=== PATIENT | male | born 1950 | race Caucasian/White ===

== ENCOUNTER 2019-07-22 15:20 | Inpatient (IN) ==
[2019-07-22 15:59] LABS: Basophils # (auto) 0.01 K/uL (0-0.2); Basophils % (auto) 0.2 %; Eosinophils # (auto) 0.19 K/uL (0-0.5); Hematocrit (blood only) 42.4 % (42-52); Hemoglobin 14.5 g/dL (14.0-18.0); Immature Granulocytes # (auto) 0.01 K/uL (0.00-0.02); Immature Granulocytes % (auto) 0.2 %; Lymphocytes % (auto) 27.5 %; Mean Corpuscular Hgb Conc 34.2 g/dL (32-36); Mean Corpuscular Volume 93.6 fL (80-100); Mean Platelet Volume 9.9 fL (7.4-10.4); Monocytes # (auto) 0.42 K/uL (0.11-0.59); Monocytes % (auto) 8.9 %; Neutrophils # (auto) 2.79 K/uL (1.4-6.5); Neutrophils % (auto) 59.2 %; Platelet Count 211 K/uL (130-400); RDW Standard Deviation 44.5 fL (36.4-46.3); Red Blood Count 4.53 M/uL (4.7-6.1); White Blood Count 4.72 K/uL (4.8-10.8)
[2019-07-22] MEDS ORDERED: ONDANSETRON INJ 2 MG/ML 2 ML VIAL IV STA (16:01)
[2019-07-22] MEDS ORDERED: MECLIZINE HCL 25 MG TAB PO STA (16:01)
[2019-07-22] MEDS ORDERED: MAGNESIUM SULFATE / D5W 1 GM/100 ML BAG IV ONE (16:01)
[2019-07-22] MEDS ORDERED: SODIUM CHLORIDE 0.9% 1000ML 1,000 ML IV ONE ×2 (16:02→20:43)
--- NOTE | 2019-07-22 16:05 | CT Scan Report ---
CT head/brain wo con CLINICAL HISTORY: Strokelike symptoms. Visual difficulty. COMPARISON STUDY: 07/12/2018 TECHNIQUE: Axial CT of the brain is performed from the vertex to the skull base. IV contrast was not administered for this examination. A dose lowering technique was utilized adhering to the principles of ALARA. CT DOSE: 614.27 mGy.cm FINDINGS: No intra or extra-axial mass lesions are visualized. There is no CT evidence of acute cortical infarc tion. There is no evidence of midline shift. There is no acute hemorrhage. No calvarial fractures ar e visualized. There are patchy white matter hypodensities likely on a small vessel basis. There is an old left occi pital infarct. There is no evidence of pathologic ventricular dilatation. There is no evidence of acute sinusitis IMPRESSION: No acute intracranial findings Electronically signed by: Paul Collins M.D. 07/22/2019 4:04 PM
[2019-07-22 16:18] LABS: Partial Thromboplastin Ratio 0.9; Partial Thromboplastin Time 23.7 Seconds (21.0-31.0); Prothrombin Time 10.3 Seconds (9.0-12.0)
[2019-07-22 16:21] LABS: Alanine Aminotransferase 33 U/L (12-78); Albumin Level 4.1 gm/dl (3.4-5.0); Aspartate Aminotransferase 18 U/L (15-37); BUN Creatinine Ratio 16.4 (10-20); Blood Urea Nitrogen 22 mg/dl (7-18); Calcium 9.2 mg/dl (8.5-10.1); Carbon Dioxide 25 mmol/L (21-32); Chloride 107 mmol/L (98-107); Creatinine Clr Calc Pharmacy 59.7 ml/min; Est GFR (African American) 61.2; Est GFR (Non-African American) 52.8; Glucose 122 mg/dl (70-99); Magnesium 2.2 mg/dl (1.8-2.4); Potassium 4.3 mmol/L (3.5-5.1); Sodium 139 mmol/L (136-145)
--- NOTE | 2019-07-22 16:21 | XRay Report ---
XR chest 1V portable CLINICAL HISTORY: Blurred vision. COMPARISON STUDY: No previous studies for comparison. FINDINGS: The heart is normal in size. There is mild aortic tortuosity. There is slight prominence of the basilar markings, likely atelectatic. There is no failure. There are no pleural effusions.[ IMPRESSION: 1. Slightly prominent basilar markings, likely atelectatic. No evidence of failure. Electronically signed by: Paul Collins M.D. 07/22/2019 4:20 PM
[2019-07-22 16:26] LABS: Albumin Globulin Ratio 1.1 (0.9-2); Alkaline Phosphatase 62 U/L (45-117); Bilirubin,Total 0.6 mg/dl (0.2-1); Globulin 3.6 gm/dl (2.5-4.0); Total Protein 7.7 gm/dl (6.4-8.2); Troponin I < 0.015 ng/ml (0-0.045)
--- NOTE | 2019-07-22 18:11 | Magnetic Resonance Report ---
MRI OF THE BRAIN WITHOUT CONTRAST CLINICAL HISTORY: Blurred vision. Lightheadedness. Possible stroke. COMPARISON STUDY: 07-27, CT scan dated 07/22/2019 FINDINGS: Sagittal T1, axial diffusion, proton density and T2 weighted axial, coronal FLAIR, and axial T1-weigh laila images were acquired. No intra or extra-axial mass lesions are visualized There are areas of restricted water diffusion lateral to the left thalamus in the region of the alveu s and left inferior occipital frontal fasciculus. There is no evidence of ventricular dilatation. Proton density T2-weighted and FLAIR images reveal scattered foci of increased T2 signal within the w yudi matter, likely on a small vessel basis. There is an old left occipital lobe infarct There are no abnormal flow voids. IMPRESSION: 1. Acute left hemispheric infarct, abutting the lateral margin of the left thalamus. 2. Old left occipital lobe infarct 3. No evidence of intracranial mass on this noncontrast study Electronically signed by: Paul Collins M.D. 07/22/2019 6:09 PM
[2019-07-22] MEDS ORDERED: ASPIRIN 81 MG ECTAB PO STA (18:28)
--- NOTE | 2019-07-22 18:29 | History & Physical Report ---
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 Old left occipital lobe infarct. No evidence of intracranial mass on this noncontrast study Head CT:No acute intracranial findings Admit in Telemetry Unit Stroke work up including lipid panel, A1C, Neck CTA, ECHO Speech and swallow eval Continue plavix, Lipitor Added Aspirin 81 mg Neuro checks, Neurology consult PT/OT Allow permissive HTN in setting of acute CVA CKD III Baseline creatinine 1.5 Creatinine at baseline Monitor renal function Avoid nephrotoxic agents as able Hypertension Hold lisinopril, amlodipine Continue Coreg Monitor H/O Abdominal aortic aneurysm S/P Repair Continue home medications Dyslipidemia on Statin Former tobacco use disorder Quit smoking in 2006 GERD Continue PPI DVT Px: Heparin SQ Code Status Full Code Disposition: PT OT prior to discharge Expected discharge home in stable History of Present Illness Chief Complaint: Headache, Vision Problems Primary Care Provider: Kailash Bass MD Patient is a 68-year-old male with history of CVA, CKD III, hypertension, abdominal aortic aneurysm S/P Repair, dyslipidemia, former tobacco use disorder, GERD and other problems presents with history of headache, dizziness, balance issues, change in vision. Patient noticed to have frontal headache yesterday night and continued to have it this morning as well. He noticed having dizziness associated with change in vision which she describes as " fogginess" this morning at around 10:30 AM. Change in vision is greater in his right eye when compared to his left eye. He also noticed having balance issues while standing this morning which lasted for about few seconds as per patient. Currently while in ED he states that his symptoms resolved completely. He admits to driving to the hospital by himself. He reports taking his medications regularly. He denies any focal weakness, numbness, tingling, speech disturbance, trouble swallowing, head trauma, loss of consciousness. MRI suggestive of acute left hemispheric infarct, lateral margin of the left thalamus. Denies any history of chest pain, SOB, palpitations, orthopnea, pedal edema, diaphoresis, cough, fever, chills, fall, vertigo, facial deformity, double vision, bowel/bladder incontinence, nausea, vomiting, abdominal pain, diarrhea, dysuria, recent travel, sick contact, recent change in medications. Allergies Allergy/AdvReac Type Severity Reaction Status Date / Time ciprofloxacin Allergy Unknown Verified 07/22/19 17:06 Home Medications Home Medications Medication Instructions Recorded Confirmed Type amlodipine 10 mg PO QAM 07/11/18 07/22/19 History cholecalciferol (vitamin D3) 2,000 unit PO QAM 07/11/18 07/22/19 History [Vitamin D3] lisinopril 5 mg PO QAM 07/11/18 07/22/19 History atorvastatin 80 mg PO QAM 07/22/19 07/22/19 History carvedilol 3.125 mg PO BID 07/22/19 07/22/19 History clopidogrel 75 mg PO QAM 07/22/19 07/22/19 History duloxetine 60 mg PO QAM 07/22/19 07/22/19 History ezetimibe 10 mg PO QAM 07/22/19 07/22/19 History omega-3 fatty acids 500 mg PO QAM 07/22/19 07/22/19 History sildenafil (antihypertensive) 20 mg PO DAILY PRN 07/22/19 07/22/19 History Past Med/Surg History Medical History HTN (hypertension) (Chronic) HLD (hyperlipidemia) (Chronic) CKD (chronic kidney disease) stage 3, GFR 30-59 ml/min (Chronic) History of tobacco abuse (Chronic) GERD (gastroesophageal reflux disease) (Chronic) Surgical History History of hernia repair (Chronic) History of arthroscopy of both knees (Chronic) H/O neck surgery s/p Fusion of cervical vertebrae History of AAA (abdominal aortic aneurysm) repair 2008 Dr Gambino History of arthroscopy of right shoulder History of tonsillectomy and adenoidectomy Family History Father , in 70s Stroke Alcohol abuse Cirrhosis Mother Coronary heart disease Dementia Sister No significant family history Social History Preferred Language: [place] Communication Ability: Effective Site Identification Specialist Required: No Beliefs That Will Affect Care: None marital status: Current Living Situation: Spouse current occupational status: 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[place] at [employer]; of [employer] Feels Safe at Home: Yes Smoking Status: Former smoker Cigarettes Per Day: 15 ; Second Hand Exposure: No ; Hx Alcohol Use: Yes Alcohol type: beer and wine Alcohol Intake Frequency Comment: Rare Hx Substance Use: No Review of Systems Review of Systems: All systems reviewed & are unremarkable except as noted in HPI & below Physical Exam Physical Exam: Physical Exam: Vitals signs as noted above General Appearance:Moderately built and nourished, no apparent distress Head: normocephalic, Atraumatic Eyes: normal inspection, EOMI, PERRL Neck: supple, Trachea midline Respiratory/Chest: Normal breath sounds, CTA, No accessory muscle use Cardiovascular: S1, S2, No murmur Abdomen/GI:Soft, Non tender, Bowel sounds present Extremities/Musculoskelatal:normal inspection, no edema Neurologic/Psych:AAOX3, No focal weakness, sensory intact, No memory issues Skin: normal color, warm Results & Data Vital Signs (Past 12 Hours) Vital Signs Temp Pulse Pulse Resp BP BP Pulse Ox 07/22/19 17:20 88 16 142/81 H 97 07/22/19 15:31 36.6 C 93 H 20 128/75 97 Laboratory Results Short CBC 07/22/19 Range/Units 15:51 WBC 4.72 L (4.8-10.8) K/uL Hgb 14.5 (14.0-18.0) g/dL Hct 42.4 (42-52) % Plt Count 211 (130-400) K/uL BMP 07/22/19 15:51 Sodium 139 Potassium 4.3 Chloride 107 Carbon Dioxide 25 BUN 22 H Creatinine 1.35 Glucose 122 H Calcium 9.2 Cardiac Enzymes 07/22/19 Range/Units 15:51 Troponin I < 0.015 (0-0.045) ng/ml Liver Function 07/22/19 Range/Units 15:51 Total Bilirubin 0.6 (0.2-1) mg/dl AST 18 (15-37) U/L ALT 33 (12-78) U/L Alkaline Phosphatase 62 (45-117) U/L Albumin 4.1 (3.4-5.0) gm/dl Diagnostic Findings MRI brain 1. Acute left hemispheric infarct, abutting the lateral margin of the left thalamus. 2. Old left occipital lobe infarct 3. No evidence of intracranial mass on this noncontrast study CT head: No acute intracranial findings CXR: Slightly prominent basilar markings, likely atelectatic. No evidence of failure Medications Administered Home Medications Medication Instructions Recorded Confirmed amlodipine 10 mg PO QAM 07/11/18 07/22/19 cholecalciferol (vitamin D3) 2,000 unit PO QAM 07/11/18 07/22/19 [Vitamin D3] lisinopril 5 mg PO QAM 07/11/18 07/22/19 atorvastatin 80 mg PO QAM 07/22/19 07/22/19 carvedilol 3.125 mg PO BID 07/22/19 07/22/19 clopidogrel 75 mg PO QAM 07/22/19 07/22/19 duloxetine 60 mg PO QAM 07/22/19 07/22/19 ezetimibe 10 mg PO QAM 07/22/19 07/22/19 omega-3 fatty acids 500 mg PO QAM 07/22/19 07/22/19 sildenafil (antihypertensive) 20 mg PO DAILY PRN 07/22/19 07/22/19 ECG Additional Comments: EKG: Sinus rhythm with first-degree AV block, QTC 412
[2019-07-22] MEDS ORDERED: POLYETHYLENE (MIRALAX) 17 GM PACK PO PRN (20:43)
[2019-07-22] MEDS ORDERED: PHARMACIST DISCHARGE MED REC CONSULT PRN (20:43)
[2019-07-22] MEDS ORDERED: ONDANSETRON INJ 2 MG/ML 2 ML VIAL IV PRN (20:43)
[2019-07-22] MEDS ORDERED: ACETAMINOPHEN 325 MG TAB PO PRN (20:43)
[2019-07-22] MEDS: carvediloL 3.125 MG TAB PO SCH (22:20)
[2019-07-22] MEDS: HEPARIN SOD 5,000 UNIT/0.5 ML VIAL SQ SCH (22:21)
[2019-07-23 07:05] LABS: Basophils # (auto) 0.01 K/uL (0-0.2); Basophils % (auto) 0.2 %; Eosinophils # (auto) 0.19 K/uL (0-0.5); Eosinophils % (auto) 4.4 %; Hematocrit (blood only) 39.1 % (42-52); Hemoglobin 13.4 g/dL (14.0-18.0); Lymphocytes # (auto) 1.19 K/uL (1.2-3.4); Lymphocytes % (auto) 27.8 %; Mean Corpuscular Hemoglobin 32.1 pg (25-34); Mean Corpuscular Hgb Conc 34.3 g/dL (32-36); Mean Corpuscular Volume 93.8 fL (80-100); Monocytes # (auto) 0.36 K/uL (0.11-0.59); Monocytes % (auto) 8.4 %; Neutrophils # (auto) 2.53 K/uL (1.4-6.5); Neutrophils % (auto) 59.2 %; Platelet Count 203 K/uL (130-400); RDW Standard Deviation 44.8 fL (36.4-46.3); Red Blood Count 4.17 M/uL (4.7-6.1); White Blood Count 4.28 K/uL (4.8-10.8)
[2019-07-23 07:17] LABS: Estimated Average Glucose 131 mg/dl; Hemoglobin A1C 6.2 % (4.5-5.6)
[2019-07-23 07:36] LABS: BUN Creatinine Ratio 15.9 (10-20); Calcium 8.6 mg/dl (8.5-10.1); Creatinine Clr Calc Pharmacy 64.4 ml/min; Est GFR (African American) 67.2; Potassium 4.3 mmol/L (3.5-5.1)
[2019-07-23] MEDS: carvediloL 3.125 MG TAB PO SCH (08:39)
[2019-07-23] MEDS: HEPARIN SOD 5,000 UNIT/0.5 ML VIAL SQ SCH (08:40)
[2019-07-23] MEDS ORDERED: ASPIRIN 81 MG ECTAB PO SCH (09:00)
[2019-07-23] MEDS ORDERED: DULOXETINE HCL 60 MG CAP PO SCH (09:00)
[2019-07-23] MEDS ORDERED: ATORVASTATIN 40 MG TAB PO SCH (09:00)
[2019-07-23] MEDS ORDERED: CLOPIDOGREL BISULFATE 75 MG TAB PO SCH (09:00)
[2019-07-23] MEDS ORDERED: EZETIMIBE 10 MG TABLET PO SCH (09:00)
[2019-07-23] MEDS ORDERED: OPTIRAY 320 125ml IV PRN (09:38)
--- NOTE | 2019-07-23 10:02 | CT Scan Report ---
CT angio neck with con HISTORY: Atherosclerosis CVA, H/O carotid a disease TECHNIQUE: Multiaxial CT angiography of the neck was performed IV contrast: 100 cc nonionic All tanya urements were calculated based on NASCET criteria. Maximum intensity projection images were also obt ained. A dose lowering technique was utilized adhering to the principles of ALARA. COMPARISON STUDY: 07/12/2018 FINDINGS: The aortic arch and proximal great vessels are widely patent. There is no significant sten osis, occlusion, or dissection identified within the bilateral common carotid, internal carotid, or v ertebral arteries. There are findings of scattered plaque formation involving the carotid bifurcation s and proximal internal as well as external carotid arteries. High-grade stenotic process is not appreciated. The vertebral basilar system appears to be unremarkable. Moderate plaque measures noted within the me dial right subclavian artery. IMPRESSION: 1. No significant stenosis, occlusion, or dissection identified within the carotid or vertebral arter ies. 2. Mild scattered plaque formation of the carotid systems as discussed including the right subclavian artery. The above report was generated using voice recognition software. It may contain grammatical, syntax or spelling errors. Electronically signed by: Braulio Hernandez M.D. 07/23/2019 10:00 AM
--- NOTE | 2019-07-23 14:17 | Neurology Consultation ---
Date of Consultation July 23, 2019 Assessment & Plan (1) CVA (cerebral vascular accident): 1. MRI acute left hemispheric infarct L thalamus, old L occipital infarct 2. TTE- EF 55-60% no ASD 3. continue plavix 75 mg and add aspirin 81 mg daily 4. optimize HLD, HTN, DM LDL <70 5. out patient ZIO after last admission no afib 6. PT/OT speech no current needs 7. out patient vascular work up scheduled in [place] 1 year follow up for aorotic aneurysm repair. follow up with neurology 4-6 weeks after discharge Kaylyn Storm PAC schedule. Supervising Physician Co-Signing Physician Notes Patient was seen and examined. Agree with Kaylyn Storm PA-C. Patient sitting upright in bed. Reports feeling well. States positional dizziness has resolved. 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 MRI brain reviewed with patient and family. Small left thalamic infarct. Etiology likely thrombotic. Patient with known coronary artery disease and prior smoker. Will add ASA and continue Plavix 75 mg daily. Will continue Lipitor 80 mg daily. Will check Sed rate and ANCA. He reports that he was diagnosed with COOPER but not using CPAP. I will refer patient to sleep medicine. Will arrange follow up in 4- 6 weeks with Kaylyn Storm PA-C. Patient agreed to plan of care and had no further questions. History of Present Illness Reason for Consultation: CVA Requesting Physician: Roque Zamudio MD Attending Physician: Roque Zamudio MD History of Present Illness Dawit is a 68 year old male with PMH CVA, CKD III, HTN, abdominal aortic aneurysm S/P Repair, HLD, former tobacco use quit 11 years ago, GERD. Presents with headache, dizziness, balance issues. He had a frontal headache that started the night prior to presentation. In the am he had some dizziness associated with " fogginess" at around 10:30 AM. He also noticed having balance issues while standing in the morning which lasted for about few seconds as per patient. He drove himself to the hospital and by the time he arrived the symptoms had resolved. He is now on statins which he states gives him leg pains. His PCP gave him Cymbalta for the leg pain but it makes him tired. He was seen 07/18/2018 after an episode of loss of vision while he was driving. At that time he was told to stop aspirin 81 mg and start 75 mg plavix which he is still taking. denies CP, SOB, abdominal pain, one sided weakness, numbness tingling, vision changes, bowel or bladder issues, N, V. Allergies Allergy/AdvReac Type Severity Reaction Status Date / Time ciprofloxacin Allergy Unknown Verified 07/22/19 17:06 Home Medications Home Medications Medication Instructions Recorded Confirmed Type amlodipine 10 mg PO QAM 07/11/18 07/22/19 History cholecalciferol (vitamin D3) 2,000 unit PO QAM 07/11/18 07/22/19 History [Vitamin D3] lisinopril 5 mg PO QAM 07/11/18 07/22/19 History atorvastatin 80 mg PO QAM 07/22/19 07/22/19 History carvedilol 3.125 mg PO BID 07/22/19 07/22/19 History clopidogrel 75 mg PO QAM 07/22/19 07/22/19 History duloxetine 60 mg PO QAM 07/22/19 07/22/19 History ezetimibe 10 mg PO QAM 07/22/19 07/22/19 History omega-3 fatty acids 500 mg PO QAM 07/22/19 07/22/19 History sildenafil (antihypertensive) 20 mg PO DAILY PRN 07/22/19 07/22/19 History aspirin [Ecotrin Low Strength] 81 mg PO QAM 30 Days #30 tab 07/23/19 Rx Patient History Medical History HTN (hypertension) (Chronic) HLD (hyperlipidemia) (Chronic) CKD (chronic kidney disease) stage 3, GFR 30-59 ml/min (Chronic) History of tobacco abuse (Chronic) GERD (gastroesophageal reflux disease) (Chronic) Surgical History History of hernia repair (Chronic) History of arthroscopy of both knees (Chronic) H/O neck surgery s/p Fusion of cervical vertebrae History of AAA (abdominal aortic aneurysm) repair 2008 Dr Gambino History of arthroscopy of right shoulder History of tonsillectomy and adenoidectomy Family History Father , in 70s Stroke Alcohol abuse Cirrhosis Mother Coronary heart disease Dementia Sister No significant family history Social History Preferred Language: Montenegrin Communication Ability: Effective Tip Puncher Required: No Beliefs That Will Affect Care: None marital status: Current Living Situation: Spouse current occupational status: 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[place] at [employer]; of [employer] Other Information That Helps Us Care for You: No Feels Safe at Home: Yes Safety Concerns: Feels Safe At This Time Smoking Status: Former smoker Cigarettes Per Day: 15 ; Do You Dip or Chew Tobacco: No ; Second Hand Exposure: No ; Hx Alcohol Use: No Hx Substance Use: No Physical Exam Physical Exam: Physical Exam: Constitutional: appearance nourished, healthy and normal Ears, Nose, Mouth and Throat: mucous membranes moist, no injection and skin normal, eyes normal Cardiovascular: normal S-1 and S-2 and regular rate and rhythm Respiratory: clear to auscultation (CTA) and no rales, rhonchi or wheeze Musculoskeletal: no peripheral edema and good distal pulses Skin: no stigmata of neurocutaneous disease noted and normal and intact Eyes: extraocular muscles intact (EOMI) and pupils equal, round and reactive to light (PERRL) NEUROLOGIC EXAMINATION: Mental status: Alert and interactive Oriented to full date and location Oriented to person Speech fluent with no evidence of aphasia Cranial Nerves smile eye brow raise symmetric, tongue midline Reflexes: Deep tendon reflexes were symmetrical and graded 2/5. down going toes Sensory: intact to light and cool touch Coordination: finger to nose and rapid hand movement intact, no dysmetria with heel to godwin Gait/Stance: Posture normal. sitting up in bed Motor: Negative for pronator drift of out stretched arms with eyes closed. Strength: biceps triceps, hand interior design coordinator 5/5 bilaterally, hip flex patellar/plantar flex ext bilaterally 5/5 Results & Data Vital Signs (Past 12 Hours) Vital Signs Temp Pulse Pulse Resp BP Pulse Ox 07/23/19 11:04 36.9 C 66 18 159/71 H 95 07/23/19 08:00 61 07/23/19 07:53 36.6 C 63 20 144/73 H 97 07/23/19 03:41 36.5 C 63 18 114/66 94 Laboratory Results Abnormal lab results 07/22/19 07/22/19 07/22/19 Range/Units 15:48 15:51 15:51 WBC 4.72 L (4.8-10.8) K/uL RBC 4.53 L (4.7-6.1) M/uL Hgb (14.0-18.0) g/dL Hct (42-52) % Lymph # (Auto) (1.2-3.4) K/uL Chloride (98-107) mmol/L BUN 22 H (7-18) mg/dl Glucose 122 H (70-99) mg/dl POC Glucose 108 H (70-99) Hemoglobin A1c (4.5-5.6) % 07/22/19 07/23/19 07/23/19 Range/Units 15:51 06:48 06:48 WBC 4.28 L (4.8-10.8) K/uL RBC 4.17 L (4.7-6.1) M/uL Hgb 13.4 L (14.0-18.0) g/dL Hct 39.1 L (42-52) % Lymph # (Auto) 1.19 L (1.2-3.4) K/uL Chloride 110 H (98-107) mmol/L BUN 20 H (7-18) mg/dl Glucose (70-99) mg/dl POC Glucose (70-99) Hemoglobin A1c 6.2 H (4.5-5.6) % Diagnostic Findings CT head- No acute intracranial findings CXR- Slightly prominent basilar markings, likely atelectatic. No evidence of failure. MRI brain- Acute left hemispheric infarct, abutting the lateral margin of the left thalamus. Old left occipital lobe infarct No evidence of intracranial mass on this noncontrast study CTA neck-No significant stenosis, occlusion, or dissection identified within the carotid or vertebral arteries. Mild scattered plaque formation of the carotid systems as discussed including the right subclavian artery. EF 55-60 % no ASD
--- NOTE | 2019-07-23 14:59 | Hospitalist Progress Note ---
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 Old left occipital lobe infarct. No evidence of intracranial mass on this noncontrast study Head CT:No acute intracranial findings Neck CTA:No significant stenosis, occlusion, or dissection identified within the carotid or vertebral arteries. Mild scattered plaque formation of the carotid systems as discussed including the right subclavian artery. Monitor in Telemetry Lipid panel: wnl HbA1C:6.2 ECHO: No ASD Speech and swallow eval done Continue Plavix, Lipitor Added Aspirin 81 mg Neuro checks Appreciate Neurology Input PT/OT: Recommend return home Allow permissive HTN in setting of acute CVA Sleep study as outpatient ESR and ANCA Screen:pending CKD III Baseline creatinine 1.5 Creatinine at baseline Monitor renal function Avoid nephrotoxic agents as able Hypertension Resume lisinopril, amlodipine as able Continue Coreg Monitor H/O Abdominal aortic aneurysm S/P Repair Continue home medications Dyslipidemia on Statin Former tobacco use disorder Quit smoking in 2006 GERD Continue PPI DVT Px: Heparin SQ Code Status Full Code Disposition: Plan to home as able Subjective Patient is seen and examined at bedside Reports minimal frontal headache today Denies any recurrence of visual problems Denies any focal weakness Offers no other complaints Denies any chest pain, shortness of breath, dizziness, nausea, abdominal pain Eager to get discharged Family at bedside Review of Systems Review of Systems: All systems reviewed & are unremarkable except as noted in HPI & below Physical Exam Physical Exam: Physical Exam: Vitals signs as noted above General Appearance:Moderately built and nourished, no apparent distress Head: normocephalic, Atraumatic Eyes: normal inspection, EOMI, PERRL Neck: supple, Trachea midline Respiratory/Chest: Normal breath sounds, CTA, No accessory muscle use Cardiovascular: S1, S2, No murmur Abdomen/GI:Soft, Non tender, Bowel sounds present Extremities/Musculoskelatal:normal inspection, no edema Neurologic/Psych:AAOX3, No focal weakness, sensory intact, No memory issues Skin: normal color, warm Results & Data Vital Signs (Past 12 Hours) Vital Signs Temp Pulse Pulse Resp BP Pulse Ox 07/23/19 11:04 36.9 C 66 18 159/71 H 95 07/23/19 08:00 61 07/23/19 07:53 36.6 C 63 20 144/73 H 97 07/23/19 03:41 36.5 C 63 18 114/66 94 Laboratory Results Short CBC 07/22/19 07/23/19 Range/Units 15:51 06:48 WBC 4.72 L 4.28 L (4.8-10.8) K/uL Hgb 14.5 13.4 L (14.0-18.0) g/dL Hct 42.4 39.1 L (42-52) % Plt Count 211 203 (130-400) K/uL BMP 07/22/19 07/23/19 15:51 06:48 Sodium 139 141 Potassium 4.3 4.3 Chloride 107 110 H Carbon Dioxide 25 27 BUN 22 H 20 H Creatinine 1.35 1.25 Glucose 122 H 90 Calcium 9.2 8.6 Cardiac Enzymes 07/22/19 Range/Units 15:51 Troponin I < 0.015 (0-0.045) ng/ml Liver Function 07/22/19 Range/Units 15:51 Total Bilirubin 0.6 (0.2-1) mg/dl AST 18 (15-37) U/L ALT 33 (12-78) U/L Alkaline Phosphatase 62 (45-117) U/L Albumin 4.1 (3.4-5.0) gm/dl Diagnostic Findings Neck CTA: 1. No significant stenosis, occlusion, or dissection identified within the carotid or vertebral arteries. 2. Mild scattered plaque formation of the carotid systems as discussed including the right subclavian artery.
[2019-07-23 15:59] VITALS: BP 157/75; PULSE 70; TEMP 98.1; O2SAT 94
[2019-07-23] MEDS ORDERED: STROKE PATIENT DISCHARGE STA (15:59)
--- NOTE | 2019-07-23 15:59 | Discharge Summary ---
Date of Service July 23, 2019 Admission HPI Per Admitting Provider Patient is a 68-year-old male with history of CVA, CKD III, hypertension, abdominal aortic aneurysm S/P Repair, dyslipidemia, former tobacco use disorder, GERD and other problems presents with history of headache, dizziness, balance issues, change in vision. Patient noticed to have frontal headache yesterday night and continued to have it this morning as well. He noticed having dizziness associated with change in vision which she describes as " fogginess" this morning at around 10:30 AM. Change in vision is greater in his right eye when compared to his left eye. He also noticed having balance issues while standing this morning which lasted for about few seconds as per patient. Currently while in ED he states that his symptoms resolved completely. He admits to driving to the hospital by himself. He reports taking his medications regularly. He denies any focal weakness, numbness, tingling, speech disturbance, trouble swallowing, head trauma, loss of consciousness. MRI suggestive of acute left hemispheric infarct, lateral margin of the left thalamus. Denies any history of chest pain, SOB, palpitations, orthopnea, pedal edema, diaphoresis, cough, fever, chills, fall, vertigo, facial deformity, double vision, bowel/bladder incontinence, nausea, vomiting, abdominal pain, diarrhea, dysuria, recent travel, sick contact, recent change in medications. Admission Exam Per Admitting Provider Physical Exam: Vitals signs as noted above General Appearance:Moderately built and nourished, no apparent distress Head: normocephalic, Atraumatic Eyes: normal inspection, EOMI, PERRL Neck: supple, Trachea midline Respiratory/Chest: Normal breath sounds, CTA, No accessory muscle use Cardiovascular: S1, S2, No murmur Abdomen/GI:Soft, Non tender, Bowel sounds present Extremities/Musculoskelatal:normal inspection, no edema Neurologic/Psych:AAOX3, No focal weakness, sensory intact, No memory issues Skin: normal color, warm Principal Diagnosis Acute CVA Discharge Data Allergies Allergy/AdvReac Type Severity Reaction Status Date / Time ciprofloxacin Allergy Unknown Verified 07/22/19 17:06 Consultations 07/22/19 18:27 ED Decision to Admit Stat 07/22/19 20:43 Consult Case Management - Discharge Planning Routine Consult Neurology Routine Procedures Performed MRI Brain:Acute left hemispheric infarct, abutting the lateral margin of the left thalamus. Old left occipital lobe infarct. No evidence of intracranial mass on this noncontrast study Head CT:No acute intracranial findings Neck CTA:No significant stenosis, occlusion, or dissection identified within the carotid or vertebral arteries. Mild scattered plaque formation of the carotid systems as discussed including the right subclavian artery. CXR:Slightly prominent basilar markings, likely atelectatic. No evidence of failure. Ordered Studies 07/22/19 15:47 CT head/brain wo con Stat 07/22/19 16:30 MR brain wo con Stat 07/23/19 08:00 CT angio neck with con Routine Hospital Course (1) CVA (cerebral vascular accident): Acute CVA: Not a candidate for tPA- Passed the window period H/O left [employer] stroke, bilateral carotid artery disease MRI Brain:Acute left hemispheric infarct, abutting the lateral margin of the left thalamus. Old left occipital lobe infarct. No evidence of intracranial mass on this noncontrast study Head CT:No acute intracranial findings Neck CTA:No significant stenosis, occlusion, or dissection identified within the carotid or vertebral arteries. Mild scattered plaque formation of the carotid systems as discussed including the right subclavian artery. Monitor in Telemetry Lipid panel: wnl HbA1C:6.2 ECHO: No ASD Speech and swallow eval done Continue Plavix, Lipitor Added Aspirin 81 mg Neuro checks Appreciate Neurology Input PT/OT: Recommend return home Allow permissive HTN in setting of acute CVA Sleep study as outpatient ESR and ANCA Screen:pending CKD III Baseline creatinine 1.5 Creatinine at baseline Monitor renal function Avoid nephrotoxic agents as able Hypertension Resume lisinopril, amlodipine as able Continue Coreg Monitor H/O Abdominal aortic aneurysm S/P Repair Continue home medications Dyslipidemia on Statin Former tobacco use disorder Quit smoking in 2006 GERD Continue PPI DVT Px: Heparin SQ Code Status Full Code Disposition: Plan to home as able Total Time Total Time Spent Total Time Spent (In Minutes): 40 minutes Total Time Includes: Examination of the Patient, Discharge Planning, Medication Reconciliation, Communication With Other Providers and Other Discharge Plan Discharge Items Patient Disposition: Home - Self-Care Reason For Visit: ACUTE CVA Discharge Diagnosis: Acute Stroke Activity: Resume your previous activity Exercise/Sports: Gradually increase as tolerated Non-emergency contact: Primary Care Provider and Neurologist Call non-emergency contact if: you have any medication questions, your symptoms worsen, your pain is not controlled, your pain is worsening, your pain is unusual for you, your pain is concerning for you and you have a fever Follow-up/Referrals: Kailash Bass MD [Primary Care Provider] - Diet: Heart Healthy Addtl Attending Provider Instructions: Follow-up with your primary care physician Dr. Bass on July 30, 2019 at 10:45 AM Follow-up with your urologist Kaylyn Storm PA-C in 2-4 weeks Follow-up with your vascular surgeon in [facility] for follow-up on aortic aneurysm repair Get Sleep Study done as outpatient as recommended by your Neurologist Seek immediate medical attention if your symptoms reoccur or worsen Risk Factors for Stroke: You can reduce your chances of stroke by working with your medical provider to adopt a healthy lifestyle. Some specific ways to lower your chance of stroke are: * If you are a smoker, now is the time to stop smoking cigarettes * If you are diabetic, improve the control of your blood sugars * Avoid excessive amounts of alcohol * Control high blood pressure * Lose weight if you are overweight * Be sure to lead an active lifestyle * Eat a healthy diet low in salt, cholesterol and fat You should know about other risk factors for stroke that you are unable to control. These include: * Age 55 years or older * Male gender * Certain racial groups: , or / * Family History of Stroke, Mini stroke or Heart Attack * Sickle Cell Disease Follow Up: It is important for you to keep your follow up appointments with your medical provider. Who to Call and When: Medical Emergencies: Call 911 immediately if you experience any of the following warning signs and symptoms of Stroke: * Sudden numbness or weakness of the face, arm or leg, especially on one side of the body * Sudden confusion, trouble speaking or understanding * Sudden trouble seeing in one or both eyes * Sudden trouble walking, dizziness, loss of balance or coordination * Sudden severe headache with no cause Do not delay calling 911 if you experience any warning signs or symptoms of a stroke. Delay in seeking medical attention may affect what treatments can be given to you. . Pending Studies at Discharge: Yes Studies:: ESR ANCA screen Stand-Alone Forms: Medications to Prevent Stroke, [facility] Medications and DC Order Prescriptions: New aspirin [Ecotrin Low Strength] 81 mg Tablet,Delayed Release (Dr/Ec) 81 mg PO QAM 30 Days Qty: 30 RF: 1 Continued amlodipine 10 mg tablet 10 mg PO QAM RF: 0 lisinopril 5 mg tablet 5 mg PO QAM RF: 0 cholecalciferol (vitamin D3) [Vitamin D3] 2,000 unit Tablet 2,000 unit PO QAM RF: 0 atorvastatin 80 mg tablet 80 mg PO QAM RF: 0 clopidogrel 75 mg tablet 75 mg PO QAM RF: 0 carvedilol 3.125 mg tablet 3.125 mg PO BID RF: 0 ezetimibe 10 mg tablet 10 mg PO QAM RF: 0 duloxetine 60 mg capsule,delayed release(DR/EC) 60 mg PO QAM RF: 0 sildenafil (antihypertensive) 20 mg tablet 20 mg PO DAILY PRN (Reason: Relations) RF: 0 omega-3 fatty acids 500 mg Capsule 500 mg PO QAM RF: 0 Discharge Orders: Discharge Order (Routine); Ordered 07/23/19 Ordered By: Roque Acevedo/Other Patient Handouts: Prediabetes, Diabetes Meal Planning Admission Data Admit Date/Time: 07/22/19 19:08 Attending Provider: Roque Zamudio Admit Provider: Roque Zamudio Primary Care Provider: Kailash Bass Other Providers: Roque Zamudio ; Andrew Wellington Other Interventions: Discharge Summary Assessment (RN) Last Done: 07/23/19 16:12 DC Date/Time DO NOT enter until pt leaves facility: 07/23/19 16:45
--- NOTE | 2019-07-23 17:26 | Pharmacy Report ---
Pharmacist Stroke Counseling - Date of Service July 23, 2019 - Scope: Pharmacy has been consulted to provide medication discharge counseling for this patient admitted with ischemic stroke as per the Pharmacist Discharge Counseling for Stroke Patients Protocol. - Medications on Discharge: Home Medications Medication Instructions Recorded Confirmed amlodipine 10 mg PO QAM 07/11/18 07/22/19 cholecalciferol (vitamin D3) 2,000 unit PO QAM 07/11/18 07/22/19 [Vitamin D3] lisinopril 5 mg PO QAM 07/11/18 07/22/19 atorvastatin 80 mg PO QAM 07/22/19 07/22/19 carvedilol 3.125 mg PO BID 07/22/19 07/22/19 clopidogrel 75 mg PO QAM 07/22/19 07/22/19 duloxetine 60 mg PO QAM 07/22/19 07/22/19 ezetimibe 10 mg PO QAM 07/22/19 07/22/19 omega-3 fatty acids 500 mg PO QAM 07/22/19 07/22/19 sildenafil (antihypertensive) 20 mg PO DAILY PRN 07/22/19 07/22/19 New Rx's Medication Instructions Recorded aspirin [Ecotrin Low Strength] 81 mg PO QAM 30 Days #30 tab 07/23/19 - Action: The above medications, specifically ones for stroke treatment/prophylaxis, have been reviewed in detail with the patient and/or patient sales representative jewelry(s) prior to discharge. This includes indication, common adverse reactions, drug interactions, and medication administration. Medication counseling has been employed using the teach-back method to ensure understanding. - Outcome: The patient and/or patient sales representative jewelry(s) have demonstrated understanding of the medications. Please note, they are aware that the pharmacist will call them within 72 hours post-discharge to confirm that the appropriate medications are being taken and answer any further medication related questions the patient might have at that time. Contact information Individual to be contacted: Dawit Goetz Relationship to patient (if applicable): Self Phone number: [phone] Best time to call: After 9:00 AM Additional comments: * Met with patient and at bedside prior to discharge. This is actually his 2nd stroke; previous one was in 2018 when Plavix was started. * He reports good adherence with medications, LDL = 50, and he denies smoking (quit 11 years ago). He is going to be evaluated for potential sleep apnea. He seems knowledgeable about his medications and uses a pillbox to organize. * He is aware to add aspirin 81mg to his daily Plavix. If insurance does not pay, he will buy OTC - recommended enteric coated. * Takes Cymbalta 60mg qAM for neuropathy - he is going to talk to his PCP about decr' dose to 30mg because he thinks 60mg is making him too sleepy and pain control was adequate with 30mg. He is also going to switch to HS dosing due to AM sedation * Recommend that he discuss need for fish oil again with PCP now that he is on dual anti-platelet therapy. Explain incr' risk for bleeding and lack of evidence to clinical benefits. He agrees to do this. * Previously took omeprazole - now takes "prn" GERD, but has not used for ~1 year. Explained risk for omeprazole to dec'r Plavix efficacy, which may incr' risk for recurrent stroke. He agrees to discard omeprazole and use Tums or Gaviscon prn instead. Thank you for allowing pharmacy to be involved in the care of this patient. Please call [phone] or [phone] with any additional questions
--- NOTE | 2019-07-24 00:34 | Emergency Department Note ---
Entered by Soledad Valadez acting as a scribe for Brody Alas MD History of Present Illness General Chief complaint: Eye Problems Stated complaint: DIZZY - BLURRY EYES Time Seen by Provider: 07/22/19 15:43 Source: patient Mode of arrival: ambulatory Limitations: no limitations History of Present Illness Onset (ago): hour(s) 6 Location: eyes (bilateral) Radiation: non-radiation Pain Consistency: + constant Maximum Pain Intensity: 2 Current Pain Intensity: 2 Relieved By: + none Exacerbated By: + none Associated symptoms: + other (+dizziness) Treatments prior to arrival: none The patient is a 68 year old male who presents to the ED with complaints of blurry vision. He states it is worse in his right eye and started upon waking this morning, around 0945. He rates his discomfort as a 2/10 in severity. He notes he felt dizzy yesterday, and still feels off balance currently. The di zziness is worsened by standing up. The patient admits to a history of a stroke last year and states his symptoms are similar to his stroke. He does take daily medication for hypertension as well as daily Plavix. Nursing states his BSG is 108. Home Medications Home Medications Medication Instructions Recorded Confirmed Type amlodipine 10 mg PO QAM 07/11/18 07/22/19 History cholecalciferol (vitamin D3) 2,000 unit PO QAM 07/11/18 07/22/19 History [Vitamin D3] lisinopril 5 mg PO QAM 07/11/18 07/22/19 History atorvastatin 80 mg PO QAM 07/22/19 07/22/19 History carvedilol 3.125 mg PO BID 07/22/19 07/22/19 History clopidogrel 75 mg PO QAM 07/22/19 07/22/19 History duloxetine 60 mg PO QAM 07/22/19 07/22/19 History ezetimibe 10 mg PO QAM 07/22/19 07/22/19 History omega-3 fatty acids 500 mg PO QAM 07/22/19 07/22/19 History sildenafil (antihypertensive) 20 mg PO DAILY PRN 07/22/19 07/22/19 History aspirin [Ecotrin Low Strength] 81 mg PO QAM 30 Days #30 tab 07/23/19 Rx Allergies Allergy/AdvReac Type Severity Reaction Status Date / Time ciprofloxacin Allergy Unknown Verified 07/22/19 17:06 Past Med/Surg History Medical History HTN (hypertension) (Chronic) HLD (hyperlipidemia) (Chronic) CKD (chronic kidney disease) stage 3, GFR 30-59 ml/min (Chronic) History of tobacco abuse (Chronic) GERD (gastroesophageal reflux disease) (Chronic) Surgical History History of hernia repair (Chronic) History of arthroscopy of both knees (Chronic) H/O neck surgery s/p Fusion of cervical vertebrae History of AAA (abdominal aortic aneurysm) repair 2008 Dr Gambino History of arthroscopy of right shoulder History of tonsillectomy and adenoidectomy Family History Father , in 70s Stroke Alcohol abuse Cirrhosis Mother Coronary heart disease Dementia Sister No significant family history Social History Preferred Language: Macanese Communication Ability: Effective Marketing Content Coordinator Required: No Beliefs That Will Affect Care: None marital status: Current Living Situation: Spouse current occupational status: 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[employer]; [place] [employer] Other Information That Helps Us Care for You: No Feels Safe at Home: Yes Safety Concerns: Feels Safe At This Time Smoking Status: Former smoker Cigarettes Per Day: 15 ; Do You Dip or Chew Tobacco: No ; Second Hand Exposure: No ; Hx Alcohol Use: No Hx Substance Use: No Review of Systems See HPI for pertinent positives & negatives. and A total of 10 systems reviewed and were otherwise negative Physical Exam Vital Signs Vital Signs - 24 hr 07/22/19 15:31 07/22/19 17:20 Temperature 97.9 F Temperature Source Oral Sepsis Recent Fever Within 48 Hours No Sepsis Action Taken by Nursing No Action Required Pulse Rate 93 H Pulse Rate [Apical] 88 Pulse Rhythm Regular Pulse Strength Normal Respiratory Rate 20 16 Respiratory Effort / Characteristics Non-Labored Spontaneous Respiratory Depth Normal Respiratory Pattern Regular Blood Pressure 128/75 Blood Pressure [Left Arm] 142/81 H Blood Pressure Mean 92 Blood Pressure Mean [Left Arm] 101 Pulse Oximetry 97 97 Oxygen Delivery Method Room Air Room Air GENERAL: Awake, alert, well-appearing, in no acute distress HENT: Normocephalic, atraumatic. Oropharynx unremarkable. EYES: Normal conjunctiva. Sclera non-icteric. NECK: Supple. No nuchal rigidity. FROM. No JVD. RESPIRATORY: Clear to auscultation. CARDIAC: Regular rate, normal rhythm. Extremities warm and well perfused. Pulses equal. ABDOMEN: Soft, non-distended. No tenderness to palpation. No rebound or guarding. No masses. RECTAL: Deferred. MUSCULOSKELETAL: Chest examination reveals no tenderness. The back is symmetrical on inspection without obvious abnormality. There is no CVA tenderness to palpation. No joint edema. LOWER EXTREMITIES: Calves are equal size bilaterally and non-tender. No edema. No discoloration. NEURO: Normal sensorium. No sensory or motor deficits noted. SKIN: No rash or jaundice noted. Course 1544: The patient was evaluated in room A12B and a complete history and physical were performed. 1640: I reevaluated the patient. He is resting comfortably. 1827: [facility] The patient will be further evaluated. 1833: I reevaluated the patient. He is resting comfortably. I discussed his r esults and my recommendation he remain in the hospital for further evaluation and management and he verbalized complete understanding and agreement. Consultations Consultation #1: I [facility] the [facility] The patient will be further evaluated. Time: 18:27 Administered Medications Discontinued Medications Aspirin (Ecotrin Ectab) 81 mg PO NOW [facility] Stop: 07/22/19 18:29 Last Admin: 07/22/19 18:40 Dose: 81 mg Documented by: [id number] [facility]ab) [facility] [place] Stop: 08/22/19 08:59 Last Admin: 07/23/19 08:39 Dose: 81 mg Documented by: [id number] Atorvastatin Calcium (Lipitor) 80 mg PO QAM [facility] Stop: 08/22/19 08:59 Last Admin: 07/23/19 08:40 Dose: 80 mg Documented by: [id number] Carvedilol (Coreg) 3.125 mg PO BID [facility] Stop: 08/21/19 20:59 Last Admin: 07/23/19 08:39 Dose: 3.125 mg Documented by: [id number] Admin: 07/22/19 22:20 Dose: 3.125 mg Documented by: [id number] Clopidogrel Bisulfate (Plavix) [facility] [place] Stop: 08/22/19 08:59 Last Admin: 07/23/19 08:39 Dose: 75 mg Documented by: [id number] Duloxetine HCl (Cymbalta) 60 [facility] [place] Stop: 08/22/19 08:59 Last Admin: 07/23/19 08:39 Dose: 60 mg Documented by: [id number] Ezetimibe (Zetia) 10 mg PO [facility] Stop: 08/22/19 08:59 Last Admin: 07/23/19 08:40 Dose: 10 mg Documented by: [id number] Heparin Sodium (Porcine) (Heparin Sodium (Porcine)) 5,000 units SQ Q12 [facility] Stop: 08/21/19 20:59 Last Admin: 07/23/19 08:40 Dose: 5,000 units Documented by: [id number] Cosigned by: [id number] Admin: 07/22/19 22:21 Dose: 5,000 units Documented by: [id number] Cosigned by: [id number] Magnesium Sulfate/Dextrose (Magnesium Sulfate / D5w) 1 gm in 100 mls @ 100 mls/hr IV ONE ONE Stop: 07/22/19 17:00 Last Infusion: 07/22/19 17:08 Dose: 0 mls/hr Documented by: [id number] Admin: 07/22/19 16:07 Dose: 100 mls/hr Documented by: [id number] Sodium Chloride (Nss 1000ml) 1,000 mls @ 999 mls/hr IV .Q1H1M ONE Stop: 07/22/19 17:02 Last Infusion: 07/22/19 17:08 Dose: 0 mls/hr Documented by: [id number] Admin: 07/22/19 16:07 Dose: 999 mls/hr Documented by: [id number] Sodium Chloride (Nss 1000ml) 1,000 mls @ 50 mls/hr IV .Q20H ONE Stop: 07/23/19 16:42 Last Infusion: 07/23/19 10:25 Dose: 0 mls/hr Documented by: [id number] Admin: 07/22/19 22:05 Dose: 50 mls/hr Documented by: [id number] Ioversol (Optiray 320 125ml) 119 ml IV ONCE PRN PRN Reason: Interaction Checking Stop: 07/27/19 09:37 Last Admin: 07/23/19 09:39 Dose: 119 ml Documented by: [id number] Meclizine HCl (Antivert) 25 mg PO NOW STA Stop: 07/22/19 16:02 Last Admin: 07/22/19 16:07 Dose: 25 mg Documented by: [id number] Ondansetron HCl (Zofran) 4 mg IV NOW STA Stop: 07/22/19 16:02 Last Admin: 07/22/19 16:07 Dose: 4 mg Documented by: [id number] Medical Decision Making Differential Diagnosis Differential Diagnosis includes but is not limited to dehydration, stroke, anemia, hypoglycemia, hyponatremia, hypernatremia, urinary tract infection, pneumonia, bronchitis, sepsis, gastroenteritis, additional abdominal pathology, metabolic abnormalities and infections. Medical Records Attestation: I reviewed the patient's medical records. Home Medications Current Medication List: was personally reviewed by me Laboratory Data Attestation: I reviewed the patient's lab results. Result diagrams: 07/23/19 06:48 07/23/19 06:48 Lab Results 07/22/19 07/22/19 07/22/19 Range/Units 15:48 15:51 15:51 WBC 4.72 L (4.8-10.8) K/uL RBC 4.53 L (4.7-6.1) M/uL Hgb 14.5 (14.0-18.0) g/dL Hct 42.4 (42-52) % MCV 93.6 (80-100) fL MCH 32.0 (25-34) pg MCHC 34.2 (32-36) g/dL RDW Std Deviation 44.5 (36.4-46.3) fL RDW Coeff of Doni 13.0 (11.5-14.5) % Plt Count 211 (130-400) K/uL MPV 9.9 (7.4-10.4) fL Immature Gran % (Auto) 0.2 % Neut % (Auto) 59.2 % Lymph % (Auto) 27.5 % Bullock % (Auto) 8.9 % Eos % (Auto) 4.0 % Baso % (Auto) 0.2 % Immature Gran # (Auto) 0.01 (0.00-0.02) K/uL Neut # (Auto) 2.79 (1.4-6.5) K/uL Lymph # (Auto) 1.30 (1.2-3.4) K/uL Bullock # (Auto) 0.42 (0.11-0.59) K/uL Eos # (Auto) 0.19 (0-0.5) K/uL Baso # (Auto) 0.01 (0-0.2) K/uL PT 10.3 (9.0-12.0) Seconds INR 1.0 (0.9-1.1) APTT 23.7 (21.0-31.0) Seconds PTT Ratio 0.9 Sodium (136-145) mmol/L Potassium (3.5-5.1) mmol/L Chloride (98-107) mmol/L Carbon Dioxide (21-32) mmol/L Anion Gap (3-11) BUN (7-18) mg/dl Creatinine (0.6-1.4) mg/dl Est Cr Clr Drug Dosing ml/min Est GFR ( Amer) Est GFR (Non-Af Amer) BUN/Creatinine Ratio (10-20) Glucose (70-99) mg/dl POC Glucose 108 H (70-99) Estimat Average Glucose mg/dl Hemoglobin A1c (4.5-5.6) % Calcium (8.5-10.1) mg/dl Magnesium (1.8-2.4) mg/dl Total Bilirubin (0.2-1) mg/dl AST (15-37) U/L ALT (12-78) U/L Alkaline Phosphatase (45-117) U/L Troponin I (0-0.045) ng/ml Total Protein (6.4-8.2) gm/dl Albumin (3.4-5.0) gm/dl Globulin (2.5-4.0) gm/dl Albumin/Globulin Ratio (0.9-2) 07/22/19 07/22/19 Range/Units 15:51 15:51 WBC (4.8-10.8) K/uL RBC (4.7-6.1) M/uL Hgb (14.0-18.0) g/dL Hct (42-52) % MCV (80-100) fL MCH (25-34) pg MCHC (32-36) g/dL RDW Std Deviation (36.4-46.3) fL RDW Coeff of Doni (11.5-14.5) % Plt Count (130-400) K/uL MPV (7.4-10.4) fL Immature Gran % (Auto) % Neut % (Auto) % Lymph % (Auto) % Bullock % (Auto) % Eos % (Auto) % Baso % (Auto) % Immature Gran # (Auto) (0.00-0.02) K/uL Neut # (Auto) (1.4-6.5) K/uL Lymph # (Auto) (1.2-3.4) K/uL Bullock # (Auto) (0.11-0.59) K/uL Eos # (Auto) (0-0.5) K/uL Baso # (Auto) (0-0.2) K/uL PT (9.0-12.0) Seconds INR (0.9-1.1) APTT (21.0-31.0) Seconds PTT Ratio Sodium 139 (136-145) mmol/L Potassium 4.3 (3.5-5.1) mmol/L Chloride 107 (98-107) mmol/L Carbon Dioxide 25 (21-32) mmol/L Anion Gap 7.0 (3-11) BUN 22 H (7-18) mg/dl Creatinine 1.35 (0.6-1.4) mg/dl Est Cr Clr Drug Dosing 59.7 ml/min Est GFR ( Amer) 61.2 Est GFR (Non-Af Amer) 52.8 BUN/Creatinine Ratio 16.4 (10-20) Glucose 122 H (70-99) mg/dl POC Glucose (70-99) Estimat Average Glucose 131 mg/dl Hemoglobin A1c 6.2 H (4.5-5.6) % Calcium 9.2 (8.5-10.1) mg/dl Magnesium 2.2 (1.8-2.4) mg/dl Total Bilirubin 0.6 (0.2-1) mg/dl AST 18 (15-37) U/L ALT 33 (12-78) U/L Alkaline Phosphatase 62 (45-117) U/L Troponin I < 0.015 (0-0.045) ng/ml Total Protein 7.7 (6.4-8.2) gm/dl Albumin 4.1 (3.4-5.0) gm/dl Globulin 3.6 (2.5-4.0) gm/dl Albumin/Globulin Ratio 1.1 (0.9-2) Imaging Data Radiologist's Impression: Radiology results as stated below per my review and the radiologist's interpretation: MRI OF THE BRAIN WITHOUT CONTRAST CLINICAL HISTORY: Blurred vision. Lightheadedness. Possible stroke. COMPARISON STUDY: 07-27, CT scan dated 07/22/2019 FINDINGS: Sagittal T1, axial diffusion, proton density and T2 weighted axial, coronal FLAIR, and axial T1-weighted images were acquired. No intra or extra-axial mass lesions are visualized There are areas of restricted water diffusion lateral to the left thalamus in the region of the alveus and left inferior occipital frontal fasciculus. There is no evidence of ventricular dilatation. Proton density T2-weighted and FLAIR images reveal scattered foci of increased T2 signal within the white matter, likely on a small vessel basis. There is an old left occipital lobe infarct There are no abnormal flow voids. IMPRESSION: 1. Acute left hemispheric infarct, abutting the lateral margin of the left thalamus. 2. Old left occipital lobe infarct 3. No evidence of intracranial mass on this noncontrast study Electronically signed by: Paul Collins M.D. 07/22/2019 6:09 PM XR chest 1V portable CLINICAL HISTORY: Blurred vision. COMPARISON STUDY: No previous studies for comparison. FINDINGS: The heart is normal in size. There is mild aortic tortuosity. There is slight prominence of the basilar markings, likely atelectatic. There is no failure. There are no pleural effusions.[ IMPRESSION: 1. Slightly prominent basilar markings, likely atelectatic. No evidence of failure. Electronically signed by: Paul Collins M.D. 07/22/2019 4:[address] head/brain wo con CLINICAL HISTORY: Strokelike symptoms. Visual difficulty. COMPARISON STUDY: 07/12/2018 TECHNIQUE: Axial CT of the brain is performed from the vertex to the skull base. IV contrast was not administered for this examination. A dose lowering technique was utilized adhering to the principles of ALARA. CT DOSE: 614.27 mGy.cm FINDINGS: No intra or extra-axial mass lesions are visualized. There is no CT evidence of acute cortical infarction. There is no evidence of midline shift. There is no acute hemorrhage. No calvarial fractures are visualized. There are patchy white matter hypodensities likely on a small vessel basis. There is an old left occipital infarct. There is no evidence of pathologic ventricular dilatation. There is no evidence of acute sinusitis IMPRESSION: No acute intracranial findings Electronically signed by: Paul Collins M.D. 07/22/2019 4:04 PM ECG Data Attestation: I personally reviewed and interpreted this ECG as follows: Indication: other (blurry vision, dizziness) Rate (beats per minute): 67 Rhythm: sinus rhythm Findings: + other (Normal axis, QT is 390) and + 1st degree AV block; no ST depression and no ST elevation Blood Pressure Blood Pressure Findings: Elevated blood pressure MDM Narrative This is a 68-year-old male who presents the emergency department complaining of dizziness as well as vision issues. The patient reports the symptoms have been ongoing since last evening. Based on this factor I do not feel that the patient is a candidate for TPA. He was sent for CAT scan of the head which did not show any acute process. In the meanwhile patient was given normal saline bolus as well as magnesium and aspirin. Because the patient is still having vision issues I did send him for an MRI which was concerning for an acute stroke. Based on this I did discuss the case with the hospitalist service who agreed to admit the patient. Patient was in agreement with the treatment plan. Impression & Plan Acute ischemic left [employer] stroke, HTN (hypertension), Change in vision Discharge Plan Visit Data *Final* Discharge Date/Time: 07/22/19 20:25 Chief Complaint: Eye Problems Stated Complaint: DIZZY - BLURRY EYES ED Provider: Brody Alas Discharge Problem: Acute ischemic left [employer] stroke, HTN (hypertension), Change in vision Patient Disposition: Admitted As Inpatient Discharge Instructions Interventions: ED Discharge Assessment Last Done: 07/22/19 20:25 The scribe's documentation has been prepared under my direction and personally reviewed by me in its entirety. I confirm that the note above accurately reflects all work, treatment, procedures, and medical decision making performed by me.
--- NOTE | 2019-07-25 12:57 | Pharmacy Report ---
Pharmacist Post D/C Phone Note - Phone Note: Date of phone call: July 25, 2019. Individual with whom pharmacist spoke to: COREY Chiqui LEBRON The following questions were reviewed during the phone call with responses listed below each: Can you tell me the medications that you are currently taking as well as when and how you take each medication? -See Table Below When have you missed any doses of your medications? - none What side effects are you having from your medications, specifically, the new medications you were started on? - none What questions do you have about your medications? - none What problems are you having obtaining your medications? - none When is your next appointment with your primary care doctor? - Monday 07/30 Additional comments: - Reviewed changes in patients regimen, he is taking Aspirin + Plavix. - Pt d/c omeprazole (hasn't taken > 1year) -Pt moved Cymbalta to HS dosing, and will discuss changing to 30mg with PCP Tuesday - Only other complaint was feeling tired, explained that this is expected after having a hospital stay and as his body is recovering from stroke. Pt aware to discuss with PCP on Tuesday if persisting. Pt slept extra 1.5 hours last night. Encouraged rest. Pt was currently grocery shopping so otherwise doing very well. As per the Pharmacist Discharge Counseling for Stroke Patients Protocol, this phone call has been completed within 72 hours of discharge. Thank you for allowing us to be involved in the care of this patient. - Home Medications: Home Medications Medication Instructions Recorded Confirmed amlodipine 10 mg PO QAM 07/11/18 07/22/19 cholecalciferol (vitamin D3) 2,000 unit PO QAM 07/11/18 07/22/19 [Vitamin D3] lisinopril 5 mg PO QAM 07/11/18 07/22/19 atorvastatin 80 mg PO QAM 07/22/19 07/22/19 carvedilol 3.125 mg PO BID 07/22/19 07/22/19 clopidogrel 75 mg PO QAM 07/22/19 07/22/19 duloxetine 60 mg PO QAM 07/22/19 07/22/19 ezetimibe 10 mg PO QAM 07/22/19 07/22/19 omega-3 fatty acids 500 mg PO QAM 07/22/19 07/22/19 sildenafil (antihypertensive) 20 mg PO DAILY PRN 07/22/19 07/22/19 New Rx's Medication Instructions Recorded aspirin [Ecotrin Low Strength] 81 mg PO QAM 30 Days #30 tab 07/23/19
== END 2019-07-23 16:45 | disposition home or self-care (01) | DRG 66 ==
LOC: ED 15:20 → 2S 19:08

== ENCOUNTER 2023-07-19 11:52 | Inpatient (IN) ==
--- NOTE | 2023-07-19 12:00 | ED Triage Note ---
Date of Service July 19, 2023 History of Present Illness This patient was briefly evaluated while in triage. An abbreviated physical exam was performed. This patient is a 72-year-old Male who presents to the ED for evaluation of dark stools. He saw Dr. Bass today and was referred here. He states it started about a week ago. He states they did blood work today and "everything's out of whack." He states he feels weak. He reports mild abdominal pain, denies vomiting. He does take Plavix and Aspirin. He takes low dose prednisone daily for his arthritis. Physical Exam VITALS: Vitals are noted on the nurse's note and reviewed by myself. GENERAL: This is a 72-year-old male, in no acute distress, well-developed well- nourished. SKIN: Multiple bruises to bilateral forearms. MOUTH: Mucous membranes moist. HEART: Regular rate and rhythm without murmurs gallops or rubs. LUNGS: Clear to auscultation bilaterally without wheezes, rales or rhonchi. ABDOMEN: Positive bowel sounds x 4. Soft, nontender to palpation. NEURO: Patient was alert and oriented to person place and time. Initial orders for labs and / or imaging were placed and patient was placed in the waiting area until a bed is available. Please see further documentation for the full ED course. MDM / Impression Impression Impression: Acute upper GI bleed, Anemia
[2023-07-19 12:59] LABS: Basophils # (auto) 0.03 K/uL (0.00-0.20); Basophils % (auto) 0.4 %; Eosinophils # (auto) 0.12 K/uL (0.00-0.50); Eosinophils % (auto) 1.5 %; Hematocrit (blood only) 26.5 % (42.0-52.0); Hemoglobin 8.9 g/dl (14.0-18.0); Immature Granulocytes # (auto) 0.12 K/uL (0.01-0.20); Immature Granulocytes % (auto) 1.5 %; Lymphocytes # (auto) 1.73 K/uL (1.20-3.40); Mean Corpuscular Hgb Conc 33.6 g/dL (32.0-36.0); Mean Corpuscular Volume 98.1 fL (80.0-100.0); Mean Platelet Volume 11.2 fL (9.4-12.4); Monocytes # (auto) 0.63 K/uL (0.11-0.59); Monocytes % (auto) 7.7 %; Neutrophils # (auto) 5.59 K/uL (1.40-6.50); Neutrophils % (auto) 67.9 %; Platelet Count 234 K/uL (130-400); RDW Coefficient of Variation 13.6 % (11.5-14.5); RDW Standard Deviation 47.2 fL (36.4-46.3); White Blood Count 8.22 K/ul (4.8-10.8)
[2023-07-19 13:16] LABS: Albumin Globulin Ratio 1.9 (0.9-2); BUN Creatinine Ratio 27.3 (10-20); Bilirubin,Total 0.6 mg/dl (0.2-1.0); Calcium 8.9 mg/dl (8.6-10.3); Creatinine Clr Calc Pharmacy 46.6 ml/min; Est GFR (African American) 57.5 ml/min; Est GFR (Non-African American) 49.6 ml/min; Globulin 2.1 gm/dl (2.5-4.0); Potassium 4.2 mmol/L (3.5-5.1); Total Protein 6.1 gm/dl (6.0-8.3)
[2023-07-19 13:26] LABS: Prothrombin Time 10.7 Seconds (9.0-12.0)
[2023-07-19] MEDS ORDERED: OPTIRAY 320 100ml IV ONE (14:10)
--- NOTE | 2023-07-19 14:46 | CT Scan Report ---
CT OF THE ABDOMEN AND PELVIS WITH CONTRAST CLINICAL HISTORY: Abdominal pain, gi bleed. COMPARISON STUDY: Renal ultrasound April 21, 2007. TECHNIQUE: Following IV administration of 92 mL of Optiray, axial images of the abdomen and pelvis we re obtained from the lung bases to the proximal femurs. Images were reviewed in the axial, sagittal, and coronal planes. IV contrast was administered without complication. Automated exposure control wa s utilized for the study. A dose lowering technique was utilized adhering to the principles of ALARA . FINDINGS: A few small branching nodules within the left lower lobe measure up to 7 mm. These are like ly benign. No pneumatosis, free air or portal venous gas is present. The liver, spleen, adrenal gland s and pancreas are unremarkable. There is no biliary or pancreatic ductal dilatation. Multiple subcen timeter right renal lesions are too small to characterize. There is a 3.2 cm left lower pole renal cy st. There is no hydronephrosis. The caliber and wall thickness of small and large bowel are normal. T here is no evidence for a bowel obstruction. The appendix is normal. Prostate is enlarged, measuring 6.3 cm in transverse dimension. There is no lymphadenopathy. 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 The aneurysm sac measures 3.2 cm. There is no evidence for rupture. Fat-containing left inguin al hernia is incidentally noted. IMPRESSION: 1. No acute process within the abdomen or pelvis. 2. No bowel obstruction. No bowel wall thickening. Normal appendix. 3. 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 4. A few small left lower lobe pulmonary nodules which are likely benign. A follow-up chest CT in 6 m [facility] to ensure stability is recommended. ACT 112: Negative or not required by law. Electronically signed by: Jsutin Nash M.D. 07/19/2023 2:45 PM
[2023-07-19] MEDS ORDERED: FAMOTIDINE 20MG IV PUSH 20 MG/5 ML SYR IV STA (15:38)
[2023-07-19] MEDS ORDERED: PANTOPRAZOLE BOLUS/DRIP IV STA (15:38)
[2023-07-19] MEDS ORDERED: PANTOprazole 80 MG in DEXTROSE 5% 100 ML IV ONE (15:38)
--- NOTE | 2023-07-19 15:57 | History & Physical Report ---
Date of Service July 19, 2023 Assessment & Plan (1) Symptomatic anemia: (2) Melena: Plan: This is a 72-year-old male with PMH of CVA in 2018 and 2019 without residual deficits on dual antiplatelet therapy, COPD, COOPER on CPAP, hypertension, history of abdominal aortic aneurysm s/p repair, CKD 3, OA on prednisone and other medical problems listed below who presents with anemia in setting of black stools over the past few weeks. VSS, hgb 8.9 in ED from 9.8 in clinic earlier today (baseline ~ 13, last checked in February), BUN 38, Cr. 1.39 (baseline Cr ~ 1.2) No additional episodes of melena since yesterday evening CT abd/pelvis with no acute process within the abdomen or pelvis. No bowel obstruction. No bowel wall thickening. Normal appendix IV protonix and drip, repeat H&H this evening, routine gastro consult, keep NPO Discontinue prednisone Blood consent was obtained from the patient as delegated by Dr. Gonzalez. Risks and benefits were explained. All questions were answered, and the patient was offered the opportunity to discuss with attending physician and declined (3) CVA (cerebral vascular accident): Plan: H/o CVA in 2018 and 2019 on dual antiplatelet therapy - will hold aspirin and plavix in AM (4) HTN (hypertension): Plan: Continue candesartan, carvedilol, amlodipine (5) HLD (hyperlipidemia): Plan: Chronic; stable. Continue statin (6) Osteoarthritis: Plan: H/o 5mg daily prednisone since Oct per rheum for sciatica/severe OA per rheum. Stop prednisone 2/2 gi bleed. Continue spinal injections with Dr. Grider, Extra strength tylenol, Voltaren gel, consider pain mgmt outpatient follow up (7) CKD (chronic kidney disease) stage 3, GFR 30-59 ml/min: Plan: Cr. 1.39 (baseline Cr ~ 1.2). Continue monitoring with daily BMP (8) COOPER (obstructive sleep apnea): Plan: CPAP HS (9) Pulmonary nodules: Plan: CT abd/pelvis with a few small left lower lobe pulmonary nodules which are likely benign. A follow-up chest CT in 6 months to ensure stability is recommended. DVT Ppx: SCDs Code status: FULL PCP: Kali Dispo: Admitted tomed tele Patient seen in collaboration with Dr. Gonzalez. Please see addendum. History of Present Illness Chief Complaint: anemia, GI bleed Primary Care Provider: Kailash Bass MD This is a 72-year-old male with PMH of CVA in 2018 and 2019 without residual deficits on dual antiplatelet therapy, COPD, COOPER on CPAP, hypertension, history of abdominal aortic aneurysm s/p repair, CKD 3, OA on prednisone and other medical problems listed below who presents with anemia in setting of black stools over the past few weeks. Patient notes dark stool since the beginning of the month. Stool was black and formed. Issues with constipation at baseline and usually has a bowel movement any other day. Yesterday morning, patient had a bowel movement and felt weak and sweating afterwards, like he was going to pass out. No loren syncope, nausea or vomiting. Last evening had a loose episode of black stool. No history of GI bleed. Cologuard last month was normal. Became concerned that prednisone he has been taking since October for OA/sciatica was the culprit so has reduced to taking 5mg pred every other day this past week. Patient seen by Dr. Bass earlier today with stat hgb 9.8 (baseline hgb from February was 13.4) and was sent to [facility] ED for further evaluation. Allergies Allergy/AdvReac Type Severity Reaction Status Date / Time gabapentin Allergy Severe FEET SWELLS Verified 01/10/20 21:00 pregabalin [From Lyrica] Allergy Intermediate FEET SWELLS Verified 01/10/20 20:58 ciprofloxacin Allergy Unknown Verified 01/10/20 20:58 pravastatin AdvReac Unknown Verified 01/10/20 21:00 rosuvastatin [From Crestor] AdvReac Unknown Verified 01/10/20 21:00 simvastatin [From Zocor] AdvReac Unknown Verified 01/10/20 21:00 Home Medications Medication Instructions Recorded Confirmed Type atorvastatin 80 mg tablet 80 mg PO QAM 07/22/19 07/19/23 History clopidogrel 75 mg tablet 75 mg PO QAM 07/22/19 07/19/23 History ezetimibe 10 mg tablet 10 mg PO QAM 07/22/19 07/19/23 History aspirin 81 mg tablet,delayed 81 mg PO DAILY 01/10/20 07/19/23 History release (Aspir-) cholecalciferol (vitamin D3) 25 1,000 unit PO DAILY 01/10/20 07/19/23 History mcg (1,000 unit) tablet (Vitamin D3) diclofenac sodium 1 % topical gel 4 g topical BID PRN Pain 01/10/20 07/19/23 History amlodipine 5 mg tablet 5 mg PO DAILY 07/19/23 07/19/23 History ascorbic acid (vitamin C) 1,000 mg 1,000 mg PO DAILY 07/19/23 07/19/23 History tablet,extended release candesartan 4 mg tablet 4 mg PO DAILY 07/19/23 07/19/23 History carvedilol 12.5 mg tablet 12.5 mg PO BID 07/19/23 07/19/23 History cyanocobalamin (vitamin B-12) 1,000 mcg PO DAILY 07/19/23 07/19/23 History 1,000 mcg tablet pantoprazole 40 mg tablet,delayed 40 mg PO DAILY 07/19/23 07/19/23 History release prednisone 5 mg tablet 5 mg PO DAILY 07/19/23 07/19/23 History Past Med/Surg History Medical History (Updated 07/19/23 @ 18:38 by Beba Lorenzo PA-C) CKD (chronic kidney disease) stage 3, GFR 30-59 ml/min GERD (gastroesophageal reflux disease) History of tobacco abuse HLD (hyperlipidemia) HTN (hypertension) COOPER (obstructive sleep apnea) Osteoarthritis Surgical History H/O neck surgery s/p Fusion of cervical vertebrae History of AAA (abdominal aortic aneurysm) repair 2008 Dr Gambino History of arthroscopy of both knees History of arthroscopy of right shoulder History of hernia repair History of tonsillectomy and adenoidectomy Family History Father , in 70s Stroke Alcohol abuse Cirrhosis Mother Coronary heart disease Dementia Sister No significant family history Social History Smoking Status: Former smoker Cigarettes Per Day: 15; Second Hand Exposure: No; Do You Dip or Chew Tobacco: No; Hx Alcohol Use: No Hx Substance Use: No Preferred Language: Amharic Communication Ability: Effective Advertising Representative Required: No Beliefs That Will Affect Care: None marital status: Current Living Situation: Spouse current occupational status: 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 Physical Exam Physical Exam: General Appearance: WD/WN, vitals as above, NAD, sitting up in bed, pleasant, conversing easily Head: normocephalic, atraumatic Eyes: normal inspection, PERRL, conjunctivae normal, anicteric sclerae ENT: external ear and nose normal, oropharynx normal Neck: normal visual inspection, trachea midline, no thyromegaly Respiratory: normal respiratory effort, lungs clear to auscultation, no wheeze, rales, rhonchi. No accessory muscle use Cardiovascular: regular rate, rhythm, no murmur, normal peripheral pulses, no BLE edema. Vessels: no JVD Chest: normal inspection of chest Abdomen/GI: normal bowel sounds, soft, nontender, no hepatosplenomegaly Extremities/Musculoskeletal: no cyanosis or clubbing, extremities motor s trength 5/5 Neurologic: PERRL, EOMI, accommodation nl, no face palsy, no dysarthria, CN's II-XI intact bilaterally and moves all extremities Psychiatric: A+Ox3, euthymic affect Skin: no rashes, + pale, warm/dry Results & Data Results & Data Vital Signs (Past 12 Hours) Vital Signs Temp Pulse Resp BP Pulse Ox O2 Del Method 07/19/23 11:56 36.3 C L 74 20 128/64 97 Room Air Laboratory Results Short CBC 07/19/23 Range/Units 12:23 WBC 8.22 (4.8-10.8) K/ul Hgb 8.9 L (14.0-18.0) g/dl Hct 26.5 L (42.0-52.0) % Plt Count 234 (130-400) K/uL BMP 07/19/23 12:23 Sodium 139 Potassium 4.2 Chloride 108 H Carbon Dioxide 25 BUN 38 H Creatinine 1.39 Glucose 123 H Calcium 8.9 Liver Function 07/19/23 Range/Units 12:23 Total Bilirubin 0.6 (0.2-1.0) mg/dl AST 14 (13-39) U/L ALT 18 (7-52) U/L Alkaline Phosphatase 34 (34-104) U/L Albumin 4.0 (3.4-5.0) gm/dl Diagnostic Findings Abdomen/Pelvis CT 07/19/23 12:00 CT OF THE ABDOMEN AND PELVIS WITH CONTRAST CLINICAL HISTORY: Abdominal pain, gi bleed. COMPARISON STUDY: Renal ultrasound April 21, 2007. TECHNIQUE: Following IV administration of 92 mL of Optiray, axial images of the abdomen and pelvis were obtained from the lung bases to the proximal femurs. Images were reviewed in the axial, sagittal, and coronal planes. IV contrast was administered without complication. Automated exposure control was utilized for the study. A dose lowering technique was utilized adhering to the principles of ALARA. FINDINGS: A few small branching nodules within the left lower lobe measure up to 7 mm. These are likely benign. No pneumatosis, free air or portal venous gas is present. The liver, spleen, adrenal glands and pancreas are unremarkable. There is no biliary or pancreatic ductal dilatation. Multiple subcentimeter right renal lesions are too small to characterize. There is a 3.2 cm left lower pole renal cyst. There is no hydronephrosis. The caliber and wall thickness of small and large bowel are normal. There is no evidence for a bowel obstruction. The appendix is normal. Prostate is enlarged, measuring 6.3 cm in transverse dim ension. There is no lymphadenopathy. 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 The aneurysm sac measures 3.2 cm. There is no evidence for rupture. Fat- containing left inguinal hernia is incidentally noted. IMPRESSION: 1. No acute process within the abdomen or pelvis. 2. No bowel obstruction. No bowel wall thickening. Normal appendix. 3. 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 4. A few small left lower lobe pulmonary nodules which are likely benign. A follow-up chest CT in 6 months to ensure stability is recommended. ACT 112: Negative or not required by law. Electronically signed by: Justin Nash M.D. 07/19/2023 2:45 PM Supervising Physician Co-Signing Physician Notes Attending addendum: The patient was seen and examined in emergency room He was sent in from doctor's office with ongoing black stool Complains to have exertional shortness of breath and weakness and tiredness, no chest pain and/or palpitation and no abdominal pain nausea no vomiting Did not use any NSAIDs other than regular medications of aspirin and Plavix On examination Lying in bed comfortably Hemodynamically stable with blood pressure on the upper side at 151/76 Chest-clear to auscultate bilaterally Heart-S1-S2, regular Abdomen-benign, nontender, bowel sound present Extremities-negative for any edema 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 No focal sensory or motor deficit appreciated His admission labs, EKG and imaging studies reviewed Has significant drop in hemoglobin in 1 month from 12 to 13-8.9 Possible upper GI bleed complicated by aspirin, Plavix and low-dose prednisone We will hold these medications and start intravenous PPI N.p.o. after midnight and GI evaluation Monitor H&H Agree with assessment and plan as outlined above by KADE Briseno Dr (4) HTN (hypertension) Hypertension type: unspecified Qualified Code(s): I10 - Essential (primary) hypertension (5) HLD (hyperlipidemia) Hyperlipidemia type: unspecified Qualified Code(s): E78.5 - Hyperlipidemia, unspecified
[2023-07-19] MEDS: PANTOprazole 40 MG in DEXTROSE 5% MINI-B 100 ML IV SCH ×2 (16:58→23:03)
[2023-07-19] MEDS ORDERED: DICLOFENAC SOD 1% GEL 100 GM TUBE EXT PRN (18:41)
[2023-07-19] MEDS ORDERED: ONDANSETRON INJ 2 MG/ML 2 ML VIAL IV PRN (18:48)
[2023-07-19] MEDS ORDERED: ACETAMINOPHEN 325 MG TAB PO PRN (18:48)
[2023-07-19] MEDS ORDERED: POLYETHYLENE (MIRALAX) 17 GM PACK PO PRN (18:48)
--- NOTE | 2023-07-19 19:11 | Emergency Department Note ---
Impression & Plan Acute upper GI bleed, Anemia ED Provider Note INFORMANT: Patient ED PROVIDER(S): Kailash Richardson MD CHIEF COMPLAINT: Black stool PLAN: Disposition: Admitted Outpatient prescription management: none Referral: None MEDICAL DECISION MAKING: Patient presented because of black stool. He was concerned about upper GI bleed for primary care. Based on history, physical, and results of his laboratory testing this is indeed a concern. Patient has a 4 g drop in his hemoglobin. The patient also has an elevated BUN. IV Protonix bolus and drip as well as Pepcid were ordered. CT imaging did not reveal any acute process. [facility] Patient was evaluated in the ER and admitted for further management. Care/management discussed with: Discussed with case management manager Level of care consideration(s): After review of the information above and other included data, I feel the patient requires escalation of care to admission. Triage Nursing notes: reviewed and agree them. Vital Signs: reviewed and remarkable for no significant abnormalities Additional History obtained from: none Chronic Medical/Social Conditions affecting care: Stroke, Plavix use Prior /Outside records reviewed: none Differential Diagnosis: Diverticulosis, AVM, coagulopathy, colitis, inflammatory bowel disease, malignancy, Tamara-Lord tear, esophagitis, peptic ulcer disease, variceal bleed, gastritis, epistaxis, fissure, hemorrhoids, as well as other pathologies. Diagnostics, independently interpreted by me: ECG: none. Cardiac Monitoring: none Medical decision rules: CT scan of the abdomen pelvis is negative for acute pathology. Imaging studies: Pulmonary nodule noted. Patient informed and told he should have a 6-month follow-up. HPI: The patient is a 72-year-old male who arrives for evaluation of black stools.. Patient notes several weeks of black stool. He has also had some exertional weakness and shortness of breath. Patient was seen by Dr. Bass and there was concerns about possible upper GI bleed given history of melena and a drop in his blood counts. Patient is on long-term prednisone use as well as aspirin and Plavix. Denies any other blood thinners. Pt denies LOC, headache, fevers, chills, diaphoresis, visual changes, neck pain, chest pain, breathing difficulties, nausea, vomiting, back pain, hematochezia, urinary symptoms, numbness, focal weakness, lymphadenopathy, rash, or other complaints. PAST MEDICAL HISTORY: See Below, stroke PAST SURGICAL HISTORY: See Below, SOCIAL HISTORY: See Below, quit smoking HOME MEDICATIONS: See Below ALLERGIES: See Below VITALS: See Below PHYSICAL EXAMINATION: GENERAL: Awake, alert, [id number], in no distress HENT: Normocephalic, atraumatic. Oropharynx unremarkable. EYES: Normal conjunctiva. Sclera non-icteric. NECK: Inspection normal. Non-tender. Supple. No nuchal rigidity. FROM. No masses. RESPIRATORY: Clear to auscultation. No wheezes. No rales. Normal respiratory effort. CARDIAC: Normal rate. Normal rhythm. No murmurs. No rubs. Extremities warm and well perfused. Pulses equal. No JVD. GI: Soft, non-distended. No tenderness to palpation. No rebound or guarding. No masses. RECTAL: Deferred. MUSCULOSKELETAL: Atraumatic. Chest examination reveals no tenderness. The back is symmetrical on inspection without obvious abnormality. There is no CVA tenderness to palpation. No joint edema. LOWER EXTREMITIES: Calves are equal size bilaterally and non-tender. No edema. No discoloration. NEURO: Normal sensorium. No sensory or motor deficits noted. SKIN: No rash or jaundice noted.nontoxic PROCEDURES: none CRITICAL CARE: none OBSERVATION NOTE: none Past Med/Surg History Medical History (Updated 07/19/23 @ 19:11 by Kailash Richardson MD) CKD (chronic kidney disease) stage 3, GFR 30-59 ml/min GERD (gastroesophageal reflux disease) History of tobacco abuse HLD (hyperlipidemia) HTN (hypertension) COOPER (obstructive sleep apnea) Osteoarthritis Surgical History H/O neck surgery s/p Fusion of cervical vertebrae History of AAA (abdominal aortic aneurysm) repair 2008 Dr Gambion History of arthroscopy of both knees History of arthroscopy of right shoulder History of hernia repair History of tonsillectomy and adenoidectomy Family History Father , in 70s Stroke Alcohol abuse Cirrhosis Mother Coronary heart disease Dementia Sister No significant family history Social History Smoking Status: Former smoker Cigarettes Per Day: 15; Second Hand Exposure: No; Do You Dip or Chew Tobacco: No; Hx Alcohol Use: Yes Alcohol type: beer and wine Alcohol Intake Frequency Comment: Rare Hx Substance Use: No Preferred Language: Libyan Communication Ability: Effective User Acceptance Tester Required: No Beliefs That Will Affect Care: None marital status: Current Living Situation: Spouse current occupational status: 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[place] at [employer]; [employer] Other Information That Helps Us Care for You: No Feels Safe at Home: Yes Safety Concerns: Feels Safe At This Time Assistive Devices: CPAP, Denture - Upper, Denture - Lower and Glasses Allergies Allergies Allergy/AdvReac Type Severity Reaction Status Date / Time gabapentin Allergy Severe FEET SWELLS Verified 01/10/20 21:00 pregabalin [From Lyrica] Allergy Intermediate FEET SWELLS Verified 01/10/20 20:58 ciprofloxacin Allergy Unknown Verified 01/10/20 20:58 pravastatin AdvReac Unknown Verified 01/10/20 21:00 rosuvastatin [From Crestor] AdvReac Unknown Verified 01/10/20 21:00 simvastatin [From Zocor] AdvReac Unknown Verified 01/10/20 21:00 Home Meds Home Medications Medication Instructions Recorded Confirmed atorvastatin 80 mg tablet 80 mg PO QAM 07/22/19 07/19/23 clopidogrel 75 mg tablet 75 mg PO QAM 07/22/19 07/19/23 ezetimibe 10 mg tablet 10 mg PO QAM 07/22/19 07/19/23 aspirin 81 mg tablet,delayed 81 mg PO DAILY 01/10/20 07/19/23 release (Aspir-) cholecalciferol (vitamin D3) 25 1,000 unit PO DAILY 01/10/20 07/19/23 mcg (1,000 unit) tablet (Vitamin D3) diclofenac sodium 1 % topical gel 4 g topical BID PRN Pain 01/10/20 07/19/23 amlodipine 5 mg tablet 5 mg PO DAILY 07/19/23 07/19/23 ascorbic acid (vitamin C) 1,000 mg 1,000 mg PO DAILY 07/19/23 07/19/23 tablet,extended release candesartan 4 mg tablet 4 mg PO DAILY 07/19/23 07/19/23 carvedilol 12.5 mg tablet 12.5 mg PO BID 07/19/23 07/19/23 cyanocobalamin (vitamin B-12) 1,000 mcg PO DAILY 07/19/23 07/19/23 1,000 mcg tablet pantoprazole 40 mg tablet,delayed 40 mg PO DAILY 07/19/23 07/19/23 release prednisone 5 mg tablet 5 mg PO DAILY 07/19/23 07/19/23 Results & Data (ED) Vital Signs Vital Signs - 24 hr 07/19/23 11:56 07/19/23 15:52 Temperature 36.3 C L Temperature Source Temporal Artery Scan Pulse Rate 74 Pulse Rate [Right Finger] 63 Respiratory Rate 20 18 Respiratory Effort / Characteristics Non-Labored Spontaneous Non-Labored Spontaneous Respiratory Depth Normal Normal Respiratory Pattern Regular Blood Pressure 128/64 Blood Pressure [Left Arm] 126/72 Blood Pressure Mean 85 Blood Pressure Mean [Left Arm] 90 Pulse Oximetry 97 98 Oxygen Delivery Method Room Air Room Air Sepsis Recent Fever Within 48 Hours No Sepsis New/Unexplained Change in Mental Status No Sepsis Action Taken by Nursing No Action Required Laboratory Data 07/19/23 12:23 07/19/23 12:23 Lab Results 07/19/23 07/19/23 07/19/23 Range/Units 12:23 12:23 12:23 WBC 8.22 (4.8-10.8) K/ul RBC 2.70 L (4.70-6.10) M/uL Hgb 8.9 L (14.0-18.0) g/dl Hct 26.5 L (42.0-52.0) % MCV 98.1 (80.0-100.0) fL MCH 33.0 (25.0-34.0) pg MCHC 33.6 (32.0-36.0) g/dL RDW Std Deviation 47.2 H (36.4-46.3) fL RDW Coeff of Doni 13.6 (11.5-14.5) % Plt Count 234 (130-400) K/uL MPV 11.2 (9.4-12.4) fL Immature Gran % (Auto) 1.5 % Neut % (Auto) 67.9 % Lymph % (Auto) 21.0 % Winn % (Auto) 7.7 % Eos % (Auto) 1.5 % Baso % (Auto) 0.4 % Neut # (Auto) 5.59 (1.40-6.50) K/uL Lymph # (Auto) 1.73 (1.20-3.40) K/uL Winn # (Auto) 0.63 H (0.11-0.59) K/uL Eos # (Auto) 0.12 (0.00-0.50) K/uL Baso # (Auto) 0.03 (0.00-0.20) K/uL Immature Gran # (Auto) 0.12 (0.01-0.20) K/uL PT 10.7 (9.0-12.0) Seconds INR 1.0 (0.9-1.1) Sodium 139 (136-145) mmol/L Potassium 4.2 (3.5-5.1) mmol/L Chloride 108 H (98-107) mmol/L Carbon Dioxide 25 (21-32) mmol/L Anion Gap 6 (3-11) BUN 38 H (6-23) mg/dl Creatinine 1.39 (0.6-1.4) mg/dl Est Cr Clr Drug Dosing 46.6 ml/min Est GFR ( Amer) 57.5 ml/min Est GFR (Non-Af Amer) 49.6 ml/min BUN/Creatinine Ratio 27.3 H (10-20) Glucose 123 H (70-99(Fasting)) mg/dl Lactate (0.4-2.0) mmol/L Calcium 8.9 (8.6-10.3) mg/dl Total Bilirubin 0.6 (0.2-1.0) mg/dl AST 14 (13-39) U/L ALT 18 (7-52) U/L Alkaline Phosphatase 34 (34-104) U/L Total Protein 6.1 (6.0-8.3) gm/dl Albumin 4.0 (3.4-5.0) gm/dl Globulin 2.1 L (2.5-4.0) gm/dl Albumin/Globulin Ratio 1.9 (0.9-2) Lipase 34 (11-82) U/L Blood Type Antibody Screen 07/19/23 07/19/23 Range/Units 12:23 12:23 WBC (4.8-10.8) K/ul RBC (4.70-6.10) M/uL Hgb (14.0-18.0) g/dl Hct (42.0-52.0) % MCV (80.0-100.0) fL MCH (25.0-34.0) pg MCHC (32.0-36.0) g/dL RDW Std Deviation (36.4-46.3) fL RDW Coeff of Doni (11.5-14.5) % Plt Count (130-400) K/uL MPV (9.4-12.4) fL Immature Gran % (Auto) % Neut % (Auto) % Lymph % (Auto) % Winn % (Auto) % Eos % (Auto) % Baso % (Auto) % Neut # (Auto) (1.40-6.50) K/uL Lymph # (Auto) (1.20-3.40) K/uL Winn # (Auto) (0.11-0.59) K/uL Eos # (Auto) (0.00-0.50) K/uL Baso # (Auto) (0.00-0.20) K/uL Immature Gran # (Auto) (0.01-0.20) K/uL PT (9.0-12.0) Seconds INR (0.9-1.1) Sodium (136-145) mmol/L Potassium (3.5-5.1) mmol/L Chloride (98-107) mmol/L Carbon Dioxide (21-32) mmol/L Anion Gap (3-11) BUN (6-23) mg/dl Creatinine (0.6-1.4) mg/dl Est Cr Clr Drug Dosing ml/min Est GFR ( Amer) ml/min Est GFR (Non-Af Amer) ml/min BUN/Creatinine Ratio (10-20) Glucose (70-99(Fasting)) mg/dl Lactate 1.4 (0.4-2.0) mmol/L Calcium (8.6-10.3) mg/dl Total Bilirubin (0.2-1.0) mg/dl AST (13-39) U/L ALT (7-52) U/L Alkaline Phosphatase (34-104) U/L Total Protein (6.0-8.3) gm/dl Albumin (3.4-5.0) gm/dl Globulin (2.5-4.0) gm/dl Albumin/Globulin Ratio (0.9-2) Lipase (11-82) U/L Blood Type A Positive Antibody Screen NEGATIVE Administered Medications Pantoprazole Sodium 40 mg/ (Dextrose) 100 mls @ 20 mls/hr IV Q5H CARMEN Stop: 08/18/23 15:59 Last Admin: 07/19/23 16:58 Dose: 8 mg/hr, 20 mls/hr Documented By: JOSEFINA Discontinued Medications Famotidine (Pepcid 20mg Iv Push) 20 mg in 5 mls @ 2.5 mls/min IV NOW STA Stop: 07/19/23 15:39 Last Admin: 07/19/23 15:59 Dose: 2.5 mls/min Documented By: RAYMOND Pantoprazole Sodium 80 mg/ (Dextrose) 120 mls @ 400 mls/hr IV NOW ONE Stop: 07/19/23 15:55 Last Infusion: 07/19/23 16:30 Dose: 0 mls/hr Documented By: Admin: 07/19/23 16:12 Dose: 400 mls/hr Documented By: RAYMOND Ioversol (Optiray 320 100ml) 92 ml IV ONCE ONE Stop: 07/19/23 14:11 Last Admin: 07/19/23 14:11 Dose: 92 ml Documented By: ANKUSH Pantoprazole Sodium (Pantoprazole Bolus/Drip) 1 each IV NOW STA Stop: 07/19/23 15:39 Last Admin: 07/19/23 17:01 Dose: Not Given Documented By: JOSEFINA Imaging Data Radiologist's Impression: Abdomen/Pelvis CT 07/19/23 12:00 CT OF THE ABDOMEN AND PELVIS WITH CONTRAST CLINICAL HISTORY: Abdominal pain, gi bleed. COMPARISON STUDY: Renal ultrasound April 21, 2007. TECHNIQUE: Following IV administration of 92 mL of Optiray, axial images of the abdomen and pelvis were obtained from the lung bases to the proximal femurs. Images were reviewed in the axial, sagittal, and coronal planes. IV contrast was administered without complication. Automated exposure control was utilized for the study. A dose lowering technique was utilized adhering to the principles of ALARA. FINDINGS: A few small branching nodules within the left lower lobe measure up to 7 mm. These are likely benign. No pneumatosis, free air or portal venous gas is present. The liver, spleen, adrenal glands and pancreas are unremarkable. There is no biliary or pancreatic ductal dilatation. Multiple subcentimeter right renal lesions are too small to characterize. There is a 3.2 cm left lower pole renal cyst. There is no hydronephrosis. The caliber and wall thickness of small and large bowel are normal. There is no evidence for a bowel obstruction. The appendix is normal. Prostate is enlarged, measuring 6.3 cm in transverse di mension. There is no lymphadenopathy. 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 The aneurysm sac measures 3.2 cm. There is no evidence for rupture. Fat- containing left inguinal hernia is incidentally noted. IMPRESSION: 1. No acute process within the abdomen or pelvis. 2. No bowel obstruction. No bowel wall thickening. Normal appendix. 3. 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 4. A few small left lower lobe pulmonary nodules which are likely benign. A follow-up chest CT in 6 months to ensure stability is recommended. ACT 112: Negative or not required by law. Electronically signed by: Justin Nash M.D. 07/19/2023 2:45 PM Discharge Plan Visit Data Chief Complaint: GI Assessment Stated Complaint: DOC REF,BLACK STOOD,POSS STOMACH BLEED?, ED Provider: Kailash Richardson Discharge Problem: Acute upper GI bleed, Anemia Patient Disposition: Admitted As Inpatient Discharge Instructions Interventions: ED Discharge Assessment Last Done: 07/19/23 17:45
[2023-07-19 21:15] LABS: Hematocrit (blood only) 24.3 % (42.0-52.0); Hemoglobin 8.3 g/dl (14.0-18.0)
[2023-07-19] MEDS: carvediloL 12.5 MG TAB PO SCH (21:25)
[2023-07-20] MEDS: PANTOprazole 40 MG in DEXTROSE 5% MINI-B 100 ML IV SCH ×5 (04:48→21:51)
[2023-07-20] MEDS: CHOLECALCIFEROL 1,000 UNITS 25 MCG TAB PO SCH (07:41)
[2023-07-20] MEDS: amLODIPine BESYLATE 5 MG TAB PO SCH (07:41)
[2023-07-20] MEDS: ATORVASTATIN 40 MG TAB PO SCH (07:41)
[2023-07-20] MEDS: LOSARTAN POTASSIUM 25 MG TAB PO SCH (07:42)
[2023-07-20] MEDS: carvediloL 12.5 MG TAB PO SCH (07:42)
[2023-07-20] MEDS: ASCORBIC ACID 500 MG TAB PO SCH (07:43)
[2023-07-20] MEDS: CYANOCOBALAMIN (B-12) 500 MCG TABLET PO SCH (07:43)
[2023-07-20 07:46] LABS: Hematocrit (blood only) 23.3 % (42.0-52.0); Hemoglobin 7.9 g/dl (14.0-18.0); Mean Corpuscular Hemoglobin 33.2 pg (25.0-34.0); Mean Corpuscular Hgb Conc 33.9 g/dL (32.0-36.0); Mean Corpuscular Volume 97.9 fL (80.0-100.0); Mean Platelet Volume 10.4 fL (9.4-12.4); Platelet Count 204 K/uL (130-400); RDW Coefficient of Variation 14.1 % (11.5-14.5); RDW Standard Deviation 48.9 fL (36.4-46.3); Red Blood Count 2.38 M/uL (4.70-6.10); White Blood Count 6.89 K/ul (4.8-10.8)
[2023-07-20 07:59] LABS: BUN Creatinine Ratio 27.2 (10-20); Calcium 8.6 mg/dl (8.6-10.3); Creatinine Clr Calc Pharmacy 53.2 ml/min; Est GFR (Non-African American) 50.9 ml/min; Potassium 4.3 mmol/L (3.5-5.1)
[2023-07-20] MEDS ORDERED: INFLUENZA VACCINE HIGH-DOSE (HD-IIV4) PF 65+ 0.7mL SYR IM ONE (09:00)
--- NOTE | 2023-07-20 09:13 | Gastrointestinal Consultation ---
Date of Consultation July 20, 2023 Assessment & Plan (1) Anemia: Plan Melena/Anemia in the setting of dual antiplatlet therapy and chronic prednisone use as well as prn NSAIDs. This is very suggestive of an upper GI bleed. Keep NPO. Hold Plavix/ASA, continue PPI drip. EGD explained in detail including indication/risks. Pt agrees to go forward with the procedure. Further recommendations to follow EGD. If not obvious cause of anemia on EGD, will likely need a colonoscopy. Supervising Physician Co-Signing Physician Notes Attg add I interviewed and examined pt, reviewed chart and labs. Pt with anemia, plan as above. History of Present Illness Reason for Consultation: GI bleed Requesting Physician: Beba Lorenzo PA-C Attending Physician: Roque Zamudio MD History of Present Illness Mr. Goetz is a 72-year-old male pt of Dr. Bass w a hx of prior mild CVAs on Plavix/ASA (most recent doses 1010 AM), PVD, COPD, COOPER on CPAP, HTN, prior AAA repair w graft, CKD3, OA (on prednisone 5mg daily and diclofenac prn) who presented to the ED for black BMs and exertional SOB. He is AAO, w/o discomfort, VS are stable. He reports passing hard, black BMs on 07/12, and then also a large loose BM on the at that time also w severe nausea and felt faint. No BMs since July 17. No vomiting. He has had only mild lower abd cramping that resolves w defecation otherwise no abdominal pain. He does also have chronic bruising. 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 On arrival CTAP w IV w/o acute abnormalities. Hb 8.9->7.9 today. Prior OP Hb in February was 13. BUN el at 38->37 today. He feels well and was up walking around the room. His most recent colonoscopy was in 2012: one diminutive poly was removed, otherwise normal. He had a negative Cologuard in May 2023. Allergies Allergy/AdvReac Type Severity Reaction Status Date / Time gabapentin Allergy Severe FEET SWELLS Verified 07/20/23 11:26 pregabalin [From Lyrica] Allergy Intermediate FEET SWELLS Verified 07/20/23 11:26 ciprofloxacin Allergy Unknown Verified 07/20/23 11:26 pravastatin AdvReac Unknown Verified 07/20/23 11:26 rosuvastatin [From Crestor] AdvReac Unknown Verified 07/20/23 11:26 simvastatin [From Zocor] AdvReac Unknown Verified 07/20/23 11:26 Home Medications Medication Instructions Recorded Confirmed Type atorvastatin 80 mg tablet 80 mg PO QAM 07/22/19 07/19/23 History clopidogrel 75 mg tablet 75 mg PO QAM 07/22/19 07/19/23 History ezetimibe 10 mg tablet 10 mg PO QAM 07/22/19 07/19/23 History aspirin 81 mg tablet,delayed 81 mg PO DAILY 01/10/20 07/19/23 History release (Aspir-) cholecalciferol (vitamin D3) 25 1,000 unit PO DAILY 01/10/20 07/19/23 History mcg (1,000 unit) tablet (Vitamin D3) diclofenac sodium 1 % topical gel 4 g topical BID PRN Pain 01/10/20 07/19/23 History amlodipine 5 mg tablet 5 mg PO DAILY 07/19/23 07/19/23 History ascorbic acid (vitamin C) 1,000 mg 1,000 mg PO DAILY 07/19/23 07/19/23 History tablet,extended release candesartan 4 mg tablet 4 mg PO DAILY 07/19/23 07/19/23 History carvedilol 12.5 mg tablet 12.5 mg PO BID 07/19/23 07/19/23 History cyanocobalamin (vitamin B-12) 1,000 mcg PO DAILY 07/19/23 07/19/23 History 1,000 mcg tablet pantoprazole 40 mg tablet,delayed 40 mg PO DAILY 07/19/23 07/19/23 History release prednisone 5 mg tablet 5 mg PO DAILY 07/19/23 07/19/23 History Patient History Medical History (Updated 07/20/23 @ 10:08 by Ranajn Bautista MD) CKD (chronic kidney disease) stage 3, GFR 30-59 ml/min Encounter for pre-operative examination GERD (gastroesophageal reflux disease) History of tobacco abuse HLD (hyperlipidemia) HTN (hypertension) COOPER (obstructive sleep apnea) Osteoarthritis Surgical History H/O neck surgery s/p Fusion of cervical vertebrae History of AAA (abdominal aortic aneurysm) repair 2008 Dr Gambino History of arthroscopy of both knees History of arthroscopy of right shoulder History of hernia repair History of tonsillectomy and adenoidectomy Family History Father , in 70s Stroke Alcohol abuse Cirrhosis Mother Coronary heart disease Dementia Sister No significant family history Social History Smoking Status: Former smoker Cigarettes Per Day: 15; Second Hand Exposure: No; Do You Dip or Chew Tobacco: No; Hx Alcohol Use: Yes Alcohol type: beer and wine Alcohol Intake Frequency Comment: Rare Hx Substance Use: No Preferred Language: Syriac Communication Ability: Effective 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 No fevers, no weight loss; no sick contacts Eyes: No eye redness, or pain, no recent vision changes Resp: + exertional SOB; no cough Cardio: No palpitations/irregular beats, no chest pain GI: As per HPI, otherwise (-) : Denies pain on urination Skin: + easy bruising; No jaundice, itching or new rashes Physical Exam Constitutional: WD/WN, vitals as above Eyes: PERRL, conjunctivae normal, anicteric sclerae ENMT: external ear and nose normal, oropharynx normal Neck: trachea midline, no thyromegaly Respiratory: normal respiratory effort, lungs clear to auscultation Cardiovascular: RRR, no murmur, no edema Gastrointestinal (Abdomen): normal bowel sounds, soft, nontender, no hepatosplenomegaly Musculoskeletal: no cyanosis or clubbing, extremities motor strength 5/5 Skin: bruise on left elbow/lower arm. Darkening of the lower skins consistent with chronic PAD. Neurologic: PERRL, EOMI, accommodation nl, no face palsy, no dysarthria Psychiatric: A+Ox3, euthymic affect Lymphatic: no cervical or axillary lymphadenopathy Results & Data Vital Signs (Past 12 Hours) Vital Signs Temp Pulse Pulse Resp BP Pulse Ox O2 Del Method 07/20/23 07:33 36.7 C 70 18 116/73 95 Room Air 07/20/23 07:00 82 07/19/23 22:19 65 07/20/23 04:00 36.6 C 71 18 130/73 97 Room Air 07/19/23 23:30 36.6 C 69 18 103/60 96 Room Air Laboratory Results WBC 8, Hb 8.8, Hct 24, Plts 234, Na 139, K 4.2, Cl 108, CO2 25, BUN 38, Cr 1.39, glucose 123 Diagnostic Findings CTAP w IV 07/19/23: 1. No acute process within the abdomen or pelvis. 2. No bowel obstruction. No bowel wall thickening. Normal appendix. 3. 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 4. A few small left lower lobe pulmonary nodules which are likely benign. A follow-up chest CT in 6 months to ensure stability is recommended.
[2023-07-20 09:48] LABS: Influenza A virus by PCR Negative (Neg); Influenza B virus by PCR Negative (Neg); RSV by PCR Negative (Neg); SARS CoV2 RNA(COVID-19) Ceph NEGATIVE (Negative)
--- NOTE | 2023-07-20 10:06 | Anesthesiology Consultation ---
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 Consults Requested none Proposed Anesthesia Anesthesia Type: MAC History Surgery Operation Date: 07/20/23 17:30 Proposed Procedures p Esophagogastroduodenoscopy Dr Marroquin - Stefanie Yoder MD Height/Weight Height: 5 ft 9 in Weight: 91.2 kg Allergies Allergy/AdvReac Type Severity Reaction Status Date / Time gabapentin Allergy Severe FEET SWELLS Verified 01/10/20 21:00 pregabalin [From Lyrica] Allergy Intermediate FEET SWELLS Verified 01/10/20 20:58 ciprofloxacin Allergy Unknown Verified 01/10/20 20:58 pravastatin AdvReac Unknown Verified 01/10/20 21:00 rosuvastatin [From Crestor] AdvReac Unknown Verified 01/10/20 21:00 simvastatin [From Zocor] AdvReac Unknown Verified 01/10/20 21:00 Medications Home Medications Medication Instructions Recorded Confirmed Last Taken atorvastatin 80 mg tablet 80 mg PO QAM 07/22/19 07/19/23 07/22/19 clopidogrel 75 mg tablet 75 mg PO QAM 07/22/19 07/19/23 07/22/19 ezetimibe 10 mg tablet 10 mg PO QAM 07/22/19 07/19/23 07/22/19 aspirin 81 mg tablet,delayed 81 mg PO DAILY 01/10/20 07/19/23 Unknown release (Aspir-) cholecalciferol (vitamin D3) 25 1,000 unit PO DAILY 01/10/20 07/19/23 Unknown mcg (1,000 unit) tablet (Vitamin D3) diclofenac sodium 1 % topical gel 4 g topical BID PRN Pain 01/10/20 07/19/23 Unknown amlodipine 5 mg tablet 5 mg PO DAILY 07/19/23 07/19/23 Unknown ascorbic acid (vitamin C) 1,000 mg 1,000 mg PO DAILY 07/19/23 07/19/23 Unknown tablet,extended release candesartan 4 mg tablet 4 mg PO DAILY 07/19/23 07/19/23 Unknown carvedilol 12.5 mg tablet 12.5 mg PO BID 07/19/23 07/19/23 Unknown cyanocobalamin (vitamin B-12) 1,000 mcg PO DAILY 07/19/23 07/19/23 Unknown 1,000 mcg tablet pantoprazole 40 mg tablet,delayed 40 mg PO DAILY 07/19/23 07/19/23 Unknown release prednisone 5 mg tablet 5 mg PO DAILY 07/19/23 07/19/23 Unknown Active Medications Generic Name Dose Route Start Last Admin Trade Name Jonathan PRN Reason Stop Dose Admin Amlodipine Besylate 5 mg 07/20/23 09:00 07/20/23 07:41 Amlodipine Besylate 5 Mg Tab PO 08/19/23 08:59 5 mg DAILY CARMEN Administration Ascorbic Acid 1,000 mg 07/20/23 09:00 07/20/23 07:43 Ascorbic Acid 500 Mg Tab PO 08/19/23 08:59 1,000 mg DAILY CARMEN Administration Atorvastatin Calcium 80 mg 07/20/23 09:00 07/20/23 07:41 Atorvastatin 40 Mg Tab PO 08/19/23 08:59 80 mg QAM CARMEN Administration Carvedilol 12.5 mg 07/19/23 21:00 07/20/23 07:42 Carvedilol 12.5 Mg Tab PO 08/18/23 20:59 12.5 mg BID CARMEN Administration Cyanocobalamin 1,000 mcg 07/20/23 09:00 07/20/23 07:43 Cyanocobalamin (B-12) 500 Mcg Tablet PO 08/19/23 08:59 1,000 mcg DAILY CARMEN Administration Pantoprazole Sodium 40 mg/ 100 mls @ 20 mls/hr 07/19/23 16:00 07/20/23 07:38 Dextrose IV 08/18/23 15:59 8 mg/hr Q5H CARMEN 20 mls/hr Administration 8 MG/HR Losartan Potassium 12.5 mg 07/20/23 09:00 07/20/23 07:42 Losartan Potassium 25 Mg Tab PO 08/19/23 08:59 12.5 mg DAILY CARMEN Administration Vitamin D 1,000 units 07/20/23 09:00 07/20/23 07:41 Cholecalciferol 1,000 Units 25 Mcg Tab PO 08/19/23 08:59 1,000 units DAILY CARMEN Administration Past Medical History Medical History (Updated 07/20/23 @ 10:08 by Ranjan Bautista MD) CKD (chronic kidney disease) stage 3, GFR 30-59 ml/min Encounter for pre-operative examination GERD (gastroesophageal reflux disease) History of tobacco abuse HLD (hyperlipidemia) HTN (hypertension) COOPER (obstructive sleep apnea) Osteoarthritis Past Family History Family History Father , in 70s Stroke Alcohol abuse Cirrhosis Mother Coronary heart disease Dementia Sister No significant family history Past Surgical History Surgical History H/O neck surgery s/p Fusion of cervical vertebrae History of AAA (abdominal aortic aneurysm) repair 2008 Dr Gambino History of arthroscopy of both knees History of arthroscopy of right shoulder History of hernia repair History of tonsillectomy and adenoidectomy Social History Smoking Status: Former smoker Smoking cigarettes per day: 15 Do You Dip or Chew Tobacco: No Hx Alcohol Use: Yes Alcohol type: beer and wine alcohol intake frequency: holidays/special occasions only Hx Substance Use: No Physical Exam Vital Signs Last Vital Signs Temp 36.7 C 07/20/23 07:33 Pulse 70 07/20/23 07:33 Resp 18 07/20/23 07:33 BP 116/73 07/20/23 07:33 Pulse Ox 95 07/20/23 07:33 O2 Del Method Room Air 07/20/23 07:33 Testing Laboratory Results 07/20/23 07:20 07/20/23 07:20 PT 10.7 Seconds (9.0-12.0) 07/19/23 12:23 INR 1.0 (0.9-1.1) 07/19/23 12:23 Blood Type A Positive 07/19/23 12:23 Antibody Screen NEGATIVE 07/19/23 12:23 Electrocardiogram Date: 01/10/20 Test Reason : Blood Pressure : / mmHG Vent. Rate : 074 BPM Atrial Rate : 074 BPM P-R Int : 252 ms QRS Dur : 092 ms QT Int : 378 ms P-R-T Axes : 065 -07 036 degrees QTc Int : 419 ms Sinus rhythm with 1st degree A-V block Otherwise normal ECG When compared with ECG of 23-JUL-2019 06:43, No significant change was found Confirmed by Travis Tenorio ([id number]) on 01/11/2020 2:46:04 PM Chest X-Ray Date: 07/22/19 XR chest 1V portable CLINICAL HISTORY: Blurred vision. COMPARISON STUDY: No previous studies for comparison. FINDINGS: The heart is normal in size. There is mild aortic tortuosity. There is slight prominence of the basilar markings, likely atelectatic. There is no failure. There are no pleural effusions.[ IMPRESSION: 1. Slightly prominent basilar markings, likely atelectatic. No evidence of failure.
--- NOTE | 2023-07-20 12:49 | History & Physical Report ---
Date of Service July 20, 2023 Assessment & Plan Admission and Anticipated Discharge Date Admission Date: July 19, 2023 History of Present Illness Primary Care Provider: Kailash Bass MD ugmiguel cv: rrr Resp : CTA Abd: soft A/p: EGD Allergies Allergy/AdvReac Type Severity Reaction Status Date / Time gabapentin Allergy Severe FEET SWELLS Verified 07/20/23 11:26 pregabalin [From Lyrica] Allergy Intermediate FEET SWELLS Verified 07/20/23 11:26 ciprofloxacin Allergy Unknown Verified 07/20/23 11:26 pravastatin AdvReac Unknown Verified 07/20/23 11:26 rosuvastatin [From Crestor] AdvReac Unknown Verified 07/20/23 11:26 simvastatin [From Zocor] AdvReac Unknown Verified 07/20/23 11:26 Home Medications Medication Instructions Recorded Confirmed Type atorvastatin 80 mg tablet 80 mg PO QAM 07/22/19 07/19/23 History clopidogrel 75 mg tablet 75 mg PO QAM 07/22/19 07/19/23 History ezetimibe 10 mg tablet 10 mg PO QAM 07/22/19 07/19/23 History aspirin 81 mg tablet,delayed 81 mg PO DAILY 01/10/20 07/19/23 History release (Aspir-) cholecalciferol (vitamin D3) 25 1,000 unit PO DAILY 01/10/20 07/19/23 History mcg (1,000 unit) tablet (Vitamin D3) diclofenac sodium 1 % topical gel 4 g topical BID PRN Pain 01/10/20 07/19/23 History amlodipine 5 mg tablet 5 mg PO DAILY 07/19/23 07/19/23 History ascorbic acid (vitamin C) 1,000 mg 1,000 mg PO DAILY 07/19/23 07/19/23 History tablet,extended release candesartan 4 mg tablet 4 mg PO DAILY 07/19/23 07/19/23 History carvedilol 12.5 mg tablet 12.5 mg PO BID 07/19/23 07/19/23 History cyanocobalamin (vitamin B-12) 1,000 mcg PO DAILY 07/19/23 07/19/23 History 1,000 mcg tablet pantoprazole 40 mg tablet,delayed 40 mg PO DAILY 07/19/23 07/19/23 History release prednisone 5 mg tablet 5 mg PO DAILY 07/19/23 07/19/23 History Past Med/Surg History Medical History (Updated 07/20/23 @ 10:08 by Ranjan Bautista MD) CKD (chronic kidney disease) stage 3, GFR 30-59 ml/min Encounter for pre-operative examination GERD (gastroesophageal reflux disease) History of tobacco abuse HLD (hyperlipidemia) HTN (hypertension) COOPER (obstructive sleep apnea) Osteoarthritis Surgical History H/O neck surgery s/p Fusion of cervical vertebrae History of AAA (abdominal aortic aneurysm) repair 2008 Dr Gambino History of arthroscopy of both knees History of arthroscopy of right shoulder History of hernia repair History of tonsillectomy and adenoidectomy Family History Father , in 70s Stroke Alcohol abuse Cirrhosis Mother Coronary heart disease Dementia Sister No significant family history Social History Smoking Status: Former smoker Cigarettes Per Day: 15; Second Hand Exposure: No; Do You Dip or Chew Tobacco: No; Hx Alcohol Use: Yes Alcohol type: beer and wine Alcohol Intake Frequency Comment: Rare Hx Substance Use: No Preferred Language: Guyanese Communication Ability: Effective 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 Required: No Beliefs That Will Affect Care: None marital status: Current Living Situation: Spouse current occupational status: 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[employer] at [employer]; [employer] Other Information That Helps Us Care for You: No Feels Safe at Home: Yes Safety Concerns: Feels Safe At This Time Assistive Devices: CPAP, Denture - Upper, Denture - Lower and Glasses Results & Data Results & Data Vital Signs (Past 12 Hours) Vital Signs Temp Pulse Pulse Resp BP Pulse Ox O2 Del Method 07/20/23 11:26 36.6 C 70 18 126/55 L 96 Room Air 07/20/23 07:30 Room Air 07/20/23 07:33 36.7 C 70 18 116/73 95 Room Air 07/20/23 07:00 82 07/20/23 04:00 36.6 C 71 18 130/73 97 Room Air Code Status & VTE Plan VTE Prophylaxis Plan VTE Prophylaxis will be ordered: Yes
[2023-07-20] MEDS ORDERED: PROPOFOL IV EMULSION 10 MG/ML 20 ML VIAL IV ONE (14:13)
[2023-07-20] MEDS ORDERED: LIDOCAINE 2% 2 ML VIAL/AMP(20MG/ML) INFIL ONE (14:13)
--- NOTE | 2023-07-20 14:34 | Hospitalist Progress Note ---
Date of Service July 20, 2023 Assessment & Plan (1) Symptomatic anemia: (2) Melena: Plan: Patient is a 72 yr male with H/O CVA in 2018 and 2019 without residual deficits on dual antiplatelet therapy, COPD, COOPER on CPAP, hypertension, history of abdominal aortic aneurysm s/p repair, CKD 3, OA on prednisone and other medical problems listed below who presents with anemia in setting of black stools over the past few weeks. Symptomatic anemia Melena --CT ABD:No acute process within the abdomen or pelvis. No bowel obstruction. No bowel wall thickening. Normal appendix. 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 A few small left lower lobe pulmonary nodules which are likely benign. A follow-up chest CT in 6 months to ensure stability is recommended. -- Hold aspirin, Plavix Avoid anticoagulation Hold prednisone as well Continue Protonix drip Monitor H&H and transfuse as needed Appreciate GI input Plan for EGD today Further management to be determined (3) CVA (cerebral vascular accident): Plan: H/o CVA in 2018 and 2019 on dual antiplatelet therapy Aspirin, Plavix on hold Continue atorvastatin (4) HTN (hypertension): Plan: Continue losartan, carvedilol, amlodipine (5) HLD (hyperlipidemia): Plan: Chronic; stable. Continue statin (6) Osteoarthritis: Plan: H/o 5mg daily prednisone since Oct per rheum for sciatica/severe OA per rheum. Held prednisone for now Continue spinal injections with Dr. Grider, Extra strength tylenol, Voltaren gel Consider pain mgmt outpatient follow up (7) CKD (chronic kidney disease) stage 3, GFR 30-59 ml/min: Plan: Baseline Cr ~ 1.2 Creatinine near baseline Monitor renal function (8) COOPER (obstructive sleep apnea): Plan: CPAP HS (9) Pulmonary nodules: Plan: Incidental finding on CT Needs repeat CT as outpatient in 6 months DVT Px: SCDs Re: GI bleed Code status: FULL CODE Admission and Anticipated Discharge Date Admission Date: July 19, 2023 Subjective Patient is seen and examined at bedside Denies any bleeding issues today Plan for EGD today Reports to have dyspnea on exertion Offers no other complaints Review of Systems Review of Systems: All systems reviewed & are unremarkable except as noted in Subjective Physical Exam Physical Exam: Physical Exam: Vitals signs as noted above General Appearance:Moderately built and nourished, no apparent distress Head: normocephalic, Atraumatic Eyes: normal inspection, EOMI Neck: supple, Trachea midline Respiratory/Chest: Normal breath sounds, CTA, No accessory muscle use Cardiovascular: S1, S2, No murmur Abdomen/GI:Soft, Non tender, Bowel sounds present Extremities/Musculoskeletal:normal inspection, no edema Neurologic/Psych:AAOX3, grossly no focal neurological deficits Skin: normal color, warm Results & Data Results & Data Vital Signs (Past 12 Hours) Vital Signs Temp Pulse Pulse Resp BP Pulse Ox O2 Del Method 07/20/23 14:27 62 16 132/64 95 Room Air 07/20/23 14:12 58 L 16 105/50 L 97 Room Air 07/20/23 11:26 36.6 C 70 18 126/55 L 96 Room Air 07/20/23 07:30 Room Air 07/20/23 07:33 36.7 C 70 18 116/73 95 Room Air 07/20/23 07:00 82 07/20/23 04:00 36.6 C 71 18 130/73 97 Room Air Laboratory Results Short CBC 07/19/23 07/20/23 Range/Units 19:36 07:20 WBC 6.89 (4.8-10.8) K/ul Hgb 8.3 L 7.9 L (14.0-18.0) g/dl Hct 24.3 L 23.3 L (42.0-52.0) % Plt Count 204 (130-400) K/uL BMP 07/20/23 07:20 Sodium 139 Potassium 4.3 Chloride 109 H Carbon Dioxide 26 BUN 37 H Creatinine 1.36 Glucose 96 Calcium 8.6 (4) HTN (hypertension) Hypertension type: unspecified Qualified Code(s): I10 - Essential (primary) hypertension (5) HLD (hyperlipidemia) Hyperlipidemia type: unspecified Qualified Code(s): E78.5 - Hyperlipidemia, unspecified
--- NOTE | 2023-07-20 14:40 | Anesthesiology Progress Note ---
Date of Service July 20, 2023 Anesthesia Post Procedure Vital Signs Vital Signs: Temp Pulse Pulse Resp BP BP Pulse Ox 07/20/23 14:27 62 16 132/64 95 07/20/23 14:12 58 L 16 105/50 L 97 07/20/23 11:26 36.6 C 70 18 126/55 L 96 07/20/23 07:30 07/20/23 07:33 36.7 C 70 18 116/73 95 07/20/23 07:00 82 07/19/23 22:19 65 07/20/23 04:00 36.6 C 71 18 130/73 97 07/19/23 23:30 36.6 C 69 18 103/60 96 07/19/23 20:07 36.8 C 63 16 159/88 H 95 07/19/23 19:49 36.6 C 60 18 112/64 97 07/19/23 18:52 36.7 C 78 18 152/63 H 97 07/19/23 18:51 36.7 C 78 18 152/63 H 97 07/19/23 18:49 71 07/19/23 17:45 71 18 124/74 98 07/19/23 17:05 61 18 151/76 H 98 07/19/23 15:52 63 18 126/72 98 O2 Del Method 07/20/23 14:27 Room Air 07/20/23 14:12 Room Air 07/20/23 11:26 Room Air 07/20/23 07:30 Room Air 07/20/23 07:33 Room Air 07/20/23 07:00 07/19/23 22:19 07/20/23 04:00 Room Air 07/19/23 23:30 Room Air 07/19/23 20:07 Room Air 07/19/23 19:49 Room Air 07/19/23 18:52 Room Air 07/19/23 18:51 Room Air 07/19/23 18:49 07/19/23 17:45 Room Air 07/19/23 17:05 Room Air 07/19/23 15:52 Room Air Transfer of Care Handoff Completed per policy Notes Mental Status: alert / awake / arousable and participated in evaluation Patient Amnestic to Procedure: Yes Nausea / Vomiting: adequately controlled Pain: adequately controlled Airway Patency, RR, SpO2: stable & adequate BP & HR: stable & adequate Hydration State: stable & adequate Anesthetic Complications: no major complications apparent
[2023-07-20] MEDS ORDERED: bisacodyL 5 MG TABEC PO ONE (15:43)
--- NOTE | 2023-07-20 16:33 | GI REPORT ---
Patient Name: Dawit Goetz Procedure Date: 07/20/2023 1:27 PM Date of : 1950 Admit Type: Inpatient Age: 72 Gender: Male Attending MD: Stefanie Yoder MD, Procedure: Upper GI endoscopy Providers: Stefanie Yoder MD Referring MD: Kailash Bass Indications: Acute post hemorrhagic anemia Medicines: See the Anesthesia note for documentation of the administered medications Complications: No immediate complications. Estimated Blood Loss: Estimated blood loss: none. Procedure: Pre-Anesthesia Assessment: - ASA Grade Assessment: III - A patient with severe systemic disease. After obtaining informed consent, the endoscope was passed under direct vision. Throughout the procedure, the patient's blood pressure, pulse, and oxygen saturations were monitored continuously. The Endoscope was introduced through the mouth, and advanced to the proximal jejunum. The Endoscope was introduced through the and advanced to the. The upper GI endoscopy was accomplished without difficulty. The patient tolerated the procedure well. Findings: The examined esophagus was normal. The entire examined stomach was normal. The examined duodenum was normal. The papilla was normal. The examined jejunum was normal. Impression: - Normal esophagus. - Normal stomach. - Normal examined duodenum. - Normal examined jejunum. - No specimens collected. Recommendation: - Discharge patient to floor. Consider colonoscopy tomorrow. Stefanie Yoder M.D. Stefanie Yoder MD 07/20/2023 4:33:09 PM This report has been signed electronically. Note Initiated On: 07/20/2023 1:27 PM Number of Addenda: 0 I attest to the content of the Intraoperative Record and orders documented therein, exceptions below {[id number]}
[2023-07-20] MEDS: LAVAGE SOLUTION 4000ML PO SCH ×11 (17:32→21:49)
[2023-07-20 20:40] LABS: Hematocrit (blood only) 24.2 % (42.0-52.0); Hemoglobin 8.3 g/dl (14.0-18.0)
[2023-07-20] MEDS ORDERED: PROMETHAZINE HCL 12.5 MG in SODIUM CHLORIDE 0.9% 50 ML IV PRN (22:50)
[2023-07-21] MEDS: carvediloL 12.5 MG TAB PO SCH ×3 (00:12→22:14)
[2023-07-21] MEDS: LAVAGE SOLUTION 4000ML PO SCH (00:13)
[2023-07-21] MEDS: PANTOprazole 40 MG in DEXTROSE 5% MINI-B 100 ML IV SCH ×2 (04:59→11:23)
[2023-07-21] MEDS: ATORVASTATIN 40 MG TAB PO SCH (08:06)
[2023-07-21] MEDS: EZETIMIBE 10 MG TAB PO SCH (08:07)
[2023-07-21] MEDS: amLODIPine BESYLATE 5 MG TAB PO SCH (08:07)
[2023-07-21] MEDS: LOSARTAN POTASSIUM 25 MG TAB PO SCH (08:08)
[2023-07-21] MEDS: CHOLECALCIFEROL 1,000 UNITS 25 MCG TAB PO SCH (08:09)
[2023-07-21] MEDS: ASCORBIC ACID 500 MG TAB PO SCH (08:09)
[2023-07-21] MEDS: CYANOCOBALAMIN (B-12) 500 MCG TABLET PO SCH (08:09)
[2023-07-21 09:10] LABS: Hematocrit (blood only) 22.6 % (42.0-52.0); Hemoglobin 7.7 g/dl (14.0-18.0); Mean Corpuscular Hemoglobin 32.9 pg (25.0-34.0); Mean Corpuscular Hgb Conc 34.1 g/dL (32.0-36.0); Mean Corpuscular Volume 96.6 fL (80.0-100.0); Mean Platelet Volume 10.7 fL (9.4-12.4); Platelet Count 231 K/uL (130-400); Red Blood Count 2.34 M/uL (4.70-6.10); White Blood Count 6.52 K/ul (4.8-10.8)
[2023-07-21 09:25] LABS: BUN Creatinine Ratio 18.6 (10-20); Calcium 8.7 mg/dl (8.6-10.3); Creatinine Clr Calc Pharmacy 44.7 ml/min; Est GFR (African American) 48.1 ml/min; Est GFR (Non-African American) 41.5 ml/min
[2023-07-21] MEDS ORDERED: SODIUM CHLORIDE 0.9% 1,000 ML IV ONE (09:39)
--- NOTE | 2023-07-21 10:25 | History & Physical Bridge Note ---
Date of Service July 21, 2023 History & Physical Bridge Note I have examined the patient, reviewed the History & Physical and in the interval since the performance of the History & Physical I have noted the following changes of clinical significance: no changes noted
[2023-07-21] MEDS ORDERED: fentaNYL citrate PF 100 MCG/2 ML VIAL ONE (10:27)
[2023-07-21] MEDS ORDERED: PROPOFOL IV EMULSION 10 MG/ML 20 ML VIAL IV ONE (10:27)
[2023-07-21] MEDS ORDERED: MIDAZOLAM HCL 1 MG/ML 2ML VIAL ONE (10:27)
--- NOTE | 2023-07-21 13:16 | GI REPORT ---
Patient Name: Dawit Goetz Procedure Date: 07/21/2023 10:34 AM Date of : 1950 Admit Type: Inpatient Age: 72 Gender: Male Attending MD: Stefanie Yoder MD, Procedure: Colonoscopy Providers: Stefanie Yoder MD Referring MD: Roque Zamudio Md Indications: Acute post hemorrhagic anemia Medicines: See the Anesthesia note for documentation of the administered medications Complications: No immediate complications. Estimated Blood Loss: Estimated blood loss: none. Procedure: Pre-Anesthesia Assessment: - ASA Grade Assessment: III - A patient with severe systemic disease. After I obtained informed consent, the scope was passed under direct vision. Throughout the procedure, the patient's blood pressure, pulse, and oxygen saturations were monitored continuously. The Scope was introduced through the anus and advanced to 10 cm into the ileum. The colonoscopy was performed without difficulty. The patient tolerated the procedure well. The quality of the bowel preparation was good. Findings: Hemorrhoids were found on perianal exam. Multiple small and large-mouthed diverticula were found in the sigmoid colon, descending colon and hepatic flexure. Four sessile polyps were found in the sigmoid colon and descending colon. The polyps were 3 to 5 mm in size. These polyps were removed with a cold snare. Resection and retrieval were complete. Hemorrhoids were found during retroflexion. The exam was otherwise without abnormality. Impression: - Hemorrhoids found on perianal exam. - Diverticulosis in the sigmoid colon, in the descending colon and at the hepatic flexure. - Four 3 to 5 mm polyps in the sigmoid colon and in the descending colon, removed with a cold snare. Resected and retrieved. - Hemorrhoids. - The examination was otherwise normal. Recommendation: - Discharge patient to floor. Diet as tolerated. Can resume aspirin today, Plavix tomorrow. Consider capsule endoscopy as outpt. Stefanie Yoder M.D. Stefanie Yoder MD 07/21/2023 1:15:57 PM This report has been signed electronically. Note Initiated On: 07/21/2023 10:34 AM Number of Addenda: 0 I attest to the content of the Intraoperative Record and orders documented therein, exceptions below {[id number]}
--- NOTE | 2023-07-21 14:54 | Anesthesiology Progress Note ---
Date of Service July 21, 2023 Anesthesia Post Procedure Vital Signs Vital Signs: Temp Pulse Pulse Resp BP Pulse Ox O2 Del Method 07/21/23 11:51 65 18 119/54 L 95 Room Air 07/21/23 11:36 74 18 113/55 L 94 Room Air 07/21/23 11:21 79 16 83/39 L 94 Room Air 07/21/23 10:07 36.6 C 85 18 122/55 L 94 Room Air 07/21/23 07:37 36.7 C 74 18 133/76 95 Room Air 07/21/23 07:29 Room Air 07/21/23 07:14 70 07/21/23 04:00 36.5 C 74 18 131/72 97 Room Air 07/20/23 22:02 78 07/20/23 23:54 36.5 C 82 18 132/73 97 Room Air 07/20/23 19:00 36.6 C 70 18 134/72 96 Room Air 07/20/23 15:33 36.5 C 61 18 122/66 97 Room Air 07/20/23 15:05 36.4 C L 60 16 145/70 H 97 Room Air Transfer of Care Handoff Completed per policy Notes Mental Status: alert / awake / arousable and participated in evaluation Patient Amnestic to Procedure: Yes Nausea / Vomiting: adequately controlled Pain: adequately controlled Airway Patency, RR, SpO2: stable & adequate BP & HR: stable & adequate Hydration State: stable & adequate Anesthetic Complications: no major complications apparent
--- NOTE | 2023-07-21 15:37 | Hospitalist Progress Note ---
Date of Service July 21, 2023 Assessment & Plan (1) Symptomatic anemia: (2) Melena: Plan: Patient is a 72 yr male with H/O CVA in 2018 and 2019 without residual deficits on dual antiplatelet therapy, COPD, COOPER on CPAP, hypertension, history of abdominal aortic aneurysm s/p repair, CKD 3, OA on prednisone and other medical problems listed below who presents with anemia in setting of black stools over the past few weeks. Symptomatic anemia Melena likely multifactorial due to diverticulosis, hemorrhoids, polyps --CT ABD:No acute process within the abdomen or pelvis. No bowel obstruction. No bowel wall thickening. Normal appendix. 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 A few small left lower lobe pulmonary nodules which are likely benign. A follow-up chest CT in 6 months to ensure stability is recommended. --S/P EGD: Normal esophagus, normal stomach, normal examined duodenum, normal examined jejunum. --S/P colonoscopy: Hemorrhoids found on perianal exam. Diverticulosis in the sigmoid colon, in the descending colon and at the hepatic flexure. Four 3 to 5 mm polyps in the sigmoid colon and in the descending colon, removed with a cold snare. Resected and retrieved. Hemorrhoids. Hold prednisone for now Protonix drip>> transition to p.o. Protonix Monitor H&H and transfuse as needed Appreciate GI input Resume aspirin today as per GI Plan to resume Plavix tomorrow if no recurrence of bleeding Needs outpatient capsule endoscopy If remains symptomatic due to anemia, will plan to transfuse PRBCs Advance diet as tolerated (3) CVA (cerebral vascular accident): Plan: H/o CVA in 2018 and 2019 on dual antiplatelet therapy Resume Aspirin, Plavix as able Continue atorvastatin (4) HTN (hypertension): Plan: Continue losartan, carvedilol, amlodipine (5) HLD (hyperlipidemia): Plan: Chronic; stable. Continue statin (6) Osteoarthritis: Plan: H/o 5mg daily prednisone since Oct per rheum for sciatica/severe OA per rheum. Held prednisone for now Continue spinal injections with Dr. Grider, Extra strength tylenol, Voltaren gel Consider pain mgmt outpatient follow up (7) CKD (chronic kidney disease) stage 3, GFR 30-59 ml/min: Plan: Baseline Cr ~ 1.2 Creatinine near baseline Monitor renal function (8) COOPER (obstructive sleep apnea): Plan: CPAP HS (9) Pulmonary nodules: Plan: Incidental finding on CT Needs repeat CT as outpatient in 6 months DVT Px: SCDs Re: GI bleed Code status: FULL CODE Admission and Anticipated Discharge Date Admission Date: July 19, 2023 Subjective Patient is seen and examined at bedside No recurrence of melena this morning Had colonoscopy today States having some dyspnea on exertion Denies any chest pain, dizziness, abdominal pain Review of Systems Review of Systems: All systems reviewed & are unremarkable except as noted in Subjective Physical Exam Physical Exam: Physical Exam: Vitals signs as noted above General Appearance:Moderately built and nourished, no apparent distress Head: normocephalic, Atraumatic Eyes: normal inspection, EOMI Neck: supple, Trachea midline Respiratory/Chest: Normal breath sounds, CTA, No accessory muscle use Cardiovascular: S1, S2, No murmur Abdomen/GI:Soft, Non tender, Bowel sounds present Extremities/Musculoskeletal:normal inspection, no edema Neurologic/Psych:AAOX3, grossly no focal neurological deficits Skin: normal color, warm Results & Data Results & Data Vital Signs (Past 12 Hours) Vital Signs Temp Pulse Pulse Resp BP Pulse Ox O2 Del Method 07/21/23 15:19 36.5 C 65 18 115/68 95 Room Air 07/21/23 11:51 65 18 119/54 L 95 Room Air 07/21/23 11:36 74 18 113/55 L 94 Room Air 07/21/23 11:21 79 16 83/39 L 94 Room Air 07/21/23 10:07 36.6 C 85 18 122/55 L 94 Room Air 07/21/23 07:37 36.7 C 74 18 133/76 95 Room Air 07/21/23 07:29 Room Air 07/21/23 07:14 70 07/21/23 04:00 36.5 C 74 18 131/72 97 Room Air Laboratory Results Short CBC 07/20/23 07/21/23 Range/Units 20:08 08:40 WBC 6.52 (4.8-10.8) K/ul Hgb 8.3 L 7.7 L (14.0-18.0) g/dl Hct 24.2 L 22.6 L (42.0-52.0) % Plt Count 231 (130-400) K/uL BMP 07/21/23 08:40 Sodium 137 Potassium 4.0 Chloride 105 Carbon Dioxide 23 BUN 30 H Creatinine 1.61 H Glucose 102 H Calcium 8.7 (4) HTN (hypertension) Hypertension type: unspecified Qualified Code(s): I10 - Essential (primary) hypertension (5) HLD (hyperlipidemia) Hyperlipidemia type: unspecified Qualified Code(s): E78.5 - Hyperlipidemia, unspecified
[2023-07-21] MEDS: ASPIRIN 81 MG ECTAB PO SCH (16:26)
[2023-07-22 07:36] LABS: Hematocrit (blood only) 21.6 % (42.0-52.0); Hemoglobin 7.1 g/dl (14.0-18.0); Mean Corpuscular Hgb Conc 32.9 g/dL (32.0-36.0); Mean Corpuscular Volume 100.5 fL (80.0-100.0); Mean Platelet Volume 10.8 fL (9.4-12.4); Platelet Count 216 K/uL (130-400); RDW Coefficient of Variation 14.3 % (11.5-14.5); RDW Standard Deviation 50.4 fL (36.4-46.3); Red Blood Count 2.15 M/uL (4.70-6.10); White Blood Count 6.36 K/ul (4.8-10.8)
[2023-07-22 07:54] LABS: BUN Creatinine Ratio 17.1 (10-20); Calcium 7.9 mg/dl (8.6-10.3); Creatinine Clr Calc Pharmacy 42.5 ml/min; Est GFR (African American) 43.5 ml/min; Est GFR (Non-African American) 37.5 ml/min; Potassium 4.2 mmol/L (3.5-5.1)
[2023-07-22] MEDS: amLODIPine BESYLATE 5 MG TAB PO SCH (08:44)
[2023-07-22] MEDS: ASPIRIN 81 MG ECTAB PO SCH (08:45)
[2023-07-22] MEDS: PANTOprazole 40 MG TAB PO SCH (08:45)
[2023-07-22] MEDS: CYANOCOBALAMIN (B-12) 500 MCG TABLET PO SCH (08:45)
[2023-07-22] MEDS: carvediloL 12.5 MG TAB PO SCH ×2 (08:45→20:32)
[2023-07-22] MEDS: EZETIMIBE 10 MG TAB PO SCH (08:45)
[2023-07-22] MEDS: ATORVASTATIN 40 MG TAB PO SCH (08:45)
[2023-07-22] MEDS: CHOLECALCIFEROL 1,000 UNITS 25 MCG TAB PO SCH (08:45)
[2023-07-22] MEDS: ASCORBIC ACID 500 MG TAB PO SCH (08:45)
[2023-07-22] MEDS ORDERED: IRON SUCROSE 300 MG in SODIUM CHLORIDE 0.9% 250 ML IV ONE (09:00)
--- NOTE | 2023-07-22 09:19 | Neurology Consultation ---
Date of Consultation July 22, 2023 Assessment & Plan (1) Acute upper GI bleed: extermination supervisor dapt is not appropriate for stroke prevention as it can cause GI bleeding. Recommend aspirin monotherapy. Would NOT restart plavix. Telehealth Consultation Telehealth Information Telehealth Information: I performed this visit using a real-time telehealth connection between my location and the patients location ([facility]). After connecting through interactive tele-video, patient was identified by name and date of and/or wristband check.Patient (or authorized healthcare sales development representative) was informed that this was a telemedicine visit and it was being conducted confidentially over secure lines. My office door was closed and no one else was present in the room with me.Patient (or authorized healthcare sales development representative) provided consent to proceed with the visit, expressed an understanding of privacy and security of the telemedicine visit, and gave permission to have a hospital sales development representative in the room in order to assist with the visit and to conduct portions of the visit, as needed. I informed the patient (or authorized healthcare sales development representative) that I reviewed their record and presented the opportunity for them to ask any questions regarding the visit today. The patient agreed to participate. History of Present Illness Reason for Consultation: Antiplatelet management Requesting Physician: Dr. Odom Attending Physician: Davion Odom MD History of Present Illness Dawit Goetz is a 72 yo M with a history of two prior strokes in 2018 and 2019. He had been on aspirin monotherapy for 20 years prior to his first stroke in 2018. He was switched to plavix at that time and had another stroke of the L thalamus in 2019. At that time he was started on DAPT. He has been on DAPT since then and presents with a GI bleed, though no source found. Allergies Allergy/AdvReac Type Severity Reaction Status Date / Time gabapentin Allergy Severe FEET SWELLS Verified 07/21/23 10:06 pregabalin [From Lyrica] Allergy Intermediate FEET SWELLS Verified 07/21/23 10:06 ciprofloxacin Allergy Unknown Verified 07/21/23 10:06 pravastatin AdvReac Unknown Verified 07/21/23 10:06 rosuvastatin [From Crestor] AdvReac Unknown Verified 07/21/23 10:06 simvastatin [From Zocor] AdvReac Unknown Verified 07/21/23 10:06 Home Medications Medication Instructions Recorded Confirmed Type atorvastatin 80 mg tablet 80 mg PO QAM 07/22/19 07/19/23 History clopidogrel 75 mg tablet 75 mg PO QAM 07/22/19 07/19/23 History ezetimibe 10 mg tablet 10 mg PO QAM 07/22/19 07/19/23 History aspirin 81 mg tablet,delayed 81 mg PO DAILY 01/10/20 07/19/23 History release (Aspir-) cholecalciferol (vitamin D3) 25 1,000 unit PO DAILY 01/10/20 07/19/23 History mcg (1,000 unit) tablet (Vitamin D3) diclofenac sodium 1 % topical gel 4 g topical BID PRN Pain 01/10/20 07/19/23 History amlodipine 5 mg tablet 5 mg PO DAILY 07/19/23 07/19/23 History ascorbic acid (vitamin C) 1,000 mg 1,000 mg PO DAILY 07/19/23 07/19/23 History tablet,extended release candesartan 4 mg tablet 4 mg PO DAILY 07/19/23 07/19/23 History carvedilol 12.5 mg tablet 12.5 mg PO BID 07/19/23 07/19/23 History cyanocobalamin (vitamin B-12) 1,000 mcg PO DAILY 07/19/23 07/19/23 History 1,000 mcg tablet pantoprazole 40 mg tablet,delayed 40 mg PO DAILY 07/19/23 07/19/23 History release prednisone 5 mg tablet 5 mg PO DAILY 07/19/23 07/19/23 History Patient History Medical History (Updated 07/20/23 @ 10:08 by Ranjan Bautista MD) CKD (chronic kidney disease) stage 3, GFR 30-59 ml/min Encounter for pre-operative examination GERD (gastroesophageal reflux disease) History of tobacco abuse HLD (hyperlipidemia) HTN (hypertension) COOPER (obstructive sleep apnea) Osteoarthritis Surgical History H/O neck surgery s/p Fusion of cervical vertebrae History of AAA (abdominal aortic aneurysm) repair 2008 Dr Gambino History of arthroscopy of both knees History of arthroscopy of right shoulder History of hernia repair History of tonsillectomy and adenoidectomy Family History Father , in 70s Stroke Alcohol abuse Cirrhosis Mother Coronary heart disease Dementia Sister No significant family history Social History Smoking Status: Former smoker Cigarettes Per Day: 15; Second Hand Exposure: No; Do You Dip or Chew Tobacco: No; Hx Alcohol Use: Yes Alcohol type: beer and wine Alcohol Intake Frequency Comment: Rare Hx Substance Use: No Preferred Language: Swedish Communication Ability: Effective Carcass Trimmer Required: No Beliefs That Will Affect Care: None marital status: Current Living Situation: Spouse current occupational status: 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[employer]; [place] [employer] [place] Other Information That Helps Us Care for You: No Feels Safe at Home: Yes Safety Concerns: Feels Safe At This Time Assistive Devices: CPAP Review of Systems No complaints today. Physical Exam Neurological Examination: Mental Status: Awake and alert. Oriented to person, place, and time. Fluent. Comprehension intact. Affect appropriate. Cranial Nerves: II: pupils 3/3 to 2/2 III/IV/: Versions intact without nystagmus, no gaze preference. V: Facial sensation symmetric to light touch VII: Facial expression symmetric XII: Tongue midline Motor: Strength was symmetric and antigravity throughout. Results & Data Vital Signs (Past 12 Hours) Vital Signs Temp Pulse Pulse Resp BP Pulse Ox O2 Del Method 07/22/23 08:19 37 C 76 20 104/52 L 92 Room Air 07/21/23 22:00 99 H 07/22/23 02:51 37.2 C 97 H 18 145/68 H 90 Room Air 07/21/23 22:56 37.4 C 94 H 18 114/67 91 Room Air Laboratory Results Abnormal lab results 07/21/23 07/21/23 07/22/23 Range/Units 08:40 19:52 07:00 RBC 2.15 L (4.70-6.10) M/uL Hgb 7.0 L 7.1 L (14.0-18.0) g/dl Hct 21.0 L 21.6 L (42.0-52.0) % MCV 100.5 H (80.0-100.0) fL RDW Std Deviation 50.4 H (36.4-46.3) fL Chloride (98-107) mmol/L BUN 30 H (6-23) mg/dl Creatinine 1.61 H (0.6-1.4) mg/dl Glucose 102 H (70-99(Fasting)) mg/dl Calcium (8.6-10.3) mg/dl 07/22/23 Range/Units 07:00 RBC (4.70-6.10) M/uL Hgb (14.0-18.0) g/dl Hct (42.0-52.0) % MCV (80.0-100.0) fL RDW Std Deviation (36.4-46.3) fL Chloride 110 H (98-107) mmol/L BUN 30 H (6-23) mg/dl Creatinine 1.75 H (0.6-1.4) mg/dl Glucose 109 H (70-99(Fasting)) mg/dl Calcium 7.9 L (8.6-10.3) mg/dl
[2023-07-22] MEDS: LOSARTAN POTASSIUM 25 MG TAB PO SCH (09:30)
[2023-07-22] MEDS ORDERED: SODIUM CHLORIDE 0.9% 250 ML IV PRN (14:44)
--- NOTE | 2023-07-22 17:55 | Hospitalist Progress Note ---
Date of Service July 22, 2023 Assessment & Plan (1) Symptomatic anemia: (2) Melena: Plan: Patient is a 72 yr male with H/O CVA in 2018 and 2019 without residual deficits on dual antiplatelet therapy, COPD, COOPER on CPAP, hypertension, history of abdominal aortic aneurysm s/p repair, CKD 3, OA on prednisone and other medical problems listed below who presents with anemia in setting of black stools over the past few weeks. Symptomatic anemia Acute GI bleed/melena insetting of dual antiplatelets and p.o. steroid --CT ABD:No acute process within the abdomen or pelvis. No bowel obstruction. No bowel wall thickening. Normal appendix. 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 A few small left lower lobe pulmonary nodules which are likely benign. A follow-up chest CT in 6 months to ensure stability is recommended. -Seen by GI and status post endoscopy and colonoscopy --S/P EGD: Normal esophagus, normal stomach, normal examined duodenum, normal examined jejunum. --S/P colonoscopy: Hemorrhoids found on perianal exam. Diverticulosis in the sigmoid colon, in the descending colon and at the hepatic flexure. Four 3 to 5 mm polyps in the sigmoid colon and in the descending colon, removed with a cold snare. Resected and retrieved. Hemorrhoids. - ?Outpatient capsule endoscopy -Hemoglobin trend: on 02/08 was 13.4. On 07/18 it was 9.8> 8.9 > 8.3>7.9>8.3>7.7>7>7.1; -Recent vitamin B12 1600 -Patient was DAPT which has been on hold since admission. Aspirin was resumed yesterday. Seen by neurology who stated no need for Plavix and can continue aspirin. Protonix drip>> transitioned to p.o. Protonix We will give IV iron D1 Will give 1 unit of PRBC given persistent symptoms (3) CVA (cerebral vascular accident): Plan: H/o CVA in 2018 and 2018 on dual antiplatelet therapy Seen by neurology-continue aspirin, no need for Plavix. Continue Lipitor (4) HTN (hypertension): Plan: Continue carvedilol, amlodipine. We will hold losartan given elevated creatinine and low normal BP (5) HLD (hyperlipidemia): Plan: Chronic; stable. Continue statin (6) Osteoarthritis: Plan: H/o 5mg daily prednisone since Oct per rheum for sciatica/severe OA per rheum. Held prednisone for now Continue spinal injections with Dr. Grider, Extra strength tylenol, Voltaren gel Consider pain mgmt outpatient follow up (7) CKD (chronic kidney disease) stage 3, GFR 30-59 ml/min: Plan: Baseline Cr ~ 1.2, MK on CKD 3- currently Cr 1.7. Getting PRBC. Holding losartan. Recheck in AM. (8) COOPER (obstructive sleep apnea): Plan: CPAP HS (9) Pulmonary nodules: Plan: Incidental finding on CT Needs repeat CT as outpatient in 6 months DVT Px: Chemoprophylaxis contraindicated in setting of GI bleeding. Continue SCD Disposition: Anticipate discharge in 1 to 2 days if remains stable. Getting PRBC and IV iron today. Trend H&H Admission and Anticipated Discharge Date Admission Date: July 19, 2023 Subjective Patient was seen and examined at bedside. Overall he feels fine, however he still has fatigue on exertion but has not exerted much here. Had a small bowel movement this morning with streak of blood. Denies any abdominal pain, nausea or vomiting. No chest pain or shortness of breath, lightheadedness or dizziness. Given his acute hemoglobin drop and symptomatic anemia, discussed about blood transfusion and he agrees. Review of Systems Review of Systems: All systems reviewed & are unremarkable except as noted in Subjective Physical Exam Physical Exam: General: Lying comfortably in bed, not in distress, on room air HEENT: EOMI, DAVE, MMM Chest: Clear breath sounds bilaterally, no wheezes or crackles CVS: Regular rate and rhythm, normal heart sounds, no murmur Abdomen: Soft, non tender, not distended, normal bowel sounds Neuro: Awake, alert, oriented, conversing well, non focal Extremities: No cyanosis, clubbing or edema Results & Data Results & Data Vital Signs (Past 12 Hours) Vital Signs Temp Pulse Pulse Resp BP Pulse Ox O2 Del Method 07/22/23 15:17 36.7 C 65 16 114/50 L 91 Room Air 07/22/23 14:00 63 07/22/23 12:00 36.7 C 65 18 102/60 92 Room Air 07/22/23 06:00 81 07/22/23 08:19 37 C 76 20 104/52 L 92 Room Air Laboratory Results Short CBC 07/21/23 07/22/23 Range/Units 19:52 07:00 WBC 6.36 (4.8-10.8) K/ul Hgb 7.0 L 7.1 L (14.0-18.0) g/dl Hct 21.0 L 21.6 L (42.0-52.0) % Plt Count 216 (130-400) K/uL BMP 07/22/23 07:00 Sodium 139 Potassium 4.2 Chloride 110 H Carbon Dioxide 25 BUN 30 H Creatinine 1.75 H Glucose 109 H Calcium 7.9 L Medications Administered Current Inpatient Medications Acetaminophen (Acetaminophen 325 Mg Tab) 650 mg PO Q4H PRN PRN Reason: Pain or Fever Stop: 08/18/23 18:47 Amlodipine Besylate (Amlodipine Besylate 5 Mg Tab) 5 mg PO DAILY [facility]MEN Stop: 08/19/23 08:59 Last Admin: 07/22/23 08:44 Dose: 5 mg Ascorbic Acid (Ascorbic Acid 500 Mg Tab) 1,000 mg PO DAILY CARMEN Stop: 08/19/23 08:59 Last Admin: 07/22/23 08:45 Dose: 1,000 mg Aspirin (Aspirin 81 Mg Ectab) 81 mg PO QAM [facility]MEN Stop: 08/20/23 15:44 Last Admin: 07/22/23 08:45 Dose: 81 mg Atorvastatin Calcium (Atorvastatin 40 Mg Tab) 80 mg PO QAM [facility] Stop: 08/19/23 08:59 Last Admin: 07/22/23 08:45 Dose: 80 mg Carvedilol (Carvedilol 12.5 Mg Tab) 12.5 mg PO BID CARMEN Stop: 08/18/23 20:59 Last Admin: 07/22/23 08:45 Dose: 12.5 mg Cyanocobalamin (Cyanocobalamin (B-12) 500 Mcg Tablet) 1,000 mcg PO DAILY CARMEN Stop: 08/19/23 08:59 Last Admin: 07/22/23 08:45 Dose: 1,000 mcg Diclofenac Sodium (Diclofenac Sod 1% Gel 100 Gm Tube) 4 gm EXT BID PRN; Protocol PRN Reason: Pain Stop: 08/18/23 18:40 Ezetimibe (Ezetimibe 10 Mg Tab) 10 mg PO QAM CARMEN Stop: 08/20/23 08:59 Last Admin: 07/22/23 08:45 Dose: 10 mg Promethazine HCl 12.5 mg/ (Sodium Chloride) 50.5 mls @ 202 mls/hr IV Q6H PRN PRN Reason: Nausea And Vomiting Stop: 08/19/23 22:49 Sodium Chloride (Nss) 250 mls @ 15 mls/hr IV .[id number] PRN PRN Reason: For Transfusion Duration Stop: 07/23/23 00:44 Losartan Potassium (Losartan Potassium 25 Mg Tab) 12.5 mg PO DAILY [facility] Stop: 08/19/23 08:59 Last Admin: 07/22/23 09:30 Dose: 12.5 mg Ondansetron HCl (Ondansetron Inj 2 Mg/Ml 2 Ml Vial) 4 mg IV Q6H PRN PRN Reason: Nausea Stop: 08/18/23 18:47 Last Admin: 07/20/23 20:56 Dose: 4 mg Pantoprazole Sodium (Pantoprazole 40 Mg Tab) 40 mg PO QAM [facility] Stop: 08/21/23 08:59 Last Admin: 07/22/23 08:45 Dose: 40 mg Polyethylene Glycol (Polyethylene (Miralax) 17 Gm Pack) 17 gm PO DAILY PRN PRN Reason: Constipation Stop: 08/18/23 18:47 Vitamin D (Cholecalciferol 1,000 Units 25 Mcg Tab) 1,000 units PO DAILY [facility] Stop: 08/19/23 08:59 Last Admin: 07/22/23 08:45 Dose: 1,000 units (4) HTN (hypertension) Hypertension type: unspecified Qualified Code(s): I10 - Essential (primary) hypertension (5) HLD (hyperlipidemia) Hyperlipidemia type: unspecified Qualified Code(s): E78.5 - Hyperlipidemia, unspecified
[2023-07-22 23:48] LABS: Hematocrit (blood only) 24.3 % (42.0-52.0); Hemoglobin 8.3 g/dl (14.0-18.0)
[2023-07-23] MEDS ORDERED: IRON SUCROSE 300 MG in SODIUM CHLORIDE 0.9% 250 ML IV ONE (07:30)
[2023-07-23 07:38] LABS: Hematocrit (blood only) 25.7 % (42.0-52.0); Hemoglobin 8.6 g/dl (14.0-18.0); Mean Corpuscular Hemoglobin 32.5 pg (25.0-34.0); Mean Corpuscular Hgb Conc 33.5 g/dL (32.0-36.0); Mean Platelet Volume 11.1 fL (9.4-12.4); Nucleated RBC # (auto) 0.02 K/uL (0.00-0.12); Nucleated RBC % (auto) 0.3 %; Platelet Count 249 K/uL (130-400); RDW Coefficient of Variation 16.5 % (11.5-14.5); RDW Standard Deviation 58.2 fL (36.4-46.3); Red Blood Count 2.65 M/uL (4.70-6.10); White Blood Count 5.87 K/ul (4.8-10.8)
[2023-07-23 07:39] LABS: BUN Creatinine Ratio 15.7 (10-20); Calcium 8.5 mg/dl (8.6-10.3); Creatinine Clr Calc Pharmacy 52.4 ml/min; Est GFR (Non-African American) 49.1 ml/min; Potassium 4.3 mmol/L (3.5-5.1)
[2023-07-23] MEDS: ASPIRIN 81 MG ECTAB PO SCH (08:48)
[2023-07-23] MEDS: PANTOprazole 40 MG TAB PO SCH (08:48)
[2023-07-23] MEDS: EZETIMIBE 10 MG TAB PO SCH (08:48)
[2023-07-23] MEDS: CHOLECALCIFEROL 1,000 UNITS 25 MCG TAB PO SCH (08:48)
[2023-07-23] MEDS: carvediloL 12.5 MG TAB PO SCH (08:48)
[2023-07-23] MEDS: ATORVASTATIN 40 MG TAB PO SCH (08:48)
[2023-07-23] MEDS: CYANOCOBALAMIN (B-12) 500 MCG TABLET PO SCH (08:48)
[2023-07-23] MEDS: amLODIPine BESYLATE 5 MG TAB PO SCH (08:48)
[2023-07-23] MEDS: ASCORBIC ACID 500 MG TAB PO SCH (08:48)
--- NOTE | 2023-07-23 10:06 | Discharge Summary ---
Date of Service July 23, 2023 Admission HPI Per Admitting Provider This is a 72-year-old male with PMH of CVA in 2018 and 2019 without residual deficits on dual antiplatelet therapy, COPD, COOPER on CPAP, hypertension, history of abdominal aortic aneurysm s/p repair, CKD 3, OA on prednisone and other medical problems listed below who presents with anemia in setting of black stools over the past few weeks. Patient notes dark stool since the beginning of the month. Stool was black and formed. Issues with constipation at baseline and usually has a bowel movement any other day. Yesterday morning, patient had a bowel movement and felt weak and sweating afterwards, like he was going to pass out. No loren syncope, nausea or vomiting. Last evening had a loose episode of black stool. No history of GI bleed. Cologuard last month was normal. Became concerned that prednisone he has been taking since October for OA/sciatica was the culprit so has reduced to taking 5mg pred every other day this past week. Patient seen by Dr. Bass earlier today with stat hgb 9.8 (baseline hgb from February was 13.4) and was sent to [facility] for further evaluation. Admission Exam Per Admitting Provider General Appearance:WD/WN, vitals as above, NAD, sitting up in bed, pleasant, conversing easily Head: normocephalic, atraumatic Eyes:normal inspection, PERRL, conjunctivae normal, anicteric sclerae ENT: external ear and nose normal, oropharynx normal Neck: normal visual inspection, trachea midline, no thyromegaly Respiratory:normal respiratory effort, lungs clear to auscultation, no wheeze, rales, rhonchi. No accessory muscle use Cardiovascular: regular rate, rhythm, no murmur, normal peripheral pulses, no BLE edema. Vessels: no JVD Chest: normal inspection of chest Abdomen/GI: normal bowel sounds, soft, nontender, no hepatosplenomegaly Extremities/Musculoskeletal: no cyanosis or clubbing, extremities motor strength 5/5 Neurologic: PERRL, EOMI, accommodation nl, no face palsy, no dysarthria, CN's II-XI intact bilaterally and moves all extremities Psychiatric:A+Ox3, euthymic affect Skin: no rashes, + pale, warm/dry Principal Diagnosis Acute GI bleeding with symptomatic anemia in setting of dual antiplatelets for history of stroke Discharge Exam General: Lying comfortably in bed, not in distress, on room air HEENT: EOMI, DAVE, MMM Chest: Clear breath sounds bilaterally, no wheezes or crackles CVS: Regular rate and rhythm, normal heart sounds, no murmur Abdomen: Soft, non tender, not distended, normal bowel sounds Neuro: Awake, alert, oriented, conversing well, non focal Extremities: No cyanosis, clubbing or edema Discharge Data Allergies Allergy/AdvReac Type Severity Reaction Status Date / Time gabapentin Allergy Severe FEET SWELLS Verified 07/21/23 10:06 pregabalin [From Lyrica] Allergy Intermediate FEET SWELLS Verified 07/21/23 10:06 ciprofloxacin Allergy Unknown Verified 07/21/23 10:06 pravastatin AdvReac Unknown Verified 07/21/23 10:06 rosuvastatin [From Crestor] AdvReac Unknown Verified 07/21/23 10:06 simvastatin [From Zocor] AdvReac Unknown Verified 07/21/23 10:06 Consultations 07/19/23 16:20 ED Decision to Admit Stat 07/19/23 16:58 Consult Gastroenterology Routine 07/22/23 08:12 Consult Neurology Routine Procedures Performed Operation Date: 07/21/23 16:30 Actual Procedures p Colonoscopy Polypectomy - Stefanie Yoder MD Ordered Studies 07/19/23 12:00 CT abd pelvis IV con only Stat Laboratory Results WBC 5.87 K/ul (4.8-10.8) 07/23/23 05:32 RBC 2.65 M/uL (4.70-6.10) L 07/23/23 05:32 Hgb 8.6 g/dl (14.0-18.0) L 07/23/23 05:32 Hct 25.7 % (42.0-52.0) L 07/23/23 05:32 MCV 97.0 fL (80.0-100.0) 07/23/23 05:32 MCH 32.5 pg (25.0-34.0) 07/23/23 05:32 MCHC 33.5 g/dL (32.0-36.0) 07/23/23 05:32 RDW Std Deviation 58.2 fL (36.4-46.3) H 07/23/23 05:32 RDW Coeff of Doni 16.5 % (11.5-14.5) H 07/23/23 05:32 Plt Count 249 K/uL (130-400) 07/23/23 05:32 MPV 11.1 fL (9.4-12.4) 07/23/23 05:32 Immature Gran % (Auto) 1.5 % 07/19/23 12:23 Neut % (Auto) 67.9 % 07/19/23 12:23 Lymph % (Auto) 21.0 % 07/19/23 12:23 Pender % (Auto) 7.7 % 07/19/23 12:23 Eos % (Auto) 1.5 % 07/19/23 12:23 Baso % (Auto) 0.4 % 07/19/23 12:23 Neut # (Auto) 5.59 K/uL (1.40-6.50) 07/19/23 12:23 Lymph # (Auto) 1.73 K/uL (1.20-3.40) 07/19/23 12:23 Pender # (Auto) 0.63 K/uL (0.11-0.59) H 07/19/23 12:23 Eos # (Auto) 0.12 K/uL (0.00-0.50) 07/19/23 12:23 Baso # (Auto) 0.03 K/uL (0.00-0.20) 07/19/23 12:23 Immature Gran # (Auto) 0.12 K/uL (0.01-0.20) 07/19/23 12:23 Absolute Nucleated RBC 0.02 K/uL (0.00-0.12) 07/23/23 05:32 Nucleated RBC % (auto) 0.3 % 07/23/23 05:32 PT 10.7 Seconds (9.0-12.0) 07/19/23 12:23 INR 1.0 (0.9-1.1) 07/19/23 12:23 Sodium 142 mmol/L (136-145) 07/23/23 05:32 Potassium 4.3 mmol/L (3.5-5.1) 07/23/23 05:32 Chloride 112 mmol/L (98-107) H 07/23/23 05:32 Carbon Dioxide 25 mmol/L (21-32) 07/23/23 05:32 Anion Gap 5 (3-11) 07/23/23 05:32 BUN 22 mg/dl (6-23) 07/23/23 05:32 Creatinine 1.40 mg/dl (0.6-1.4) D 07/23/23 05:32 Est Cr Clr Drug Dosing 52.4 ml/min 07/23/23 05:32 Est GFR ( Amer) 57.0 ml/min 07/23/23 05:32 Est GFR (Non-Af Amer) 49.1 ml/min 07/23/23 05:32 BUN/Creatinine Ratio 15.7 (10-20) 07/23/23 05:32 Glucose 113 mg/dl (70-99(Fasting)) H 07/23/23 05:32 Lactate 1.4 mmol/L (0.4-2.0) 07/19/23 12:23 Calcium 8.5 mg/dl (8.6-10.3) L 07/23/23 05:32 Total Bilirubin 0.6 mg/dl (0.2-1.0) 07/19/23 12:23 AST 14 U/L (13-39) 07/19/23 12:23 ALT 18 U/L (7-52) 07/19/23 12:23 Alkaline Phosphatase 34 U/L (34-104) 07/19/23 12:23 Total Protein 6.1 gm/dl (6.0-8.3) 07/19/23 12:23 Albumin 4.0 gm/dl (3.4-5.0) 07/19/23 12:23 Globulin 2.1 gm/dl (2.5-4.0) L 07/19/23 12:23 Albumin/Globulin Ratio 1.9 (0.9-2) 07/19/23 12:23 Lipase 34 U/L (11-82) 07/19/23 12: Folate 12.41 ng/ml (>5.38) 07/23/23 05:32 SARS-CoV-2 (PCR) NEGATIVE (Negative) 07/20/23 Unknown Influenza Type A (PCR) Negative (Neg) 07/20/23 Unknown Influenza Type B (PCR) Negative (Neg) 07/20/23 Unknown RSV (RT-PCR) Negative (Neg) 07/20/23 Unknown Blood Type A Positive 07/22/23 18:03 Antibody Screen NEGATIVE 07/22/23 18:03 Crossmatch See Detail 07/22/23 18:03 Impressions Abdomen/Pelvis CT 07/19/23 12:00 CT OF THE ABDOMEN AND PELVIS WITH CONTRAST CLINICAL HISTORY: Abdominal pain, gi bleed. COMPARISON STUDY: Renal ultrasound April 21, 2007. TECHNIQUE: Following IV administration of 92 mL of Optiray, axial images of the abdomen and pelvis were obtained from the lung bases to the proximal femurs. Images were reviewed in the axial, sagittal, and coronal planes. IV contrast was administered without complication. Automated exposure control was utilized for the study. A dose lowering technique was utilized adhering to the principles of ALARA. FINDINGS: A few small branching nodules within the left lower lobe measure up to 7 mm. These are likely benign. No pneumatosis, free air or portal venous gas is present. The liver, spleen, adrenal glands and pancreas are unremarkable. There is no biliary or pancreatic ductal dilatation. Multiple subcentimeter right renal lesions are too small to characterize. There is a 3.2 cm left lower pole renal cyst. There is no hydronephrosis. The caliber and wall thickness of small and large bowel are normal. There is no evidence for a bowel obstruction. The appendix is normal. Prostate is enlarged, measuring 6.3 cm in transverse dimension. There is no lymphadenopathy. 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 The aneurysm sac measures 3.2 cm. There is no evidence for rupture. Fat- containing left inguinal hernia is incidentally noted. IMPRESSION: 1. No acute process within the abdomen or pelvis. 2. No bowel obstruction. No bowel wall thickening. Normal appendix. 3. 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 4. A few small left lower lobe pulmonary nodules which are likely benign. A follow-up chest CT in 6 months to ensure stability is recommended. ACT 112: Negative or not required by law. Electronically signed by: Justin Nash M.D. 07/19/2023 2:45 PM Hospital Course (1) Symptomatic anemia: (2) Melena: Patient is a 72 yr male with H/O CVA in 2018 and 2019 without residual deficits on dual antiplatelet therapy, COPD, COOPER on CPAP, hypertension, history of abdominal aortic aneurysm s/p repair, CKD 3, OA on prednisone and other medical problems listed below who presents with anemia in setting of black stools over the past few weeks. Acute GI bleed/melena with symptomatic anemia insetting of dual antiplatelets and p.o. steroid --CT ABD:No acute process within the abdomen or pelvis. No bowel obstruction. No bowel wall thickening. Normal appendix. 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 A few small left lower lobe pulmonary nodules which are likely benign. A follow-up chest CT in 6 months to ensure stability is recommended. -Seen by GI and status post endoscopy and colonoscopy --S/P EGD: Normal esophagus, normal stomach, normal examined duodenum, normal examined jejunum. --S/P colonoscopy: Hemorrhoids found on perianal exam. Diverticulosis in the sigmoid colon, in the descending colon and at the hepatic flexure. Four 3 to 5 mm polyps in the sigmoid colon and in the descending colon, removed with a cold snare. Resected and retrieved. Hemorrhoids. ---Pathology shows multiple tubular adenomas -Hemoglobin trend: on 02/08 was 13.4. On 07/18 it was 9.8> 8.9 > 8.3>7.9>8.3>7.7>7>7.1->8.3->8.6, status post 1 unit of PRBC yesterday and patient has noted improvement in his fatigue and stamina. No more bleeding. No bowel movement since yesterday. He ambulated around the smiley multiple times and did not feel as tired. -Recent vitamin B12 1600, folate 12 -Seen by neurology-recommended discontinuing Plavix and continuing aspirin for history of stroke. -Status post 2 dose of IV Venofer in-house, 600 mg total -Status post 1 unit of PRBC yesterday 07/22 -Continue po Protonix and p.o. iron at discharge with repeat CBC with PCP in a week empirically and follow-up with GI for outpatient capsule endoscopy (3) CVA (cerebral vascular accident): H/o CVA in 2018 and 2018 on dual antiplatelet therapy Seen by neurology-continue aspirin, no need for Plavix. Continue Lipitor (4) HTN (hypertension): Continue carvedilol, amlodipine, losartan (5) HLD (hyperlipidemia): Chronic; stable. Continue statin (6) Osteoarthritis: H/o 5mg daily prednisone since Oct per rheum for sciatica/severe OA per rheum. States he is going to space his prednisone to every other day as he has not noticed significant difference although his prednisone was held throughout hospital stay. He will follow-up with his welcome hostess for further management. Continue spinal injections with Dr. Grider, Extra strength tylenol, Voltaren gel Consider pain mgmt outpatient follow up (7) CKD (chronic kidney disease) stage 3, GFR 30-59 ml/min: Creatinine stable at baseline around 1.4. (8) COOPER (obstructive sleep apnea): CPAP HS (9) Pulmonary nodules: Incidental finding on CT Needs repeat CT as outpatient in 6 months. Follow-up with PCP Total Time Total Time Spent Total Time Spent (In Minutes): 35 Discharge Plan Discharge Items Patient Disposition: Home - Self-Care Reason For Visit: ANEMIA, GI BLEED Discharge Diagnosis: Acute GI bleeding with symptomatic anemia in setting of dual antiplatelets for history of stroke Activity: Resume your previous activity Non-emergency contact: Primary Care Provider and Lay Brother Call non-emergency contact if: you have any medication questions and your symptoms worsen Follow-up/Referrals: Kailash Bass MD [Primary Care Provider] - Diet: Regular Addtl Attending Provider Instructions: Stop plavix permanently per neurology. Continue aspirin. Continue iron pill daily until hemoglobin comes up to normal. Recommend iron rich diet. Recommend repeat hemoglobin check in a week and then periodically with the family doctor Recommend follow up GI for consideration of capsule endoscopy to find source of bleeding You were found to have lung nodule in CT. Recommend repeat CT chest in 6 months for follow up. Follow up with family doctor in a week Pending Studies at Discharge: No Stand-Alone Forms: My [facility] [employer], Smoking Cessation Medications and DC Order Prescriptions: New ferrous sulfate [Feosol] 325 mg (65 mg iron) tablet 325 mg PO DAILY Qty: 30 0RF Continued atorvastatin 80 mg tablet 80 mg PO QAM ezetimibe 10 mg tablet 10 mg PO QAM aspirin [Aspir-81] 81 mg Tablet,Delayed Release (Dr/Ec) 81 mg PO DAILY diclofenac sodium 1 % Gel 4 g TOPICAL BID PRN (Reason: Pain) cholecalciferol (vitamin D3) [Vitamin D3] 25 mcg (1,000 unit) Tablet 1,000 unit PO DAILY amlodipine 5 mg tablet 5 mg PO DAILY carvedilol 12.5 mg tablet 12.5 mg PO BID candesartan 4 mg tablet 4 mg PO DAILY ascorbic acid (vitamin C) 1,000 mg Tablet Extended Release 1,000 mg PO DAILY prednisone 5 mg tablet 5 mg PO DAILY cyanocobalamin (vitamin B-12) 1,000 mcg Tablet 1,000 mcg PO DAILY pantoprazole 40 mg Tablet,Delayed Release (Dr/Ec) 40 mg PO DAILY Discontinued clopidogrel 75 mg tablet 75 mg PO QAM Discharge Orders: Discharge Order (Routine); Ordered 07/23/23 Ordered By: Davion Odom Admission Data Admit Date/Time: 07/19/23 17:00 Attending Provider: Davion Odom Admit Provider: Franklin Gonzalez Primary Care Provider: Kailash Bass Other Providers: Stefanie Yoder ; Franklin Gonzalez ; Roque Zamudio ; Eddy Martinez Other Interventions: Discharge Summary Assessment (RN) Last Done: 07/23/23 11:01
== END 2023-07-23 11:40 | disposition home or self-care (01) | DRG 379 ==
LOC: ED 11:52 → 2N 17:00 → SUATTDRO 17:00 → 2N 17:45

== ENCOUNTER 2024-09-02 12:42 | Observation (INO) ==
[2024-09-02] MEDS: OPTIRAY 320 125ml IV ONE (13:09)
--- NOTE | 2024-09-02 13:11 | XRay Report ---
XR chest 1V portable CLINICAL HISTORY: neuro deficit, acute stroke suspected COMPARISON STUDY: Chest radiograph July 22, 2019. FINDINGS: Operative findings within the cervical spine are partially imaged. Lung volumes are normal. Lungs are clear. There is no pneumothorax or pleural effusion. Cardiac size is normal. Mediastinal c ontours are normal. There is no evidence for pulmonary edema. IMPRESSION: No acute cardiopulmonary findings. ACT 112: Negative or not required by law. Electronically signed by: Justin Nash M.D. 09/02/2024 1:10 PM
[2024-09-02 13:20] LABS: iSTAT Creatinine 1.6 mg/dl (0.6-1.3); iSTAT Hemoglobin 14.6 g/dl (14.0-18.0); iSTAT Ionized Calcium 1.23 mmol/l (1.12-1.32); iSTAT Potassium 4.6 mmol/L (3.3-5.0)
--- NOTE | 2024-09-02 13:22 | CT Scan Report ---
CT OF THE HEAD WITHOUT CONTRAST CLINICAL HISTORY: neuro deficit, acute stroke suspected COMPARISON STUDY: Head CT July 22, 2019 and MRI of the brain January 10, 2020. TECHNIQUE: Helical axial images of the head were obtained without IV contrast. Automated exposure con trol was utilized for the study. A dose lowering technique was utilized adhering to the principles o f ALARA. FINDINGS: No acute intracranial hemorrhage, midline shift or mass effect is present. The ventricular system is unremarkable. White matter hypodensity suggests small vessel disease. Small old infarcts wi thin the left internal capsule and occipital lobe were present on previous MRI. The basal cisterns ar e patent. No extra-axial collections are present. There are no findings to suggest acute dural sinus thrombosis or acute territorial infarct. No significant calvarial abnormalities are present. Visualiz ed portions of the sinuses and mastoid air cells are clear. IMPRESSION: No acute intracranial findings. ACT 112: Negative or not required by law. Electronically signed by: Justin Nash M.D. 09/02/2024 1:19 PM
[2024-09-02 13:23] LABS: Basophils # (auto) 0.01 K/uL (0.00-0.20); Basophils % (auto) 0.1 %; Eosinophils # (auto) 0.13 K/uL (0.00-0.50); Eosinophils % (auto) 1.9 %; Hematocrit (blood only) 42.9 % (42.0-52.0); Hemoglobin 14.2 g/dl (14.0-18.0); Immature Granulocytes # (auto) 0.02 K/uL (0.01-0.20); Immature Granulocytes % (auto) 0.3 %; Lymphocytes # (auto) 1.15 K/uL (1.20-3.40); Lymphocytes % (auto) 16.4 %; Mean Corpuscular Hemoglobin 32.1 pg (25.0-34.0); Mean Corpuscular Hgb Conc 33.1 g/dL (32.0-36.0); Mean Corpuscular Volume 97.1 fL (80.0-100.0); Mean Platelet Volume 10.4 fL (9.4-12.4); Monocytes # (auto) 0.51 K/uL (0.11-0.59); Monocytes % (auto) 7.3 %; Platelet Count 218 K/uL (130-400); RDW Standard Deviation 46.6 fL (36.4-46.3); Red Blood Count 4.42 M/uL (4.70-6.10); White Blood Count 7.02 K/ul (4.8-10.8)
--- NOTE | 2024-09-02 13:24 | CT Scan Report ---
CT ANGIOGRAPHY OF THE NECK WITH CONTRAST CLINICAL HISTORY: neuro deficit, acute stroke suspected COMPARISON STUDY: CTA of the neck July 23, 2019. Technique: CT angiography of the carotid and vertebral arteries was obtained using Optiray and 3D rec onstruction on an independent workstation. NASCET criteria was utilized. Automated exposure control was utilized for the study. A dose lowering technique was utilized adhering to the principles of ALA RA. CT DOSE: 1320.58 mGy.cm Findings: Emphysema is incidentally noted within visualized portions of the lung apices. There are po stoperative findings within the cervical spine. There are no cervical spine fracture. There is no cer vical lymphadenopathy. Moderate plaque within the proximal right internal carotid artery results in m ild narrowing of 30%. There is mild plaque within the left carotid bifurcation without stenosis. The bilateral vertebral arteries are patent. There is no aneurysm or dissection within the neck. CTA of t he head will be reported separately. IMPRESSION: 1. Moderate plaque within the proximal right internal carotid artery which results in mild narrowing of 30%. No stenosis within the cervical left internal carotid artery. 2. No dissection or aneurysm within the neck. ACT 112: Negative or not required by law. Electronically signed by: Justin Nash M.D. 09/02/2024 1:22 PM
--- NOTE | 2024-09-02 13:28 | CT Scan Report ---
CTA ANGIOGRAPHY OF THE HEAD CLINICAL HISTORY: neuro deficit, acute stroke suspected COMPARISON STUDY: MRI of the brain January 10, 2020 and CTA of the head July 12, 2018. TECHNIQUE: Helical axial images of the head were obtained following uneventful intravenous administr ation of Optiray. Sagittal and coronal reconstructions were viewed as well as maximal intensity proje ctions on an independent 3-D workstation. Automated exposure control was utilized for the study. A dose lowering technique was utilized adhering to the principles of ALARA. FINDINGS: The bilateral M1, M2, A1 and A2 segments are patent. There is moderate calcified atheroscle rotic plaque within bilateral cavernous carotids without significant stenosis. No vessel occlusion is identified within the anterior circulation. Posterior circulation is also intact. No intracranial an eurysm. No acute intracranial hemorrhage, midline shift or mass effect is present. Ventricular system is unremarkable. The basal cisterns are patent. There are no extra axial collections. There are smal l old infarcts within the posterior limb of the left internal capsule and the left occipital lobe. IMPRESSION: No large vessel occlusion. No intracranial aneurysm. ACT 112: Negative or not required by law. Electronically signed by: Justin Nash M.D. 09/02/2024 1:26 PM
[2024-09-02 13:39] LABS: Albumin Globulin Ratio 1.6 (0.9-2); Albumin Level 4.4 gm/dl (3.4-5.0); BUN Creatinine Ratio 16.8 (10-20); Calcium 9.6 mg/dl (8.6-10.3); Creatinine Clr Calc Pharmacy 47.5 ml/min; Globulin 2.8 gm/dl (2.5-4.0); Magnesium 2.1 mg/dl (1.7-2.4); Potassium 4.6 mmol/L (3.5-5.1); Total Protein 7.2 gm/dl (6.0-8.3)
[2024-09-02 13:45] LABS: Troponin I High Sensitivity 6.7 pg/ml (0-20)
[2024-09-02 13:53] LABS: Partial Thromboplastin Ratio 0.9; Partial Thromboplastin Time 25 Seconds (21-31); Prothrombin Time 10.4 Seconds (9.0-12.0)
--- NOTE | 2024-09-02 14:02 | History & Physical Report ---
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 Symptoms started approximately 630 this morning with right lower extremity weakness. Garbled speech was noted at approximately 11:30 AM. Upon arrival to ED patient symptoms were improving and upon my evaluation his symptoms have completely resolved. TNK not indicated given symptom improvement. ED provider spoke with neurology on-call who recommended proceeding with full dose aspirin and 300 mg of Plavix. TIA versus acute CVA history of 2 prior CVA, left METAL HANGING HELPER CVA in 2018, thalamic CVA in 2019 on dual antiplatelet therapy for approximately 5 years when developed a severe anemia and concern for GI bleeding and therefore Plavix was discontinued his symptoms have completely resolved but will admit for further stroke workup obtain MRI brain, echocardiogram, A1c, lipid panel, PT, OT, ST consult neurology --Head CT/CTA: unremarkable --Neck CTA: Moderate plaque within the proximal right internal carotid artery which results in mild narrowing of 30%. - Pt follows Vascular Dr. Selby at [place], recommend yearly carotid US HTN: chronic, stable, hold ARB and amlodipine to allow for permissive HTN until MRI results, continue carvedilol HLD: chronic, stable continue high intensity statin Hx of AAA s/p repair 2018: follows Vascular Dr Selby CKD 3- baseline cr 1.5, renal fxn stable, will give 1 L of IVF in setting of contrast use, follow renal fxn in a.m. COOPER: with weight loss pt currently off Cpap and scheduled for retesting in september DVT ppx: SCDS for now, hx of GIB, continue asa, plavix FULL CODE PCP: [facility]: admit under obs to pcu Pt was seen and examined in collaboration with Dr. Gonzalez, please see addendum I spent a total of 60 minutes reviewing notes, outpatient records, labs, medication, coordinating, documenting and providing care for this patient excluding time spent in the performance of separately billed services. History of Present Illness Chief Complaint: Stroke like sx prior to arrival. 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 Of significance pt has hx of Left METAL HANGING HELPER Stroke in 07/2018 and recurrent L sided CVA in July of 2019. He was later hospitalized at [facility] July of 2023 2/2 acute GIB while on DAPT for recurrent CVA. At that time clopidogrel was d/c by neurology. Patient and son are at bedside who also help elicit history. He states he woke up this morning at approximately 6 AM. He went to [employer] [facility]. When he woke up this morning he felt his right leg was weaker than normal. He also noticed slight weakness in his right arm. He states he chalked this up to his right chronic shoulder pain and right lower extremity sciatica. While he was at the store walking around he notices symptoms progressively getting worse and having a significantly difficult time walking. When he came home he decided to sit in his recliner and fell asleep. When he woke up at approximately 11-11 30 he went to the kitchen and started talking to his whenever his speech was garbled. He knew what he wanted to say, but was when unable to get it out. When noticed his speech he was brought to ED immediately. denies any facial droop. He states his previous strokes presented with visual changes in 2018 and total body weakness in 2019. He admits to taking his a baby dose aspirin this morning. He also took all of his other medications. He otherwise denies any recent illness. He states he has been intentionally losing weight. He initially was at 230 pounds and is now down into the 190s. He denies any lightheadedness, dizziness, chest pain, shortness breath, nausea, vomiting abdominal pain, changes bowel or urinary habits. He does have a slight left- sided headache. His symptoms have significantly improved and for the most part resolved since ED arrival. ED provider discussed case with [facility] [place]. They recommended starting patient on dual antiplatelet therapy. Allergies Allergy/AdvReac Type Severity Reaction Status Date / Time ciprofloxacin Allergy Unknown Verified 09/02/24 14:25 Home Medications Medication Instructions Recorded Confirmed Type atorvastatin 80 mg tablet 80 mg PO QAM 07/22/19 09/02/24 History ezetimibe 10 mg tablet 10 mg PO QAM 07/22/19 09/02/24 History aspirin 81 mg tablet,delayed 81 mg PO DAILY 01/10/20 09/02/24 History release (Aspir-) cholecalciferol (vitamin D3) 25 1,000 unit PO DAILY 01/10/20 09/02/24 History mcg (1,000 unit) tablet (Vitamin D3) diclofenac sodium 1 % topical gel 4 g topical BID PRN Pain 01/10/20 09/02/24 History amlodipine 5 mg tablet 5 mg PO DAILY 07/19/23 09/02/24 History ascorbic acid (vitamin C) 1,000 mg 1,000 mg PO DAILY 07/19/23 09/02/24 History tablet,extended release candesartan 4 mg tablet 4 mg PO DAILY 07/19/23 09/02/24 History carvedilol 12.5 mg tablet 12.5 mg PO BID 07/19/23 09/02/24 History cyanocobalamin (vitamin B-12) 1,000 mcg PO DAILY 07/19/23 09/02/24 History 1,000 mcg tablet pantoprazole 40 mg tablet,delayed 40 mg PO DAILY 07/19/23 09/02/24 History release clopidogrel 75 mg tablet 75 mg PO QAM #30 tabs 09/03/24 Rx Past Med/Surg History Problem List (Updated 09/03/24 @ 10:39 by Trevin Trammell MD) Cerebrovascular accident (CVA) of left thalamus Stroke-like symptoms (Acute) Hx TIA/stroke w/o resid Expressive aphasia Transient weakness of right lower extremity Anemia (Acute) COOPER (obstructive sleep apnea) Osteoarthritis Pulmonary nodules History of hernia repair (Chronic) History of arthroscopy of both knees (Chronic) HTN (hypertension) (Chronic) History of tobacco abuse (Chronic) GERD (gastroesophageal reflux disease) (Chronic) Acute ischemic left METAL HANGING HELPER stroke (Acute) Medical History (Updated 09/03/24 @ 10:39 by Trevin Trammell MD) No known health problems Encounter for pre-operative examination HLD (hyperlipidemia) CKD (chronic kidney disease) stage 3, GFR 30-59 ml/min Surgical History History of tonsillectomy and adenoidectomy H/O neck surgery s/p Fusion of cervical vertebrae History of arthroscopy of right shoulder History of AAA (abdominal aortic aneurysm) repair 2008 Dr Gambino Family History (Updated 09/02/24 @ 15:56 by Maryam Powell, TANYA) Father , in 70s Alcohol abuse Cirrhosis Stroke Mother Coronary heart disease Dementia Sister No significant family history Other No history of previous surgery Social History (Updated 09/02/24 @ 14:46 by Kirsten Chisholm PA-C) Smoking Status: Former smoker Cigarettes Per Day: 15; Smoking End Date: 20 years ago; Second Hand Exposure: No; Do You Dip or Chew Tobacco: No; Tobacco Cessation Education Requested by Patient: No Hx Alcohol Use: No Hx Substance Use: No Preferred Language: Greek Communication Ability: Effective Field Auditor Required: No Beliefs That Will Affect Care: None marital status: Current Living Situation: Alone current occupational status: 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[employer] at [employer]; [employer] Other Information That Helps Us Care for You: No Feels Safe at Home: Yes Safety Concerns: Feels Safe At This Time Assistive Devices: None Review of Systems Review of Systems: All systems reviewed & are unremarkable except as noted in HPI & below Physical Exam Physical Exam: Constitutional: WD/WN, vitals as above, NAD, sitting up in bed, pleasant, conversing easily Head: Normocephalic, Atraumatic Eyes: PERRL, conjunctivae normal, anicteric sclerae ENMT: external ear and nose normal, oropharynx normal Neck: trachea midline, no thyromegaly normal visual inspection Respiratory: normal respiratory effort, lungs clear to auscultation, no wheeze, rales, rhonchi. Normal insp/exp effort, no accessory muscle use Cardiovascular: RRR, no murmur, no edema Vessels: no JVD or carotid bruit Chest: normal inspection of chest Abdomen: normal bowel sounds, soft, nontender, no hepatosplenomegaly Musculoskeletal: no cyanosis or clubbing, extremities motor strength 5/5 Skin: no rashes, warm and dry normal turgor Neurologic: PERRL, EOMI, accommodation nl, no face palsy, no dysarthria CN's II-XI intact bilaterally and moves all extremities Psychiatric: A+Ox3, euthymic affect Lymphatic: no cervical or axillary lymphadenopathy : deferred Results & Data Results & Data Vital Signs (Past 12 Hours) Vital Signs Temp Pulse Resp BP Pulse Ox O2 Del Method 09/02/24 13:30 72 17 144/77 H 95 09/02/24 13:03 65 09/02/24 13:00 74 22 177/82 H 96 09/02/24 12:46 36.9 C 70 19 150/83 H 96 Room Air Laboratory Results I have independently reviewed and interpreted patient's admitting labs including CBC, CMP, PTT, PT/INR, mag and troponin. Diagnostic Findings Chest X-Ray 09/02/24 12:51 XR chest 1V portable CLINICAL HISTORY: neuro deficit, acute stroke suspected COMPARISON STUDY: Chest radiograph July 22, 2019. FINDINGS: Operative findings within the cervical spine are partially imaged. Lung volumes are normal. Lungs are clear. There is no pneumothorax or pleural effusion. Cardiac size is normal. Mediastinal contours are normal. There is no evidence for pulmonary edema. IMPRESSION: No acute cardiopulmonary findings. ACT 112: Negative or not required by law. Electronically signed by: Justin Nash M.D. 09/02/2024 1:[address] 09/02/24 12:51 CT OF THE HEAD WITHOUT CONTRAST CLINICAL HISTORY: neuro deficit, acute stroke suspected COMPARISON STUDY: Head CT July 22, 2019 and MRI of the brain January 10, 2020. TECHNIQUE: Helical axial images of the head were obtained without IV contrast. Automated exposure control was utilized for the study. A dose lowering technique was utilized adhering to the principles of ALARA. FINDINGS: No acute intracranial hemorrhage, midline shift or mass effect is present. The ventricular system is unremarkable. White matter hypodensity suggests small vessel disease. Small old infarcts within the left internal capsule and occipital lobe were present on previous MRI. The basal cisterns are patent. No extra-axial collections are present. There are no findings to suggest acute dural sinus thrombosis or acute territorial infarct. No significant calvarial abnormalities are present. Visualized portions of the sinuses and mastoid air cells are clear. IMPRESSION: No acute intracranial findings. ACT 112: Negative or not required by law. Electronically signed by: Justin Nash M.D. 09/02/2024 1:19 PM Head CTA 09/02/24 12:51 CTA ANGIOGRAPHY OF THE HEAD CLINICAL HISTORY: neuro deficit, acute stroke suspected COMPARISON STUDY: MRI of the brain January 10, 2020 and CTA of the head July 12, 2018. TECHNIQUE: Helical axial images of the head were obtained following uneventful intravenous administration of Optiray. Sagittal and coronal reconstructions were viewed as well as maximal intensity projections on an independent 3-D workstation. Automated exposure control was utilized for the study. A dose lo wering technique was utilized adhering to the principles of ALARA. FINDINGS: The bilateral M1, M2, A1 and A2 segments are patent. There is moderate calcified atherosclerotic plaque within bilateral cavernous carotids without significant stenosis. No vessel occlusion is identified within the anterior circulation. Posterior circulation is also intact. No intracranial aneurysm. No acute intracranial hemorrhage, midline shift or mass effect is present. Ventricular system is unremarkable. The basal cisterns are patent. There are no extra axial collections. There are small old infarcts within the posterior limb of the left internal capsule and the left occipital lobe. IMPRESSION: No large vessel occlusion. No intracranial aneurysm. ACT 112: Negative or not required by law. Electronically signed by: Justin Nash M.D. 09/02/2024 1:26 PM Neck CTA 09/02/24 12:51 CT ANGIOGRAPHY OF THE NECK WITH CONTRAST CLINICAL HISTORY: neuro deficit, acute stroke suspected COMPARISON STUDY: CTA of the neck July 23, 2019. Technique: CT angiography of the carotid and vertebral arteries was obtained using Optiray and 3D reconstruction on an independent workstation. NASCET criteria was utilized. Automated exposure control was utilized for the study. A dose lowering technique was utilized adhering to the principles of ALARA. CT DOSE: 1320.58 mGy.cm Findings: Emphysema is incidentally noted within visualized portions of the lung apices. There are postoperative findings within the cervical spine. There are no cervical spine fracture. There is no cervical lymphadenopathy. Moderate plaque within the proximal right internal carotid artery results in mild narrowing of 30%. There is mild plaque within the left carotid bifurcation without stenosis. The bilateral vertebral arteries are patent. There is no aneurysm or dissection within the neck. CTA of the head will be reported separately. IMPRESSION: 1. Moderate plaque within the proximal right internal carotid artery which results in mild narrowing of 30%. No stenosis within the cervical left internal carotid artery. 2. No dissection or aneurysm within the neck. ACT 112: Negative or not required by law. Electronically signed by: Justin Nash M.D. 09/02/2024 1:22 PM Medications Administered Medication List Discontinued Medications Ioversol (Optiray 320 125ml) 120 ml IV ONCE ONE Stop: 09/02/24 13:09 Last Admin: 09/02/24 13:09 Dose: 120 ml Documented By: OK ECG Additional Comments: I have independently reviewed and interpreted patient's admitting EKG which revealed: 63, NSR, qtc 386ms, no st or t wave changes COVID-19 Results Results COVID-19 Adm Lab Results: RBC 3.87 M/uL (4.70-6.10) L 09/03/24 WBC 4.69 K/ul (4.8-10.8) L 09/03/24 Hgb 12.3 g/dl (14.0-18.0) L 09/03/24 Hct 37.2 % (42.0-52.0) L 09/03/24 Plt Count 172 K/uL (130-400) 09/03/24 Neutrophils (%) (Auto) 63.3 % 09/03/24 Lymphocytes (%) (Auto) 23.9 % 09/03/24 Monocytes # (Auto) 0.45 K/uL (0.11-0.59) 09/03/24 Eosinophils # (Auto) 0.12 K/uL (0.00-0.50) 09/03/24 Immature Granulocyte % (Auto) 0.2 % 09/03/24 Neutrophils # (Auto) 2.97 K/uL (1.40-6.50) 09/03/24 Lymphocytes # (Auto) 1.12 K/uL (1.20-3.40) L 09/03/24 Monocytes # (Auto) 0.45 K/uL (0.11-0.59) 09/03/24 Eosinophils # (Auto) 0.12 K/uL (0.00-0.50) 09/03/24 Basophils # (Auto) 0.02 K/uL (0.00-0.20) 09/03/24 Immature Granulocyte # (Auto) 0.01 K/uL (0.01-0.20) 4 Na 141 mmol/L (136-145) 09/03/24 K 4.4 mmol/L (3.5-5.1) 09/03/24 Cl 112 mmol/L (98-107) H 09/03/24 CO2 24 mmol/L (21-32) 09/03/24 Anion Gap 5 (3-11) 09/03/24 BUN 22 mg/dl (6-23) 09/03/24 Creatinine 1.39 mg/dl (0.6-1.4) 09/03/24 BUN/Creatinine Ratio 15.8 (10-20) 09/03/24 Glucose Level 79 mg/dl (70-99(Fasting)) 09/03/24 Ca 8.9 mg/dl (8.6-10.3) 09/03/24 Total Bilirubin 1.0 mg/dl (0.2-1.0) 09/02/24 AST/SGOT 22 U/L (13-39) 09/02/24 ALT/SGPT 20 U/L (7-52) 09/02/24 Alkaline Phosphatase 56 U/L (34-104) 09/02/24 Total Protein 7.2 gm/dl (6.0-8.3) 09/02/24 Albumin 4.4 gm/dl (3.4-5.0) 09/02/24 Globulin 2.8 gm/dl (2.5-4.0) 09/02/24 Albumin/Globulin Ratio 1.6 (0.9-2) 09/02/24 PTT 25 Seconds (21-31) 09/02/24 INR 1.0 (0.9-1.1) 09/02/24 Triglycerides Level 83 mg/dl (0-150) 09/03/24 Chest X-Ray 09/02/24 Code Status & VTE Plan Code Status FULL CODE Supervising Physician Co-Signing Physician Notes Attending addendum: The patient was seen and examined in the emergency room in presence of the family members He presented to ER with sudden onset of right leg weakness and speech difficulties with a history of left METAL HANGING HELPER stroke in July 2018 and recurrent left-sided CVA in July 2019 He was off of his Plavix due to GI bleed in July 2023 He did not have any problem with swallowing and he denied any numbness or tingling in the weakness and his speech have been improving during my examination On examination No apparent distress at rest His blood pressure noted to be on the higher side Chestclear to auscultate bilaterally HeartS1-S2, regular Abdomenbenign Extremitiestrace edema bilaterally CNSalert, awake and oriented x 3. No focal sensory or motor deficit appreciated His admission labs, EKG and imaging studies was unremarkable except MRI which showed interval development of an area of signal attenuation within with diffusion restriction involving the left thalamic region reflecting acute ischemic changes no evidence of hemorrhage Presented with TIA and noted to have left thalamic infarct Other chronic medical condition remained stable as above Subsequently evaluated by teleneurology and he was put on appropriate treatment Agree with assessment and plan as outlined above by Cynthia Chadwick PA-C and take the full responsibility of care in the hospital Dr Modesta Gonzalez (4) HTN (hypertension) Hypertension type: unspecified Qualified Code(s): I10 - Essential (primary) hypertension (5) HLD (hyperlipidemia) Hyperlipidemia type: unspecified Qualified Code(s): E78.5 - Hyperlipidemia, unspecified
[2024-09-02] MEDS: CLOPIDOGREL BISULFATE 300 MG TAB PO STA (15:00)
[2024-09-02] MEDS: ASPIRIN 81 MG ECTAB PO STA (15:00)
[2024-09-02] MEDS ORDERED: ALUMINUM/MAGNESIUM SUSP 30 ML UDC PO PRN (15:40)
[2024-09-02] MEDS ORDERED: PHARMACIST DISCHARGE MED REC CONSULT PRN (15:40)
[2024-09-02] MEDS ORDERED: POLYETHYLENE (MIRALAX) 17 GM PACK PO PRN (15:40)
[2024-09-02] MEDS ORDERED: ACETAMINOPHEN 325 MG TAB PO PRN (15:40)
[2024-09-02] MEDS: SODIUM CHLORIDE 0.9% 1,000 ML IV SCH (16:06)
--- NOTE | 2024-09-02 17:13 | Electrocardiogram Report ---
Test Reason : Blood Pressure : */* mmHG Vent. Rate : 63 BPM Atrial Rate : 63 BPM P-R Int : 190 ms QRS Dur : 88 ms QT Int : 378 ms P-R-T Axes : 46 -2 33 degrees QTcB Int : 386 ms Normal sinus rhythm Normal ECG When compared with ECG of 10-Jan-2020 21:20, IA interval has decreased Confirmed by Ranjan Eldridge ([id number]) on 09/02/2024 5:13:05 PM Referred By: REFERRED SELF Confirmed By: Ranjan Eldridge
--- NOTE | 2024-09-02 17:35 | Magnetic Resonance Report ---
EXAM: MR brain wo con CLINICAL HISTORY: weakness of RT leg, expressive aphasia, Hx stroke X 2, symptoms have improved since this morning, PT was having trouble holding still, ran propellers, sent to [facility] TECHNIQUE: MRI of the brain was performed without contrast with multiplanar sequences obtained. COMPARISON: Comparison is made with prior imaging studies dated 01/10/2020. FINDINGS: Brain Parenchyma: Interval development of 10 mm area of signal alteration with diffusion restriction involving the left thalamic region reflecting acute ischemic changes. No evidence of hemorrhage. Unchanged old infarction seen in the medial aspect of the left occipital lobe. Multiple small periventricular and subcortical signal changes in keeping with small vessel disease stable compared to previous. Normal lemus-white matter differentiation. No mass lesions or focal cortical abnormalities were identified. Ventricles and Sulci: Normal size and configuration of the lateral ventricles, third ventricle, and fourth ventricle. No evidence of hydrocephalus or ventriculomegaly. Sylvian fissures, sulci, and cisterns are within normal limits. Posterior Fossa: The cerebellum and brainstem appear normal without evidence of mass lesions or signal abnormalities. Cranial Nerves: Normal course and appearance of cranial nerves identified. Vessels: No evidence of vascular malformations or aneurysms. Intracranial arteries and veins appear normal without evidence of stenosis or occlusion. Orbits and Skull Base: Orbits and skull base structures are normal without evidence of abnormalities. IMPRESSION: 1. Interval development of an area of signal alteration with diffusion restriction involving the left thalamic region reflecting acute ischemic changes. No evidence of hemorrhage. 2. An unchanged old infraction is seen in the medial aspect of the left occipital lobe. 3. Multiple small periventricular and subcortical white matter signal changes in keeping with small vessel disease stable compared to previous. [facility] was called at [phone] at 05:33 PM EST, 09/02/2024 and the results were verbally communicated to Dr Richardson. Electronically signed by Vamshi Quiroz 09-02-2024 5:35 PM
[2024-09-02 17:54] LABS: Appearance Urine Clear (Clear); Bilirubin Urine Negative (Negative); Blood Urine Negative (Negative); Color Urine Yellow; Glucose Urine UA Negative (Negative); Ketones Urine Negative (Negative); Leukocyte Esterase Urine Negative (Negative); Nitrite Urine Negative (Negative); Protein Urine Negative (Negative); Specific Gravity Urine 1.037 (1.000-1.030); Urobilinogen Urine Negative (Negative); pH Urine 6.5 (4.5-7.5)
--- NOTE | 2024-09-02 19:32 | Emergency Department Note ---
Impression & Plan Stroke-like symptoms ED Provider Note NAME: COREY LEBRON AGE: 73 SEX: Male INFORMANT: Patient and ED PROVIDER(S): Kailash Richardson MD CHIEF COMPLAINT: Strokelike symptoms PLAN: Disposition: Admitted Outpatient prescription management: none Referral: None MEDICAL DECISION MAKING: Patient presented to the emergency burglar strokelike symptoms. I did make him a stroke alert. Patient had unremarkable labs. ECG did not reveal any acute findings. He was sent emergently to CT imaging. No acute process was noted on CT or CT angiography. The patient had a consult placed with [facility]. Dr. Love and I discussed the case. Given the time of onset and improvement of symptoms he recommended admission for typical stroke workup as well as aspirin and Plavix. Consultation was made with the [facility] hospitalist service. Case was discussed and diagnostics were reviewed. Patient was evaluated in the ER admitted for further management. MR imaging was ordered by the hospitalist. Care/management discussed with: science manager, telestroke Level of care consideration(s): After review of the information above and other included data, I feel the patient requires escalation of care to admission Triage Nursing notes: reviewed and agree them. Vital Signs: reviewed and remarkable for mild hypertension Additional History obtained from: Patient's . She notes the word finding issues were around 11 AM. Chronic Medical/Social Conditions affecting care: Hypertension Prior/ Outside/ External records reviewed: none Differential Diagnosis: CVA, TIA,Infection, dehydration, metabolic abnormality, hypo/hyperglycemia, electrolyte disturbance, anemia, hypoxia, cardiac sources, intracerebral event, toxicologic, neurologic, as well as other pathologies. Diagnostics, independently interpreted by me: ECG: Twelve-lead ECG reveals normal sinus rhythm at 63 beats per minute. No evidence of pericarditis, ischemia, ectopy, or dysrhythmia. Cardiac Monitoring: Cardiac monitoring ordered by me: The patient was placed on continuous cardiac monitoring and observed. It revealed a normal sinus rhythm at 70 beats per minute without ectopy or evidence of dysrhythmia. Medical decision rules: none Imaging studies: Head CT: A noncontrast CT scan of the head was performed and was negative for tumor, fracture, intracranial hemorrhage, or other acute pathology. Chest x-ray. Findings: A chest x-ray was performed and revealed no pneumothorax, effusion, infiltrate, pulmonary edema, free air under the diaphragm, or wide mediastinum. Impression: No acute disease. HPI: 73 year old Male arrives for evaluation of strokelike symptoms. Patient woke up this morning around 630 and noted that his leg on the right side was not working well. He thought he was having some difficulty finding words but did not speak to anyone initially. He went to the grocery store and noted increased weakness in the right leg. He then was talking to his around 11 AM this morning and she noted he was having significant difficulty forming sentences and finding his words. He started to have a mild headache at that time. Patient initially did not have a headache. That has improved. The weakness in the right leg has gotten better as well and his word finding has gotten much better as well. Patient does have a history of stroke rounds 6 or 7 years ago per the Patient notes no significant symptoms earlier this week. He was in his normal state of health.pt denies LOC, fevers, chills, diaphoresis, visual changes, neck pain, chest pain, breathing difficulties, nausea, vomiting, abdominal pain, back pain, melena, hematochezia, urinary symptoms, numbness, lymphadenopathy, rash, or other complaints. PAST MEDICAL HISTORY: See Below, CVA PAST SURGICAL HISTORY: See Below, SOCIAL HISTORY: See Below, HOME MEDICATIONS: See Below ALLERGIES: See Below VITALS: See Below PHYSICAL EXAMINATION: GENERAL: Awake, alert, well-appearing, in no distress HENT: Normocephalic, atraumatic. Oropharynx unremarkable. EYES: Normal conjunctiva. Sclera non-icteric. PERRLA. EOMI. NECK: Inspection normal. Non-tender. Supple. No nuchal rigidity. FROM. No masses. RESPIRATORY: Clear to auscultation. No wheezes. No rales. Normal respiratory effort. CARDIAC: Normal rate. Normal rhythm. No murmurs. No rubs. Extremities warm and well perfused. Pulses equal. No JVD. GI: Soft, non-distended. No tenderness to palpation. No rebound or guarding. No masses. RECTAL: Deferred. MUSCULOSKELETAL: Atraumatic. Chest examination reveals no tenderness. The back is symmetrical on inspection without obvious abnormality. There is no CVA tenderness to palpation. No joint edema. LOWER EXTREMITIES: Calves are equal size bilaterally and non-tender. No edema. No discoloration. NEURO: Normal sensorium. No sensory or motor deficits noted. SKIN: No rash or jaundice noted. Normal rapid alternating movements. No drift. Normal [id number]. Speech relatively normal with very slight delay in word finding. 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 stroke (Acute) Medical History (Updated 09/02/24 @ 19:32 by Kailash Richardson MD) No known health problems Encounter for pre-operative examination HLD (hyperlipidemia) CKD (chronic kidney disease) stage 3, GFR 30-59 ml/min Surgical History History of tonsillectomy and adenoidectomy H/O neck surgery s/p Fusion of cervical vertebrae History of arthroscopy of right shoulder History of AAA (abdominal aortic aneurysm) repair 2008 Dr Gambino Family History (Updated 09/02/24 @ 15:56 by Maryam Powell, TANYA) Father , in 70s Alcohol abuse Cirrhosis Stroke Mother Coronary heart disease Dementia Sister No significant family history Other No history of previous surgery Social History (Updated 09/02/24 @ 14:46 by Kirsten Chisholm PA-C) Smoking Status: Former smoker Cigarettes Per Day: 15; Smoking End Date: 20 years ago; Second Hand Exposure: No; Do You Dip or Chew Tobacco: No; Tobacco Cessation Education Requested by Patient: No Hx Alcohol Use: No Hx Substance Use: No Preferred Language: Urdu Communication Ability: Effective Programmer Or Analyst Required: No Beliefs That Will Affect Care: None marital status: Current Living Situation: Alone current occupational status: 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[employer]; 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 Other Information That Helps Us Care for You: No Feels Safe at Home: Yes Safety Concerns: Feels Safe At This Time Assistive Devices: None Allergies Allergies Allergy/AdvReac Type Severity Reaction Status Date / Time ciprofloxacin Allergy Unknown Verified 09/02/24 14:25 Home Meds Home Medications Medication Instructions Recorded Confirmed atorvastatin 80 mg tablet 80 mg PO QAM 07/22/19 09/02/24 ezetimibe 10 mg tablet 10 mg PO QAM 07/22/19 09/02/24 aspirin 81 mg tablet,delayed 81 mg PO DAILY 01/10/20 09/02/24 release (Aspir-) cholecalciferol (vitamin D3) 25 1,000 unit PO DAILY 01/10/20 09/02/24 mcg (1,000 unit) tablet (Vitamin D3) diclofenac sodium 1 % topical gel 4 g topical BID PRN Pain 01/10/20 09/02/24 amlodipine 5 mg tablet 5 mg PO DAILY 07/19/23 09/02/24 ascorbic acid (vitamin C) 1,000 mg 1,000 mg PO DAILY 07/19/23 09/02/24 tablet,extended release candesartan 4 mg tablet 4 mg PO DAILY 07/19/23 09/02/24 carvedilol 12.5 mg tablet 12.5 mg PO BID 07/19/23 09/02/24 cyanocobalamin (vitamin B-12) 1,000 mcg PO DAILY 07/19/23 09/02/24 1,000 mcg tablet pantoprazole 40 mg tablet,delayed 40 mg PO DAILY 07/19/23 09/02/24 release Results & Data (ED) Vital Signs Vital Signs - 24 hr 09/02/24 12:46 09/02/24 13:00 09/02/24 13:03 Temperature 36.9 C Temperature Source Temporal Artery Scan Pulse Rate 70 74 65 Pulse Rate from SpO2 Sensor 75 Pulse Strength Normal Respiratory Rate 19 22 Respiratory Effort / Characteristics Non-Labored Spontaneous Respiratory Depth Normal Respiratory Pattern Regular Blood Pressure 150/83 H 177/82 H Blood Pressure Mean 105 118 Blood Pressure Position Sitting Pulse Oximetry 96 96 Oxygen Delivery Method Room Air Sepsis Recent Fever Within 48 Hours No Sepsis New/Unexplained Change in Mental Status No Sepsis Action Taken by Nursing No Action Required 09/02/24 13:30 09/02/24 14:00 Temperature Temperature Source Pulse Rate 72 62 Pulse Rate from SpO2 Sensor 75 63 Pulse Strength Respiratory Rate 17 18 Respiratory Effort / Characteristics Respiratory Depth Respiratory Pattern Blood Pressure 144/77 H 138/76 Blood Pressure Mean 99 110 Blood Pressure Position Pulse Oximetry 95 95 Oxygen Delivery Method Sepsis Recent Fever Within 48 Hours Sepsis New/Unexplained Change in Mental Status Sepsis Action Taken by Nursing Laboratory Data 09/02/24 13:02 09/02/24 13:02 Lab Results 09/02/24 09/02/24 Range/Units 13:02 13:07 WBC 7.02 (4.8-10.8) K/ul RBC 4.42 L (4.70-6.10) M/uL Hgb 14.2 (14.0-18.0) g/dl POC Hgb 14.6 (14.0-18.0) g/dl Hct 42.9 (42.0-52.0) % POC Hct 43 (42-52) % MCV 97.1 (80.0-100.0) fL MCH 32.1 (25.0-34.0) pg MCHC 33.1 (32.0-36.0) g/dL RDW Std Deviation 46.6 H (36.4-46.3) fL RDW Coeff of Doni 13.0 (11.5-14.5) % Plt Count 218 (130-400) K/uL MPV 10.4 (9.4-12.4) fL Immature Gran % (Auto) 0.3 % Neut % (Auto) 74.0 % Lymph % (Auto) 16.4 % [place] % (Auto) 7.3 % Eos % (Auto) 1.9 % Baso % (Auto) 0.1 % Neut # (Auto) 5.20 (1.40-6.50) K/uL Lymph # (Auto) 1.15 L (1.20-3.40) K/uL [place] # (Auto) 0.51 (0.11-0.59) K/uL Eos # (Auto) 0.13 (0.00-0.50) K/uL Baso # (Auto) 0.01 (0.00-0.20) K/uL Immature Gran # (Auto) 0.02 (0.01-0.20) K/uL PT 10.4 (9.0-12.0) Seconds INR 1.0 (0.9-1.1) APTT 25 (21-31) Seconds PTT Ratio 0.9 POC Sodium 141 (135-144) mmol/L Sodium 141 (136-145) mmol/L POC Potassium 4.6 (3.3-5.0) mmol/L Potassium 4.6 (3.5-5.1) mmol/L POC Chloride 107 (101-112) mmol/L Chloride 110 H (98-107) mmol/L Carbon Dioxide 25 (21-32) mmol/L POC Total CO2 22 L (24-31) mmol/L Anion Gap 6 (3-11) POC Anion Gap 17.0 (16-25) mmol/L POC BUN 24 H (7-18) mg/dl BUN 25 H (6-23) mg/dl Creatinine 1.49 H (0.6-1.4) mg/dl POC Creatinine 1.6 H (0.6-1.3) mg/dl Est Cr Clr Drug Dosing 47.5 ml/min eGFR 48.64 BUN/Creatinine Ratio 16.8 (10-20) Glucose 119 H (70-99(Fasting)) mg/dl POC Glucose (other) 116 H (70-99) mg/dl Calcium 9.6 (8.6-10.3) mg/dl POC Ioniz Calcium Radha 1.23 (1.12-1.32) mmol/l Magnesium 2.1 (1.7-2.4) mg/dl Total Bilirubin 1.0 (0.2-1.0) mg/dl AST 22 (13-39) U/L ALT 20 (7-52) U/L Alkaline Phosphatase 56 (34-104) U/L Troponin I High Sens 6.7 (0-20) pg/ml Total Protein 7.2 (6.0-8.3) gm/dl Albumin 4.4 (3.4-5.0) gm/dl Globulin 2.8 (2.5-4.0) gm/dl Albumin/Globulin Ratio 1.6 (0.9-2) Blood Type A Positive Antibody Screen NEGATIVE Administered Medications Sodium Chloride (Nss) 1,000 mls @ 100 mls/hr IV .Q10H CARMEN Stop: 09/03/24 00:44 Last Admin: 09/02/24 16:06 Dose: 100 mls/hr Documented By: LANCE Discontinued Medications Aspirin (Aspirin 81 Mg Ectab) 243 mg PO NOW STA Stop: 09/02/24 14:40 Last Admin: 09/02/24 15:00 Dose: 243 mg Documented By: ARIELA Clopidogrel Bisulfate (Clopidogrel Bisulfate 300 Mg Tab) 300 mg PO NOW STA Stop: 09/02/24 14:38 Last Admin: 09/02/24 15:00 Dose: 300 mg Documented By: ARIELA Ioversol (Optiray 320 125ml) 120 ml IV ONCE ONE Stop: 09/02/24 13:09 Last Admin: 09/02/24 13:09 Dose: 120 ml Documented By: OK Imaging Data Radiologist's Impression: Chest X-Ray 09/02/24 12:51 XR chest 1V portable CLINICAL HISTORY: neuro deficit, acute stroke suspected COMPARISON STUDY: Chest radiograph July 22, 2019. FINDINGS: Operative findings within the cervical spine are partially imaged. Lung volumes are normal. Lungs are clear. There is no pneumothorax or pleural effusion. Cardiac size is normal. Mediastinal contours are normal. There is no evidence for pulmonary edema. IMPRESSION: No acute cardiopulmonary findings. ACT 112: Negative or not required by law. Electronically signed by: Justin Nash M.D. 09/02/2024 1:[address] 09/02/24 12:51 CT OF THE HEAD WITHOUT CONTRAST CLINICAL HISTORY: neuro deficit, acute stroke suspected COMPARISON STUDY: Head CT July 22, 2019 and MRI of the brain January 10, 2020. TECHNIQUE: Helical axial images of the head were obtained without IV contrast. Automated exposure control was utilized for the study. A dose lowering technique was utilized adhering to the principles of ALARA. FINDINGS: No acute intracranial hemorrhage, midline shift or mass effect is present. The ventricular system is unremarkable. White matter hypodensity suggests small vessel disease. Small old infarcts within the left internal capsule and occipital lobe were present on previous MRI. The basal cisterns are patent. No extra-axial collections are present. There are no findings to suggest acute dural sinus thrombosis or acute territorial infarct. No significant calvarial abnormalities are present. Visualized portions of the sinuses and mastoid air cells are clear. IMPRESSION: No acute intracranial findings. ACT 112: Negative or not required by law. Electronically signed by: Justin Nash M.D. 09/02/2024 1:19 PM Head CTA 09/02/24 12:51 CTA ANGIOGRAPHY OF THE HEAD CLINICAL HISTORY: neuro deficit, acute stroke suspected COMPARISON STUDY: MRI of the brain January 10, 2020 and CTA of the head July 12, 2018. TECHNIQUE: Helical axial images of the head were obtained following uneventful intravenous administration of Optiray. Sagittal and coronal reconstructions were viewed as well as maximal intensity projections on an independent 3-D workstation. Automated exposure control was utilized for the study. A dose lowering technique was utilized adhering to the principles of ALARA. FINDINGS: The bilateral M1, M2, A1 and A2 segments are patent. There is moderate calcified atherosclerotic plaque within bilateral cavernous carotids without significant stenosis. No vessel occlusion is identified within the anterior circulation. Posterior circulation is also intact. No intracranial aneurysm. No acute intracranial hemorrhage, midline shift or mass effect is present. Ventricular system is unremarkable. The basal cisterns are patent. There are no extra axial collections. There are small old infarcts within the posterior limb of the left internal capsule and the left occipital lobe. IMPRESSION: No large vessel occlusion. No intracranial aneurysm. ACT 112: Negative or not required by law. Electronically signed by: Justin Nash M.D. 09/02/2024 1:26 PM Neck CTA 09/02/24 12:51 CT ANGIOGRAPHY OF THE NECK WITH CONTRAST CLINICAL HISTORY: neuro deficit, acute stroke suspected COMPARISON STUDY: CTA of the neck July 23, 2019. Technique: CT angiography of the carotid and vertebral arteries was obtained using Optiray and 3D reconstruction on an independent workstation. NASCET criteria was utilized. Automated exposure control was utilized for the study. A dose lowering technique was utilized adhering to the principles of ALARA. CT DOSE: 1320.58 mGy.cm Findings: Emphysema is incidentally noted within visualized portions of the lung apices. There are postoperative findings within the cervical spine. There are no cervical spine fracture. There is no cervical lymphadenopathy. Moderate plaque within the proximal right internal carotid artery results in mild narrowing of 30%. There is mild plaque within the left carotid bifurcation without stenosis. The bilateral vertebral arteries are patent. There is no aneurysm or dissection within the neck. CTA of the head will be reported separately. IMPRESSION: 1. Moderate plaque within the proximal right internal carotid artery which results in mild narrowing of 30%. No stenosis within the cervical left internal carotid artery. 2. No dissection or aneurysm within the neck. ACT 112: Negative or not required by law. Electronically signed by: Justin Nash M.D. 09/02/2024 1:22 PM Discharge Plan Visit Data Chief Complaint: TIA Symptoms Stated Complaint: SLURRED SPEACH, LEG NUMBNESS, HEADACHE ED Provider: Kailash Richardson Discharge Problem: Stroke-like symptoms Patient Disposition: Admitted As Inpatient Discharge Instructions Interventions: ED Discharge Assessment Last Done: 09/02/24 15:23
[2024-09-02] MEDS: carvediloL 12.5 MG TAB PO SCH (21:28)
[2024-09-03 07:24] LABS: Basophils # (auto) 0.02 K/uL (0.00-0.20); Basophils % (auto) 0.4 %; Eosinophils # (auto) 0.12 K/uL (0.00-0.50); Eosinophils % (auto) 2.6 %; Hematocrit (blood only) 37.2 % (42.0-52.0); Hemoglobin 12.3 g/dl (14.0-18.0); Immature Granulocytes # (auto) 0.01 K/uL (0.01-0.20); Immature Granulocytes % (auto) 0.2 %; Lymphocytes # (auto) 1.12 K/uL (1.20-3.40); Lymphocytes % (auto) 23.9 %; Mean Corpuscular Hemoglobin 31.8 pg (25.0-34.0); Mean Corpuscular Hgb Conc 33.1 g/dL (32.0-36.0); Mean Corpuscular Volume 96.1 fL (80.0-100.0); Mean Platelet Volume 10.4 fL (9.4-12.4); Monocytes # (auto) 0.45 K/uL (0.11-0.59); Monocytes % (auto) 9.6 %; Neutrophils # (auto) 2.97 K/uL (1.40-6.50); Neutrophils % (auto) 63.3 %; Platelet Count 172 K/uL (130-400); RDW Standard Deviation 45.5 fL (36.4-46.3); Red Blood Count 3.87 M/uL (4.70-6.10); White Blood Count 4.69 K/ul (4.8-10.8)
[2024-09-03 07:41] LABS: BUN Creatinine Ratio 15.8 (10-20); Calcium 8.9 mg/dl (8.6-10.3); Chol HDL Ratio 3.1 (0-5); Creatinine Clr Calc Pharmacy 51.3 ml/min; Potassium 4.4 mmol/L (3.5-5.1)
[2024-09-03 08:08] VITALS: RESP 18; TEMP 98.1; O2SAT 97
[2024-09-03 08:14] LABS: Estimated Average Glucose 128 mg/dl; Hemoglobin A1C 6.1 % (4.5-5.6)
[2024-09-03] MEDS: PANTOprazole 40 MG TAB PO SCH (09:20)
[2024-09-03] MEDS: CLOPIDOGREL BISULFATE 75 MG TAB PO SCH (09:20)
[2024-09-03] MEDS: ATORVASTATIN 40 MG TAB PO SCH (09:20)
[2024-09-03] MEDS: CHOLECALCIFEROL 25 MCG (1000 UNITS) TAB PO SCH (09:20)
[2024-09-03] MEDS: ASPIRIN 81 MG ECTAB PO SCH (09:21)
[2024-09-03] MEDS: EZETIMIBE 10 MG TAB PO SCH (09:21)
--- NOTE | 2024-09-03 10:26 | Neurology Consultation ---
Date of Consultation September 03, 2024 Assessment & Plan (1) Cerebrovascular accident (CVA) of left thalamus: Acute left thalamic stroke in a 73M with a pMH of HTN, HLD and prior tobacco abuse. Exam is currently at his baseline. CTA doesn't give a clear source. The mechanism of the stroke is likely small vessel but he should also be evaluated for cardioembolic. Plan -- continue DAPT and statin -- recommend outpatient zio -- outpatient neurology follow up -- goal normotension Telehealth Consultation Telehealth Information Telehealth Information: I performed this visit using a real-time telehealth connection between my location and the patients location ([facility]). After connecting through interactive tele-video, patient was identified by name and date of and/or wristband check.Patient (or authorized healthcare cash applications representative) was informed that this was a telemedicine visit and it was being conducted confidentially over secure lines. My office door was closed and no one else was present in the room with me.Patient (or authorized healthcare cash applications representative) provided consent to proceed with the visit, expressed an understanding of privacy and security of the telemedicine visit, and gave permission to have a hospital cash applications representative in the room in order to assist with the visit and to conduct portions of the visit, as needed. I informed the patient (or authorized healthcare cash applications representative) that I reviewed their record and presented the opportunity for them to ask any questions regarding the visit today. The patient agreed to participate. History of Present Illness Reason for Consultation: stroke Attending Physician: Danitza Schulz MD History of Present Illness Tylor Goetz is a 73M with a pMH of HTN, HLD, prior tobacco abuse who presents with stroke like symptoms. He woke up yesterday feeling at his baseline and then went to the store and was having trouble moving the right leg. He does have sciatica but this was worse than normal. Throughout the morning he felt his leg was becoming weaker. He went home and took a nap and then when he woke up he was trying to speak with his and couldn't get his words out. He reports that currently he is at his baseline. He denies headache, fevers, chills, chest pain and SOB. Allergies Allergy/AdvReac Type Severity Reaction Status Date / Time ciprofloxacin Allergy Unknown Verified 09/02/24 14:25 Home Medications Medication Instructions Recorded Confirmed Type atorvastatin 80 mg tablet 80 mg PO QAM 07/22/19 09/02/24 History ezetimibe 10 mg tablet 10 mg PO QAM 07/22/19 09/02/24 History aspirin 81 mg tablet,delayed 81 mg PO DAILY 01/10/20 09/02/24 History release (Aspir-) cholecalciferol (vitamin D3) 25 1,000 unit PO DAILY 01/10/20 09/02/24 History mcg (1,000 unit) tablet (Vitamin D3) diclofenac sodium 1 % topical gel 4 g topical BID PRN Pain 01/10/20 09/02/24 History amlodipine 5 mg tablet 5 mg PO DAILY 07/19/23 09/02/24 History ascorbic acid (vitamin C) 1,000 mg 1,000 mg PO DAILY 07/19/23 09/02/24 History tablet,extended release candesartan 4 mg tablet 4 mg PO DAILY 07/19/23 09/02/24 History carvedilol 12.5 mg tablet 12.5 mg PO BID 07/19/23 09/02/24 History cyanocobalamin (vitamin B-12) 1,000 mcg PO DAILY 07/19/23 09/02/24 History 1,000 mcg tablet pantoprazole 40 mg tablet,delayed 40 mg PO DAILY 07/19/23 09/02/24 History release Patient History Medical History (Updated 09/03/24 @ 10:39 by Treivn Trammell MD) No known health problems Encounter for pre-operative examination HLD (hyperlipidemia) CKD (chronic kidney disease) stage 3, GFR 30-59 ml/min Surgical History History of tonsillectomy and adenoidectomy H/O neck surgery s/p Fusion of cervical vertebrae History of arthroscopy of right shoulder History of AAA (abdominal aortic aneurysm) repair 2008 Dr Gambino Family History (Updated 09/02/24 @ 15:56 by Maryam Powell, TANYA) Father , in 70s Alcohol abuse Cirrhosis Stroke Mother Coronary heart disease Dementia Sister No significant family history Other No history of previous surgery Social History (Updated 09/02/24 @ 14:46 by Kirsten Chisholm PA-C) Smoking Status: Former smoker Cigarettes Per Day: 15; Smoking End Date: 20 years ago; Second Hand Exposure: No; Do You Dip or Chew Tobacco: No; Tobacco Cessation Education Requested by Patient: No Hx Alcohol Use: No Hx Substance Use: No Preferred Language: Slovak Communication Ability: Effective Supervisor Publications Required: No Beliefs That Will Affect Care: None marital status: Current Living Situation: Alone current occupational status: 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[employer] at [employer]; of [employer] Other Information That Helps Us Care for You: No Feels Safe at Home: Yes Safety Concerns: Feels Safe At This Time Assistive Devices: None Review of Systems See HPI Physical Exam NEUROLOGIC EXAMINATION: Mental Status:alert, oriented to time, place, person, normal recent memory, normal remote memory, normal attention span, normal concentration, normal language, and normal fund of knowledge Cranial Nerves: CN 2 - no visual defect on confrontation and pupils round, equal, reactive to light CN 3, 4, 6 - extra-ocular movements intact and no nystagmus CN 5 - facial sensation intact CN 7 - no facial asymmetry CN 8 - intact hearing CN 9, 10 - palate symmetric, normal gag CN 11 - good shoulder shrug CN 12 - tongue midline MOTOR: Strength was at least antigravity throughout, Pronator drift was absent, and There were no abnormal movements SENSATION: intact GAIT: deferred COORDINATION: no ataxia with finger to nose testing and heel to godwin testing REFLEXES: cannot assess over telemedicine Results & Data Vital Signs (Past 12 Hours) Vital Signs Temp Pulse Pulse Resp BP Pulse Ox O2 Del Method 09/03/24 08:07 36.7 C 60 18 133/72 97 Room Air 09/03/24 03:44 36.5 C 58 L 17 136/73 94 Room Air 09/03/24 00:00 60 09/02/24 23:55 36.5 C 61 17 129/69 95 Room Air Laboratory Results Abnormal Lab Results 09/02/24 09/02/24 09/02/24 13:02 13:07 16:15 WBC 7.02 RBC 4.42 L Hgb 14.2 POC Hgb 14.6 Hct 42.9 POC Hct 43 MCV 97.1 MCH 32.1 MCHC 33.1 RDW Std Deviation 46.6 H RDW Coeff of Doni 13.0 Plt Count 218 MPV 10.4 Immature Gran % (Auto) 0.3 Neut % (Auto) 74.0 Lymph % (Auto) 16.4 Saunders % (Auto) 7.3 Eos % (Auto) 1.9 Baso % (Auto) 0.1 Neut # (Auto) 5.20 Lymph # (Auto) 1.15 L Saunders # (Auto) 0.51 Eos # (Auto) 0.13 Baso # (Auto) 0.01 Immature Gran # (Auto) 0.02 PT 10.4 INR 1.0 APTT 25 PTT Ratio 0.9 POC Sodium 141 Sodium 141 POC Potassium 4.6 Potassium 4.6 POC Chloride 107 Chloride 110 H Carbon Dioxide 25 POC Total CO2 22 L Anion Gap 6 POC Anion Gap 17.0 POC BUN 24 H BUN 25 H Creatinine 1.49 H POC Creatinine 1.6 H Est Cr Clr Drug Dosing 47.5 eGFR 48.64 BUN/Creatinine Ratio 16.8 Glucose 119 H POC Glucose (other) 116 H Estimat Average Glucose Hemoglobin A1c Calcium 9.6 POC Ioniz Calcium Radha 1.23 Magnesium 2.1 Total Bilirubin 1.0 AST 22 ALT 20 Alkaline Phosphatase 56 Troponin I High Sens 6.7 Total Protein 7.2 Albumin 4.4 Globulin 2.8 Albumin/Globulin Ratio 1.6 Triglycerides Cholesterol LDL Cholesterol, Calc VLDL Cholesterol, Calc HDL Cholesterol Cholesterol/HDL Ratio Urine Color Yellow Urine Appearance Clear Urine pH 6.5 Ur Specific [place]bury 1.037 H Urine Protein Negative Urine Glucose (UA) Negative Urine Ketones Negative Urine Blood Negative Urine Nitrite Negative Urine Bilirubin Negative Urine Urobilinogen Negative Ur Leukocyte Esterase Negative Blood Type A Positive Antibody Screen NEGATIVE 09/03/24 06:27 WBC 4.69 L RBC 3.87 L Hgb 12.3 L POC Hgb Hct 37.2 L POC Hct MCV 96.1 MCH 31.8 MCHC 33.1 RDW Std Deviation 45.5 RDW Coeff of Doni 13.0 Plt Count 172 MPV 10.4 Immature Gran % (Auto) 0.2 Neut % (Auto) 63.3 Lymph % (Auto) 23.9 Saunders % (Auto) 9.6 Eos % (Auto) 2.6 Baso % (Auto) 0.4 Neut # (Auto) 2.97 Lymph # (Auto) 1.12 L Saunders # (Auto) 0.45 Eos # (Auto) 0.12 Baso # (Auto) 0.02 Immature Gran # (Auto) 0.01 PT INR APTT PTT Ratio POC Sodium Sodium 141 POC Potassium Potassium 4.4 POC Chloride Chloride 112 H Carbon Dioxide 24 POC Total CO2 Anion Gap 5 POC Anion Gap POC BUN BUN 22 Creatinine 1.39 POC Creatinine Est Cr Clr Drug Dosing 51.3 eGFR 52.87 BUN/Creatinine Ratio 15.8 Glucose 79 POC Glucose (other) Estimat Average Glucose 128 Hemoglobin A1c 6.1 H Calcium 8.9 POC Ioniz Calcium Radha Magnesium Total Bilirubin AST ALT Alkaline Phosphatase Troponin I High Sens Total Protein Albumin Globulin Albumin/Globulin Ratio Triglycerides 83 Cholesterol 103 LDL Cholesterol, Calc 53 VLDL Cholesterol, Calc 17 HDL Cholesterol 33 Cholesterol/HDL Ratio 3.1 Urine Color Urine Appearance Urine pH Ur Specific R[place] Urine Protein Urine Glucose (UA) Urine Ketones Urine Blood Urine Nitrite Urine Bilirubin Urine Urobilinogen Ur Leukocyte Esterase Blood Type Antibody Screen Diagnostic Findings Chest X-Ray 09/02/24 12:51 XR chest 1V portable CLINICAL HISTORY: neuro deficit, acute stroke suspected COMPARISON STUDY: Chest radiograph July 22, 2019. FINDINGS: Operative findings within the cervical spine are partially imaged. Lung volumes are normal. Lungs are clear. There is no pneumothorax or pleural effusion. Cardiac size is normal. Mediastinal contours are normal. There is no evidence for pulmonary edema. IMPRESSION: No acute cardiopulmonary findings. ACT 112: Negative or not required by law. Electronically signed by: Justin Nash M.D. 09/02/2024 1:[address] 09/02/24 12:51 CT OF THE HEAD WITHOUT CONTRAST CLINICAL HISTORY: neuro deficit, acute stroke suspected COMPARISON STUDY: Head CT July 22, 2019 and MRI of the brain January 10, 2020. TECHNIQUE: Helical axial images of the head were obtained without IV contrast. Automated exposure control was utilized for the study. A dose lowering technique was utilized adhering to the principles of ALARA. FINDINGS: No acute intracranial hemorrhage, midline shift or mass effect is present. The ventricular system is unremarkable. White matter hypodensity suggests small vessel disease. Small old infarcts within the left internal capsule and occipital lobe were present on previous MRI. The basal cisterns are patent. No extra-axial collections are present. There are no findings to suggest acute dural sinus thrombosis or acute territorial infarct. No significant calvarial abnormalities are present. Visualized portions of the sinuses and mastoid air cells are clear. IMPRESSION: No acute intracranial findings. ACT 112: Negative or not required by law. Electronically signed by: Justin Nash M.D. 09/02/2024 1:19 PM Head CTA 09/02/24 12:51 CTA ANGIOGRAPHY OF THE HEAD CLINICAL HISTORY: neuro deficit, acute stroke suspected COMPARISON STUDY: MRI of the brain January 10, 2020 and CTA of the head July 12, 2018. TECHNIQUE: Helical axial images of the head were obtained following uneventful intravenous administration of Optiray. Sagittal and coronal reconstructions were viewed as well as maximal intensity projections on an independent 3-D workstation. Automated exposure control was utilized for the study. A dose lowering technique was utilized adhering to the principles of ALARA. FINDINGS: The bilateral M1, M2, A1 and A2 segments are patent. There is moderate calcified atherosclerotic plaque within bilateral cavernous carotids without significant stenosis. No vessel occlusion is identified within the anterior circulation. Posterior circulation is also intact. No intracranial aneurysm. No acute intracranial hemorrhage, midline shift or mass effect is present. Ventricular system is unremarkable. The basal cisterns are patent. There are no extra axial collections. There are small old infarcts within the posterior limb of the left internal capsule and the left occipital lobe. IMPRESSION: No large vessel occlusion. No intracranial aneurysm. ACT 112: Negative or not required by law. Electronically signed by: Justin Nash M.D. 09/02/2024 1:26 PM Neck CTA 09/02/24 12:51 CT ANGIOGRAPHY OF THE NECK WITH CONTRAST CLINICAL HISTORY: neuro deficit, acute stroke suspected COMPARISON STUDY: CTA of the neck July 23, 2019. Technique: CT angiography of the carotid and vertebral arteries was obtained using Optiray and 3D reconstruction on an independent workstation. NASCET criteria was utilized. Automated exposure control was utilized for the study. A dose lowering technique was utilized adhering to the principles of ALARA. CT DOSE: 1320.58 mGy.cm Findings: Emphysema is incidentally noted within visualized portions of the lung apices. There are postoperative findings within the cervical spine. There are no cervical spine fracture. There is no cervical lymphadenopathy. Moderate plaque within the proximal right internal carotid artery results in mild narrowing of 30%. There is mild plaque within the left carotid bifurcation without stenosis. The bilateral vertebral arteries are patent. There is no aneurysm or dissection within the neck. CTA of the head will be reported separately. IMPRESSION: 1. Moderate plaque within the proximal right internal carotid artery which results in mild narrowing of 30%. No stenosis within the cervical left internal carotid artery. 2. No dissection or aneurysm within the neck. ACT 112: Negative or not required by law. Electronically signed by: Justin Nash M.D. 09/02/2024 1:22 PM Brain MRI 09/02/24 14:30 EXAM: MR brain wo con CLINICAL HISTORY: weakness of RT leg, expressive aphasia, Hx stroke X 2, symptoms have improved since this morning, PT was having trouble holding still, ran propellers, sent to [facility] TECHNIQUE: MRI of the brain was performed without contrast with multiplanar sequences obtained. COMPARISON: Comparison is made with prior imaging studies dated 01/10/2020. FINDINGS: Brain Parenchyma: Interval development of 10 mm area of signal alteration with diffusion restriction involving the left thalamic region reflecting acute ischemic changes. No evidence of hemorrhage. Unchanged old infarction seen in the medial aspect of the left occipital lobe. Multiple small periventricular and subcortical signal changes in keeping with small vessel disease stable compared to previous. Normal lemus-white matter differentiation. No mass lesions or focal cortical abnormalities were identified. Ventricles and Sulci: Normal size and configuration of the lateral ventricles, third ventricle, and fourth ventricle. No evidence of hydrocephalus or ventriculomegaly. Sylvian fissures, sulci, and cisterns are within normal limits. Posterior Fossa: The cerebellum and brainstem appear normal without evidence of mass lesions or signal abnormalities. Cranial Nerves: Normal course and appearance of cranial nerves identified. Vessels: No evidence of vascular malformations or aneurysms. Intracranial arteries and veins appear normal without evidence of stenosis or occlusion. Orbits and Skull Base: Orbits and skull base structures are normal without evidence of abnormalities. IMPRESSION: 1. Interval development of an area of signal alteration with diffusion restriction involving the left thalamic region reflecting acute ischemic changes. No evidence of hemorrhage. 2. An unchanged old infraction is seen in the medial aspect of the left occipital lobe. 3. Multiple small periventricular and subcortical white matter signal changes in keeping with small vessel disease stable compared to previous. [facility] was called at [phone] at 05:33 PM EST, 09/02/2024 and the results were verbally communicated to Dr Richardson. Electronically signed by Vamshi Quiroz 09-02-2024 5:35 PM
[2024-09-03] MEDS ORDERED: STROKE PATIENT DISCHARGE STA (10:50)
--- NOTE | 2024-09-03 10:57 | Discharge Summary ---
Discharge Summary Date of Service September 03, 2024 Principal Dx & Hospital Course #1 = Principal Diagnosis (1) Cerebrovascular accident (CVA) of left thalamus: (2) Transient weakness of right lower extremity: (3) Expressive aphasia: (4) Hx TIA/stroke w/o resid: (5) HTN (hypertension): (6) HLD (hyperlipidemia): (7) CKD (chronic kidney disease) stage 3, GFR 30-59 ml/min: Plan This is a 73-year-old male who has a significant past medical history of HTN, HLD, prediabetes, COPD, history of AAA s/p repair, history of left BUSINESS DIVISION [employer]AIR CVA, history of thalamic CVA, vascular claudication, CKD stage III and history of tobacco abuse who presents to ER secondary to right leg weakness and speech difficulties. Symptoms started approximately 630 this morning with right lower extremity weakness. Garbled speech was noted at approximately 11:30 AM. Upon arrival to ED patient symptoms were improving and upon my evaluation his symptoms have completely resolved. TNK not indicated given symptom improvement. ED provider spoke with neurology on-call who recommended proceeding with full dose aspirin and 300 mg of Plavix. Acute CVA history of 2 prior CVA, left BUSINESS DIVISION CHAIR CVA in 2018, thalamic CVA in 2019 on dual antiplatelet therapy for approximately 5 years when developed a severe anemia and concern for GI bleeding and therefore Plavix was discontinued his symptoms have completely resolved but will admit for further stroke workup obtain MRI brain, echocardiogram, A1c, lipid panel, PT, OT, ST consult neurology --Head CT/CTA: unremarkable --Neck CTA: Moderate plaque within the proximal right internal carotid artery which results in mild narrowing of 30%. - Pt follows Vascular Dr. Selby at [place], recommend yearly carotid US Brain MRI showed acute left thalamic ischemic changes Patient was evaluated by Neurology who recommends DAPT and Neurology follow up outpatient He was evaluated by PT/OT/PENOLOGY PROFESSOR Notes For Next Care Provider Pt presented with acute left thalamic infarct. Pt will need outpatient ZIO patch monitoring arranged. CTA of neck revealed mild 30% stenosis of R proximal ICA. Please notify pts vascular surgeon Dr. Selby to allow for routine follow up. Pt restarted on DAPT with asa/plavix. Previously was on this 1 year ago but discontinued due to GIB. Recommend close monitoring of hemoglobin. Medication Changes From Visit Pt initiated back on dual antiplatelet therapy with aspirin and plavix. Admission HPI Per Admitting Provider This is a 73-year-old male who has a significant past medical history of HTN, HLD, prediabetes, COPD, history of AAA s/p repair, history of left BUSINESS DIVISION CHAIR CVA, history of thalamic CVA, vascular claudication, CKD stage III and history of tobacco abuse who presents to ER secondary to right leg weakness and speech difficulties. Of significance pt has hx of Left BUSINESS DIVISION CHAIR Stroke in 07/2018 and recurrent L sided CVA in July of 2019. He was later hospitalized at [facility] July of 2023 2/2 acute GIB while on DAPT for recurrent CVA. At that time clopidogrel was d/c by neurology. Patient and son are at bedside who also help elicit history. He states he woke up this morning at approximately 6 AM. He went to [employer]. When he woke up this morning he felt his right leg was weaker than normal. He also noticed slight weakness in his right arm. He states he chalked this up to his right chronic shoulder pain and right lower extremity sciatica. While he was at the store walking around he notices symptoms progressively getting worse and having a significantly difficult time walking. When he came home he decided to sit in his recliner and fell asleep. When he woke up at approximately 11-11 30 he went to the kitchen and started talking to his whenever his speech was garbled. He knew what he wanted to say, but was when unable to get it out. When noticed his speech he was brought to ED immediately. denies any facial droop. He states his previous strokes presented with visual changes in 2018 and total body weakness in 2019. He admits to taking his a baby dose aspirin this morning. He also took all of his other medications. He otherwise denies any recent illness. He states he has been intentionally losing weight. He initially was at 230 pounds and is now down into the 190s. He denies any lightheadedness, dizziness, chest pain, shortness breath, nausea, vomiting abdominal pain, changes bowel or urinary habits. He does have a slight left- sided headache. His symptoms have significantly improved and for the most part resolved since ED arrival. ED provider discussed case with [facility]. They recommended starting patient on dual antiplatelet therapy. Admission Exam Per Admitting Provider Constitutional: WD/WN, vitals as above, NAD, sitting up in bed, pleasant, conversing easily Head: Normocephalic, Atraumatic Eyes: PERRL, conjunctivae normal, anicteric sclerae ENMT: external ear and nose normal, oropharynx normal Neck: trachea midline, no thyromegaly normal visual inspection Respiratory: normal respiratory effort, lungs clear to auscultation, no wheeze, rales, rhonchi. Normal insp/exp effort, no accessory muscle use Cardiovascular: RRR, no murmur, no edema Vessels: no JVD or carotid bruit Chest: normal inspection of chest Abdomen: normal bowel sounds, soft, nontender, no hepatosplenomegaly Musculoskeletal: no cyanosis or clubbing, extremities motor strength 5/5 Skin: no rashes, warm and dry normal turgor Neurologic: PERRL, EOMI, accommodation nl, no face palsy, no dysarthria CN's II-XI intact bilaterally and moves all extremities Psychiatric: A+Ox3, euthymic affect Lymphatic: no cervical or axillary lymphadenopathy : deferred Discharge Exam Gen: WD/WN, NAD, A&O x3 HEENT: Normocephalic, atraumatic, conjunctivae moist, sclerae anicteric, mucous membranes moist. Lung: Clear to Auscultation bilaterally, no wheezes/rales/rhonchi Heart: Regular rate, regular rhythm, no murmurs, rubs, or gallops Abdomen: Soft, NT, ND +BS x 4 Extremities: No edema Skin: Warm, no rash, negative turgor. Updated Medication List Medication Instructions Recorded Confirmed Type atorvastatin 80 mg tablet 80 mg PO QAM 07/22/19 09/02/24 History ezetimibe 10 mg tablet 10 mg PO QAM 07/22/19 09/02/24 History aspirin 81 mg tablet,delayed 81 mg PO DAILY 01/10/20 09/02/24 History release (Aspir-) cholecalciferol (vitamin D3) 25 1,000 unit PO DAILY 01/10/20 09/02/24 History mcg (1,000 unit) tablet (Vitamin D3) diclofenac sodium 1 % topical gel 4 g topical BID PRN Pain 01/10/20 09/02/24 History amlodipine 5 mg tablet 5 mg PO DAILY 07/19/23 09/02/24 History ascorbic acid (vitamin C) 1,000 mg 1,000 mg PO DAILY 07/19/23 09/02/24 History tablet,extended release candesartan 4 mg tablet 4 mg PO DAILY 07/19/23 09/02/24 History carvedilol 12.5 mg tablet 12.5 mg PO BID 07/19/23 09/02/24 History cyanocobalamin (vitamin B-12) 1,000 mcg PO DAILY 07/19/23 09/02/24 History 1,000 mcg tablet pantoprazole 40 mg tablet,delayed 40 mg PO DAILY 07/19/23 09/02/24 History release clopidogrel 75 mg tablet 75 mg PO QAM #30 tabs 09/03/24 Rx Hospital Stay Data Consultations 09/02/24 14:04 Consult Neurology Routine Diagnostic Imagining Performed Chest X-Ray 09/02/24 12:51 XR chest 1V portable CLINICAL HISTORY: neuro deficit, acute stroke suspected COMPARISON STUDY: Chest radiograph July 22, 2019. FINDINGS: Operative findings within the cervical spine are partially imaged. Lung volumes are normal. Lungs are clear. There is no pneumothorax or pleural effusion. Cardiac size is normal. Mediastinal contours are normal. There is no evidence for pulmonary edema. IMPRESSION: No acute cardiopulmonary findings. ACT 112: Negative or not required by law. Electronically signed by: Justin Nash M.D. 09/02/2024 1:[address] 09/02/24 12:51 CT OF THE HEAD WITHOUT CONTRAST CLINICAL HISTORY: neuro deficit, acute stroke suspected COMPARISON STUDY: Head CT July 22, 2019 and MRI of the brain January 10, 2020. TECHNIQUE: Helical axial images of the head were obtained without IV contrast. Automated exposure control was utilized for the study. A dose lowering technique was utilized adhering to the principles of ALARA. FINDINGS: No acute intracranial hemorrhage, midline shift or mass effect is present. The ventricular system is unremarkable. White matter hypodensity suggests small vessel disease. Small old infarcts within the left internal capsule and occipital lobe were present on previous MRI. The basal cisterns are patent. No extra-axial collections are present. There are no findings to suggest acute dural sinus thrombosis or acute territorial infarct. No significant calvarial abnormalities are present. Visualized portions of the sinuses and mastoid air cells are clear. IMPRESSION: No acute intracranial findings. ACT 112: Negative or not required by law. Electronically signed by: Justin Nash M.D. 09/02/2024 1:19 PM Head CTA 09/02/24 12:51 CTA ANGIOGRAPHY OF THE HEAD CLINICAL HISTORY: neuro deficit, acute stroke suspected COMPARISON STUDY: MRI of the brain January 10, 2020 and CTA of the head July 12, 2018. TECHNIQUE: Helical axial images of the head were obtained following uneventful intravenous administration of Optiray. Sagittal and coronal reconstructions were viewed as well as maximal intensity projections on an independent 3-D workstation. Automated exposure control was utilized for the study. A dose lowering technique was utilized adhering to the principles of ALARA. FINDINGS: The bilateral M1, M2, A1 and A2 segments are patent. There is moderate calcified atherosclerotic plaque within bilateral cavernous carotids without sig nificant stenosis. No vessel occlusion is identified within the anterior circulation. Posterior circulation is also intact. No intracranial aneurysm. No acute intracranial hemorrhage, midline shift or mass effect is present. Ventricular system is unremarkable. The basal cisterns are patent. There are no extra axial collections. There are small old infarcts within the posterior limb of the left internal capsule and the left occipital lobe. IMPRESSION: No large vessel occlusion. No intracranial aneurysm. ACT 112: Negative or not required by law. Electronically signed by: Justin Nash M.D. 09/02/2024 1:26 PM Neck CTA 09/02/24 12:51 CT ANGIOGRAPHY OF THE NECK WITH CONTRAST CLINICAL HISTORY: neuro deficit, acute stroke suspected COMPARISON STUDY: CTA of the neck July 23, 2019. Technique: CT angiography of the carotid and vertebral arteries was obtained using Optiray and 3D reconstruction on an independent workstation. NASCET criteria was utilized. Automated exposure control was utilized for the study. A dose lowering technique was utilized adhering to the principles of ALARA. CT DOSE: 1320.58 mGy.cm Findings: Emphysema is incidentally noted within visualized portions of the lung apices. There are postoperative findings within the cervical spine. There are no cervical spine fracture. There is no cervical lymphadenopathy. Moderate plaque within the proximal right internal carotid artery results in mild narrowing of 30%. There is mild plaque within the left carotid bifurcation without stenosis. The bilateral vertebral arteries are patent. There is no aneurysm or dissection within the neck. CTA of the head will be reported separately. IMPRESSION: 1. Moderate plaque within the proximal right internal carotid artery which results in mild narrowing of 30%. No stenosis within the cervical left internal carotid artery. 2. No dissection or aneurysm within the neck. ACT 112: Negative or not required by law. Electronically signed by: Justin Nash M.D. 09/02/2024 1:22 PM Brain MRI 09/02/24 14:30 EXAM: MR brain wo con CLINICAL HISTORY: weakness of RT leg, expressive aphasia, Hx stroke X 2, symptoms have improved since this morning, PT was having trouble holding still, ran propellers, sent to [facility] TECHNIQUE: MRI of the brain was performed without contrast with multiplanar sequences obtained. COMPARISON: Comparison is made with prior imaging studies dated 01/10/2020. FINDINGS: Brain Parenchyma: Interval development of 10 mm area of signal alteration with diffusion restriction involving the left thalamic region reflecting acute ischemic changes. No evidence of hemorrhage. Unchanged old infarction seen in the medial aspect of the left occipital lobe. Multiple small periventricular and subcortical signal changes in keeping with small vessel disease stable compared to previous. Normal lemus-white matter differentiation. No mass lesions or focal cortical abnormalities were identified. Ventricles and Sulci: Normal size and configuration of the lateral ventricles, third ventricle, and fourth ventricle. No evidence of hydrocephalus or ventriculomegaly. Sylvian fissures, sulci, and cisterns are within normal limits. Posterior Fossa: The cerebellum and brainstem appear normal without evidence of mass lesions or signal abnormalities. Cranial Nerves: Normal course and appearance of cranial nerves identified. Vessels: No evidence of vascular malformations or aneurysms. Intracranial arteries and veins appear normal without evidence of stenosis or occlusion. Orbits and Skull Base: Orbits and skull base structures are normal without evidence of abnormalities. IMPRESSION: 1. Interval development of an area of signal alteration with diffusion restriction involving the left thalamic region reflecting acute ischemic changes. No evidence of hemorrhage. 2. An unchanged old infraction is seen in the medial aspect of the left occipital lobe. 3. Multiple small periventricular and subcortical white matter signal changes in keeping with small vessel disease stable compared to previous. [facility] was called at [phone] at 05:33 PM EST, 09/02/2024 and the results were verbally communicated to Dr Richardson. Electronically signed by Vamshi Quiroz 09-02-2024 5:35 PM Pending Results Patient Have Any Pending Studies at Discharge: No Discharge Instructions Given to Patient (Per Discharging Provider) MEDICATION CHANGES: New Medications: Plavix 75mg by mouth once daily. Continue this medication until otherwise instructed by neurology. Continue all other medications as prescribed. SUMMARY OF TEST RESULTS: You were admitted to the hospital secondary to difficulty speaking and right- sided weakness. You underwent a stroke workup and an MRI of your brain revealed that you had an acute left thalamic stroke. You were started on a new medication called Plavix which you have taken before. You were seen and evaluated by neurology who recommended that you continue to take aspirin and Plavix for further stroke prevention. You had an echocardiogram which revealed a left ventricular ejection fraction of 55 to 60%. There were no signs of any heart defect that could put you at risk for stroke. You were monitored on telemetry which did not reveal any irregular heartbeats. A1C was 6.1 which puts you in the category of Pre Diabetes. You cholesterol panel was normal. Your Head CT angiogram was normal Your Neck CT angiogram revealed plaque build up in proximal Right internal carotid ~ 30% narrowing. PENDING TEST RESULTS: None RECOMMENDATIONS FOR FOLLOW-UP: Please follow-up with your primary care provider as scheduled. Please follow-up with neurology in 1 month. Your primary care provider will need to arrange a Zio patch to monitor for further irregular heartbeats. This is a heart monitor that you wear for approximately 2 weeks. Your CAT scan of your neck revealed that you had approximately 30% narrowing of your right internal carotid artery. Please follow-up with your vascular surgeon Dr. Selby as you will need routine monitoring of your carotid arteries. OTHER INSTRUCTIONS: Seek medical attention if you have: * temperature above 101 * chest pain or trouble breathing * abdominal pain, nausea, vomiting * diarrhea, dark stools or bloody stools * any unanswered questions or concerns Call 911 if symptoms are severe. Please take good care of yourself. It has been a pleasure taking care of you. Please take care of yourself. If you have any questions regarding your recent hospitalization please contact [facility] and request Wyatt Gauthier @ [phone]. Kirsten Chisholm PA-C Total Time Total Time Spent Total Time Spent (In Minutes): 45 minutes Supervising Physician Co-Signing Physician Notes Patient seen and examined Agree with findings and plans as detailed by Kirsten Chisholm PA-C
--- OUTSIDE RECORDS SUMMARY | 2024-09-03 11:01 | External Medical Summary | Summary of Care ---
Author Name Unknown Organization [facility] Address [address] [place] [address] Phone [phone] Care Team Providers Care Religion Department Chair Name Role Phone Kali GUTHRIE MD, Kailash Darnell Primary Care Provider [phone] Reason for Visit * Reason Comments Follow Up Encounter Details Date Type Department Care Team (Late st Contact Info) Description 08/10/2024 8:30 AM EDT Office Visit Cardiology, [facility] [address] [place] [address] Braulio Chaudhry, PA-C [address] [place] [id number] HTN, goal below 130/80*; Dyslipidemia, goal LDL below 70; History of tobacco use; Atherosclerosis of [place] coronary artery of [place] heart without angina pectoris Allergies Active Allergy Reactions Criticality Noted Date Comments Ciprofloxacin Rash Low 05/31/2013 Gabapentin High 01/10/2020 Pregabalin High 01/10/2020 documented as of this encounter (statuses as of 08/10/2024) Medications Medication Sig Dispensed Refills Start Date End Date Status Cholecalciferol (VITAMIN D) 1000 UNIT Capsule Take 1 Capsule by mouth in the morning. 30 Cap 11 04/14/2015 Active Diclofenac Sodium 1 % gel APPLY 4 GRAMS TOPICALLY TO AFFECTED AREA TWICE DAILY 1 Tube 5 10/18/2018 Active sildenafil (REVATIO) 20 MG Tablet 3-5 30 min before relations 30 Tab 5 03/22/2019 Active aspirin enteric coated 81 MG TBEC Take 1 Tablet by mouth in the morning. 100 Tab 3 07/30/2019 Active Ascorbic Acid (VITAMIN C) 1000 MG Tablet Take 1 Tablet by mouth in the morning. Active vitamin b 12 (CYANOCOBALAMIN) 1000 MCG TABS Take 1 Tab by mouth daily. 100 Tab 3 06/23/2020 Active Cyclobenzaprine HCl 5 MG Oral Tablet (Flexeril) Take by mouth 1 Tablet in the morning AND 1 Tablet at noon AND 1 Tablet before bedtime. 60 Tablet 2 08/03/2022 Active Polyethylene Glycol 3350 17 GM/SCOOP Oral Powder (MiraLax)Indication s:Constipation Take 17 g by mouth in the morning. Dissolve one heaping tablespoon in 8 ounces of water or juice.. 578 g 3 07/25/2023 Active Additional Information Patient taking differently:17 g Oral Daily(AM),Dissolve one heaping tablespoon in 8 ounces of water or juice. TAKING EVERY OTHER DAY, Reported on 02/03/2024 Pantoprazole Sodium 40 MG Oral Tablet Delayed Release (Protonix)Indicatio ns:Gastroesophageal reflux disease, unspecified whether esophagitis present Take 1 Tablet by mouth in the morning. 30 minutes before the first meal of the day. Do not crush, split or chew the tablet. 90 Tablet 5 07/29/2023 Active predniSONE 5 MG Oral Tablet (Deltasone) Take 0.5 Tablets by mouth in the morning. 90 Tablet 03/28/2024 Active Additional Information Patient not taking.Reported on 08/10/2024 Candesartan Cilexetil 4 MG Oral Tablet (Atacand) Take 1 tablet by mouth once daily 90 Tablet 2 05/30/2024 Active Carvedilol 12.5 MG Oral Tablet (Coreg)Indications: HTN, goal below 140/90 TAKE 1 TABLET BY MOUTH IN THE MORNING AND 1 TAB BEFORE BEDTIME 180 Tablet 06/16/2024 Active amLODIPine Besylate 5 MG Oral Tablet (Norvasc) TAKE 1 TABLET BY MOUTH IN THE MORNING 90 Tablet 06/16/2024 Active Ezetimibe 10 MG Oral Tablet (Zetia) Take 1 tablet by mouth once daily 90 Tablet 3 06/29/2024 Active Atorvastatin Calcium 80 MG Oral Tablet (Lipitor)Indication s:Dyslipidemia, goal LDL below 100 Take 1 tablet by mouth once daily 90 Tablet 3 07/02/2024 Active Hospital, Clinic, or Other Facility Administered Medication Ordered Dose Route Frequency Start Date End Date Status pantoprazole (Protonix) tab 40 mgIndications:Gastroesophagea l reflux disease, unspecified whether esophagitis present 40 mg OR Daily(AM) 03/23/2023 Active documented as of this encounter (statuses as of 08/10/2024) Active Problems Problem Noted Date Diagnosed Date COPD, group B, by GOLD 2017 classification 06/18 Overview: Per COPD GOLD Classification Generalized osteoarthritis 05/16/2024 DDD (degenerative disc disease), lumbar 05/16/20 Prediabetes 05/17/2022 Overview: Per Prediabetes protocol Chronic kidney disease, stage 3a 02/17/2021 Overview: Per CKD protocol Vascular claudication 12/29/2020 Hypertensive kidney disease with stage 3a chronic kidney disease 08/18/2020 Overview: Per CKD protocol COOPER on CPAP 05/01/2020 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: Left Centrilobular emphysema 03/22/2019 History of CVA in adulthood 11/16/2018 Acute left AUTOMOTIVE BRAKE ADJUSTER stroke 07/20/2018 Gastroesophageal reflux disease 05/16/2018 Asymptomatic bilateral carotid artery stenosis 0 05/16/2018 Statin intolerance 04/08/2015 History of tobacco use 11/08/2014 DYSLIPIDEMIA, GOAL LDL BELOW 100 09/24/2009 Overview: Per Lipid Taxonomy. S/P percutaneous abdominal aortic aneurysm repai r 03/28/2009 Abdominal aortic aneurysm 02/28/2009 ADVANCE DIRECTIVE INFORMATION 05/30/2008 Overview: No, Advance Directive brochure offered , patient declined. HTN, goal below 140/90 documented as of this encounter (statuses as of 08/10/2024) Resolved Problems Problem Noted Date Diagnosed Date Resolved Date COPD, group B, by GOLD 2017 classification 08/22/2023 06/01/2024 Overview: Per COPD GOLD Classification Chronic kidney disease, stage 3a 02/17/2021 03/26/2021 Overview: Per CKD protocol COPD, group A, by GOLD 2017 classification 01/19/2021 08/25/2023 Overview: Per COPD GOLD Classification Hypertensive kidney disease with CKD stage III 07/18/2018 08/21/2020 Overview: Per CKD protocol Bilateral carotid artery disease 11/07/2015 10/21/2017 Occupational exposure in workplace 11/08/2014 04/20/2021 Inguinal hernia, right 03/31/201210/21 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 Esophagitis 10/21/2017 Overview: ICD-10 update of inactive term Tobacco use disorder 008 documented as of this encounter (statuses as of 08/10/2024) Immunizations Name Administration Dates Next Due COVID-19 mRNA, LNP-s, No Pre serve, 2-Dose Series (Moderna) 12/13/2020,11/15/2020 H1N1 2009 Influenza, IM 10/22/2009 Pneumococcal Conjugate Vacc, 13 Valent (Prevnar) 03/31/2015 Pneumococcal Polysaccharide PPV23 (Pneumovax) 03/07/2014 RSV Vac., Recomb, Adjuvant, PF,0.5 Ml (Arexvy) 08/03/2023 Seasonal Influenza Vac., MDV , IM, 0.5 mL (Fluzone) 07/04/2014,09/07/2011,10/22/2009,08/27,07/31/2007 Seasonal Influenza, PF, 6 M & above, IM , (FluLaval or Fluzone) 06/22/2019,07/03/2018 Seasonal Influenza, Quadriva lent Hd (Fluzone Hd) 08/03/2022,07/25/2021 Seasonal Influenza, Quadriva lent Hd, 65+ Yrs 07/21/2023 Seasonal Influenza, Quadriva lent, No Preserve, IM 08/02/2020,07/19/2017,10/21/2016,07/17 TD, Preservative Free 04/20/2017 TDAP, Age 7 and older, IM (Adacel) 07/31/2007 Varicella Zoster Vaccine (Adult) 07/04/2014 Zoster Vaccine Recombinant (Shingrix) 09/18/2018 ,05/22/2018 documented as of this encounter Social History Tobacco Use Types Packs/Day Years Used Date Smoking Tobacco: Former Cigarettes 1.5 35 0 03/16/1972 - 03/16/2007 Smokeless Tobacco: Never Comments:1/2 -3/4 ppd had qu it for a year Alcohol Use Standard Drinks/Week Comments Yes 0 (1 standard drink = 0.6 oz pur e alcohol) rarely PHQ-2 Answer Date Recorded PHQ Adult Total Score 0 01/29/2022 Hunger Vital Sign Answer Date Recorded Within the past 12 months, y ou worried that your food would run out before you got the money to buy more. Never true 05/26/20 24 Within the past 12 months, t he food you bought just didn't last and you didn't have money to get more. Never true 05/26/2024 Childcare Answer Date Recorded Do you feel overwhelmed with taking care of a child, family member or friend? No 05/26/2024 Does your family need help f inding childcare? (Household - for ages 0-17 years) Not on file 05/26/2024 Clothing Answer Date Recorded Have you been unable to get clothing when it was really needed? No 05/26/2024 Is your family able to get c lothes or diapers when needed? (Household - for ages 0-17 years) Not on file 05/26/2024 Personal Safety Answer Date Recorded Do you feel unsafe or have concerns for your saf ety? No 05/26/2024 Do you have concerns for you r family's safety? (Household - for ages 0-17 years) Not on file 05/26/2024 Utilities Answer Date Recorded Do you have trouble paying y our heating, water, or electric bill? No 05/26/2024 Is your family able to pay t he heat, water, or electric bill? (Household - for ages 0-17 years) Not on file 05/26/2024 Does your family have access to good internet? (Household - for ages 0-17 years) Not on file 05/26/2024 Employment Status Answer Date Recorded Are you unemployed or without regular income? No 05/26/2024 Does the household have a re lar source of income? (Household - for ages 0-17 years) Not on file 05/26/2024 Social Connections Answer Date Recorded How often do you feel lonely or isolated from th ose around you? Never 05/26/2024 Financial Resource Strain Answer Date R ecorded Do you have any trouble payi ng for your medications, or do you think you might in the future? No 05/26/2024 Does your family have troubl e paying for medicine? (Household - for ages 0-17 years) Not on file 05/26/2024 Transportation Needs Answer Date Record ed Do you have trouble getting a ride to medical visits or work? (Adult - for ages 18 years and over) Not on file 05/26/2024 Does your family have a hard time getting a ride to doctors visits? (Household - for ages 0-17 years) Not on file 05/26/2024 Has lack of transportation k ept you from medical appointments, meetings, work, or from getting things needed for daily living? Check all that apply. No 05/26/2024 Do you (or your family) have trouble finding or paying for a ride (transportation)? (Household - for ages 0-17 years) Not on file 05/26/2024 Housing Stability Answer Date Recorded Do you currently live in a s helter or have no steady place to sleep at night? No 05/26/2024 Do you think you are at risk of becoming homeless? (Adult - for ages 18 years and over) Not on file 05/26/2024 Does your family worry about paying for your home or becoming homeless? (Household - for ages 0-17 years) Not on file 0 05/26/2024 Are you homeless or worried that you might be in the future? No 05/26/2024 Are you (or your family) sarmad eless or worried that you might be in the future? (Household - for ages 0-17 years) Not on file Food Insecurity Answer Date Recorded Do you need food for this week? No 05/26/2024 Are you able to get enough f ood for your family? (Household - for ages 0-17 years) Not on file 05/26/2024 Does your family need food t his week? (Household - for ages 0-17 years) Not on file 05/26/2024 Do you always have enough fo od for your family? (Household - for ages 0-17 years) Not on file 05/26/2024 Sex and Gender Information Value Date Recorded Sex Assigned at Male 07/21/2021 6:52 AM EDT Gender Identity Male 07/21/2021 6:52 AM EDT Sexual Orientation Straight 07/21/2021 6: 52 AM EDT Job Start Date Occupation Industry Not on file Not on file Not on file documented as of this encounter Last Filed Vital Signs Vital Sign Reading Time Taken Comments Blood Pressure 118/56 08/10/2024 8:43 AM EDT Pulse 60 08/10/2024 8:43 AM EDT Temperature - - Respiratory Rate 16 08/10/2024 8:43 AM EDT Oxygen Saturation - - Inhaled Oxygen Concentration - - Weight 91.6 kg (202 lb) 08/10/2024 8:43 AM EDT Height - - Body Mass Index 29.82 06/01/2024 8:13 AM EDT documented in this encounter Functional Status Functional Status Response Date of Assess ment Are you deaf or do you have serious difficulty h earing? No 01/15/2021 Are you blind or do you have serious difficulty seeing, even when wearing glasses? No 01/15/2021 Do you have serious difficul ty walking or climbing stairs? (5 years old or older) No 01/15/2021 Do you have difficulty dress ing or bathing? (5 years old or older) No 01/15/2021 Because of a physical, menta l, or emotional condition, do you have difficulty doing errands alone such as visiting a doctor s office or shopping? (15 years old or older) No 01/16/20 21 Cognitive Status Response Date of Assessm ent Because of a physical, menta l, or emotional condition, do you have serious difficulty concentrating, remembering, or making decisions? (5 years old or older) No 01/15/2021 documented as of this encounter Progress Notes * Braulio Chaudhry PA-C - 08/10/2024 8:30 AM EDT History of Present Illness: Dawit Goetz is a 73-year-old male who returns today for routine cardiology follow-up evaluation. Feeling well except for chronic joint pain, arthritic issues, right greater than left rotator cuff pain, back and sciatic pain, left-sided hernia Scheduled for a sleep study in September No chest pain. No palpitations. No resting dyspnea. No orthopnea or PND. No lower extremity peripheral edema. No dizziness or syncope. No fevers or chills. Problem List: Nonobstructive carotid occlusive disease. Coronary calcifications by CT scan. Aortic aneurysm status post endovascular repair in 2008. Left AUTOMOTIVE BRAKE ADJUSTER stroke in 07/2018, recurrent left-sided CVA July 2019. Stage III chronic kidney disease Hypertension. Hyperlipidemia. Statin intolerance (simvastatin, pravastatin, and rosuvastatin) COPD. History of tobacco abuse. Obstructive sleep apnea Hospitalization at [facility] in July 2023 with acute GI bleeding, associated symptomatic anemia, while on dual anti-platelet therapy (previously prescribed for recurrent CVA) and prednisone. Patient received 1 unit of packed red blood cells and 2 doses of IV Venofer. No source of bleeding found via EGD and colonoscopy (hemorrhoids, diverticulosis, and four polyps that were resected and retrieved). Outpatient capsule endoscopy was normal though limited by prep quality. Clopidogrel discontinued by Neurology. Patient Active Problem List Diagnosis HTN, goal below 140/90 ADVANCE DIRECTIVE INFORMATION Abdominal aortic aneurysm (HCC) S/P percutaneous abdominal aortic aneurysm repair DYSLIPIDEMIA, GOAL LDL BELOW 100 History of tobacco use Statin intolerance Gastroesophageal reflux disease Asymptomatic bilateral carotid artery stenosis Acute left AUTOMOTIVE BRAKE ADJUSTER stroke (HCC) History of CVA in adulthood Centrilobular emphysema (HCC) Thalamic stroke (HCC) COOPER on CPAP Hypertensive kidney disease with stage 3a chronic kidney disease Vascular claudication (HCC) Chronic kidney disease, stage 3a (HCC) Prediabetes Generalized osteoarthritis DDD (degenerative disc disease), lumbar COPD, group B, by GOLD 2017 classification (HCC) Past Medical History: Diagnosis Date Acute left AUTOMOTIVE BRAKE ADJUSTER stroke (HCC) Centrilobular emphysema (HCC) CKD (chronic kidney disease) Dyslipidemia Esophagitis, unspecified GERD (gastroesophageal reflux disease) HTN, goal below 140/90 Inflammation of colonic mucosa 07/09/13 inflammatory tissue repeat colonoscopy in 10 years COOPER on CPAP Pulmonary nodules due for CT December, Sleep apnea Thalamic stroke (HCC) Tobacco use disorder Past Surgical History: Procedure Laterality Date AORTOGRAM ABDOMINAL-TECH ONLY 03/13/2009 IMAGING S&I ABDOMINAL AO performed by YARED PHILIP at OR [facility] COLONOSCOPY, DIAGNOSTIC (RECTUM) 07/09/2013 inflammatory tissue repeat colonoscopy in 10 years COLONOSCOPY, DIAGNOSTIC (RECTUM) N/A 07/21/2023 hemorrhoids/diverticulosis/biopsies show adenomatous polyps/recall 3 years/Colonoscopy/[place] EGD, FLEXIBLE, DIAGNOSTIC N/A 07/20/2023 normal/EGD/MN ENDO DECOMPRESS SPINAL CORD W/LAMINOTOMY, CERVICAL 05/15/2010 LAMINECTOMY DECOMPRESSION SPINAL CORD POSTERIOR CERVICAL performed by TAVO CLEMENTS at OR [facility] INFORMATION [place] [employer] Ex[employer]er STENT model# [id number] INFORMATION [place] [employer] Ex[employer]er STENT model# [id number] INFORMATION [place] [employer] Ex[employer]er STENT model# [id number] INJECT DX/THER SUBSTANCE INTERLAMINAR LUMBAR/SACRAL W IMAGE GUIDE 07/21/2020 INJECTION SPINE LUMBAR OR SACRAL performed by Glen Allan Quitnen Grider, DO at OR [facility] INJECT DX/THER SUBSTANCE INTERLAMINAR LUMBAR/SACRAL W IMAGE GUIDE 09/10/2021 INJECTION SPINE LUMBAR OR SACRAL performed by Marshall Grider, DO at OR [facility] INJECT DX/THER SUBSTANCE INTERLAMINAR LUMBAR/SACRAL W IMAGE GUIDE 03/10/2022 INJECTION SPINE LUMBAR OR SACRAL performed by Marshall Grider, DO at OR [facility] INJECT DX/THER SUBSTANCE INTERLAMINAR LUMBAR/SACRAL W IMAGE GUIDE 06/30/2022 INJECTION SPINE LUMBAR OR SACRAL performed by Marshall Grider, DO at OR [facility] INJECT DX/THER SUBSTANCE INTERLAMINAR LUMBAR/SACRAL W IMAGE GUIDE 04/13/2023 INJECTION SPINE LUMBAR OR SACRAL performed by Marshall Quinten Grider, DO at OR [facility] INJECT DX/THER SUBSTANCE INTERLAMINAR LUMBAR/SACRAL W IMAGE GUIDE 03/16/2024 INJECTION SPINE LUMBAR OR SACRAL performed by Jed Pa DO at OR [facility] INJECT DX/THER SUBSTANCE INTERLAMINAR LUMBAR/SACRAL W IMAGE GUIDE 08/03/2024 INJECTION SPINE LUMBAR OR SACRAL performed by Jed Pa DO at OR [facility] IR ENDOVASCULAR REPAIR AAA 03/27/2009 Endovascular repair of abdominal aortic aneurysm with [place] Excluder stent graft by Dr. Philip. KNEE ARTHROSCOPY/MENISCUS REPAIR 1992 Right Knee Scope,Med+Lat Menis Repair KNEE ARTHROSCOPY/MENISCUS REPAIR Right 2012 NECK SPINE FUSION (CERV, BELOW C2) 05/15/2010 ARTHRODESIS SPINE POSTERIOR CERVICAL performed by TAVO CLEMENTS at OR [facility] REMOVE ADDED SPINE LAMINA, 1 SEG Bilateral 01/14/2021 LAMINECTOMY FACETECTOMY AND FORAMINOTOMY ADDITIONAL LEVELS performed by Navneet Joshi MD at OR [facility] REMOVE CATARACT, INSERT LENS PROSTH Left 01/31/2024 LEFT EXTRACAPSULAR CATARACT REMOVAL WITH INTRAOCULAR LENS performed by Stevne Barrett MD at OR [facility] REMOVE CATARACT, INSERT LENS PROSTH Right 02/07/2024 RIGHT EXTRACAPSULAR CATARACT REMOVAL WITH INTRAOCULAR LENS performed by Steven Barrett MDa OR [facility] REMOVE LUMBAR SPINE LAMINA, 1 SEG Bilateral 01/14/2021 LAMINECTOMY FACETECTOMY AND FORAMINOTOMY LUMBAR performed by Navneet Joshi MD at OR [facility] REMOVE NECK SPINE LAMINA, 1-2 SEGS 05/15/2010 LAMINECTOMY CERVICAL ONE OR TWO VERTEBRAL SEGMENTS performed by TAVO CLEMENTS at OR [facility] REMOVE TONSILS & ADENOIDS, UNDER 12 1952 Tonsillectomy/Adenoids,<12 Y/O REPAIR INITIAL INGUINAL HERNIA REDUCIBLE AGE 5 OR MORE 03/21/2012 Open right inguinal hernia repair with plug and patch mesh. Dr. Marshall @ [facility] 03/21/2012 SHOULDER ARTHROSCOPY/REMOVE OBJECT 1994 Right Shoulder Surgery, Arthroscopic SPINE SEG FIX, POST, 3-6 SEG, INSERT 05/15/2010 POSTERIOR SPINE SEGMENTAL INSTRUMENTATION 3 TO 6 PSF performed by TAVO CLEMENTS at OR [facility] Family History: Father was an alcoholic and at the age of 72. Mother in her 90s, with dementia. One sister is alive and well, without cardiac issues. Social History: Reformed smoker, 1.5 pack per day x 35 years. Rare alcohol. No illegal drug use. Retired [employer]. . Complete Review of Systems is otherwise as stated above, negative, or noncontributory. Review of patient's allergies indicates: Allergen Reactions Gabapentin Pregabalin Ciprofloxacin Rash Current Outpatient Medications Medication Sig Dispense Refill Cholecalciferol (VITAMIN D) 1000 UNIT Capsule Take 1 Capsule by mouth in the morning. 30 Cap 11 sildenafil (REVATIO) 20 MG Tablet 3-5 30 min before relations 30 Tab 5 aspirin enteric coated 81 MG TBEC Take 1 Tablet by mouth in the morning. 100 Tab 3 Ascorbic Acid (VITAMIN C) 1000 MG Tablet Take 1 Tablet by mouth in the morning. vitamin b 12 (CYANOCOBALAMIN) 1000 MCG TABS Take 1 Tab by mouth daily. 100 Tab 3 Cyclobenzaprine HCl 5 MG Oral Tablet (Flexeril) Take by mouth 1 Tablet in the morning AND 1 Tablet at noon AND 1 Tablet before bedtime. 60 Tablet 2 Polyethylene Glycol 3350 17 GM/SCOOP Oral Powder (MiraLax) Take 17 g by mouth in the morning. Dissolve one heaping tablespoon in 8 ounces of water or juice.. (Patient taking differently: Take 17 g bymouth in the morning. Dissolve one heaping tablespoon in 8 ounces of water or juice. TAKING EVERY OTHER DAY .) 578 g 3 Pantoprazole Sodium 40 MG Oral Tablet Delayed Release (Protonix) Take 1 Tablet by mouth in the morning. 30 minutes before the first meal of the day. Do not crush, split or chew the tablet. 90 Tablet 5 Candesartan Cilexetil 4 MG Oral Tablet (Atacand) Take 1 tablet by mouth once daily 90 Tablet 2 Carvedilol 12.5 MG Oral Tablet (Coreg) TAKE 1 TABLET BY MOUTH IN THE MORNING AND 1 TAB BEFORE BEDTIME 180 Tablet 0 amLODIPine Besylate 5 MG Oral Tablet (Norvasc) TAKE 1 TABLET BY MOUTH IN THE MORNING 90 Tablet 0 Ezetimibe 10 MG Oral Tablet (Zetia) Take 1 tablet by mouth once daily 90 Tablet 3 Atorvastatin Calcium 80 MG Oral Tablet (Lipitor) Take 1 tablet by mouth once daily 90 Tablet 3 Diclofenac Sodium 1 % gel APPLY 4 GRAMS TOPICALLY TO AFFECTED AREA TWICE DAILY 1 Tube 5 predniSONE 5 MG Oral Tablet (Deltasone) Take 0.5 Tablets by mouth in the morning. (Patient not taking: Reported on 08/10/2024) 90 Tablet 0 Current Facility-Administered Medications Medication Dose Route Frequency Provider Last Rate Last Admin pantoprazole (Protonix) tab 40 mg 40 mg Oral Daily(AM) Kailash Bass III, MD OBJECTIVE/PHYSICAL EXAMINATION: BP 118/56 | Pulse 60 | Resp 16 | Wt 91.6 kg (202 lb) | BMI 29.82 kg/m | BSA 2.11 m General: A&Ox3. NAD. HENT: Normocephalic. Atraumatic. Eyes: PER. Conjunctiva pink, sclera clear. Neck: No carotid bruits. No JVD. Heart: RRR. No murmur. No rub. No gallop. PMI is nondisplaced. Lungs: Clear to auscultation. Abdomen: +BS. Soft. Nontender. No masses or organomegaly. Extremities: No clubbing, cyanosis, or edema. Limited neurological examination is without focal deficits. Pulses: radial=2/4, posterior tibial=2/4. Data: Zio monitor in July 2018 showed sinus rhythm with an average heart rate of 74 bpm. Minimum heartrate was 35 bpm. Maximum heart rate was 147 bpm. First-degree heart block present. One run of VT occurred, lasting 5 beats at 113 bpm. Twenty- six SVT runs occurred with the longest lasting 19.9 sec. No atrial fibrillation observed. No high-degree January 16, 2019 [facility]ER Interpretation Summary (as per Dr. Mckenna): The stress echo is negative for inducible ischemia. The left ventricular cavity size is normal. The LV wall thickness is mildly increased (concentric). The left ventricular wall motion is normal. Qualitative LV ejection Fraction = 55-60%.The left ventricular diastolic function is mildly abnormal (grade I). Blood pressure response to exe rcise was hypertensive. A small pericardial effusion is noted, located primarily adjacent to the right ventricular free wall. March 27, 2024 Lexiscan Interpretation Summary (as per Dr. Mckenna): Gated SPECT imaging reveals normal myocardial thickening and wall motion. The left ventricular ejection fraction was calculated to be>65%. Lexiscan nuclear cardiac stress test negative for ischemia. April 26, 2024 TTE Interpretation Summary (as per Dr. Mckenna): The qualitative LV ejection fraction is 55-59% (normal). The LV wall thickness is borderline increased (concentric). The left ventricular diastolic function is mildly abnormal (grade I). The right ventricular systolic function is normal as assessed by tricuspid annular plane systolic excursion (TAPSE) (normal >1.7 cm). The left atrium is normal sized (< 35 ml/m^2). The right atrial size is normal. No significant valvular diseaseis present. Lipid Panel Results: Results for orders placed or performed in visit on 04/23/24 LIPID PANEL WITH DIRECT LDL IF TG IS HIGH Result Value Ref Range Triglycerides 156 <=174 mg/dL Cholesterol 117 <200 mg/dL HDL Cholesterol 34 (L) >39 mg/dL Non-HDL Cholesterol 83 <=159 mg/dL LDL cholesterol 57 mg/dL on April 23, 2024 IMPRESSION: 73-year-old male with coronary calcifications by prior CT, hypertension, dyslipidemia, and history of tobacco use. Patient feeling well from a cardiopulmonary standpoint. Blood pressure and cholesterol well controlled. Patient remains an ex-smoker. Will continue guideline directed medical therapy as prescribed including, aspirin, high-intensity statin therapy with atorvastatin 80 mg/day and ezetimibe 10 mg/day, beta-estee, and ARB. Upcoming sleep study scheduled for September. Routine Cardiology follow-up. ER with emergencies. Braulio Chaudhry PA-C Department of Cardiology I spent a total of 20-29 minutes (exact time 25 mins) on the date of service in preparation, delivery, and documentation of the care provided to Dawit Goetz excluding any time spent in the performance of separately billed services. This visit involved medical care services related to at leastone serious condition or complex condition requiring ongoing care. This chart was completed in partutilizing [employer] Speech Voice Recognition Software. Grammatical errors, random word insertions, prounoun errors, and incomplete sentences are an occasional consequence of this system due to software limitations, ambient noise, and hardware issues. Any formal questions or concerns about the content, text, or information contained within the body of this dictation should be directly addressed to the provider for clarification. documented in this encounter Nursing Notes * Nayana Sargent CMA - 08/10/2024 8:41 AM EDT Examination Room: 1 Name: Dawit Goetz Date of : (1950). Reason for Visit: rtc Interim Hospitalization(s): denies Problems/Concerns: denies Chest Pain/SOB: denies [facility] Discussed: Yes [facility] is a way you can talk to your provider online through e-mail. Would you like to sign up? I can activate it for you? ALREADY ACTIVE Patient was instructed to not get up on the exam table until directed and assisted by their provider; patient is to remain seated in the chair/ wheelchair/ exam table for fall prevention and safety reasons. Patient is aware to have assistance to step down off exam table with personnel. Patient voiced full comprehension of instructions. documented in this encounter Plan of Treatment Upcoming Encounters Date Type Department Care Team (Late st Contact Info) Description 09/04/2024 11:00 AM EST Scheduled Telephone Interventional Pain Center, [facility] [address] [place] [address] Braydon, Nurse Phone Call Interventional Pain [facility] [address] [place] [address] 09/10/2024 11:00 AM EST Scheduled Telephone Interventional Pain Center, [facility] [address] [place] [address] Braydon, Nurse Phone Call Interventional Pain [place] [address] [place] [address] 09/17/2024 1:00 PM EST Office Visit Orthopaedics [facility] [address] [place] [address] Quinten Clements DO [address] [place] [address] 12/03/2024 8:00 AM EST Office Visit [facility] [place] [address] [facility] [address] Kailash Bass III, MD [address] [place] [address] 05/17/2025 8:20 AM EDT Office Visit Rheumatology [facility] [address] [facility] [place] [address] Quinten De Leon MD [address] [facility] [place] [address] 08/15/2025 8:00 AM EST Office Visit Cardiology, [facility] [address] [place] [address] Braulio Chaudhry PA-C [address] [place] [address] Scheduled Procedures Name Priority Associated Diagnoses Date/Ti me COLONOSCOPY FLEXIBLE PROXIMA L DIAGNOSTIC Recall History of colonic polyps Health Maintenance Due Date Last Done Comments Adult Wellness Visit 2014 Depression Screening 01/29/2023 01/29/2022 COVID-19 Vaccine ( season) 2024 12/13/2020, 11/15/2020 AAA Monitoring 07/06/2024 07/06/2023, 06/10, 05/28/2021, Additional history exists CKD PHOS USE SMARTSET 85706 07/18/20240 06/2023, 02/08/2023, 10/25/2022, Additional history exists GFR 12/07/2024 06/06/2024, 01/09, 01/25/2024, Additional history exists CKD HGB USE SMARTSET 10678 01/23/202501/23, 08/22/2023, 07/28/2023, Additional history exists Albumin/Creatinine Ratio 02/02/2025 024, 01/29/2022, 05/16/2018, Additional history exists O2 ASSESSMENT COMPLETED IN PAST YEAR FOR COPD 02/06/2025 02/07/2024 HbA1c 06/06/2025 06/06/2024, 1006/2023, 04/26/2022, Additional history exists Colonoscopy 07/21/2026 07/21/2023, 06/12, 07/09/2013 DTap/Tdap Vaccines (3 - Td or Tdap) 04/20/2027 04/20/2017, 07/31/2007 Pneumococcal Vaccine: 65+ Years Completed 03/31/2015, 03/07/2014 Zoster Vaccines Completed 09/18/2018, 05/10, 07/04/2014 Alpha-1 Antitrypsin Completed 06/17/2020 Cologuard Discontinued 06/02/2023, 05/10, 05/25/2023 Influenza Vaccine (FLU shot) Completed 07/17/2024, 07/21/2023, 08/03/2022, Additional history exists HPV (Gardasil) Vaccine Aged Out No lo nger eligible based on patient's age to complete this topic Hepatitis B Vaccine Aged Out No longe r eligible based on patient's age to complete this topic MENINGOCOCCAL (MENACTRA/MENVEO) Aged Out No longer eligible based on patient's age to complete this topic documented as of this encounter Medical Devices Implanted Type Area Food Production Machine Operator Device Identifier Shelf Expiration Date Model / Serial / Lot Endoproth Ips Leg 28 [id number] - [id number] Implanted:Qty : 1 on 03/27/2009 at [place] [facility] N/A: Aorta [employer] 01/09/2012 [id number] / / [id number] Endoproth Con Leg 18 [id number] - [id number] Implanted:Qty : 1 on 03/27/2009 at OR [facility] N/A: Aorta [employer] 12/09/2011 [id number] / / [id number] Endoproth Con Leg 16 [id number] - [id number] Implanted:Qty : 1 on 03/27/2009 at OR [facility] N/A: Aorta [employer] 12/09/2011 [id number] / / [id number] Screw 3.5x14 Mntr Fa [id number] - [id number] Implanted:Qty : 10 on 05/15/2010 at OR [facility] N/A: Spine Cervical JNJ : [employer] [id number] / / Screw Inner Mntr [id number] - [id number] Implanted:Qty : 8 on 05/15/2010 at OR [facility] N/A: Spine Cervical JNJ : [employer] [id number] / / Tico 3.6p279md [id number] - [id number] Implanted:Qty : 1 on 05/15/2010 at OR [facility] N/A: Spine Cervical JNJ : [employer] [id number] / / Plate 35mm Xcon [id number] - [id number] Implanted:Qty : 1 on 05/15/2010 at OR [facility] N/A: Spine Cervical JNJ : [employer] [id number] / / Nut Outer Xcon [id number] - [id number] Implanted:Qty : 2 on 05/15/2010 at OR [facility] N/A: Spine Cervical JNJ : [employer] [id number] / / Screw Inner Xcon [id number] - [id number] Implanted:Qty : 2 on 05/15/2010 at OR [facility] N/A: Spine Cervical JNJ : [employer] [id number] / / Toric 350 20.5 Implanted:Qty : 1 on 01/31/2024 by Steven Barrett MD at OR [facility] Left: Eye 05/09/2025 [id number] / [id number] / [id number] Lens [id number] 12.5mm+20.50 - [id number] - [id number] Implanted:Qty : 1 on 02/07/2024 by Steven Barrett MD at OR [facility] Right: Eye [employer] 11/09/2026 [id number] / [id number] / [id number] documented as of this encounter Visit Diagnoses Diagnosis HTN, goal below 130/80- Primary Unspecified essential hypertension Dyslipidemia, goal LDL below 70 Other and unspecified hyperlipidemia History of tobacco use Personal history of tobacco use, presenting hazards to health Atherosclerosis of [place] coronary artery of [place] heart without angina pectoris documented in this encounter Advance Directives * Full Code (Latest Code Status on File) Date Activated Date Inactivated Comments 02/07/2024 10:00 AM 02/07/2024 3:49 PM This order reflects the patients wishes and were consensually agreed upon. Question Answer Comments Discussion of Advance Directives occurred with: Patient Does the patient have a Living Will? No Does the patient have Health Care Power of Attor jose a? No * Full Code Date Activated Date Inactivated Comments 01/31/2024 9:31 AM 01/31/2024 3:33 PM This order r eflects the patients wishes and were consensually agreed upon. Question Answer Comments Discussion of Advance Directives occurred with: Patient Does the patient have a Living Will? No Does the patient have Health Care Power of Attor jose a? No * Full Code Date Activated Date Inactivated Comments 01/14/2021 2:07 PM 01/15/2021 2:39 PM This order ref lects the patients wishes and were consensually agreed upon. Question Answer Comments Discussion of Advance Directives occurred with: Not Discussed * Full Code Date Activated Date Inactivated Comments 01/14/2021 9:51 AM 01/14/2021 2:07 PM This order ref lects the patients wishes and were consensually agreed upon. Question Answer Comments Discussion of Advance Directives occurred with: Not Discussed * Full Code Date Activated Date Inactivated Comments 05/17/2010 11:11 AM 05/17/2010 7:27 PM This order re flects the patients wishes and were consensually agreed upon. Question Answer Comments Discussion of Advance Directives occurred with: Not Discussed Care Teams Religion Department Chair Relationship Specialty Start Date End Date Kailash Bass III, MD [address] [place] [address] PCP - General 05/24/1996 documented as of this encounter"
--- OUTSIDE RECORDS SUMMARY | 2024-09-03 11:01 | External Medical Summary | Summary of Care ---
Author Name Unknown Organization [facility] Address [address] [place] [address] Phone [phone] Care Team Providers Care Sorter Packer Name Role Phone Kali GUTHRIE MD, Martin Darnell Primary Care Provider [phone] Reason for Visit * Reason Onset Date Comments Medication Refill 08/30/2024 Encounter Details Date Type Department Care Team (Late st Contact Info) Description 08/30/2024 Refill Family Practice [facility] [address] [facility] [place] [address] Martin Walden III, MD [address] [place] [address] Allergies Active Allergy Reactions Criticality Noted Date Comments Ciprofloxacin Rash Low 05/31/2013 Gabapentin High 01/10/2020 Pregabalin High 01/10/2020 documented as of this encounter (statuses as of 09/02/2024) Medications Cholecalciferol (VITAMIN D) 1000 UNIT Capsule Take 1 Capsule by mouth in the morning. 30 Cap 11 5 Active Diclofenac Sodium 1 % gel APPLY 4 GRAMS TOPICALLY TO AFFECTED AREA TWICE DAILY 1 Tube 5 9 Active sildenafil (REVATIO) 20 MG Tablet 3-5 30 min before relations 30 Tab 5 9 Active aspirin enteric coated 81 MG TBEC Take 1 Tablet by mouth in the morning. 100 Tab 3 10/21/201 9 Active Ascorbic Acid (VITAMIN C) 1000 MG Tablet Take 1 Tablet by mouth in the morning. Active vitamin b 12 (CYANOCOBALAMIN ) 1000 MCG TABS Take 1 Tab by mouth daily. 100 Tab 3 0 Active Polyethylene Glycol 3350 17 GM/SCOOP Oral Powder (MiraLax)Indica tions:Constipat ion Take 17 g by mouth in the morning. Dissolve one heaping tablespoon in 8 ounces of water or juice.. 578 g 3 3 Active Additional Information Patient taking differently:17 g Oral Daily(AM),Dissolve one heaping tablespoon in 8 ounces of water or juice. TAKING EVERY OTHER DAY, Reported on 02/03/2024 Pantoprazole Sodium 40 MG Oral Tablet Delayed Release (Protonix)Indic ations:Gastroes ophageal reflux disease, unspecified whether esophagitis present Take 1 Tablet by mouth in the morning. 30 minutes before the first meal of the day. Do not crush, split or chew the tablet. 90 Tablet 5 3 Active predniSONE 5 MG Oral Tablet (Deltasone) Take 0.5 Tablets by mouth in the morning. 90 Tablet 4 Active Additional Information Patient not taking.Reported on 08/10/2024 Candesartan Cilexetil 4 MG Oral Tablet (Atacand) Take 1 tablet by mouth once daily 90 Tablet 2 4 Active Carvedilol 12.5 MG Oral Tablet (Coreg)Indicati ons:HTN, goal below 140/90 TAKE 1 TABLET BY MOUTH IN THE MORNING AND 1 TAB BEFORE BEDTIME 180 Tablet 4 Active amLODIPine Besylate 5 MG Oral Tablet (Norvasc) TAKE 1 TABLET BY MOUTH IN THE MORNING 90 Tablet 4 Active Ezetimibe 10 MG Oral Tablet (Zetia) Take 1 tablet by mouth once daily 90 Tablet 3 4 Active Atorvastatin Calcium 80 MG Oral Tablet (Lipitor)Indica tions:Dyslipide sina, goal LDL below 100 Take 1 tablet by mouth once daily 90 Tablet 3 4 Active Cyclobenzaprine HCl 5 MG Oral Tablet (Flexeril) Take 1 Tablet by mouth in the morning and 1 Tablet at noon and 1 Tablet before bedtime. 60 Tablet 2 4 Active Cyclobenzaprine HCl 5 MG Oral Tablet (Flexeril) Take by mouth 1 Tablet in the morning AND 1 Tablet at noon AND 1 Tablet before bedtime. 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 Peripheral vascular disease with claudication 07/31/20 07 11/07/2015 PURE HYPERCHOLESTEROLEM 11/21/200009/09 Overview (09/24/2009): Per Lipid Taxonomy. Esophagitis 10/21/2017 Overview (07/11/2017): ICD-10 update of inactive term Tobacco use disorder 008 documented as of this encounter (statuses as of 09/02/2024) Immunizations Name Administration Dates Next Due COVID-19 [...] No 05/26/2024 Does the household have a [facility] source of income? (Household - for ages [...] Assigned at Male 07/21/2021 6:52 AM EDT Legal Sex Male 7:03 AM EST Gender Identity Male 07/21/2021 6:52 AM EDT Sexual Orientation Straight 07/21/2021 6: 52 AM EDT documented as of this encounter Functional Status * Are you deaf or do you have serious difficulty hearing? Answer Date of Assessment Author No 01/15/2021 6:20 AM EDT Ananya Trivedi RN * Are you blind or do you have serious difficulty seeing, even when wearing glasses? Answer Date of Assessment Author No 01/15/2021 6:20 AM EDT Ananya Trivedi RN * Do you have serious difficulty walking or climbing stairs? (5 years old or older) Answer Date of Assessment Author No 01/15/2021 6:20 AM EDT Ananya Trivedi RN * Do you have difficulty dressing or bathing? (5 years old or older) Answer Date of Assessment Author No 01/15/2021 6:20 AM Ananya Xie RN * Because of a physical, mental, or emotional condition, do you have difficulty doing errands alone such as visiting a doctors office or shopping? (15 years old or older) Answer Date of Assessment Author No 01/15/2021 6:20 AM Ananya Xie RN documented as of this encounter Mental Status * Because of a physical, mental, or emotional condition, do you have serious difficulty concentrating, remembering, or making decisions? (5 years old or older) Answer Entry Date Author No 01/15/2021 6:20 AM Ananya Xie RN documented in this encounter Miscellaneous Notes * Telephone Encounter - Martin Walden III, MD - 09/02/2024 1:36 PM ESTSigned Prescriptions: Disp Refills Cyclobenzaprine HCl 5 MG Oral Tablet (Flex*60 Tab*2 Sig: Take 1 Tablet by mouth in the morning and 1 Tablet at noon and 1 Tablet before bedtime.Authorizing Provider: MARTIN WALDEN III * Telephone Encounter - Bety Duncan NA - 08/31/2024 1:03 PM ESTPending Prescriptions: Disp Refills Cyclobenzaprine HCl 5 MG Oral Tablet (Flex*60 Tab*2 Sig: Take 1 Tablet by mouth in the morning and 1 Tablet at noon and 1 Tablet before bedtime. * Telephone Encounter - Jaimee Leong - 08/30/2024 1:57 PM ESTPending Prescriptions: Disp Refills Cyclobenzaprine HCl 5 MG Oral Tablet (Flex*60 Tab*2 Sig: Take 1Tablet by mouth in the morning and 1 Tablet at noon and 1 Tablet before bedtime. documented in this encounter Plan of Treatment Upcoming Encounters Date Type Department Care Team (Late st Contact Info) Description 09/04/2024 11:00 AM EST Scheduled Telephone Interventional Pain Center, [facility] [address] [place] [address] Braydon, Nurse Phone Call Interventional Pain [facility] [address] [place] [address] 09/10/2024 11:00 AM EST Scheduled Telephone Interventional Pain Center, [facility] [address] [place] [place] [address] Braydon, Nurse Phone Call Interventional Pain [place] [address] [place] [address] 09/17/2024 1:00 PM EST Office Visit Orthopaedics [facility] [address] [address] Quinten Wilkinson DO [address] [place] [address] 12/03/2024 8:00 AM EST Office Visit Family Practice [facility] [address] [place] [address] Martin Walden III, MD [address] [place] [address] 05/17/2025 8:20 AM EDT Office Visit Rheumatology [facility] [address] [facility] [place] [address] Quinten De Leon MD [address] [facility] [place] [address] 08/15/2025 8:00 AM EST Office Visit Cardiology, [facility] [address] [place] [address] Braulio Chaudhry PA-C [address] [place] [address] Scheduled Procedures Name Priority Associated Diagnoses Date/Ti me COLONOSCOPY FLEXIBLE PROXIMA L DIAGNOSTIC Recall History of colonic polyps Health Maintenance Due Date Last Done Comments Adult Wellness Visit 2014 Depression Screening 01/29/2023 01/29/2022 COVID-19 Vaccine ( season) 2024 12/13/2020, 11/15/2020 AAA Monitoring 07/06/2024 07/06/2023, 06/10, 05/28/2021, Additional history exists CKD PHOS USE SMARTSET 71590 07/18/2024 100 06/2023, 02/08/2023, 10/25/2022, Additional history exists GFR 12/07/2024 06/06/2024, 01/09, 01/25/2024, Additional history exists CKD HGB USE SMARTSET 36348 01/23/202501/23, 08/22/2023, 07/28/2023, Additional history exists Albumin/Creatinine [...] this encounter Medical Devices Implanted Type Area Turning Machine Set Up Operator Device Identifier Shelf Expiration Date Model / Serial / Lot Endoproth Ips Leg 28 [id number] - [id number] Implanted:Qty : 1 on 03/27/2009 at OR [facility] N/A: Aorta [employer] 01/09/2012 [id number] / / [id number] Endoproth Con Leg 18 [id number] - [id number] Implanted:Qty : 1 on 03/27/2009 at OR [facility] N/A: Aorta [employer] 12/09/2011 [id number] / / [id number] Endoproth Con Leg 16 [id number] - [id number] Implanted:Qty : 1 on 03/27/2009 at OR [facility] N/A: Aorta [employer] 12/09/2011 [id number] / / [id number] Screw 3.5x14 Mntr Fa [id number] - [id number] Implanted:Qty : 10 on 05/15/2010 at OR [facility] N/A: Spine Cervical JNJ : [employer] [id number] / / Screw Inner Mntr [id number] - [id number] Implanted:Qty : 8 on 05/15/2010 at OR [facility] N/A: Spine Cervical JNJ : [employer] [id number] / / Tico 3.1d740um [id number] - [id number] Implanted:Qty : 1 on 05/15/2010 at OR [facility] N/A: Spine Cervical JNJ : [employer] [id number] / / Plate 35mm Xcon [id number] - [id number] Implanted:Qty : 1 on 05/15/2010 at OR [facility] N/A: Spine Cervical JNJ : [employer] [id number] / / Nut Outer Xcon [id number] - [id number] Implanted:Qty : 2 on 05/15/2010 at OR [facility] N/A: Spine Cervical JNJ : [employer] [id number] / / Screw Inner Xcon [id number] - [id number] Implanted:Qty : 2 on 05/15/2010 at OR [facility] N/A: Spine Cervical JNJ : [employer] [id number] / / Toric 350 20.5 Implanted:Qty : 1 on 01/31/2024 by Steven Barrett MD at OR [facility] Left: Eye 05/09/2025 [id number] / [id number] / [id number] Lens [id number] 12.5mm+20.50 - [id number] - [id number] Implanted:Qty : 1 on 02/07/2024 by Steven Barrett MD at OR [facility] Right: Eye [employer] 11/09/2026 [id number] / [id number] / [id number] documented as of this encounter Advance Directives * Full Code [...] Directives occurred with: Not Discussed Care Teams Sorter Packer Relationship Specialty Start Date End Date Martin Walden III, MD [address] [place] [address] PCP - General 05/24/1996 documented as of this encounter
--- OUTSIDE RECORDS SUMMARY | 2024-09-03 11:02 | External Medical Summary | Summary of Care ---
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 Name Role Phone Kali GUTHRIE MD, Kailash Darnell Primary Care Provider [phone] Encounter Details Date Type Department Care Team (Latest Contact Info) Description 07/26/2024 11:25 AM EDT Telemedicine Interventional Pain Center, [facility] [address] [place] [address] Jed Pa DO [address] [place] [id number] Spinal stenosis of lumbar region with neurogenic claudication*; Lumbar radicular pain; Degeneration of intervertebral disc of lumbar region with discogenic back pain and lower extremity pain; History of lumbar surgery Allergies Active Allergy Reactions Criticality Noted Date Comments Ciprofloxacin Rash Low 05/31/2013 Gabapentin High 01/10/2020 Pregabalin High 01/10/2020 documented as of this encounter (statuses as of 07/26/2024) Medications Medication Sig Dispensed Refills Start Date [...] in the morning. 90 Tablet 03/28/2024 Active Candesartan Cilexetil 4 MG Oral Tablet (Atacand) [...] as of this encounter (statuses as of 07/26/2024) Active Problems Problem Noted Date Diagnosed Date COPD, group B, by GOLD 2017 classification 06/18 Overview: Per COPD GOLD Classification Generalized osteoarthritis 05/16/2024 DDD (degenerative disc disease), lumbar 05/16/20 24 Prediabetes 05/17/2022 Overview: Per Prediabetes protocol Chronic kidney disease, stage 3a 02/17/2021 Overview: Per CKD protocol Vascular claudication 12/29/2020 Hypertensive kidney disease with stage 3a chronic kidney disease 08/18/2020 Overview: Per CKD protocol COOPER on CPAP 05/01/2020 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: Left Centrilobular emphysema 03/22/2019 History of CVA in adulthood 11/16/2018 Acute left [employer]IAN stroke 07/20/2018 Gastroesophageal reflux disease 05/16/2018 Asymptomatic [...] as of this encounter (statuses as of 07/26/2024) Resolved Problems Problem Noted Date Diagnosed Date [...] 03/31/201210/21 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 Esophagitis 10/21/2017 Overview: ICD-10 update of inactive term Tobacco use disorder 008 documented as of this encounter (statuses as of 07/26/2024) Immunizations Name Administration Dates Next Due COVID-19 [...] the money to buy more. Never true 03/09/20 23 Within the past 12 months, t he food you bought just didn't last and you didn't have money to get more. Never true 03/09/2023 Sex and Gender Information Value Date Recorded Sex Assigned at Male 07/21/2021 6:52 AM EDT Gender Identity Male 07/21/2021 6:52 AM EDT Sexual Orientation Straight 07/21/2021 6: 52 AM EDT Job Start Date Occupation Industry Not on file Not on file Not on file documented as of this encounter Functional Status Functional Status Response [...] as of this encounter Progress Notes * Jed Pa Kade, DO - 07/26/2024 11:50 AM EDT Interventional Pain Follow-up Appointment After connecting to the patient via telephone, the patient was identified by name and date of . Patient was then informed that this was a telephone call only visit. The patient agreed to participate. Visit Disposition: Routine follow-up Total call duration was 22 minutes. Subjective: History of Present Illness: Dawit Goetz is a 73 year old year-old male with a past medical history significant for lumbarradicular pain who is here for a follow-up appointment regarding lumbar radicular pain, most recently provided a L3/4 KELLEE with 75% relief that lasted for 3-4 months. The pain is located in the lower back, and it does radiate into both legs to his feet. He describesit as a sharp, burning painful sensation. Aggravating factors include: exertion. Alleviating factors include: activity The pain is present nearly 100 % of time. His current pain score is 8/10. His pain at its least is 3-4 / 10. His worst pain is 10 / 10. Denies weakness. Reports numbness. Denies bowel or bladder incontinence. Denies symptoms of saddle anesthesia. Denies fevers/chills/night sweats. Denies unintentional weight loss. Review of Systems: A focused 12-pt ROS were of reviewed with the patient including difficulty with sleep, snoring, aspiration history, dysphagia, stomach pain, nausea and vomiting, severe headaches, confusion, open skin lesions or wounds, chest pain, shortness of breath, excessive thirst, somnolence, dysuria, incomplete bladder emptying, easy bruising, recent clotting problems or bleeding, depression or rushed thoughts unless noted previously. Allergies, Medications, Past Medical History, Past Surgical History reviewed and documented in [facility]. See detailed report if needed. Pertinent Labs/Test Results: INR (no units) Date Value 01/05/2021 0.98 04/23/2010 1.02 No results found for: "CREATININE" Hemoglobin A1C (%) Date Value 06/06/2024 6.3 (H) 06/17/2020 6.2 (H) Hemoglobin A1c (%) Date Value 07/21/2021 6.1 (H) Lab Results Component Value Date/Time URINE TOTAL PROTEIN 5 02/13/2010 02:28 PM Imaging: I personally reviewed the imaging and my findings were XR SHOULDER, 2 OR MORE VIEWS Narrative: EXAM XR SHOULDER, 2 OR MORE VIEWS - 07/25/2024 8:06 am HISTORY right shoulder pain TECHNIQUE Three views of the right shoulder COMPARISON 06/10/2020 FINDINGS No acute fracture or dislocation about the right shoulder. Mild to moderate acromioclavicular and mild glenohumeral arthrosis. Slight spurring of the greater tuberosity. Visualized portion of right hemithorax clear. Cervical spinal hardware partially included. Degenerative change of the included thoracic spine. Impression: IMPRESSION No acute fracture dislocation about the right shoulder. Chronic findings as above. POINT OF CARE US MAJOR JOINT INJECTION, ORTHO Patient Name: DAWIT GOETZ : 1950 (73y) Male Performing Provider: Quinten Wilkinson (digitally signed Jul 25, 2024 11:08 EDT) Attending: Quinten Wilkinson (digitally signed Jul 25, 2024 11:08 EDT) [Impression] : PROCEDURE NOTE: SHOULDER GLENOHUMERAL JOINT INJECTION Laterality: Right Time out: Prior to injection, a time out was called to confirm the administration of appropriate medicine, patient name, procedure and confirm to the best of our ability and knowledge the presence of any necessary risks and benefits. Patient verbalized understanding. Ultrasound required due to high risk for complications without ultrasound guidance (risk for neurovascular damage) Ultrasound utilized to guide injection. During the procedure, the needle was visualized in plane and was advanced with continuous ultrasound guidance to the appropriate anatomical landmark as described in the procedure. Sterile technique applied using gloves, chlorhexadine, and alcohol swabs. Ethyl chloride spray for local anesthetic. Glenohumeral joint injected using 3.5 inch, 22 gauge needle. Injected with 1 mL Lidocaine 1% - 1 mLTriamcinolone Acetonide 40 mg/mL >> inject 2 mL. Patient tolerated procedure with no significant bleeding or adverse reaction. Patient instructed to call or return to clinic for fever, warmth, unusual redness at injection sitefor potential infection. Patient also advised regarding post-procedural pain. Quinten Wilkinson, Sports Medicine [facility] [address] [address] Objective Physical Exam: Vital Signs: There were no vitals taken for this visit. There is no height or weight on file to calculate BMI. General: No apparent distress. Assessment: Dawit is a 73 year old year-old male with: Spinal stenosis of lumbar region with neurogenic claudication (Primary) Lumbar radicular pain Degeneration of intervertebral disc of lumbar region with discogenic back pain and lower extremity pain History of lumbar surgery Plan: Patient dissatisfied with effective injection when compared to prior injections. Provided some education that steroid injections tend to diminish in effectiveness over time given the progressive nature of the condition, however his pain does look to have changed a bit. He is now having a radicular component of his pain that goes into his feet which was not previously evident. Will keep scheduled appointment but will modify the procedural level to L5/S1 (L4/5 optimal but could not obtain entry last time). Will go superiorly in the epidural space to more approximate a L4/5 injection. The risks, benefits and alternatives to the procedure were reviewed at length and the patient was provided the opportunity to ask questions which were answered to their voiced understanding. Following this comprehensive discussion, the patient opted to proceed. The patient was advised that they will require a rivet driver. OK to continue ASA 81mg, told to avoid NSAIDs/supps x 3 days. No high dose ASA. Contacted Dr. Wilkinson regarding spacing of steroid-based injections. Will try to deconflict as appropriate. Medical Decision Making I spent 30 minutes reviewing the patient's prior visit office notes, procedure notes, images, conducting the history and physical examination, formulating a care plan, considering interventional options, drafting orders and medication prescriptions as well as recording the medical documentation. Jed aP, [facility], [address] [address] documented in this encounter Plan of Treatment Upcoming Encounters Date Type Department Care Team (Latest Contact Info) Description 07/31/2024 10:30 AM EDT Office Visit Orthopaedics [facility] [address] [place] [address] Quinten Wilkinson DO [address] [place] [address] 08/10/2024 8:30 AM EDT Office Visit Cardiology, [facility] [address] [place] [address] Braulio Chaudhry PA-C [address] [place] [address] 08/13/2024 7:35 AM EST Hospital Encounter [facility], Operating [facility] [address] [place] [phone] Jed Pa DO [address] [place] [address] 08/13/2024 7:35 AM EST - 08/13/2024 8:00 AM EST Surgery [facility], Operating Room [facility] [address] [place] [phone] Jed Pa DO [address] [place] [phone] INJECTION SPINE LUMBAR OR SACRAL 12/03/2024 8:00 AM EST Office Visit Family Practice [facility] [place] [address] [place] [address] Kailash Bass III, MD [address] [facility] [place] [address] 05/17/2025 8:20 AM EDT Office Visit Rheumatology [facility] [address] [place] [address] Quinten De Leon MD [address] [place] [address] Scheduled Procedures Name Priority Associated Diagnoses Date/Ti me INJECTION SPINE LUMBAR OR SACRAL Spinal stenosis of lumbar region with neurogenic claudication 08/13/2024 7:35 AM EST COLONOSCOPY FLEXIBLE PROXIMAL DIAGNOSTIC Recall History of colonic polyps Health Maintenance Due Date Last Done Comments Adult Wellness Visit 2014 Depression Screening 01/29/2023 01/29/2022 COVID-19 Vaccine ( season) 2024 12/13/2020, 11/15/2020 Influenza Vaccine (FLU shot) (#1) 2024 07/21/2023, 08/03/2022, 07/25/2021, Additional history exists AAA Monitoring 07/06/2024 07/06/2023, 06/10, 05/28/2021, Additional history exists CKD PHOS USE SMARTSET 05370 07/18/20240 06/2023, 02/08/2023, 10/25/2022, Additional history exists GFR 12/07/2024 06/06/2024, 01/09, 01/25/2024, Additional history exists CKD HGB USE SMARTSET 74990 01/23/202501/23, 08/22/2023, 07/28/2023, Additional history exists Albumin/Creatinine Ratio 02/02/2025 024, 01/29/2022, 05/16/2018, Additional history exists O2 ASSESSMENT COMPLETED IN PAST YEAR FOR COPD 02/06/2025 02/07/2024 HbA1c 06/06/2025 06/06/2024, 06/2023, 04/26/2022, Additional history exists Colonoscopy 07/21/2026 07/21/2023, 06/12, 07/09/2013 DTap/Tdap Vaccines (3 - Td or Tdap) 04/20/2027 04/20/2017, 07/31/2007 Pneumococcal Vaccine: 65+ Years Completed 03/31/2015, 03/07/2014 Zoster Vaccines Completed 09/18/2018, 05/10, 07/04/2014 Alpha-1 Antitrypsin Completed 06/17/2020 Cologuard Discontinued 06/02/2023, 05/10, 05/25/2023 HPV (Gardasil) Vaccine Aged Out No lo nger eligible based on patient's age to complete this topic Hepatitis B Vaccine Aged Out No longe r eligible based on patient's age to complete this topic MENINGOCOCCAL (MENACTRA/MENVEO) Aged Out No longer eligible based on patient's age to complete this topic documented as of this encounter Medical Devices Implanted Type Area Fast Food Shift Lead Device Identifier Shelf Expiration Date Model / Serial / Lot Endoproth Ips Leg 28 [id number] - [id number] Implanted:Qty : 1 on 03/27/2009 at OR [facility] [place] N/A: Aorta [employer] 01/09/2012 [id number] / / [id number] Endoproth Con Leg 18 [id number] - [id number] Implanted:Qty : 1 on 03/27/2009 at OR [facility] [place] N/A: Aorta [employer] 12/09/2011 [id number] / / [id number] Endoproth Con Leg 16 [id number] - [id number] Implanted:Qty : 1 on 03/27/2009 at OR [facility] [place] N/A: Aorta [employer] 12/09/2011 [id number] / / [id number] Screw 3.5x14 Mntr Fa [id number] - [id number] Implanted:Qty : 10 on 05/15/2010 at OR [facility] [place] N/A: Spine Cervical JNJ : [employer] [id number] / / Screw Inner Mntr [id number] - [id number] Implanted:Qty : 8 on 05/15/2010 at OR [facility] [place] N/A: Spine Cervical JNJ : [employer] [id number] / / Tico 3.5q353nd [id number] - [id number] Implanted:Qty : 1 on 05/15/2010 at OR [facility] [place] N/A: Spine Cervical JNJ : [employer] [id number] / / Plate 35mm Xcon [id number] - [id number] Implanted:Qty : 1 on 05/15/2010 at OR [facility] [place] N/A: Spine Cervical JNJ : [employer] [id number] / / Nut Outer Xcon [id number] - [id number] Implanted:Qty : 2 on 05/15/2010 at OR [facility] [place] N/A: Spine Cervical JNJ : [employer] [id number] / / Screw Inner Xcon [id number] - [id number] Implanted:Qty : 2 on 05/15/2010 at OR [facility] [place] N/A: Spine Cervical JNJ : [employer] [id number] / / Toric 350 20.5 Implanted:Qty : 1 on 01/31/2024 by Steven Barrett MD at OR [facility] Left: Eye 05/09/2025 [id number] / [id number] / [id number] Lens [id number] 12.5mm+20.50 - [id number] - [id number] Implanted:Qty : 1 on 02/07/2024 by Steven Barrett MD at OR [facility] Right: Eye [employer] 11/09/2026 [id number] / [id number] / [id number] documented as of this encounter Visit Diagnoses Diagnosis Spinal stenosis of lumbar region with neurogenic claudication- Primary Spinal stenosis, lumbar region, with neurogenic claudication Lumbar radicular pain Thoracic or lumbosacral neuritis or radiculitis, unspecified Degeneration of intervertebral disc of lumbar region with discogenic back pain and lower extremity pain History of lumbar surgery Spinal stenosis of lumbar region with neurogenic claudication Spinal stenosis, lumbar region, with neurogenic claudication documented in this encounter Advance Directives * [...] Directives occurred with: Not Discussed Care Teams [employer] Mechanic Relationship Specialty Start Date End Date Kailash Bass III, MD [address] [place] [address] PCP - General 05/24/1996 documented as of this encounter
--- OUTSIDE RECORDS SUMMARY | 2024-09-03 11:02 | External Medical Summary | Summary of Care ---
Author Name Unknown Organization [facility] Address [address] [place] [address] Phone [phone] Care Team Providers Care Entry Level Electrician Name Role Phone Kali GUTHRIE MD, Kailash Darnell Primary Care Provider [phone] Reason for Referral * Evaluate & Treat - Unlimited Visits (Within 10 days (routine)) - Authorized Specialty Diagnoses / Procedures Referred By Shay rogers Referred To Contact Physical Therapy / Physical Medicine And Rehab Diagnoses Chronic right shoulder pain Nontraumatic incomplete tear of right rotator cuff Bursitis of right shoulder Alden Clements DO [address] [facility] [place] [address] Referral ID Status Reason Start Date Expiration Date Visits Requested Visits Authorized [id number] Authorized Specialty Services Required 4 [phone] Question Answer Referral Priority Within 10 days (routine) Where should this appointment be scheduled? External Reason for Visit * Reason Comments Joint Pain Right shoulder Encounter Details Date Type Department Care Team (Late st Contact Info) Description 07/25/2024 8:00 AM EDT Office Visit Orthopaedics [facility] [address] [place] [address] Alden Clements DO [address] [place] [address] Chronic right shoulder pain*; Nontraumatic incomplete tear of right rotator cuff; Bursitis of right shoulder Allergies Active Allergy Reactions Criticality Noted Date Comments Ciprofloxacin Rash Low 05/31/2013 Gabapentin High 01/10/2020 Pregabalin High 01/10/2020 documented as of this encounter (statuses as of 07/25/2024) Medications Medication Sig Dispensed Refills Start Date [...] End Date Status pantoprazole (Protonix) tab 40 mgIndications:Gastroesophag eal reflux disease, unspecified whether esophagitis present 40 mg OR Daily(AM) 03/23/2023 Activ e lidocaine 1% 1 mL - triamcinolone acetonide 40 mg/mL 1 mL inj 2 mLIndications:Chronic right shoulder pain,Nontraumatic incomplete tear of right rotator cuff,Bursitis of right shoulder 2 mL IJ ONCE 07/25/2024 07/25/2024 Ended documented as of this encounter (statuses as of 07/25/2024) Active Problems Problem Noted Date Diagnosed Date [...] of CVA in adulthood 11/16/2018 Acute left PATIENT REGISTRATION REPRESENTATIVE stroke 07/20/2018 Gastroesophageal reflux disease 05/16/2018 Asymptomatic [...] as of this encounter (statuses as of 07/25/2024) Resolved Problems Problem Noted Date Diagnosed Date [...] as of this encounter (statuses as of 07/25/2024) Immunizations Name Administration Dates Next Due COVID-19 [...] as of this encounter Progress Notes * Alden Clements, - 07/25/2024 8:00 AM EDT Dawit Goetz [id number] Dawit Goetz is a 73 year old male who presents for consultation to [facility] for right shoulder injury/pain. Consult requested by self. Patient is known to me for other orthopedic issues, he would like to have a knee and trochanteric injection done in the near future. He additionally has a phone consultation with pain management to discuss spine issues Dawit Goetz is here unaccompanied. Date of Injury: No recent injury Sport or Occupation: Retired Handedness: Right HISTORY History - increasing right shoulder pain without injury for the last 6 months. Modifying factors: activity exacerbates, night pain, and laying on shoulder Patient has tried ibuprofen and tylenol Physical Therapy: No Previous Surgery/Subluxation/Dislocation: Yes surgery in 1994. He was unable to get outside medicalrecords. By his report it sounds like a rotator cuff repair but he uses the word clean out REVIEW OF SYSTEMS Constitional: No change in weight, No weakness, No fatigue, and No fevers, sweats, or chills Past Medical History: Diagnosis Date Acute left PATIENT REGISTRATION REPRESENTATIVE stroke (HCC) Centrilobular emphysema (HCC) CKD (chronic kidney disease) Dyslipidemia Esophagitis, unspecified GERD (gastroesophageal reflux disease) HTN, goal below 140/90 Inflammation of colonic mucosa 07/09/13 inflammatory tissue repeat colonoscopy in 10 years COOPER on CPAP Pulmonary nodules due for CT December, Sleep apnea Thalamic stroke (HCC) Tobacco use disorder Patient Active Problem List Diagnosis HTN, goal below 140/90 ADVANCE DIRECTIVE INFORMATION Abdominal aortic aneurysm (HCC) S/P percutaneous abdominal aortic aneurysm repair DYSLIPIDEMIA, GOAL LDL BELOW 100 History of tobacco use Statin intolerance Gastroesophageal reflux disease Asymptomatic bilateral carotid artery stenosis Acute left PATIENT REGISTRATION REPRESENTATIVE stroke (HCC) History of CVA in adulthood Centrilobular emphysema (HCC) Thalamic stroke (HCC) COOPER on CPAP Hypertensive kidney disease with stage 3a chronic kidney disease Vascular claudication (HCC) Chronic kidney disease, stage 3a (HCC) Prediabetes Generalized osteoarthritis DDD (degenerative disc disease), lumbar COPD, group B, by GOLD 2017 classification ([facility]) Family History Problem Relation Name Age of Onset Heart Disorder Mother Karla angioplasty Neurological Disorder Mother Karla dementia Arthritis Mother Karla Allergies Mother Karla Ear Problems Mother Karla Eye Problems Mother Karla Cataract Other (Other) Mother Karla arteria blockage / stent Gastro-intestinal disorder Father Terence cirrohsis Lung Disorder Father Terence copd Alcohol and Other Disorders Associated Father Terence Stroke Father Terence No Past Hx Sister Other (Alzheimers) Grandmother (Maternal) Camelia Struck early Other (Other) Grandmother (Maternal) Camelia Alzheimer Other (Other) Grandmother (Paternal) Carolee Aortic aneurysm Social History Socioeconomic History Marital status: Spouse name: Not on file Number of children: Not on file Years of education: Not on file Highest education level: Not on file Occupational History Not on file Tobacco Use Smoking status: Former Current packs/day: 0.00 Average packs/day: 1.5 packs/day for 35.0 years (52.5 ttl pk-yrs) Types: Cigarettes Start date: 03/16/1972 Quit date: 03/16/2007 Years since quittin.3 Smokeless tobacco: Never Tobacco comments: 10/11 -12/11 ppd had quit for a year Vaping Use Vaping status: Never Used Substance and Sexual Activity Alcohol use: Yes Comment: rarely Drug use: No Sexual activity: Not on file Other Topics Concern Not on file Social History Narrative Environmental History Home construction: Wood Heating System: Forced air, oil, propane fireplaces Cockroach Exposure: No Basement (wet, dry, none): Yes, Dry Possible mold exposure No Current exposure to pets: Yes, cats Does pet sleep in the bed: Yes Pillows (foam, synthetic, down): Foam Dust mite covers: Yes Blankets (synthetic, down): Synthetic Mattress (foam, springs, futon): [place] Dust mite covers: Yes Furniture Stuffing (foam, horse hair, other): Foam Carpets (area rugs, wall-to wall, none): Hard wood and carpeting, oldest is 5 years. 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 Radon exposure:No Retired for 5.5 years Social Determinants of Health Financial Resource Strain: Low Risk (05/26/2024) Financial Resource Strain Do you have any trouble paying for your medications, or do you think you might in the future? (Adult - for ages 18 years and over): No Does your family have trouble paying for medicine? (Household - for ages 0-17 years): Not on file Food Insecurity: No Food Insecurity (05/26/2024) Food Insecurity Do you need food for this week? (Adult - for ages 18 years and over): No Are you able to get enough food for your family? (Household - for ages 0-17 years): Not on file Does your family need food this week? (Household - for ages 0-17 years): Not on file Do you always have enough food for your family? (Household - for ages 0-17 years): Not on file Transportation Needs: No Transportation Needs (05/26/2024) Transportation Needs Do you have trouble getting a ride to medical visits or work? (Adult - for ages 18 years and over):Not on file Does your family have a hard time getting a ride to doctors visits? (Household - for ages 0-17 years): Not on file Has lack of transportation kept you from medical appointments, meetings, work, or from getting things needed for daily living? Check all that apply. (Adult - for ages 18 years and over): No Do you (or your family) have trouble finding or paying for a ride (transportation)? (Household - for ages 0-17 years): Not on file Social Connections: Socially Integrated (05/26/2024) Social Connections How often do you feel lonely or isolated from those around you? (Adult - for ages 18 years and over): Never Housing Stability: Low Risk (05/26/2024) Housing Stability Do you currently live in a mcfp or have no steady place to sleep at night? (Adult - for ages 18 years and over): No Do you think you are at risk of becoming homeless? (Adult - for ages 18 years and over): Not on file Does your family worry about paying for your home or becoming homeless? (Household - for ages 0-17 years): Not on file Are you homeless or worried that you might be in the future? (Adult - for ages 18 years and over): No Are you (or your family) homeless or worried that you might be in the future? (Household - for ages0-17 years): Not on file Current Outpatient Medications Medication Sig Dispense Refill Cholecalciferol (VITAMIN D) 1000 UNIT Capsule Take 1 Capsule by mouth in the morning. 30 Cap 11 Diclofenac Sodium 1 % gel APPLY 4 GRAMS TOPICALLY TO AFFECTED AREA TWICE DAILY 1 Tube 5 sildenafil (REVATIO) 20 MG Tablet 3-5 30 [...] or chew the tablet. 90 Tablet 5 predniSONE 5 MG Oral Tablet (Deltasone) Take 0.5 Tablets by mouth in the morning. 90 Tablet 0 Candesartan Cilexetil 4 MG Oral Tablet (Atacand) [...] by mouth once daily 90 Tablet 3 Current Facility-Administered Medications Medication Dose Route Frequency Provider Last Rate Last Admin pantoprazole (Protonix) tab 40 mg 40 mg Oral Daily(AM) Kailash Bass III, MD Lab Results Component Value Date/Time HEMOGLOBIN A1C - [facility] 6.3 (H) 06/06/2024 07:14 AM HEMOGLOBIN A1C - [facility] 6.4 (H) 07/18/2023 04:40 PM HEMOGLOBIN A1C - [facility] 6.1 (H) 04/26/2022 07:38 AM HEMOGLOBIN A1C - [facility] 6.2 (H) 06/17/2020 11:24 AM HEMOGLOBIN A1C POCT - [facility] 6.1 (H) 07/21/2021 07:30 AM PHYSICAL EXAM General: in no acute distress Mood and Affect: normal Gait and Station: normal Skin examination: normal on affect extremity (s) Sensation: normal on affected extremity (s) SHOULDER EXAM - Bilateral Shoulder Glenohumeral ROM ABD (100): Right - 90 degrees Left - 100 degrees ER (90): Right - 80 degrees Left - 90 degrees IR (60): Right - T10 degrees Left - t7 degrees FF (110): Bilateral and equal, pain on the right greater than 90 Palpation: tender to palpation at anterior shoulder right Strength and Cuff Tests Supraspinatous (Empty Can): Right - 4/5 | Left - 5/5 Infraspinatous/Teres Minor (resisted external rotation): Right - 4/5 | Left - 5/5 Subscapularis (resisted internal rotation): Right - 4/5 | Left - 5/5 Drop Arm: negative Bilateral Impingment Tests Jim's Test: positive Right Acromioclavicular Joint Crossed Arm: positive Right Biceps Speed (biceps): equivical Right Labrum Test Testing not indicated Scapula Exam: normal Cervical Spine: Patient denies neck symptoms and/or numbness/tingling in upper extremities Radiology - I have personally reviewed the films done today: Right shoulder x- ray reveals no fracture and changes about the greater tubercle. Mild glenohumeral arthritis. Mild to moderate AC joint arthritis. Bedside ultrasound for educational purposes shows at least a 50% tear of his supraspinatus tendon ASSESSMENT AND PLAN Discussed with the patient reasonable options which include MRI and surgical consultation, injection and physical therapy, or potentially PRP. After informed discussion he would like to try injectionand physical therapy. He is aware that any injection would preclude surgery for at least 3 months. Please see procedure note Follow up 1 week to recheck shoulder and discuss knee and troch 1) Chronic right shoulder pain (Primary) - XR SHOULDER, 2 OR MORE VIEWS - PHYSICAL THERAPY REFERRAL OP - lidocaine 1% 1 mL - triamcinolone acetonide 40 mg/mL 1 mL inj 2 mL Nontraumatic incomplete tear of right rotator cuff - PHYSICAL THERAPY REFERRAL OP - lidocaine 1% 1 mL - triamcinolone acetonide 40 mg/mL 1 mL inj 2 mL Bursitis of right shoulder - PHYSICAL THERAPY REFERRAL OP - lidocaine 1% 1 mL - triamcinolone acetonide 40 mg/mL 1 mL inj 2 mL Check-out note: 07/31 1030 30 min Recheck shoulder and inject knee and troch Alden Clements, DO Primary Care Sports Medicine Orthopaedics [address] [place] [address] This chart was completed in part utilizing [employer] Speech Voice Recognition Software. Grammatical errors, random word insertions, pronoun errors, and incomplete sentences are an occasional consequence of this system due to software limitations, ambient noise, and hardware issues. Any formal questions or concerns about the content, text, or information contained within the body of this dictation should be directly addressed to the provider for clarification. PROCEDURE NOTE: SHOULDER GLENOHUMERAL JOINT INJECTION Laterality: [...] infection. Patient also advised regarding post-procedural pain. Alden Clements DO Sports Medicine Primary Care Orthopaedics [address] [address] documented in this encounter Nursing Notes * Tiesha Street LPN - 07/25/2024 7:52 AM EDT Presents for right shoulder pain X 6 months. Previous previous rt shoulder sx in 1994 States pain wakes him while trying to sleep. Pt is RHD. Pt has used heat, took a few Advil/Tylenol. Tiesha Meeks LPN documented in this encounter Miscellaneous Notes * Addendum Note - Alden Clements DO - 07/25/2024 11:48 AM EDTAddended by: ALDEN CLEMENTS on: 07/25/2024 11:48 AM Modules accepted: Orders documented in this encounter Plan of Treatment Upcoming Encounters Date Type Department Care Team (Latest Contact Info) Description 07/25/2024 11:50 AM EDT Imaging Radiology [address] [place] [address] Arrived 07/26/2024 11:25 AM EDT Telemedicine Interventional Pain Center, [facility] [address] [place] [address] Jed Pa DO [address] [place] [phone] 07/31/2024 10:30 AM EDT Office Visit Orthopaedics [facility] [address] [place] [address] Alden Clements DO [address] [place] [address] 08/10/2024 8:30 AM EDT Office Visit Cardiology, [facility] [address] [place] [address] Braulio Chaudhry PA-C [address] [place] [address] 08/13/2024 7:35 AM EST Hospital Encounter [facility], Operating [facility] [address] [place] [id number] Jed Pa DO [address] [place] [address] 08/13/2024 7:35 AM EST - 08/13/2024 8:00 AM EST Surgery [facility], Operating Room [facility] [address] [place] [phone] Jed Pa, [address] [place] [phone] INJECTION SPINE LUMBAR OR SACRAL 12/03/2024 8:00 AM EST Office Visit Family Practice [facility] [address] [facility] [place] [address] Kailash Bass III, MD [address] [facility] [place] [address] 05/17/2025 8:20 AM EDT Office Visit Rheumatology [place] [address] [facility] [place] [address] Alden De Leon MD [address] [place] [address] Pending Results Name Type Priority Associated Diagnoses Date /Time XR SHOULDER, 2 OR MORE VIEWS Medical Imaging Routine Chronic right shoulder pain 07/25/2024 8:06 AM EDT Scheduled Orders Name Type Priority Associated Diagnoses Orde r Schedule POINT OF CARE US MAJOR JOINT INJECTION, ORTHO Medical Imaging Routine Chronic right shoulder pain Nontraumatic incomplete tear of right rotator cuff Bursitis of right shoulder Ordered: 07/25/2024 Scheduled Procedures Name Priority Associated Diagnoses Date/Ti me INJECTION SPINE LUMBAR OR SACRAL Spinal stenosis of lumbar region with neurogenic claudication 08/13/2024 7:35 AM EST COLONOSCOPY FLEXIBLE PROXIMAL DIAGNOSTIC Recall History of colonic polyps Scheduled Referrals Name Type Priority Associated Diagnoses Orde r Schedule PHYSICAL THERAPY REFERRAL OP Referral Within 10 days (routine) Chronic right shoulder pain Nontraumatic incomplete tear of right rotator cuff Bursitis of right shoulder Ordered: 07/25/2024 Health Maintenance Due Date Last Done Comments Adult Wellness Visit 2014 Depression Screening 01/29/2023 01/29/2022 COVID-19 Vaccine ( season) 2024 12/13/2020, 11/15/2020 Influenza Vaccine (FLU shot) (#1) 2024 07/21/2023, 08/03/2022, 07/25/2021, Additional history exists AAA Monitoring 07/06/2024 07/06/2023, 06/10, 05/28/2021, Additional history exists CKD PHOS USE SMARTSET 31345 07/18/2024 10/0 06/2023, 02/08/2023, 10/25/2022, Additional history exists GFR 12/07/2024 06/06/2024, 01/09, 01/25/2024, Additional history exists CKD HGB USE SMARTSET 49155 01/23/202501/23, 08/22/2023, 07/28/2023, Additional history exists Albumin/Creatinine Ratio 02/02/2025 024, 01/29/2022, 05/16/2018, Additional history exists O2 ASSESSMENT COMPLETED IN PAST YEAR FOR COPD 02/06/2025 02/07/2024 HbA1c 06/06/2025 06/06/2024, 100 06/2023, 04/26/2022, Additional history exists Colonoscopy 07/21/2026 [...] this encounter Medical Devices Implanted Type Area Home Care Manager Rn Device Identifier Shelf Expiration Date Model / Serial / Lot Endoproth Ips Leg 28 [id number] - [id number] Implanted:Qty : 1 on 03/27/2009 at OR [facility] N/A: Aorta [employer] 01/09/2012 [id number] / / [id number] Endoproth Con Leg 18 [id number] - [id number] Implanted:Qty : 1 on 03/27/2009 at OR [facility] N/A: Aorta [employer] 12/09/2011 [id number] / / [id number] Endoproth Con Leg 16 [id number] - [id number] Implanted:Qty : 1 on 03/27/2009 at OR [facility] N/A: Aorta [employer] 12/09/2011 [id number] / / [id number] Screw 3.5x14 Mntr Fa [id number] - [id number] Implanted:Qty : 10 on 05/15/2010 at OR [facility] N/A: Spine Cervical JNJ : [employer] [id number] / / Screw Inner Mntr [id number] - [id number] Implanted:Qty : 8 on 05/15/2010 at OR [facility] N/A: Spine Cervical JNJ : [employer] [id number] / / [id number] [id number] - [id number] Implanted:Qty : 1 on 05/15/2010 at OR [facility] N/A: Spine Cervical JNJ : [employer] [id number] / / Plate 35mm Xcon [id number] - [id number] Implanted:Qty : 1 on 05/15/2010 at OR [facility] N/A: Spine Cervical JNJ : [employer] [id number] / / Nut Outer Xcon [id number] - [id number] Implanted:Qty : 2 on 05/15/2010 at OR [facility] N/A: Spine Cervical JNJ : [employer] [id number] / / Screw Inner Xcon [id number] - [id number] Implanted:Qty : 2 on 05/15/2010 at OR [facility] N/A: Spine Cervical JNJ : [employer] [id number] / / Toric 350 20.5 Implanted:Qty : 1 on 01/31/2024 by Steven Barrett MD at OR [facility] Left: Eye 05/09/2025 [id number] / [id number] / [id number] Lens [id number] 12.5mm+20.50 - [id number] - [id number] Implanted:Qty : 1 on 02/07/2024 by Steven Barrett MD at [facility] Right: Eye [employer] 11/09/2026 [id number] / [id number] / [id number] documented as of this encounter Visit Diagnoses Diagnosis Chronic right shoulder pain- Primary Pain in joint, shoulder region Nontraumatic incomplete tear of right rotator cuff Partial tear of rotator cuff Bursitis of right shoulder Disorders of bursae and tendons in shoulder region, unspecified Spinal stenosis of lumbar region with neurogenic claudication Spinal stenosis, lumbar region, with neurogenic claudication documented in this encounter Administered Medications Inactive Administered Medications - up to 3 most recent administrations Medication Order MAR Action Action Date Dose Rate Site lidocaine 1% 1 mL - triamcinolone acetonide 40 mg/mL 1 mL inj 2 mL 2 mL, Injection, ONCE, On Tue07/25/24 at 0900, For 1 dose, Lidocaine 1% 1mL Triamcinolone Acetonide 40 mg/mL 1 mL (Final concentration = 20 mg/mL) REFRIGERATE and SHAKE WELL Given 07/25/2024 8:28 AM EDT 2 mL Shoulder Right documented in this encounter Advance Directives * [...] Directives occurred with: Not Discussed Care Teams Entry Level Electrician Relationship Specialty Start Date End Date Kailash Bass III, MD [address] [facility] [place] [address] PCP - General 05/24/1996 documented as of this encounter"
--- OUTSIDE RECORDS SUMMARY | 2024-09-03 11:02 | External Medical Summary | Summary of Care ---
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) History of CVA in adulthood Centrilobular emphysema (HCC) Thalamic stroke (HCC) COOPER on CPAP Hypertensive kidney disease with stage 3a chronic kidney disease Vascular claudication (HCC) Chronic kidney disease, stage 3a (HCC) Prediabetes Generalized osteoarthritis DDD (degenerative disc disease), lumbar COPD, group B, by GOLD 2017 classification ([facility]) Family History Problem Relation Name [...] (synthetic, down): Synthetic Mattress (foam, springs, futon): Elba Dust mite covers: Yes Furniture Stuffing (foam, horse hair, other): Foam Carpets (area rugs, wall-to wall, none): Hard wood and carpeting, oldest is 5 years. Work environment: Retired, worked at [employer] as [employer]. 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 Grammatical errors, random [...] Patient also advised regarding post-procedural pain. Quinten Wilkinson DO Sports Medicine [facility] [address] [address] documented in this encounter Nursing Notes * Tiesha Street LPN - 07/25/2024 7:52 AM EDT Presents for right shoulder pain X 6 months. Previous previous rt shoulder sx in 1994 States pain wakes him while trying to sleep. Pt is RHD. Pt has used heat, took a few Advil/Tylenol. Tiesha Meeks LPN documented in this encounter Plan of Treatment Upcoming Encounters Date Type Department Care Team (Latest Contact Info) Description 07/26/2024 11:25 AM EDT Telemedicine Inter[facility], [facility] [address] [place] [address] Jed Pa, DO [address] [place] [phone] 07/31/2024 10:30 AM EDT Office Visit Orthopaedics [facility] [address] [place] [address] Quinten Wilkinson DO [address] [place] [address] 08/10/2024 8:30 AM EDT Office Visit Cardiology, [facility] [address] [place] [address] Braulio Chaudhry PA-C [address] [place] [address] 08/13/2024 7:35 AM EST Hospital Encounter [facility], Operating [facility] [address] [place] [phone] Jed Pa, DO [address] [place] [address] 08/13/2024 7:35 AM EST - 08/13/2024 8:00 AM EST Surgery [facility], Operating [facility] [address] [place] [phone] Jed Pa, DO [address] [place] [address] INJECTION SPINE LUMBAR OR [facility] 12/03/2024 8:00 AM EST Office Visit [facility] [address] [facility] [place] [address] Kailash Bass III, MD [address] [facility] [place], [place] [address] 05/17/2025 8:20 AM EDT Office Visit Rheumatology [place] [phone] [employer] [place] [address] Quinten De Leon MD [facility] [employer] [place], [place] [address] Pending Results Name Type Priority Associated Diagnoses Date /Time XR SHOULDER, 2 OR MORE VIEWS Medical Imaging Routine Chronic right shoulder pain 07/25/2024 8:06 AM EDT Scheduled Procedures Name Priority Associated Diagnoses Date/Ti [...] Additional history exists CKD PHOS USE SMARTSET 85858 07/18/2024 10/0 06/2023, 02/08/2023, 10/25/2022, Additional history exists GFR 12/07/2024 06/06/2024, 01/09, 01/25/2024, Additional history exists CKD HGB USE SMARTSET 67200 01/23/202501/23, 08/22/2023, 07/28/2023, Additional history exists Albumin/Creatinine Ratio 02/02/2025 024, 01/29/2022, 05/16/2018, Additional history exists O2 ASSESSMENT COMPLETED IN PAST YEAR FOR COPD 02/06/2025 02/07/2024 HbA1c 06/06/2025 06/06/2024, 10/0 06/2023, 04/26/2022, Additional history exists Colonoscopy 07/21/2026 [...] this encounter Medical Devices Implanted Type Area Receptionist/Telephone Operator Device Identifier Shelf Expiration Date Model / Serial / Lot Endoproth Ips Leg 28 [id number] - [id number] Implanted:Qty : 1 on 03/27/2009 [place] [facility] [place] Aorta [employer] 01/09/2012 [id number] / / [id number] Endoproth Con Leg 18 [id number] - [id number] Implanted:Qty : 1 on 03/27/2009 [place] [facility] [place] Aorta [employer] 12/09/2011 [id number] / / [id number] Endoproth Con Leg 16 [id number] - [id number] Implanted:Qty : 1 on 03/27/2009 [place] [facility] [place] Aorta [employer] 12/09/2011 [id number] / / [id number] Screw 3.5x14 Mntr Fa [id number] - [id number] Implanted:Qty : 10 on 05/15/2010 at [place] [facility] [place]: Spine Cervical JNJ : [employer] [id number] / / Screw Inner Mntr [id number] - [id number] Implanted:Qty : 8 on 05/15/2010 at [place] [facility] [place]: Spine Cervical JNJ : [employer] [id number] / / Tico [id number] - [id number] Implanted:Qty : 1 on 05/15/2010 [place] [facility] [place]: Spine Cervical JNJ : [employer] [id number] / / Plate 35mm Xcon [id number] - [id number] Implanted:Qty : 1 on 05/15/2010 [place] [facility] [place]: Spine Cervical JNJ : [employer] [id number] / / Nut Outer Xcon [id number] - [id number] Implanted:Qty : 2 on 05/15/2010 at [place] [facility] [place]: Spine Cervical JNJ : [employer] [id number] / / Screw Inner Xcon [id number] - [id number] Implanted:Qty : 2 on 05/15/2010 at [place] [facility] [place]: Spine Cervical JNJ : [employer] [id number] / / Toric 350 20.5 Implanted:Qty : 1 on 01/31/2024 by Steven Barrett MD at [facility] Left: Eye 05/09/2025 [id number] / [id number] / [id number] Lens [id number] 12.5mm+20.50 - [id number] - [id number] Implanted:Qty : 1 on 02/07/2024 by Steven Barrett MD at OR [facility] Right: Eye [employer] 11/09/2026 [id number] / [id number] / [id number] documented as of this encounter Visit Diagnoses [...] Directives occurred with: Not Discussed Care Teams Foreign Student Adviser Teacher Relationship Specialty Start Date End Date [place] III, Kailash Darnell MD [address] [facility] [place], [place] [address] PCP - General 05/24/1996 documented as of this encounter"
--- OUTSIDE RECORDS SUMMARY | 2024-09-03 11:02 | External Medical Summary | Summary of Care ---
Author Name Unknown Organization [facility] Address [address] [place] [address] Phone [phone] Care Team Providers Care Vice President Regulatory Name Role Phone Kali GUTHRIE MD, Kailash Darnell Primary Care Provider [phone] Reason for Visit * Auth/Cert Specialty Diagnoses / Procedures Referred By Shay t Referred To Contact Diagnoses Spinal stenosis of lumbar region with neurogenic claudication Spinal stenosis of lumbar region with neurogenic claudication [M48.062] Procedures INJECT DX/THER SUBSTANCE INTERLAMINAR LUMBAR/SACRAL W IMAGE GUIDE INJECTION SPINE LUMBAR OR SACRAL Jed Pa DO [address] [place] [address] Or [facility] [address] [place] [address] Referral ID Status Reason Start Date Expiration Date Visits Re quested Visits Authorized [id number] Encounter Details Date Type Department Care Team (Latest Contact Info) Description 08/03/2024 6:54 AM EDT - 08/03/2024 8:18 AM EDT Hospital Encounter OR [facility], Operating Room [facility] [address] [place] [address] Jed Pa DO [address] [place] [address] Discharge Disposition: Home - Self Care Allergies Active Allergy Reactions Criticality Noted Date Comments Ciprofloxacin Rash Low 05/31/2013 Gabapentin High 01/10/2020 Pregabalin High 01/10/2020 documented as of this encounter (statuses as of 08/03/2024) Medications Medication Sig Dispensed Refills Start Date [...] once daily 90 Tablet 3 07/02/2024 Active documented as of this encounter (statuses as of 08/03/2024) Active Problems Problem Noted Date Diagnosed Date [...] of CVA in adulthood 11/16/2018 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/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 Gastroesophageal reflux disease 05/16/2018 Asymptomatic [...] as of this encounter (statuses as of 08/03/2024) Resolved Problems Problem Noted Date Diagnosed Date [...] as of this encounter (statuses as of 08/03/2024) Immunizations Name Administration Dates Next Due COVID-19 [...] Sign Reading Time Taken Comments Blood Pressure 174/82 08/03/2024 8:13 AM EDT Pulse 68 08/03/2024 8:13 AM EDT Temperature 36.4 C (97.6 F) 08/03/2024 7:30 AM ED T Respiratory Rate 16 08/03/2024 8:13 AM EDT Oxygen Saturation 97% 08/03/2024 8:13 AM EDT Inhaled Oxygen Concentration - - Weight - - Height - - Body Mass Index - - documented in this encounter Functional Status Functional [...] No 01/15/2021 documented as of this encounter Discharge Instructions * Discharge Instr - AVS* Jed Pa DO - 08/03/2024 8:07 AM EDT [facility] [address] [place] [address] Discharge Date: 08/03/2024 You may call [facility] at [phone] during business hours. For after-hours emergencies call 911. Your attending physician at the time of your discharge was: Jed Pa DO [address] [place] [address] The information below provides you with the instructions and the list of medications you need to betaking following discharge from the hospital. If you have any questions, please ask before leaving.Please carry this letter with you when you see your doctor in the clinic. Diet: Resume your normal diet If you are diabetic, follow your blood sugars closely for next 2-3 days as they are likely to be elevated. If you are having difficulty controlling your blood sugars call your family doctor or the physician that treats your diabetes. Activity: Do not engage in strenuous activity today Resume your normal activities tomorrow Do not soak in water for 24 hours. No swimming, hot tub or bath but showering is allowed. Do not use heat on the injection site for 24 hours. If uncomfortable ice may be helpful. Some injections may make your arms or legs weak for a few hours. Be extremely careful when walking or changing positions that you do not fall. Have someone assist you for the next 6 hours. If weakness or numbness becomes progressive CALL IMMEDIATELY or GO TO THE NEAREST EMERGENCY ROOM Do not restart physical therapy or chiropractic manipulation until 48 hours after your injection Call : If weakness or numbness suddenly becomes worse or become progressive If the injection site becomes red, swollen, warm to the touch, begins to bleed or drain fluid, or is excessively painful. If you have any questions Medications: Resume all the medications you were taking prior to your injection. Resume your anticoagulants tomorrow unless otherwise instructed by your family physician, filing writer or the anticoagulation clinic. Additional Instructions: Please monitor for symptoms of high blood sugar such as frequent urination, flu-like symptoms and changes in your vision as well as blood sugar values >250mg/dL. If these occur, please report to your PCP and/or UrgentCare or the Emergency Department immediately. Driving: You may resume driving in 12-24 hours if no weakness is noted . Date you may return to work or school: N/A Follow Up: Please make a follow-up telephone appointment with our nursing staff in 4-6 weeks. documented in this encounter H&P Notes * Jed Pa DO - 08/03/2024 7:43 AM EDT Interventional Pain H&P Subjective: History of Present Illness: Dawit Goetz is a 73 year old year-old male with a past medical history significant for lumbarradicular pain who is presenting for L5/S1 KELLEE to improve his pain and function. his pain is essentially unchanged since our last office visit with him. ASA 3 AW nml Review of Systems: A focused 12-pt ROS were of reviewed with the patient including difficulty with sleep, snoring, aspiration history, dysphagia, stomach pain, nausea and vomiting, severe headaches, confusion, open skin lesions or wounds, chest pain, shortness of breath, excessive thirst, somnolence, dysuria, incomplete bladder emptying, easy bruising, recent clotting problems or bleeding, depression or rushed thoughts unless noted previously. Review of patient's allergies indicates: Allergen Reactions Gabapentin Pregabalin Ciprofloxacin Rash Medications, Past Medical History, Past Surgical History reviewed and documented in Epic. See detailed report if needed. Pertinent Labs/Test Results: INR (no units) Date Value 01/05/2021 0.98 04/23/2010 1.02 No results found for: "CREATININE" Hemoglobin A1C (%) Date Value 06/06/2024 6.3 (H) 06/17/2020 6.2 (H) Hemoglobin A1c (%) Date Value 07/21/2021 6.1 (H) Lab Results Component Value Date/Time URINE TOTAL PROTEIN 5 02/13/2010 02:28 PM Imaging: I personally reviewed the imaging and my findings were . XR SHOULDER, 2 OR MORE VIEWS Narrative: [...] Wilkinson DO Sports [facility] [address] [address] Objective Physical Exam: Vital Signs: BP 148/77 | Pulse 66 | Temp 36.4 C (97.6 F) (Tympanic) | Resp 16 | SpO2 97% Thereis no height or weight on file to calculate BMI. General: No apparent distress. Eyes: pupils equal and round, sclera white, pupils midsize. ENT: mucous membranes moist Resp: Non-labored breathing CV: Extremities warm and well-perfused. Psych: Oriented; affect warm, insight good. Skin: No rashes or lesions appreciated on exposed skin Neuromuscular Exam: Facet loading neg, SLR pos, TTT over lumbar spine Assessment: Dawit is a 73 year old year-old male with: Lumbar radicular pain Lumbar spinal stenosis Plan: The patient is undergoing L5/S1 KELLEE today to alleviate his pain and improve his function. The risks, benefits and alternatives to the procedure were reviewed at length and the patient was provided the opportunity to ask questions which were answered to their voiced understanding. Following this comprehensive discussion, the patient opted to proceed. The patient was consented to the procedure following this comprehensive conversation. Jed Pa DO [facility], Operating Room [facility] [address] [place] [address] documented in this encounter Nursing Notes * Latia Benedict RN - 08/03/2024 8:11 AM EDT Pt tolerated procedure well. Pt has been visited by Dr. Pa. Discharge instructions reviewed with pt and pt has verbalized understanding of these teachings. Pt ready for discharge. documented in this encounter OR Notes * OR Surgeon - Jed Pa DO - 08/03/2024 8:06 AM EDT INTERLAMINAR LUMBAR EPIDURAL STEROID INJECTION DATE: 08/03/2024 PHYSICIAN: Jed Pa DO PREOPERATIVE DIAGNOSIS: Lumbar spondylosis with lumbar radiculopathy. POSTOPERATIVE DIAGNOSIS: Lumbar spondylosis with lumbar radiculopathy. PROCEDURE PERFORMED: L5/S1 interlaminar epidural steroid injection on the right side. Fluoroscopy for precise needle placement. ANESTHESIA: Local infiltration with 1% lidocaine. MONITORS: Automatic blood pressure cuff, pulse oximetry. There was no personnel security assistant, EBL or drains placed during this procedure. INDICATIONS: I had the pleasure of seeing Dawit Goetz ([id number]) in the [facility]. Dawit Goetz is a 73 year old year-old male has a history of lumbar radiculopathy. he is here today for an interlaminar lumbar epidural steroid injection today. MEDICATIONS: No current facility-administered medications for this encounter. ALLERGIES: Review of patient's allergies indicates: Allergen Reactions Gabapentin Pregabalin Ciprofloxacin Rash REVIEW OF SYSTEMS: Negative for fever, chills, chest pain, SOB, bleeding abnormalities, nausea, vomiting, diarrhea, worsening edema, or new rashes. FOCUSED PHYSICAL EXAMINATION: The patient is awake, alert and oriented, and is in no acute distress. Vital signs are stable. The patient is afebrile. The rest of the PE is essentially unchanged from the patient's recent visit to our office. I explained the procedure to the patient including the risks, benefits and alternatives to the procedure. The risks discussed with the patient included but were not limited to: bleeding, infection, and damage to surrounding nerves, tissues, and organs, paralysis, increased pain, pain at the site ofinjection, allergic reaction, blood pressure instability, seizures, heart block, headaches, increase in blood sugar, worsening of glaucoma, blindness, manic episodes, mood instability, . Alternatives to the procedure were also explained and include: do nothing, surgery, medications, and physical therapy. The patient verbalized understanding and was willing to proceed. PROCEDURE IN DETAIL: An informed consent was obtained. The patient was taken to the procedure room,was positively identified by the staff and attending physician. The patient was positioned prone onthe procedure bed. Vital signs were monitored as above and remained stable throughout the procedure. The skin was prepped and draped in a standard sterile fashion. A surgical pause time-out was performed and agreed upon by the members of the team. Fluoroscopic view of the lumbar spine was obtained and the area of interest was identified. The skin and subcutaneous tissues were anesthetized using 1% lidocaine and 25-gauge 1-1/2 inch needle. After that, a 20-gauge, 3.5-inch epidural needle was advanced towards the L5/S1 interlaminar windowin the right paramedian position. AP, contralateral oblique and lateral views were used to assess appropriate needle position. Loss of resistance to air technique was utilized and was obtained at 7 cm from the skin. The needle's position was additionally verified by injecting radiopaque dye, which showed spread of the dye in the epidural space in AP and lateral views. After negative aspiration for CSF and blood, 80 mg of Kenalog diluted in 2 mL of 1% lidocaine was injected into the epidural space. The needle was withdrawn. The patient tolerated the procedure well. COMPLICATIONS: None. DISPOSITION: 1. Return to clinic in 1-2 months for follow-up evaluation, sooner as needed. 2. Resume activity as tolerated. 3. Patient can drive after 12-24 hours if no weakness noted. 4. The patient will monitor their blood glucose over the next week as instructed and was advised tocontact us if the reading is greater than 250mg/dL or if they develop any signs or symptoms of hyperglycemia. Jed Pa DO OR [facility], Operating Room [facility] [address] [facility] [place] [address] documented in this encounter Plan of Treatment Upcoming Encounters Date Type Department Care Team (Late st Contact Info) Description 08/10/2024 8:30 AM EDT Office Visit Cardiology, [facility] [address] [place] [address] Braulio Chaudhry PA-C [address] [place] [address] 09/04/2024 11:00 AM EST Scheduled Telephone Interventional Pain Center, [facility] [address] [place] [address] Braydon, Nurse Phone Call Interventional Pain [facility] [address] [place] [address] 09/10/2024 11:00 AM EST Scheduled Telephone Interventional Pain Center, [facility] [address] [place] [address] Braydon, Nurse Phone Call Interventional Pain [facility] [address] [place] [address] 09/17/2024 1:00 PM EST Office Visit Orthopaedics [facility] [address] [place] [address] Quinten Wilkinson DO [address] [place] [address] 12/03/2024 8:00 AM EST Office Visit Family Practice [facility] [address] [place] [address] Kailash Bass III, MD [address] [place] [address] 05/17/2025 8:20 AM EDT Office Visit Rheumatology [address] [place] [address] Quinten De Leon MD [address] [place] [address] Scheduled Procedures Name Priority Associated Diagnoses Date/Ti me INJECTION SPINE LUMBAR OR SACRAL Spinal stenosis of lumbar region with neurogenic claudication 08/03/2024 7:51 AM EDT COLONOSCOPY FLEXIBLE PROXIMAL DIAGNOSTIC Recall History of colonic polyps Health Maintenance Due Date Last Done Comments Adult Wellness Visit 2014 Depression Screening 01/29/2023 01/29/2022 COVID-19 Vaccine ( season) 2024 12/13/2020, 11/15/2020 AAA Monitoring 07/06/2024 07/06/2023, 06/10, 05/28/2021, Additional history exists CKD PHOS USE SMARTSET 78366 07/18/2024 10/0 06/2023, 02/08/2023, 10/25/2022, Additional history exists GFR 12/07/2024 06/06/2024, 01/09, 01/25/2024, Additional history exists CKD HGB USE SMARTSET 25263 01/23/202501/23, 08/22/2023, 07/28/2023, Additional history exists Albumin/Creatinine [...] this encounter Medical Devices Implanted Type Area Clarity Developer Device Identifier Shelf Expiration Date Model / Serial / Lot Endoproth Ips Leg 28 [id number] - [id number] Implanted:Qty : 1 on 03/27/2009 at OR [facility] N/A: Aorta [employer] 01/09/2012 [id number] / / [id number] Endoproth Con Leg 18 [id number] - [id number] Implanted:Qty : 1 on 03/27/2009 at OR [facility] [place] [place] N/A: Aorta [employer] 12/09/2011 [id number] / / [id number] Endoproth Con Leg 16 [id number] - [id number] Implanted:Qty : 1 on 03/27/2009 at OR [facility] [place] N/A: Aorta [employer] 12/09/2011 [id number] / / [id number] Screw 3.5x14 Mntr Fa [id number] - [id number] Implanted:Qty : 10 on 05/15/2010 at OR [facility] [place] N/A: Spine Cervical JNJ : [employer] [id number] / / Screw Inner Mntr [id number] - [id number] Implanted:Qty : 8 on 05/15/2010 at OR [facility] [place] N/A: Spine Cervical JNJ : [employer] [id number] / / Tico [id number] - [id number] Implanted:Qty : 1 on 05/15/2010 at OR [facility] [place] N/A: Spine Cervical JNJ : [employer] [id number] / / Plate 35mm Xcon [id number] - [id number] Implanted:Qty : 1 on 05/15/2010 at OR [facility] [place] N/A: Spine Cervical JNJ : [employer] [id number] / / Nut Outer Xcon [id number] - [id number] Implanted:Qty : 2 on 05/15/2010 at OR [facility] [place] N/A: Spine Cervical JNJ : [employer] [id number] / / Screw Inner Xcon [id number] - [id number] Implanted:Qty : 2 on 05/15/2010 at OR [facility] [place] N/A: Spine Cervical JNJ : [employer] [id number] / / Toric 350 20.5 Implanted:Qty : 1 on 01/31/2024 by Steven Barrett MD at OR [facility] Left: Eye 05/09/2025 [id number] / [id number] / [id number] Lens [id number] 12.5mm+20.50 - [id number] - [id number] Implanted:Qty : 1 on 02/07/2024 by Steven Barrett MD at OR [facility] Right: Eye [employer] 11/09/2026 [id number] / [id number] / [id number] documented as of this encounter Procedures Procedure Name Priority Date/Time Associated Diagnosis Comments FLUORO INTERVENTIONAL PAIN PROCEDURE NONBILLABLE Routine 08/03/2024 8:09 AM EDT documented in this encounter Results * FLUORO INTERVENTIONAL PAIN PROCEDURE NONBILLABLE (08/03/2024 8:09 AM EDT) Narrative Scheduling, Silent - 08/03/2024 8:09 AM EDT This procedure will not be read by a Radiologist. Please see operative note. Jed Kade Thierno DO RAD FLUOROSCOPY documented in this encounter Administered Medications Inactive Administered Medications - up to 3 most recent administrations Medication Order MAR Action Action Date Dose Rate Site Iohexol (Omnipaque 240) inj 0.5 mL 0.5 mL, Epidural, ONCE, On Tue08/03/24 at 0800, For 1 dose, For caudal epidural Given 08/03/2024 8:03 AM EDT 1 mL lidocaine 1 % inj 20 mg 20 mg (2 mL), Subcutaneous, ONCE, On Tue08/03/24 at 0800, For 1 dose Given 08/03/2024 8:00 AM EDT 3 mL O ther-Specify Triamcinolone Acetonide (Kenalog) 40 MG/ML inj 40 mg 40 mg, Injection, ONCE, On Tue08/03/24 at 0800, For 1 dose Given 08/03/2024 8:04 AM EDT 80 mg documented in this encounter Active and Recently Administered Medications Times are shown in EDT. Scheduled Medication Order 08/01/2024 08/02/2024 08/03/2024 Iohexol (Omnipaque 240) inj 0.5 mL (COMPLETED) 0.5 mL, Epidural, ONCE, On Tue08/03/24 at 0800, For 1 dose, For caudal epidural 0803 (Given - Provid er: Jennifer Viera RN) lidocaine 1 % inj 20 mg (COMPLETED) 20 mg (2 mL), Subcutaneous, ONCE, On Tue08/03/24 at 0800, For 1 dose 0800 (Given - Provid er: Jennifer Viera RN) Triamcinolone Acetonide (Kenalog) 40 MG/ML inj 40 mg (COMPLETED) 40 mg, Injection, ONCE, On Tue08/03/24 at 0800, For 1 dose 0804 (Given - Provid er: Jennifer Viera RN) documented in this encounter Advance Directives * [...] 9:51 AM 01/14/2021 2:07 PM This order re flects the patients wishes and were consensually agreed upon. Question Answer Comments Discussion of Advance Directives occurred with: Not Discussed * Full Code Date Activated Date Inactivated Comments 05/17/2010 11:11 AM 05/17/2010 7:27 PM This order re flects the patients wishes and were consensually agreed upon. Question Answer Comments Discussion of Advance Directives occurred with: Not Discussed Care Teams Vice President Regulatory Relationship Specialty Start Date End Date Kailash Bass III, MD [address] [facility] [place] [address] PCP - General 05/24/1996 documented as of this encounter
--- OUTSIDE RECORDS SUMMARY | 2024-09-03 11:02 | External Medical Summary | Summary of Care ---
Author Name Unknown Organization [facility] Address [address] [place] [address] Phone [phone] Care Team Providers Care Metal Alloy Scientist Name Role Phone Kali GUTHRIE MD, Kailash Darnell Primary Care Provider [phone] Reason for Referral * Evaluate & Treat - Unlimited Visits (Within 10 days (routine)) - Authorized Specialty Diagnoses / Procedures Referred By Shay rogers Referred To Contact Physical Therapy / Physical Medicine And Rehab Diagnoses Chronic right shoulder pain Nontraumatic incomplete tear of right rotator cuff Bursitis of right shoulder Quinten Wilkinson DO [address] [facility] [place] [address] Referral ID Status Reason Start Date Expiration Date Visits Requested Visits Authorized [id number] Authorized Specialty Services Required 4 [phone] Question Answer Referral Priority Within 10 days (routine) Where should this appointment be scheduled? 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) History of CVA in adulthood Centrilobular emphysema (HCC) Thalamic stroke (HCC) COOPER on CPAP Hypertensive kidney disease with stage 3a chronic kidney disease Vascular claudication (HCC) Chronic kidney disease, stage 3a (HCC) Prediabetes Generalized osteoarthritis DDD (degenerative disc disease), lumbar COPD, group B, by GOLD 2017 classification ([facility]) Family History Problem Relation Name [...] (synthetic, down): Synthetic Mattress (foam, springs, futon): [place] Dust mite covers: Yes Furniture Stuffing (foam, horse hair, other): Foam Carpets (area rugs, wall-to wall, none): Hard wood and carpeting, oldest is 5 years. Work environment: Retired, worked at [employer] as [employer]. 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 Grammatical errors, random [...] Wilkinson DO Sports Medicine Primary Care Orthopaedics [address] [address] documented in this encounter Nursing Notes * [...] 11:25 AM EDT Telemedicine Interventional Pain Center, [facility] [address] [place] [address] Jed Pa, DO [address] [place] [phone] 07/31/2024 10:30 AM EDT Office Visit Orthopaedics [facility] [address] [place] [address] Quinten Wilkinson DO [address] [place] [address] 08/10/2024 8:30 AM EDT Office Visit Cardiology, [facility] [address] [place] [address] Braulio Chaudhry PA-C [address] [place] [address] 08/13/2024 7:35 AM EST Hospital Encounter [facility], Operating Room [facility] [address] [place] [address] Jed Pa, DO [address] [place] [address] 08/13/2024 7:35 AM EST - 08/13/2024 8:00 AM EST Surgery [facility], Operating Room [facility] [address] [place] [phone] Jed Pa, DO [address] [place] [address] INJECTION SPINE LUMBAR OR SACRAL 12/03/2024 8:00 AM EST Office Visit [facility] [address] [facility] [place] [address] Kailash Bass III, MD [address] [facility] [place], [place] [address] 05/17/2025 8:20 AM EDT Office Visit Rheumatology [place] [id number] [place] [address] Quinten De Leon MD [facility] [place], [place] [address] Pending Results Name Type Priority Associated Diagnoses [...] Additional history exists CKD PHOS USE SMARTSET 80503 07/18/2024 10/0 06/2023, 02/08/2023, 10/25/2022, Additional history exists GFR 12/07/2024 06/06/2024, 01/09, 01/25/2024, Additional history exists CKD HGB USE SMARTSET 80905 01/23/202501/23, 08/22/2023, 07/28/2023, Additional history exists Albumin/Creatinine [...] this encounter Medical Devices Implanted Type Area Preschool Head Teacher Device Identifier Shelf Expiration Date Model / Serial / Lot Endoproth Ips Leg 28 [id number] - [id number] Implanted:Qty : 1 on 03/27/2009 [place] [facility] [place]: Aorta [employer] 01/09/2012 [id number] / / [id number] Endoproth Con Leg 18 [id number] - [id number] Implanted:Qty : 1 on 03/27/2009 at [place] [facility] N/A: Aorta [employer] 12/09/2011 [id number] / / [id number] Endoproth Con Leg 16 [id number] - [id number] Implanted:Qty : 1 on 03/27/2009 at [place] [facility] N/A: Aorta [employer] 12/09/2011 [id number] / / [id number] Screw 3.5x14 Mntr Fa [id number] - [id number] Implanted:Qty : 10 on 05/15/2010 at [place] [facility] N/A: Spine Cervical JNJ : [employer] [id number] / / Screw Inner Mntr [id number] - [id number] Implanted:Qty : 8 on 05/15/2010 at [place] [facility] N/A: Spine Cervical JNJ : [employer] [id number] / / [id number] [id number] - [id number] Implanted:Qty : 1 on 05/15/2010 at [place] [facility] N/A: Spine Cervical JNJ : [employer] [id number] / / Plate 35mm Xcon [id number] - [id number] Implanted:Qty : 1 on 05/15/2010 at [place] [facility] N/A: Spine Cervical JNJ : [employer] [id number] / / Nut Outer Xcon [id number] - [id number] Implanted:Qty : 2 on 05/15/2010 at [place] [facility] N/A: Spine Cervical JNJ : [employer] [id number] / / Screw Inner Xcon [id number] - [id number] Implanted:Qty : 2 on 05/15/2010 at [place] [facility] N/A: Spine Cervical JNJ : [employer] [id number] / / Toric 350 20.5 Implanted:Qty : 1 on 01/31/2024 by Steven Barrett MD at OR [facility] Left: Eye 05/09/2025 [id number] / [id number] / [id number] Lens [id number] 12.5mm+20.50 - [id number] - [id number] Implanted:Qty : 1 on 02/07/2024 by Steven Barrett MD at OR [facility] Right: Eye [employer]OM[employer] 11/09/2026 [id number] / [id number] / [id number] documented as of this encounter Visit Diagnoses [...] Directives occurred with: Not Discussed Care Teams Metal Alloy Scientist Relationship Specialty Start Date End Date [place] III, Kailash Darnell MD [address] [facility] [place], [place] [address] PCP - General 05/24/1996 documented as of this encounter"
--- OUTSIDE RECORDS SUMMARY | 2024-09-03 11:03 | External Medical Summary | Summary of Care ---
Author Name Unknown Organization [facility] Address [address] [place] [address] Phone [phone] Care Team Providers Care Jammer Operator Name Role Phone Kali GUTHRIE MD, Kailash Darnell Primary Care Provider [phone] Encounter Details Date Type Department Care Team (Late st Contact Info) Description 07/03/2024 Patient Reported Data Patient Survey Ortho [facility] Allergies Active Allergy Reactions Criticality Noted Date Comments Ciprofloxacin Rash Low 05/31/2013 Gabapentin High 01/10/2020 Pregabalin High 01/10/2020 documented as of this encounter (statuses as of 07/03/2024) Medications Medication Sig Dispensed Refills Start Date [...] as of this encounter (statuses as of 07/03/2024) Active Problems Problem Noted Date Diagnosed Date [...] of CVA in adulthood 11/16/2018 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 Gastroesophageal reflux disease 05/16/2018 Asymptomatic [...] as of this encounter (statuses as of 07/03/2024) Resolved Problems Problem Noted Date Diagnosed Date [...] as of this encounter (statuses as of 07/03/2024) Immunizations Name Administration Dates Next Due COVID-19 mRNA, LNP-s, No Pre serve, 2-Dose Series (Moderna) 12/13/2020,11/15/2020 H1N1 2009 Influenza, IM 10/22/2009 Pneumococcal Conjugate Vacc, 13 Valent (Prevnar) 03/31/2015 Pneumococcal Polysaccharide PPV23 (Pneumovax) 03/07/2014 RSV Vac., Recomb, Adjuvant, PF,0.5 Ml (Arexvy) 08/03/2023 Seasonal Influenza, PF, 6 M & above, IM , (FluLaval or Fluzone) 06/22/2019,07/03/2018 Seasonal Influenza, Quadriva lent Hd (Fluzone Hd) 08/03/2022,07/25/2021 Seasonal Influenza, Quadriva lent Hd, 65+ Yrs 07/21/2023 Seasonal Influenza, Quadriva lent, No Preserve, IM 08/02/2020,07/19/2017,10/21/2016,07/17 Seasonal Influenza, Trivalen t, (IIV3), with Preserv, (Fluzone) 07/04/2014,09/07/2011,10/22/2009,08/27,07/31/2007 TD, Preservative Free 04/20/2017 TDAP, Age 7 and older, IM (Adacel) 07/31/2007 Varicella Zoster Vaccine (Adult) 07/04/2014 Zoster Vaccine Recombinant (Shingrix) 09/18/2018 ,05/22/2018 documented as of this encounter Social History Tobacco Use Types Packs/Day Years Used Date Smoking Tobacco: Former Cigarettes 1.5 35 0 03/16/1972 - 03/16/2007 Smokeless Tobacco: Never Comments:10/11 -12/11 ppd had qu it for a year [...] No 01/15/2021 documented as of this encounter Plan of Treatment Upcoming Encounters Date Type Department Care Team (Latest Contact Info) Description 07/25/2024 8:00 AM EDT Office Visit Orthopaedics [facility] [address] [place] [address] Quinten Wilkinson, DO [address] [place] [address] 07/26/2024 11:25 AM EDT Telemedicine Interventional Pain Center, [facility] [address] [place] [address] Jed Pa DO [address] [place] [phone] 08/10/2024 8:30 AM EDT Office Visit Cardiology, [facility] [address] [place] [address] Braulio Chaudhry PA-C [address] [place] [address] 08/13/2024 7:35 AM EST Hospital Encounter [facility], Operating Room [facility] [address] [place] [address] Jed Pa DO [address] [place] [address] 08/13/2024 7:35 AM EST - 08/13/2024 8:00 AM EST Surgery [facility], Operating Room [facility] [address] [place] [address] Jed Pa DO [address] [place] [address] INJECTION SPINE LUMBAR OR SACRAL 12/03/2024 8:00 AM EST Office Visit [facility] [address] [place] [address] Kailash Bass III, MD [address] [place] [address] 05/17/2025 8:20 AM EDT Office Visit Rheumatology [facility] [address] [place] [address] Quinten De Leon MD [address] [employer] [place] [address] Scheduled Procedures Name Priority Associated Diagnoses Date/Ti [...] Additional history exists CKD PHOS USE SMARTSET 20148 07/18/2024 1006/2023, 02/08/2023, 10/25/2022, Additional history exists GFR 12/07/2024 06/06/2024, 01/09, 01/25/2024, Additional history exists CKD HGB USE SMARTSET 28694 01/23/202501/23, 08/22/2023, 07/28/2023, Additional history exists Albumin/Creatinine [...] this encounter Medical Devices Implanted Type Area Shell Mold Bonder Device Identifier Shelf Expiration Date Model / Serial / Lot Endoproth Ips Leg 28 [id number] - [id number] Implanted:Qty : 1 on 03/27/2009 [place] [facility] [place]: Aorta [employer] 01/09/2012 [id number] / / [id number] Endoproth Con Leg 18 [id number] - [id number] Implanted:Qty : 1 on 03/27/2009 at [place] [facility] [place]/A: Aorta [employer] 12/09/2011 [id number] / / [id number] Endoproth Con Leg 16 [id number] - [id number] Implanted:Qty : 1 on 03/27/2009 at [place] [facility] [place]/A: Aorta [employer] 12/09/2011 [id number] / / [id number] Screw 3.5x14 Mntr Fa [id number] - [id number] Implanted:Qty : 10 on 05/15/2010 at [place] [facility] [place]/A: Spine Cervical JNJ : [employer] [id number] / / Screw Inner Mntr [id number] - [id number] Implanted:Qty : 8 on 05/15/2010 at [place] [facility] [place]/A: Spine Cervical JNJ : [employer] [id number] / / Tico [id number] - [id number] Implanted:Qty : 1 on 05/15/2010 at [place] [facility] [place]/A: Spine Cervical JNJ : [employer] [id number] / / Plate 35mm Xcon [id number] - [id number] Implanted:Qty : 1 on 05/15/2010 at [place] [facility] [place]/A: Spine Cervical JNJ : [employer] [id number] / / Nut Outer Xcon [id number] - [id number] Implanted:Qty : 2 on 05/15/2010 at [place] [facility] [place]/A: Spine Cervical JNJ : [employer] [id number] / / Screw Inner Xcon [id number] - [id number] Implanted:Qty : 2 on 05/15/2010 at [place] [facility] [place]/A: Spine Cervical JNJ : [employer] [id number] / / Toric 350 20.5 Implanted:Qty : 1 on 01/31/2024 by Steven Barrett MD at OR [facility] Left: Eye 05/09/2025 [id number] / [id number] / [id number] Lens [id number] 12.5mm+20.50 - [id number] - [id number] Implanted:Qty : 1 on 02/07/2024 by Steven Barrett MD at OR [facility] Right: Eye [employer]OM[employer] 11/09/2026 [id number] / [id number] / [id number] documented as of this encounter Advance Directives [...] Directives occurred with: Not Discussed Care Teams Jammer Operator Relationship Specialty Start Date End Date Kailash Bass III, MD [address] [facility] [place] [address] PCP - General 05/24/1996 documented as of this encounter
--- OUTSIDE RECORDS SUMMARY | 2024-09-03 11:03 | External Medical Summary | Summary of Care ---
Author Name Unknown Organization [facility] Address [address] [place] [address] Phone [phone] Care Team Providers Care Loan Officer Name Role Phone Kali GUTHRIE MD, Martin Darnell Primary Care Provider [phone] Reason for Visit * Reason Comments eRx-Medication Refill Encounter Details Date Type Department Care Team (Late st Contact Info) Description 06/15/2024 Refill Family Practice [facility] [address] [place] [address] Martin Walden III, MD [address] [place] [address] HTN, goal below 140/90 Allergies Active Allergy Reactions Criticality Noted Date Comments Ciprofloxacin Rash Low 05/31/2013 Gabapentin High 01/10/2020 Pregabalin High 01/10/2020 documented as of this encounter (statuses as of 06/16/2024) Medications Medication Sig Dispensed Refills Start Date [...] before bedtime. 60 Tablet 2 08/03/2022 Active Atorvastatin Calcium 80 MG Oral Tablet (Lipitor)Indicat ions:Dyslipidemi a, goal LDL below 100 Take 1 tablet by mouth once daily 90 Tablet 3 06/17/2023 Active Polyethylene Glycol 3350 17 GM/SCOOP Oral Powder (MiraLax)Indicat ions:Constipatio n Take 17 g by mouth in the morning. Dissolve one heaping tablespoon in 8 ounces of water or juice.. 578 g 3 07/25/2023 Active Additional Information Patient taking differently:17 g Oral Daily(AM),Dissolve one heaping tablespoon in 8 ounces of water or juice. TAKING EVERY OTHER DAY, Reported on 02/03/2024 Pantoprazole Sodium 40 MG Oral Tablet Delayed Release (Protonix)Indica tions:Gastroesop hageal reflux disease, unspecified whether esophagitis present Take 1 Tablet by mouth in the morning. 30 minutes before the first meal of the day. Do not crush, split or chew the tablet. 90 Tablet 5 07/29/2023 Active predniSONE 5 MG Oral Tablet (Deltasone) Take 0.5 Tablets by mouth in the morning. 90 Tablet 03/28/2024 Active Ezetimibe 10 MG Oral Tablet (Zetia) Take 1 tablet by mouth once daily 90 Tablet 04/05/2024 Active Candesartan Cilexetil 4 MG Oral Tablet (Atacand) Take 1 tablet by mouth once daily 90 Tablet 2 05/30/2024 Active Carvedilol 12.5 MG Oral Tablet (Coreg)Indicatio ns:HTN, goal below 140/90 TAKE 1 TABLET BY MOUTH IN THE MORNING AND 1 TAB BEFORE BEDTIME 180 Tablet 06/16/2024 Active amLODIPine Besylate 5 MG Oral Tablet (Norvasc) TAKE 1 TABLET BY MOUTH IN THE MORNING 90 Tablet 06/16/2024 Active amLODIPine Besylate 5 MG Oral Tablet (Norvasc) TAKE 1 TABLET BY MOUTH IN THE MORNING 90 Tablet 3 06/17/2023 4 Discontinued Carvedilol 12.5 MG Oral Tablet (Coreg)Indicatio ns:HTN, goal below 140/90 Take 1 Tablet by mouth in the morning and 1 Tablet before bedtime. 180 Tablet 3 08/23/2023 4 Discontinued Hospital, Clinic, or Other Facility Administered Medication Ordered Dose Route Frequency Start Date End Date Status pantoprazole (Protonix) tab 40 mgIndications:Gastroesophagea l reflux disease, unspecified whether esophagitis present 40 mg OR Daily(AM) 03/23/2023 Active documented as of this encounter (statuses as of 06/16/2024) Active Problems Problem Noted Date Diagnosed Date Generalized osteoarthritis 05/16/2024 DDD (degenerative disc disease), lumbar 05/16/20 24 Prediabetes 05/17/2022 Overview: Per Prediabetes protocol Chronic kidney disease, stage 3a 02/17/2021 Overview: Per CKD protocol Vascular claudication 12/29/2020 Hypertensive kidney disease with stage 3a chronic kidney disease 08/18/2020 Overview: Per CKD protocol COOPER on CPAP 05/01/2020 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: Left Centrilobular emphysema 03/22/2019 History of CVA in adulthood 11/16/2018 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 Gastroesophageal reflux disease 05/16/2018 Asymptomatic [...] as of this encounter (statuses as of 06/16/2024) Resolved Problems Problem Noted Date Diagnosed Date [...] as of this encounter (statuses as of 06/16/2024) Immunizations Name Administration Dates Next Due COVID-19 [...] 03/16/1972 - 03/16/2007 Smokeless Tobacco: Never Comments:1/2 -3/ ppd had qu it for a year [...] No 01/15/2021 documented as of this encounter Miscellaneous Notes * Telephone Encounter - Chase Corley [facility] - 06/16/2024 10:28 AM EDT Signed Prescriptions: Disp Refills Carvedilol 12.5 MG Oral Tablet (Coreg) 180 Ta*0 Sig: TAKE 1 TABLET BY MOUTH IN THE MORNING AND 1 TAB BEFORE BEDTIMEAuthorizing Provider: MARTIN WALDEN III User: CHASE CORLEY amLODIPine Besylate 5 MG Oral Tablet (Norv*90 Tab*0 Sig: TAKE 1 TABLET BYMOUTH IN THE MORNINGAuthorizing Provider: MARTIN WALDEN III User: PANDA CORLEY documented in this encounter Plan of Treatment Upcoming Encounters Date Type Department Care Team (Latest Contact Info) Description 07/25/2024 8:00 AM EDT Office Visit Orthopaedics [facility] [address] [place] [address] Quinten Wilkinson DO [address] [place] [address] 07/26/2024 11:25 AM EDT Telemedicine Interventional Pain Center, [facility] [address] [place] [address] Jed Pa, DO [address] [place] [address] 08/10/2024 8:30 AM EDT Office Visit Cardiology, [facility] [address] [place] [address] Braulio Chaudhry PA-C [address] [place] [address] 08/22/2024 1:20 PM EST Hospital Encounter [facility], Operating Room [facility] [address] [place] [address] Jed Pa, DO [address] [place] [address] 08/22/2024 1:20 PM EST - 08/22/2024 1:45 PM EST Surgery [facility], Operating Room [facility] [address] [place] [address] Jed Pa, DO [address] [place] [phone] INJECTION SPINE LUMBAR OR SACRAL 12/03/2024 8:00 AM EST Office Visit Family Practice [facility] [address] [facility] [place] [address] Kali Martin GUTHRIE MD [address] [facility] [place] [address] 05/17/2025 8:20 AM EDT Office Visit Rheumatology [place] [address] [facility] [place] [address] Quinten De Leon MD [address] [place] [address] [place] [address] Scheduled Procedures Name Priority Associated Diagnoses Date/Ti me INJECTION SPINE LUMBAR OR SACRAL Spinal stenosis of lumbar region with neurogenic claudication 08/22/2024 1:20 PM EST COLONOSCOPY FLEXIBLE PROXIMAL DIAGNOSTIC Recall History of colonic polyps Health Maintenance Due Date Last Done Comments Adult Wellness Visit 2014 Depression Screening 01/29/2023 01/29/2022 COVID-19 Vaccine ( season) 2024 12/13/2020, 11/15/2020 Influenza Vaccine (FLU shot) (#1) 2024 07/21/2023, 08/03/2022, 07/25/2021, Additional history exists AAA Monitoring 07/06/2024 07/06/2023, 06/10, 05/28/2021, Additional history exists CKD PHOS USE SMARTSET 08056 07/18/2024 10/0 06/2023, 02/08/2023, 10/25/2022, Additional history exists GFR 12/07/2024 06/06/2024, 01/09, 01/25/2024, Additional history exists CKD HGB USE SMARTSET 69967 01/23/202501/23, 08/22/2023, 07/28/2023, Additional history exists Albumin/Creatinine [...] this encounter Medical Devices Implanted Type Area Insulation Packer Device Identifier Shelf Expiration Date Model / Serial / Lot Endoproth Ips Leg 28 [id number] - [id number] Implanted:Qty : 1 on 03/27/[address] [facility] [place] N/A: Aorta [employer] 01/09/2012 [id number] / / [id number] Endoproth Con Leg 18 [id number] - [id number] Implanted:Qty : 1 on 03/27/[address] [facility] [place] N/A: Aorta [employer] 12/09/2011 [id number] / / [id number] Endoproth Con Leg 16 [id number] - [id number] Implanted:Qty : 1 on 03/27/[address] [facility] [place] N/A: Aorta [employer] 12/09/2011 [id number] / / [id number] Screw 3.5x14 Mntr Fa [id number] - [id number] Implanted:Qty : 10 on 05/15/[address] [facility] [place] N/A: Spine Cervical JNJ : [employer] [id number] / / Screw Inner Mntr [id number] - [id number] Implanted:Qty : 8 on 05/15/[address] [facility] [place] N/A: Spine Cervical JNJ : [employer] [id number] / / Tico [id number] - [id number] Implanted:Qty : 1 on 05/15/[address] [facility] [place] N/A: Spine Cervical JNJ : [employer] [id number] / / Plate 35mm Xcon [id number] - [id number] Implanted:Qty : 1 on 05/15/[address] [facility] [place] N/A: Spine Cervical JNJ : [employer] [id number] / / Nut Outer Xcon [id number] - [id number] Implanted:Qty : 2 on 05/15/[address] [facility] [place] N/A: Spine Cervical JNJ : [employer] [id number] / / Screw Inner Xcon [id number] - [id number] Implanted:Qty : 2 on 05/15/[address] [facility] [place] N/A: Spine Cervical JNJ : [employer] [id number] / / Toric 350 20.5 Implanted:Qty : 1 on 01/31/2024 by Steven Barrett MD at OR [facility] Left: Eye 05/09/2025 [id number] / [id number] / [id number] Lens [id number] 12.5mm+20.50 - [id number] - [id number] Implanted:Qty : 1 on 02/07/2024 by Steven Barrett MD at OR [facility] Right: Eye [employer] LOMB 11/09/2026 [id number] / [id number] / [id number] documented as of this encounter Visit Diagnoses Diagnosis HTN, goal below 140/90 Unspecified essential hypertension Spinal stenosis of lumbar region with neurogenic [...] Directives occurred with: Not Discussed Care Teams Loan Officer Relationship Specialty Start Date End Date Martin Walden III, MD 200 [facility] [place] [address] PCP - General 05/24/1996 documented as of this encounter
--- OUTSIDE RECORDS SUMMARY | 2024-09-03 11:03 | External Medical Summary | Summary of Care ---
Author Name Unknown Organization [facility] Address [address] [place] [address] Phone [phone] Care Team Providers Care Bulk Gas Specialist Name Role Phone Kali GUTHRIE MD, Kailash Darnell Primary Care Provider [phone] Encounter Details Date Type Department Care Team [...] of CVA in adulthood 11/16/2018 Acute left PHARMACEUTICAL PHYSICIAN stroke 07/20/2018 Gastroesophageal reflux disease 05/16/2018 Asymptomatic [...] 07/25/2024 8:00 AM EDT Office Visit Orthopaedics [facility] [address] [place] [address] Quinten Wilkinson, DO [address] [place] [address] 07/26/2024 11:25 AM EDT Telemedicine Interventional Pain Center, [facility] [address] [place] [address] Jed Pa DO [address] [place] [phone] 08/10/2024 8:30 AM EDT Office Visit Cardiology, [facility] [address] [place] [address] Braulio Chaudhry PA-C [address] [place] [address] 08/13/2024 7:35 AM EST Hospital Encounter [facility] Operating [facility] [address] [place] [address] Jed Pa DO [address] [place] [phone] 08/13/2024 7:35 AM EST - 08/13/2024 8:00 AM EST Surgery [facility], Operating Room [facility] [address] [place] [address] Jed Pa DO [address] [place] [address] INJECTION SPINE LUMBAR OR SACRAL 12/03/2024 8:00 AM EST Office Visit [facility] [address] [place] [address] Kailash Bass III, MD [address] [place] [address] 05/17/2025 8:20 AM EDT Office Visit Rheumatology [facility] [address] [place] [address] Quinten De Leon MD [address] [place] [address] Scheduled Procedures Name Priority Associated Diagnoses Date/Ti [...] Additional history exists CKD PHOS USE SMARTSET 47920 07/18/2024 1006/2023, 02/08/2023, 10/25/2022, Additional history exists GFR 12/07/2024 06/06/2024, 01/09, 01/25/2024, Additional history exists CKD HGB USE SMARTSET 79533 01/23/202501/23, 08/22/2023, 07/28/2023, Additional history exists Albumin/Creatinine [...] this encounter Medical Devices Implanted Type Area Nursery Supervisor Device Identifier Shelf Expiration Date Model / Serial / Lot Endoproth Ips Leg 28 [id number] - [id number] Implanted:Qty : 1 on 03/27/2009 [place] [facility] [place]: Aorta [employer] 01/09/2012 [id number] / / [id number] Endoproth Con Leg 18 [id number] - [id number] Implanted:Qty : 1 on 03/27/2009 [place] [facility] [place]A: Aorta [employer] 12/09/2011 [id number] / / [id number] Endoproth Con Leg 16 [id number] - [id number] Implanted:Qty : 1 on 03/27/2009 [place] [facility] [place]A: Aorta [employer] 12/09/2011 [id number] / / [id number] Screw 3.5x14 Mntr Fa [id number] - [id number] Implanted:Qty : 10 on 05/15/2010 [place] [facility] [place]/A: Spine Cervical JNJ : [employer] [id number] / / Screw Inner Mntr [id number] - [id number] Implanted:Qty : 8 on 05/15/2010 at [place] [facility] [place] N/A: Spine Cervical JNJ : [employer] [id number] / / Tico 3.3m653nl [id number] - [id number] Implanted:Qty : 1 on 05/15/2010 at [place] [facility] [place] N/A: Spine Cervical JNJ : [employer] [id number] / / Plate 35mm Xcon [id number] - [id number] Implanted:Qty : 1 on 05/15/2010 at [place] [facility] [place] N/A: Spine Cervical JNJ : [employer] [id number] / / Nut Outer Xcon [id number] - [id number] Implanted:Qty : 2 on 05/15/2010 at [place] [facility] [place] N/A: Spine Cervical JNJ : [employer] [id number] / / Screw Inner Xcon [id number] - [id number] Implanted:Qty : 2 on 05/15/2010 at [place] [facility] [place] N/A: Spine Cervical JNJ : [employer] [id number] / / Toric 350 20.5 Implanted:Qty : 1 on 01/31/2024 by Steven Barrett MD at OR [facility] Left: Eye 05/09/2025 [id number] / [id number] / [id number] Lens [id number] 12.5mm+20.50 - [id number] - [id number] Implanted:Qty : 1 on 02/07/2024 by Steven Barrett MD at OR [facility] Right: Eye [employer]OM[employer] 11/09/2026 [id number] / [id number] / [id number] documented as of this encounter Advance Directives [...] Directives occurred with: Not Discussed Care Teams Bulk Gas Specialist Relationship Specialty Start Date End Date Kailash Bass III, MD [address] [place] [address] PCP - General 05/24/1996 documented as of this encounter
--- OUTSIDE RECORDS SUMMARY | 2024-09-03 11:03 | External Medical Summary | Summary of Care ---
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 [address] [place] [address] Quinten Wilkinson, DO [address] [place] [address] 07/26/2024 11:25 AM EDT Telemedicine Interventional Pain Center, [facility] [address] [place] [address] Jed Pa DO [address] [place] [phone] 08/10/2024 8:30 AM EDT Office Visit Cardiology, [facility] [address] [place] [address] Braulio Chaudhry PA-C [address] [place] [address] 08/13/2024 7:35 AM EST Hospital Encounter [facility], Operating Room [facility] [address] [place] [address] Jed Pa DO [address] [place] [phone] 08/13/2024 7:35 AM EST - 08/13/2024 8:00 AM EST Surgery [facility], Operating Room [facility] [address] [place] [phone] Jed Pa DO [address] [place] [address] INJECTION SPINE LUMBAR OR SACRAL 12/03/2024 8:00 AM EST Office Visit [facility] [address] [place] [address] Kailash Bass III, MD [address] [place] [address] 05/17/2025 8:20 AM EDT Office Visit Rheumatology [facility] [address] [place] [address] Quinten De Leon MD [address] [place] [address] Scheduled Procedures Name Priority Associated Diagnoses Date/Ti [...] Additional history exists CKD PHOS USE SMARTSET 59039 07/18/2024 1006/2023, 02/08/2023, 10/25/2022, Additional history exists GFR 12/07/2024 06/06/2024, 01/09, 01/25/2024, Additional history exists CKD HGB USE SMARTSET 63432 01/23/202501/23, 08/22/2023, 07/28/2023, Additional history exists Albumin/Creatinine [...] this encounter Medical Devices Implanted Type Area Credit Control Manager Device Identifier Shelf Expiration Date Model / Serial / Lot Endoproth Ips Leg 28 [id number] - [id number] Implanted:Qty : 1 on 03/27/2009 at [place] [facility] [place] N/A: Aorta [employer] 01/09/2012 [id number] / / [id number] Endoproth Con Leg 18 [id number] - [id number] Implanted:Qty : 1 on 03/27/2009 at [place] [facility] [place] N/A: Aorta [employer] 12/09/2011 [id number] / / [id number] Endoproth Con Leg 16 [id number] - [id number] Implanted:Qty : 1 on 03/27/2009 at [place] [facility] [place] N/A: Aorta [employer] 12/09/2011 [id number] / / [id number] Screw 3.5x14 Mntr Fa [id number] - [id number] Implanted:Qty : 10 on 05/15/2010 at [place] [facility] [place] N/A: Spine Cervical JNJ : [employer] [id number] / / Screw Inner Mntr [id number] - [id number] Implanted:Qty : 8 on 05/15/2010 at [place] [facility] [place] N/A: Spine Cervical JNJ : [employer] [id number] / / Tico 3.4t155tn [id number] - [id number] Implanted:Qty : 1 on 05/15/2010 at [place] [facility] [place] N/A: Spine Cervical JNJ : [employer] [id number] / / Plate 35mm Xcon [id number] - [id number] Implanted:Qty : 1 on 05/15/2010 at [place] [facility] [place] N/A: Spine Cervical JNJ : [employer] [id number] / / Nut Outer Xcon [id number] - [id number] Implanted:Qty : 2 on 05/15/2010 at [place] [facility] [place] N/A: Spine Cervical JNJ : [employer] [id number] / / Screw Inner Xcon [id number] - [id number] Implanted:Qty : 2 on 05/15/2010 at [place] [facility] [place] N/A: Spine Cervical JNJ : [employer] [id number] / / Toric 350 20.5 Implanted:Qty : 1 on 01/31/2024 by Steven Barrett MD at OR [facility] Left: Eye 05/09/2025 [id number] / [id number] / [id number] Lens Xy34mgz 12.5mm+20.50 - [id number] - [id number] Implanted:Qty : 1 on 02/07/2024 by Steven Barrett MD at OR [facility] Right: Eye [employer] 11/09/2026 [id number] / [id number] / [id number] documented as of this encounter Advance Directives [...] Directives occurred with: Not Discussed Care Teams Endoscopy Tech Relationship Specialty Start Date End Date Kailash Bass III, MD [address] [facility] [address] PCP - General 05/24/1996 documented as of this encounter
--- OUTSIDE RECORDS SUMMARY | 2024-09-03 11:03 | External Medical Summary | Summary of Care ---
Author Name Unknown Organization [facility] Address [address] [place] [address] Phone [phone] Care Team Providers Care Quality Control Checker Name Role Phone Kali GUTHRIE MD, Martin Darnell Primary Care Provider [phone] Reason for Visit * Reason Comments eRx-Medication Refill Encounter Details Date Type Department Care Team (Late st Contact Info) Description 07/01/2024 Refill Family Practice [facility] [address] [facility] [place] [address] Martin Walden III, MD 200 [facility] [place] [address] Dyslipidemia, goal LDL below 100 Allergies Active Allergy Reactions Criticality Noted Date Comments Ciprofloxacin Rash Low 05/31/2013 Gabapentin High 01/10/2020 Pregabalin High 01/10/2020 documented as of this encounter (statuses as of 07/02/2024) Medications Medication Sig Dispensed Refills Start Date [...] once daily 90 Tablet 3 07/02/2024 Active Atorvastatin Calcium 80 MG Oral Tablet (Lipitor)Indicat ions:Dyslipidemi a, goal LDL below 100 Take 1 tablet by mouth once daily 90 Tablet 3 06/17/2023 4 Discontinued Hospital, Clinic, or Other Facility Administered Medication Ordered Dose Route Frequency Start Date End Date Status pantoprazole (Protonix) tab 40 mgIndications:Gastroesophagea l reflux disease, unspecified whether esophagitis present 40 mg OR Daily(AM) 03/23/2023 Active documented as of this encounter (statuses as of 07/02/2024) Active Problems Problem Noted Date Diagnosed Date [...] of CVA in adulthood 11/16/2018 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 left PET AMBASSADOR stroke 07/20/2018 Gastroesophageal reflux disease 05/16/2018 Asymptomatic [...] as of this encounter (statuses as of 07/02/2024) Resolved Problems Problem Noted Date Diagnosed Date [...] as of this encounter (statuses as of 07/02/2024) Immunizations Name Administration Dates Next Due COVID-19 [...] encounter Miscellaneous Notes * Telephone Encounter - Alden Dejesus [facility] - 07/02/2024 4:22 PM EDTSigned Prescriptions: Disp Refills Atorvastatin Calcium 80 MG Oral Tablet (Li*90 Tab*3 Sig: Take 1 tablet by mouth once dailyAuthorizing Provider: MARTIN WALDEN III User: ALDEN DEJESUS--- documented in this encounter Plan of Treatment Upcoming Encounters Date Type Department Care Team (Latest Contact Info) Description 07/25/2024 8:00 AM EDT Office Visit Orthopaedics [facility] [address] [place] [address] Alden Wilkinson, [address] [place] [address] 07/26/2024 11:25 AM EDT Telemedicine Interventional Pain Center, [facility] [address] [place] [address] Jed Pa, [address] [place] [address] 08/10/2024 8:30 AM EDT Office Visit Cardiology, [facility] [address] [place] [address] Braulio Chaudhry PA-C [address] [place] [address] 08/13/2024 7:35 AM EST Hospital Encounter [facility], Operating Room [facility] [address] [place] [phone] Jed Pa, DO [address] [place] [address] 08/13/2024 7:35 AM EST - 08/13/2024 8:00 AM EST Surgery [facility], Operating Room [facility] [address] [place] [phone] Jed Pa, DO [address] [place] [address] INJECTION SPINE LUMBAR OR SACRAL 12/03/2024 8:00 AM EST Office Visit Family Practice [facility] [address] [facility] [place] [address] Martin Walden III, MD [address] [facility] [place] [address] 05/17/2025 8:20 AM EDT Office Visit Rheumatology [place] [address] [address] [place] [address] Alden De Leon MD [facility] [address] [place] [address] Scheduled Procedures Name Priority Associated Diagnoses Date/Ti [...] Additional history exists CKD PHOS USE SMARTSET 94764 07/18/2024 100 06/2023, 02/08/2023, 10/25/2022, Additional history exists GFR 12/07/2024 06/06/2024, 01/09, 01/25/2024, Additional history exists CKD HGB USE SMARTSET 67470 01/23/202501/23, 08/22/2023, 07/28/2023, Additional history exists Albumin/Creatinine [...] this encounter Medical Devices Implanted Type Area Tattooer Device Identifier Shelf Expiration Date Model / Serial / Lot Endoproth Ips Leg 28 [id number] - [id number] Implanted:Qty : 1 on 03/27/2009 at [place] [facility] [place] N/A: Aorta [employer] 01/09/2012 [id number] / / [id number] Endoproth Con Leg 18 [id number] - [id number] Implanted:Qty : 1 on 03/27/2009 at [place] [facility] [place] N/A: Aorta [employer] 12/09/2011 [id number] / / [id number] Endoproth Con Leg 16 [id number] - [id number] Implanted:Qty : 1 on 03/27/2009 at [place] [facility] [place] N/A: Aorta [employer] 12/09/2011 [id number] / / [id number] Screw 3.5x14 Mntr Fa [id number] - [id number] Implanted:Qty : 10 on 05/15/2010 at [place] [facility] [place] N/A: Spine Cervical JNJ : [employer] [id number] / / Screw Inner Mntr [id number] - [id number] Implanted:Qty : 8 on 05/15/2010 at [place] [facility] [place] N/A: Spine Cervical JNJ : [employer] [id number] / / Tico 3.8w786cn [id number] - [id number] Implanted:Qty : 1 on 05/15/2010 at [place] [facility] [place] N/A: Spine Cervical JNJ : [employer] [id number] / / Plate 35mm Xcon [id number] - [id number] Implanted:Qty : 1 on 05/15/2010 at [place] [facility] [place] N/A: Spine Cervical JNJ : [employer] [id number] / / Nut Outer Xcon [id number] - [id number] Implanted:Qty : 2 on 05/15/2010 at [place] [facility] [place] N/A: Spine Cervical JNJ : [employer] [id number] / / Screw Inner Xcon [id number] - [id number] Implanted:Qty : 2 on 05/15/2010 at [place] [facility] [place] N/A: Spine Cervical JNJ : [employer] [id number] / / Toric 350 20.5 Implanted:Qty : 1 on 01/31/2024 by Steven Barrett MD at OR [facility] Left: Eye 05/09/2025 [id number] / [id number] / [id number] Lens So43gla 12.5mm+20.50 - [id number] - [id number] Implanted:Qty : 1 on 02/07/2024 by Steven Barrett MD at OR [facility] Right: Eye [employer] 11/09/2026 [id number] / [id number] / [id number] documented as of this encounter Visit Diagnoses Diagnosis Dyslipidemia, goal LDL below 100 Other and unspecified hyperlipidemia Spinal stenosis of lumbar region with neurogenic [...] Directives occurred with: Not Discussed Care Teams Quality Control Checker Relationship Specialty Start Date End Date Martin Walden III, MD [address] [place] [address] PCP - General 05/24/1996 documented as of this encounter
--- OUTSIDE RECORDS SUMMARY | 2024-09-03 11:03 | External Medical Summary | Summary of Care ---
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 Gastroesophageal reflux disease 05/16/2018 Asymptomatic [...] 07/25/2024 8:00 AM EDT Office Visit Orthopaedics [facility] [address] [place] [address] Quinten Wilkinson, DO [address] [place] [address] 07/26/2024 11:25 AM EDT Telemedicine Interventional Pain Center, [facility] [address] [place] [address] Jed Pa DO [address] [place] [phone] 08/10/2024 8:30 AM EDT Office Visit Cardiology, [facility] [address] [place] [address] Braulio Chaudhry PA-C [address] [place] [address] 08/13/2024 7:35 AM EST Hospital Encounter [facility], Operating Room [facility] [address] [place] [phone] Jed Pa DO [address] [place] [address] 08/13/2024 7:35 AM EST - 08/13/2024 8:00 AM EST Surgery [facility], Operating Room [facility] [address] [place] [phone] Jed Pa DO [address] [place] [address] INJECTION SPINE LUMBAR OR SACRAL 12/03/2024 8:00 AM EST Office Visit [facility] [address] [place] [address] Kailash Bass III, MD [address] [place] [address] 05/17/2025 8:20 AM EDT Office Visit Rheumatology [facility] [address] [place] [address] Quinten De Leon MD [address] [place] [address] Scheduled Procedures Name Priority Associated Diagnoses Date/Ti [...] Additional history exists CKD PHOS USE SMARTSET 45288 07/18/2024 1006/2023, 02/08/2023, 10/25/2022, Additional history exists GFR 12/07/2024 06/06/2024, 01/09, 01/25/2024, Additional history exists CKD HGB USE SMARTSET 17129 01/23/202501/23, 08/22/2023, 07/28/2023, Additional history exists Albumin/Creatinine [...] this encounter Medical Devices Implanted Type Area Band Scroll Saw Operator Device Identifier Shelf Expiration Date Model / Serial / Lot Endoproth Ips Leg 28 [id number] - [id number] Implanted:Qty : 1 on 03/27/2009 [place] [facility] [place] Aorta [employer] 01/09/2012 [id number] / / [id number] Endoproth Con Leg 18 [id number] - [id number] Implanted:Qty : 1 on 03/27/2009 [place] [facility] [place]: Aorta [employer] 12/09/2011 [id number] / / [id number] Endoproth Con Leg 16 [id number] - [id number] Implanted:Qty : 1 on 03/27/2009 [place] [facility] [place]A: Aorta [employer] 12/09/2011 [id number] / / [id number] Screw 3.5x14 Mntr Fa [id number] - [id number] Implanted:Qty : 10 on 05/15/2010 [place] [facility] [place]: Spine Cervical JNJ : [employer] [id number] / / Screw Inner Mntr [id number] - [id number] Implanted:Qty : 8 on 05/15/2010 [place] [facility] [place]A: Spine Cervical JNJ : [employer] [id number] / / Tico 3.9v469xr [id number] - [id number] Implanted:Qty : 1 on 05/15/2010 [place] [facility] [place]A: Spine Cervical JNJ : [employer] [id number] / / Plate 35mm Xcon [id number] - [id number] Implanted:Qty : 1 on 05/15/2010 [place] [facility] [place]A: Spine Cervical JNJ : [employer] [id number] / / Nut Outer Xcon [id number] - [id number] Implanted:Qty : 2 on 05/15/2010 [place] [facility] [place]A: Spine Cervical JNJ : [employer] [id number] / / Screw Inner Xcon [id number] - [id number] Implanted:Qty : 2 on 05/15/2010 [place] [facility] [place]A: Spine Cervical JNJ : [employer] [id number] / / Toric 350 20.5 Implanted:Qty : 1 on 01/31/2024 by Steven Barrett MD at OR [facility] Left: Eye 05/09/2025 [id number] / [id number] / [id number] Lens Zz21qpm 12.5mm+20.50 - [id number] - [id number] Implanted:Qty : 1 on 02/07/2024 by Steven Barrett MD at OR [facility] Right: Eye [employer] 11/09/2026 [id number] / [id number] / [id number] documented as of this encounter Advance Directives [...] Directives occurred with: Not Discussed Care Teams Community Arts Officer Relationship Specialty Start Date End Date Kailash Bass III, MD [address] [facility] [place] [address] PCP - General 05/24/1996 documented as of this encounter
--- OUTSIDE RECORDS SUMMARY | 2024-09-03 11:03 | External Medical Summary | Summary of Care ---
Author Name Unknown Organization [facility] Address [address] [place] [address] Phone [phone] Care Team Providers Care Personnel Supervisor Name Role Phone Kali GUTHRIE MD, Martin Darnell Primary Care Provider [phone] Reason for Visit * Reason Comments eRx-Medication Refill Encounter Details Date Type Department Care Team (Late st Contact Info) Description 06/28/2024 Refill Family Practice [facility] [address] [place] [address] Martin Walden III, MD [address] [place] [address] Allergies Active Allergy Reactions Criticality Noted Date Comments Ciprofloxacin Rash Low 05/31/2013 Gabapentin High 01/10/2020 Pregabalin High 01/10/2020 documented as of this encounter (statuses as of 06/29/2024) Medications Medication Sig Dispensed Refills Start Date [...] once daily 90 Tablet 3 06/29/2024 Active Ezetimibe 10 MG Oral Tablet (Zetia) Take 1 tablet by mouth once daily 90 Tablet 04/05/2024 4 Discontinued Hospital, Clinic, or Other Facility Administered Medication Ordered Dose Route Frequency Start Date End Date Status pantoprazole (Protonix) tab 40 mgIndications:Gastroesophagea l reflux disease, unspecified whether esophagitis present 40 mg OR Daily(AM) 03/23/2023 Active documented as of this encounter (statuses as of 06/29/2024) Active Problems Problem Noted Date Diagnosed Date [...] of CVA in adulthood 11/16/2018 Acute left ASPHALT HEATER TENDER stroke 07/20/2018 Gastroesophageal reflux disease 05/16/2018 [...] as of this encounter (statuses as of 06/29/2024) Resolved Problems Problem Noted Date Diagnosed Date [...] as of this encounter (statuses as of 06/29/2024) Immunizations Name Administration Dates Next Due COVID-19 [...] Notes * Telephone Encounter - Alden Dejesus [facility] - 06/29/2024 11:09 AM EDTSigned Prescriptions: Disp Refills Ezetimibe 10 MG Oral Tablet (Zetia) 90 Tab*3 Sig: Take 1 tablet by mouth once dailyAuthorizing Provider: MARTIN WALDEN III User: ALDEN DEJESUS documented in this encounter Plan of Treatment Upcoming Encounters Date Type Department Care Team (Latest Contact Info) Description 07/25/2024 8:00 AM EDT Office Visit Orthopaedics [facility] [address] [place] [address] Alden Wilkinson, DO [address] [place] [address] 07/26/2024 11:25 AM EDT Telemedicine Interventional Pain Center, [facility] [address] [place] [address] Jed Pa, [address] [place] [phone] 08/10/2024 8:30 AM EDT Office Visit Cardiology, [facility] [address] [place] [address] Braulio Chaudhry PA-C [address] [place] [address] 08/22/2024 1:20 PM EST Hospital Encounter [facility] [address] [place] [phone] Jed Pa, DO [address] [place] [phone] 08/22/2024 1:20 PM EST - 08/22/2024 1:45 PM EST Surgery [facility] [address] [place] [phone] Jed Pa, DO [address] [place] [phone] INJECTION SPINE LUMBAR OR SACRAL 12/03/2024 8:00 AM EST Office Visit Family Practice [facility] [address] [facility] [place] [address] Martin Walden III, MD [address] [facility] [place] [address] 05/17/2025 8:20 AM EDT Office Visit Rheumatology [place] [address] [employer] [place] [address] Alden De Leon MD [facility] [email or web address] [address] Scheduled Procedures Name Priority Associated Diagnoses Date/Ti me INJECTION SPINE LUMBAR OR SACRAL Spinal stenosis of lumbar region with neurogenic claudication 08/22/2024 1:20 PM EST COLONOSCOPY FLEXIBLE PROXIMAL DIAGNOSTIC Recall History of colonic polyps Health Maintenance Due Date Last Done Comments Adult Wellness Visit 2014 Depression Screening 01/29/2023 01/29/2022 COVID-19 Vaccine (3 season) 2024 12/13/2020, 11/15/2020 Influenza Vaccine (FLU shot) (#1) 2024 07/21/2023, 08/03/2022, 07/25/2021, Additional history exists AAA Monitoring 07/06/2024 07/06/2023, 06/10, 05/28/2021, Additional history exists CKD PHOS USE SMARTSET 93526 07/18/2024 100 06/2023, 02/08/2023, 10/25/2022, Additional history exists GFR 12/07/2024 06/06/2024, 01/09, 01/25/2024, Additional history exists CKD HGB USE SMARTSET 60331 01/23/202501/23, 08/22/2023, 07/28/2023, Additional history exists Albumin/Creatinine [...] this encounter Medical Devices Implanted Type Area Electric Bath Attendant Device Identifier Shelf Expiration Date Model / Serial / Lot Endoproth Ips Leg 28 [id number] - [id number] Implanted:Qty : 1 on 03/27/2009 at [place] [facility] N/A: Aorta [employer] 01/09/2012 [id number] / / [id number] Endoproth Con Leg 18 [id number] - [id number] Implanted:Qty : 1 on 03/27/2009 at OR [facility] N/A: Aorta [employer] 12/09/2011 [id number] / / [id number] Endoproth Con Leg 16 [id number] - [id number] Implanted:Qty : 1 on 03/27/2009 at OR [facility] [place] N/A: Aorta [employer] 12/09/2011 [id number] / / [id number] Screw 3.5x14 Mntr Fa [id number] - [id number] Implanted:Qty : 10 on 05/15/2010 at OR [facility] N/A: Spine Cervical JNJ : [employer] [id number] / / Screw Inner Mntr [id number] - [id number] Implanted:Qty : 8 on 05/15/2010 at OR [facility] N/A: Spine Cervical JNJ : [employer] [id number] / / Tico 3.7p263jn [id number] - [id number] Implanted:Qty : 1 on 05/15/2010 at OR [facility] N/A: Spine Cervical JNJ : [employer] [id number] / / Plate 35mm Xcon [id number] - [id number] Implanted:Qty : 1 on 05/15/2010 at OR [facility] N/A: Spine Cervical JNJ : [employer] [id number] / / Nut Outer Xcon [id number] - [id number] Implanted:Qty : 2 on 05/15/2010 at OR [facility] N/A: Spine Cervical JNJ : [employer] [id number] / / Screw Inner Xcon [id number] - [id number] Implanted:Qty : 2 on 05/15/2010 at OR [facility] N/A: Spine Cervical JNJ : [employer] [id number] / / Toric 350 20.5 Implanted:Qty : 1 on 01/31/2024 by Steven Barrett MD at OR [facility] Left: Eye 05/09/2025 [id number] / [id number] / [id number] Lens [id number] 12.5mm+20.50 - [id number] - [id number] Implanted:Qty : 1 on 02/07/2024 by Steven Barrett MD at OR [facility] Right: Eye [employer] 11/09/2026 [id number] / [id number] / [id number] documented as of this encounter Advance Directives [...] Directives occurred with: Not Discussed Care Teams Personnel Supervisor Relationship Specialty Start Date End Date Martin Walden III, MD [address] [place] [address] PCP - General 05/24/1996 documented as of this encounter
--- OUTSIDE RECORDS SUMMARY | 2024-09-03 11:03 | External Medical Summary | Summary of Care ---
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 [address] [place] [address] Quinten Wilkinson, DO [address] [place] [address] 07/26/2024 11:25 AM EDT Telemedicine Interventional Pain Center, [facility] [address] [place] [address] Jed Pa DO [address] [place] [phone] 08/10/2024 8:30 AM EDT Office Visit Cardiology, [facility] [address] [place] [address] Braulio Chaudhry PA-C [address] [place] [address] 08/13/2024 7:35 AM EST Hospital Encounter [facility], Operating Room [facility] [address] [place] [phone] Jed Pa DO [address] [place] [phone] 08/13/2024 7:35 AM EST - 08/13/2024 8:00 AM EST Surgery [facility], Operating Room [facility] [address] [place] [phone] Jed Pa DO [address] [place] [address] INJECTION SPINE LUMBAR OR SACRAL 12/03/2024 8:00 AM EST Office Visit [facility] [address] [place] [address] Kailash Bass III, MD [address] [place] [address] 05/17/2025 8:20 AM EDT Office Visit Rheumatology [facility] [address] [place] [address] Quinten De Leon MD [address] [place] [address] Scheduled Procedures Name Priority Associated Diagnoses Date/Ti [...] Additional history exists CKD PHOS USE SMARTSET 01193 07/18/2024 1006/2023, 02/08/2023, 10/25/2022, Additional history exists GFR 12/07/2024 06/06/2024, 01/09, 01/25/2024, Additional history exists CKD HGB USE SMARTSET 83931 01/23/202501/23, 08/22/2023, 07/28/2023, Additional history exists Albumin/Creatinine [...] this encounter Medical Devices Implanted Type Area Scanning Manager Device Identifier Shelf Expiration Date Model / Serial / Lot Endoproth Ips Leg 28 [id number] - [id number] Implanted:Qty : 1 on 03/27/2009 at OR [facility] [place] N/A: Aorta [employer] 01/09/2012 [id number] / / [id number] Endoproth Con Leg 18 [id number] - [id number] Implanted:Qty : 1 on 03/27/2009 at OR [facility] [place] N/A: Aorta [employer] 12/09/2011 [id number] / / [id number] Endoproth Con Leg 16 [id number] - [id number] Implanted:Qty : 1 on 03/27/2009 at OR [facility] [place] N/A: Aorta [employer] 12/09/2011 [id number] / / [id number] Screw 3.5x14 Mntr Fa [id number] - [id number] Implanted:Qty : 10 on 05/15/2010 at OR [facility] [place] N/A: Spine Cervical JNJ : [employer] [id number] / / Screw Inner Mntr [id number] - [id number] Implanted:Qty : 8 on 05/15/2010 at OR [facility] [place] N/A: Spine Cervical JNJ : [employer] [id number] / / Tico 3.3u583ag [id number] - [id number] Implanted:Qty : 1 on 05/15/2010 at OR [facility] [place] N/A: Spine Cervical JNJ : [employer] [id number] / / Plate 35mm Xcon [id number] - [id number] Implanted:Qty : 1 on 05/15/2010 at OR [facility] [place] N/A: Spine Cervical JNJ : [employer] [id number] / / Nut Outer Xcon [id number] - [id number] Implanted:Qty : 2 on 05/15/2010 at OR [facility] [place] N/A: Spine Cervical JNJ : [employer] [id number] / / Screw Inner Xcon [id number] - [id number] Implanted:Qty : 2 on 05/15/2010 at OR [facility] [place] N/A: Spine Cervical JNJ : [employer] [id number] / / Toric 350 20.5 Implanted:Qty : 1 on 01/31/2024 by Steven Barrett MD at OR [facility] Left: Eye 05/09/2025 [id number] / [id number] / [id number] Lens Ip96xee 12.5mm+20.50 - [id number] - [id number] Implanted:Qty : 1 on 02/07/2024 by Steven Barrett MD at OR [facility] Right: Eye [employer] 11/09/2026 [id number] / [id number] / [id number] documented as of this encounter Advance Directives [...] Directives occurred with: Not Discussed Care Teams Hazardous Materials Handler Relationship Specialty Start Date End Date Kailash Bass III, MD [address] [place] [address] PCP - General 05/24/1996 documented as of this encounter
--- OUTSIDE RECORDS SUMMARY | 2024-09-03 11:03 | External Medical Summary | Summary of Care ---
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 Gastroesophageal reflux disease 05/16/2018 Asymptomatic [...] 07/25/2024 8:00 AM EDT Office Visit Orthopaedics [facility] [address] [place] [address] Quinten Wilkinson, DO [address] [place] [address] 07/26/2024 11:25 AM EDT Telemedicine Interventional Pain Center, [facility] [address] [place] [address] Jed Pa DO [address] [place] [phone] 08/10/2024 8:30 AM EDT Office Visit Cardiology, [facility] [address] [place] [address] Braulio Chaudhry PA-C [address] [place] [address] 08/13/2024 7:35 AM EST Hospital Encounter [facility], Operating Room [facility] [address] [place] [phone] Jed Pa DO [address] [place] [address] 08/13/2024 7:35 AM EST - 08/13/2024 8:00 AM EST Surgery [facility], Operating Room [facility] [address] [place] [phone] Jed Pa DO [address] [place] [address] INJECTION SPINE LUMBAR OR SACRAL 12/03/2024 8:00 AM EST Office Visit [facility] [address] [place] [address] Kailash Bass III, MD [address] [place] [address] 05/17/2025 8:20 AM EDT Office Visit Rheumatology [facility] [address] [place] [address] Quinten De Leon MD [address] [place] [address] Scheduled Procedures Name Priority Associated Diagnoses Date/Ti [...] Additional history exists CKD PHOS USE SMARTSET 74793 07/18/2024 1006/2023, 02/08/2023, 10/25/2022, Additional history exists GFR 12/07/2024 06/06/2024, 01/09, 01/25/2024, Additional history exists CKD HGB USE SMARTSET 79995 01/23/202501/23, 08/22/2023, 07/28/2023, Additional history exists Albumin/Creatinine [...] this encounter Medical Devices Implanted Type Area Polish Compounder Device Identifier Shelf Expiration Date Model / Serial / Lot Endoproth Ips Leg 28 [id number] - [id number] Implanted:Qty : 1 on 03/27/2009 [place] [facility] [place]: Aorta [employer] 01/09/2012 [id number] / / [id number] Endoproth Con Leg 18 [id number] - [id number] Implanted:Qty : 1 on 03/27/2009 [place] [facility] [place]/A: Aorta [employer] 12/09/2011 [id number] / / [id number] Endoproth Con Leg 16 [id number] - [id number] Implanted:Qty : 1 on 03/27/2009 [place] [facility] N/A: Aorta [employer] 12/09/2011 [id number] / / [id number] Screw 3.5x14 Mntr Fa [id number] - [id number] Implanted:Qty : 10 on 05/15/2010 [place] [facility] N/A: Spine Cervical JNJ : [employer] [id number] / / Screw Inner Mntr [id number] - [id number] Implanted:Qty : 8 on 05/15/2010 at [place] [facility] N/A: Spine Cervical JNJ : [employer] [id number] / / Tico 3.7x586dy [id number] - [id number] Implanted:Qty : 1 on 05/15/2010 at [place] [facility] N/A: Spine Cervical JNJ : [employer] [id number] / / Plate 35mm Xcon [id number] - [id number] Implanted:Qty : 1 on 05/15/2010 at [place] [facility] N/A: Spine Cervical JNJ : [employer] [id number] / / Nut Outer Xcon [id number] - [id number] Implanted:Qty : 2 on 05/15/2010 at [place] [facility] N/A: Spine Cervical JNJ : [employer] [id number] / / Screw Inner Xcon [id number] - [id number] Implanted:Qty : 2 on 05/15/2010 at [place] [facility] N/A: Spine Cervical JNJ : [employer] [id number] / / Toric 350 20.5 Implanted:Qty : 1 on 01/31/2024 by Steven Barrett MD at OR [facility] Left: Eye 05/09/2025 [id number] / [id number] / [id number] Lens Ix33zgg 12.5mm+20.50 - [id number] - [id number] Implanted:Qty : 1 on 02/07/2024 by Steven Barrett MD at OR [facility] Right: Eye [employer] 11/09/2026 [id number] / [id number] / [id number] documented as of this encounter Advance Directives [...] Directives occurred with: Not Discussed Care Teams Second Baller Relationship Specialty Start Date End Date Kailash Bass III, MD [address] [facility] [place] [address] PCP - General 05/24/1996 documented as of this encounter
--- OUTSIDE RECORDS SUMMARY | 2024-09-03 11:04 | External Medical Summary | Summary of Care ---
Author Name Unknown Organization [facility] Address [address] [place] [address] Phone [phone] Care Team Providers Care Grey Goods Marker Name Role Phone Kali GUTHRIE MD, Kailash Darnell Primary Care Provider [phone] Reason for Visit * Reason Comments Re-Check Encounter Details Date Type Department Care Team (Late st Contact Info) Description 06/01/2024 8:20 AM EDT Office Visit Family Practice [facility] [place] [address] [facility] [place] [address] Kailash Bass III, MD [address] [facility] [place] [address] HTN, goal below 140/90*; Hypertensive kidney disease with stage 3a chronic kidney disease; DYSLIPIDEMIA, GOAL LDL BELOW 100; Prediabetes Allergies Active Allergy Reactions Criticality Noted Date Comments Ciprofloxacin Rash Low 05/31/2013 Gabapentin High 01/10/2020 Pregabalin High 01/10/2020 documented as of this encounter (statuses as of 06/01/2024) Medications Medication Sig Dispensed Refills Start Date [...] Active Atorvastatin Calcium 80 MG Oral Tablet (Lipitor)Indicati ons:Dyslipidemia, goal LDL below 100 Take 1 tablet by mouth once daily 90 Tablet 3 06/17/2023 Active amLODIPine Besylate 5 MG Oral Tablet (Norvasc) TAKE 1 TABLET BY MOUTH IN THE MORNING 90 Tablet 3 06/17/2023 Active Polyethylene Glycol 3350 17 GM/SCOOP Oral Powder (MiraLax)Indicati ons:Constipation Take 17 g by mouth in the morning. Dissolve one heaping tablespoon in 8 ounces of water or juice.. 578 g 3 07/25/2023 Active Additional Information Patient taking differently:17 g Oral Daily(AM),Dissolve one heaping tablespoon in 8 ounces of water or juice. TAKING EVERY OTHER DAY, Reported on 02/03/2024 Pantoprazole Sodium 40 MG Oral Tablet Delayed Release (Protonix)Indicat ions:Gastroesopha geal reflux disease, unspecified whether esophagitis present Take 1 Tablet by mouth in the morning. 30 minutes before the first meal of the day. Do not crush, split or chew the tablet. 90 Tablet 5 07/29/2023 Active Carvedilol 12.5 MG Oral Tablet (Coreg)Indication s:HTN, goal below 140/90 Take 1 Tablet by mouth in the morning and 1 Tablet before bedtime. 180 Tablet 3 08/23/2023 Active predniSONE 5 MG Oral Tablet (Deltasone) Take 0.5 Tablets by mouth in the morning. 90 Tablet 03/28/2024 Active Ezetimibe 10 MG Oral Tablet (Zetia) Take 1 tablet by mouth once daily 90 Tablet 04/05/2024 Active Candesartan Cilexetil 4 MG Oral Tablet (Atacand) Take 1 tablet by mouth once daily 90 Tablet 2 05/30/2024 Active FeroSul 325 (65 Fe) MG Oral Tablet Take 1 Tablet by mouth in the morning. 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 Gastroesophageal reflux disease [...] as of this encounter (statuses as of 06/01/2024) Resolved Problems Problem Noted Date Diagnosed Date [...] as of this encounter (statuses as of 06/01/2024) Immunizations Name Administration Dates Next Due COVID-19 [...] lent, No Preserve, IM 08/02/2020,07/19/2017,10/21/2016,07/17 Seasonal Influenza, Split, I IV3, With Preserve, Inj 07/04/2014,09/07/2011,10/22/2009,08/27,07/31/2007 TD, Preservative Free 04/20/2017 TDAP, Age [...] Sign Reading Time Taken Comments Blood Pressure 114/64 06/01/2024 8:13 AM EDT Pulse 75 06/01/2024 8:13 AM EDT Temperature 36.5 C (97.7 F) 06/01/2024 8:13 AM ED T Respiratory Rate - - Oxygen Saturation 97% 06/01/2024 8:13 AM EDT Inhaled Oxygen Concentration - - Weight 93.6 kg (206 lb 6.4 oz) 06/01/2024 8:13 A M EDT Height 175.3 cm (5' 9.02") 06/01/2024 8:13 AM ED T Body Mass Index 30.47 06/01/2024 8:13 AM EDT documented in this [...] (15 years old or older) No 01/16/20 Cognitive Status Response Date of Assessm ent Because of a physical, menta l, or emotional condition, do you have serious difficulty concentrating, remembering, or making decisions? (5 years old or older) No 01/15/2021 documented as of this encounter Progress Notes * Kailash Bass III, MD - 06/01/2024 8:43 AM EDT Subjective: Dawit Goetz is a 73 year old male. Chief Complaint Patient presents with Re-Check HPI: follow-up hypertension centrilobular emphysema history of CVA chronic kidney disease 3 a dyslipidemia LDL was 57 cardiology notes nuclear stress test echocardiogram reviewed pain management interventional notes recent reviewed as well as Rheumatology notes will be getting tapered off of steroids no bleeding urine or bowels breathing does not limit him no exertional chest pain but arthritis limit activity no swelling of his ankles PMH: Patient Active Problem List Diagnosis HTN, goal below 140/90 ADVANCE DIRECTIVE INFORMATION Abdominal aortic aneurysm (HCC) S/P percutaneous abdominal aortic aneurysm repair DYSLIPIDEMIA, GOAL LDL BELOW 100 History of tobacco use Statin intolerance Gastroesophageal reflux disease Asymptomatic bilateral carotid artery stenosis 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 60 Tablet 2 Atorvastatin Calcium 80 MG Oral Tablet (Lipitor) Take 1 tablet by mouth once daily 90 Tablet 3 amLODIPine Besylate 5 MG Oral Tablet (Norvasc) TAKE 1 TABLET BY MOUTH IN THE MORNING 90 Tablet 3 Polyethylene Glycol 3350 17 GM/SCOOP Oral Powder [...] or chew the tablet. 90 Tablet 5 Carvedilol 12.5 MG Oral Tablet (Coreg) Take 1 Tablet by mouth in the morning and 1 Tablet before bedtime. 180 Tablet 3 predniSONE 5 MG Oral Tablet (Deltasone) Take 0.5 Tablets by mouth in the morning. 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) Centrilobular emphysema (HCC) CKD (chronic [...] AO performed by YARED PHILIP at [place] [facility] COLONOSCOPY, DIAGNOSTIC (RECTUM) 07/09/2013 inflammatory tissue repeat colonoscopy in 10 years COLONOSCOPY, DIAGNOSTIC (RECTUM) N/A 07/21/2023 hemorrhoids/diverticulosis/biopsies show adenomatous polyps/recall 3 years/Colonoscopy/[place] EGD, FLEXIBLE, DIAGNOSTIC N/A 07/20/2023 normal/EGD/[place] ENDO DECOMPRESS SPINAL CORD W/LAMINOTOMY, CERVICAL 05/15/2010 LAMINECTOMY DECOMPRESSION SPINAL CORD POSTERIOR CERVICAL performed by TAVO CLEMENTS at [place] [facility] INFORMATION Beals Medical Excluder STENT model# [id number] INFORMATION Beals Medical Excluder STENT model# [id number] INFORMATION Beals Medical Excluder STENT model# [id number] INJECT DX/THER SUBSTANCE INTERLAMINAR LUMBAR/SACRAL W IMAGE GUIDE 07/21/2020 INJECTION SPINE LUMBAR OR SACRAL performed by [place] Quinten Grider, DO at OR [facility] INJECT DX/THER SUBSTANCE INTERLAMINAR LUMBAR/SACRAL W IMAGE GUIDE 09/10/2021 INJECTION SPINE LUMBAR OR SACRAL performed by [place] Quinten Grider, DO at OR [facility] INJECT [...] performed by Jed Pa DO at OR [facility] IR ENDOVASCULAR REPAIR AAA 03/27/2009 Endovascular repair of abdominal aortic aneurysm with Beals Excluder stent graft by Dr. Philip. KNEE ARTHROSCOPY/MENISCUS REPAIR 1992 Right Knee Scope,Med+Lat Menis Repair KNEE ARTHROSCOPY/MENISCUS REPAIR Right 2012 NECK SPINE FUSION (CERV, BELOW C2) 05/15/2010 ARTHRODESIS SPINE POSTERIOR CERVICAL performed by TAVO CLEMENTS at [place] [facility] REMOVE ADDED SPINE LAMINA, 1 SEG Bilateral 01/14/2021 LAMINECTOMY FACETECTOMY AND FORAMINOTOMY ADDITIONAL LEVELS performed by Navneet Joshi MD at [place] [facility] REMOVE CATARACT, INSERT LENS PROSTH Left 01/31/2024 LEFT EXTRACAPSULAR CATARACT REMOVAL WITH INTRAOCULAR LENS performed by Steven Barrett MD at OR [facility] REMOVE CATARACT, INSERT LENS PROSTH Right 02/07/2024 RIGHT EXTRACAPSULAR CATARACT REMOVAL WITH INTRAOCULAR LENS performed by Steven Barrett MDat OR [facility] REMOVE LUMBAR SPINE LAMINA, 1 SEG Bilateral 01/14/2021 LAMINECTOMY FACETECTOMY AND FORAMINOTOMY LUMBAR performed by Navneet Joshi MD at [place] [facility] REMOVE NECK SPINE LAMINA, 1-2 SEGS 05/15/2010 LAMINECTOMY CERVICAL ONE OR TWO VERTEBRAL SEGMENTS performed by TAVO CLEMENTS at OR [facility] REMOVE TONSILS & ADENOIDS, UNDER 12 1953 Tonsillectomy/Adenoids,<12 Y/O REPAIR INITIAL INGUINAL HERNIA REDUCIBLE AGE 5 OR MORE 03/21/2012 Open right inguinal hernia repair with plug and patch mesh. Dr. Marshall @ [facility] 03/21/2012 SHOULDER ARTHROSCOPY/REMOVE OBJECT 1994 Right Shoulder Surgery, Arthroscopic SPINE SEG FIX, POST, 3-6 SEG, INSERT 05/15/2010 POSTERIOR SPINE SEGMENTAL INSTRUMENTATION 3 TO 6 PSF performed by TAVO CLEMENTS at [place] [facility] Objective: The patient is a 73 year old male BP 114/64 | Pulse 75 | Temp 36.5 C (97.7 F) | Ht 1.753 m (5' 9.02") | Wt 93.6 kg (206 lb 6.4 oz) | SpO2 97% | BMI 30.47 kg/m | BSA 2.13 m General: alert, healthy, and no distress Eye Exam: PERRLA, extraocular movements intact, conjunctiva are pink and non- injected, sclera clear Oropharynx: no exudate, no erythema, lips, buccal mucosa, and tongue normal, and mucous membranes are moist Heart: regular rate & rhythm, no murmur, and no gallops Lungs: lungs clear to auscultation Cor regular rate without murmur gallop or rub ASSESSMENT: (I10) HTN, goal below 140/90 (primary encounter diagnosis) (I12.9, N18.31) Hypertensive kidney disease with stage 3a chronic kidney disease (E78.5) DYSLIPIDEMIA, GOAL LDL BELOW 100 (R73.03) Prediabetes PLAN: Check basic metabolic panel A1c COVID vaccine discussed encouraged Total time 36 minutes Follow up in 6 month(s). Kailash Bass III, MD documented in this encounter Nursing Notes * Patria Man CMA - 06/01/2024 8:13 AM EDT Dawit Goetz presents for 6 month recheck. Medications & HM reviewed. He denies any concerns at this time. documented in this encounter Plan of Treatment Upcoming Encounters Date Type Department Care Team (Latest Contact Info) Description 06/08/2024 8:00 AM EDT Imaging Radiology [facility] 1st Floor, [place] [address] [facility] [place] [address] 07/25/2024 8:00 AM EDT Office Visit Orthopaedics [facility] [address] [facility] [place] [address] Quinten Clements, [address] [facility] [place] [address] 07/26/2024 11:25 AM EDT Telemedicine Interventional Pain Center, [facility] [address] [facility] [place] [address] Jed Pa, DO [address] [place] [address] 08/10/2024 8:30 AM EDT Office Visit Cardiology, [facility] [address] [place] [address] Braulio Chaudhry PA-C [address] [place] [address] 08/22/2024 1:20 PM EST Hospital Encounter [facility], Operating Room [facility] [address] [place] [phone] Jed Pa DO [address] [place] [address] 08/22/2024 1:20 PM EST - 08/22/2024 1:45 PM EST Surgery [facility], Operating Room [facility] [address] [place] [phone] Jed Pa DO [address] [place] [address] INJECTION SPINE LUMBAR OR SACRAL 12/03/2024 8:00 AM EST Office Visit Family Practice [facility] [address] [facility] [place] [address] Kailash Bass III, MD [address] [facility] [place] [address] 05/17/2025 8:20 AM EDT Office Visit Rheumatology [place] [address] [facility] [place] [address] Quinten De Leon MD [address] [place] [address] [place] [address] Scheduled Orders Name Type Priority Associated Diagnoses Orde r Schedule BASIC METABOLIC PANEL Lab Routine Hypertensive kidney disease with stage 3a chronic kidney disease Expected: 06/01/2024 (Approximate), Expires: 06/01/2025 HEMOGLOBIN A1C Lab Routine Prediabetes Expected: 06/01/2024 (Approximate), Expires: 06/01/2025 Scheduled Procedures Name Priority Associated Diagnoses Date/Ti me INJECTION SPINE LUMBAR OR SACRAL Spinal stenosis of lumbar region with neurogenic claudication 08/22/2024 1:20 PM EST COLONOSCOPY FLEXIBLE PROXIMAL DIAGNOSTIC Recall History of colonic polyps Health Maintenance Due Date Last Done Comments Adult Wellness Visit 2014 Depression Screening 01/29/2023 01/29/2022 COVID-19 Vaccine (2022- season) 2023 12/13/2020, 11/15/2020 Influenza Vaccine (FLU shot) (#1) 2024 07/21/2023, 08/03/2022, 07/25/2021, Additional history exists AAA Monitoring 07/06/2024 07/06/2023, 06/10, 05/28/2021, Additional history exists CKD PHOS USE SMARTSET 01673 07/18/2024 10/0 06/2023, 02/08/2023, 10/25/2022, Additional history exists HbA1c 07/18/2024 07/18/2023, 04/09, 01/29/2022, Additional history exists GFR 08/04/2024 02/03/2024, 01/08, 07/18/2023, Additional history exists CKD HGB USE SMARTSET 00952 01/23/202501/23, 08/22/2023, 07/28/2023, Additional history exists Albumin/Creatinine Ratio 02/02/2025 024, 01/29/2022, 05/16/2018, Additional history exists O2 ASSESSMENT COMPLETED IN PAST YEAR FOR COPD 02/06/2025 02/07/2024 Colonoscopy 07/21/2026 07/21/2023, 06/12, 07/09/2013 DTaP,Tdap,and Td Vaccines (3 - Td or Tdap) 04/20/2027 [...] this encounter Medical Devices Implanted Type Area Marine Reporter Device Identifier Shelf Expiration Date Model / Serial / Lot Endoproth Ips Leg 28 [id number] - [id number] Implanted:Qty : 1 on 03/27/2009 at [place] [facility] N/A: Aorta [employer] 01/09/2012 [id number] / / [id number] Endoproth Con Leg 18 [id number] - [id number] Implanted:Qty : 1 on 03/27/2009 at [place] [facility] N/A: Aorta [employer] 12/09/2011 [id number] / / [id number] Endoproth Con Leg 16 [id number] - [id number] Implanted:Qty : 1 on 03/27/2009 at [place] [facility] N/A: Aorta [employer] 12/09/2011 [id number] / / [id number] Screw 3.5x14 Mntr Fa [id number] - [id number] Implanted:Qty : 10 on 05/15/2010 at [place] [facility] N/A: Spine Cervical JNJ : [employer] [id number] / / Screw Inner Mntr [id number] - [id number] Implanted:Qty : 8 on 05/15/2010 at [place] [facility] N/A: Spine Cervical JNJ : [employer] [id number] / / [id number] [id number] - [id number] Implanted:Qty : 1 on 05/15/2010 at [place] [facility] N/A: Spine Cervical JNJ : [employer] [id number] / / Plate 35mm Xcon [id number] - [id number] Implanted:Qty : 1 on 05/15/2010 at [place] [facility] N/A: Spine Cervical JNJ : [employer] [id number] / / Nut Outer Xcon [id number] - [id number] Implanted:Qty : 2 on 05/15/2010 at OR [facility] N/A: Spine Cervical JNJ : [employer] [id number] / / Screw Inner Xcon [id number] - [id number] Implanted:Qty : 2 on 05/15/2010 at [place] [facility] N/A: Spine Cervical JNJ : [employer] [id number] / / Toric 350 20.5 Implanted:Qty : 1 on 01/31/2024 by Steven Barrett MD at OR [facility] Left: Eye 05/09/2025 [id number] / [id number] / [id number] Lens [id number] 12.5mm+20.50 - [id number] - [id number] Implanted:Qty : 1 on 02/07/2024 by Steven Barrett MD at OR [facility] Right: Eye [employer] 11/09/2026 [id number] / [id number] / [id number] documented as of this encounter Visit Diagnoses Diagnosis HTN, goal below 140/90- Primary Unspecified essential hypertension Hypertensive kidney disease with stage 3a chronic kidney disease DYSLIPIDEMIA, GOAL LDL BELOW 100 Other and unspecified hyperlipidemia Prediabetes Other abnormal glucose Spinal stenosis of lumbar region with neurogenic [...] Directives occurred with: Not Discussed Care Teams Grey Goods Marker Relationship Specialty Start Date End Date Kailash Bass III, MD [address] [facility] [place] [address] PCP - General 05/24/1996 documented as of this encounter
--- OUTSIDE RECORDS SUMMARY | 2024-09-03 11:04 | External Medical Summary | Summary of Care ---
Author Name Unknown Organization [facility] Address [address] [place] [address] Phone [phone] Care Team Providers Care Senior Scheduler Name Role Phone Kali GUTHRIE MD, Kailash Darnell Primary Care Provider [phone] Reason for Visit * Reason Onset Date Comments Appointment 06/07/2024 Encounter Details Date Type Department Care Team (Late st Contact Info) Description 06/07/2024 Telephone Radiology [address] [address] Jayne Styles TECH Appointment Allergies Active Allergy Reactions Criticality Noted Date Comments Ciprofloxacin Rash Low 05/31/2013 Gabapentin High 01/10/2020 Pregabalin High 01/10/2020 documented as of this encounter (statuses as of 06/07/2024) Medications Medication Sig Dispensed Refills Start Date [...] 07/29/2023 Active Carvedilol 12.5 MG Oral Tablet (Coreg)Indications: HTN, goal below 140/90 Take 1 Tablet by [...] once daily 90 Tablet 2 05/30/2024 Active Hospital, Clinic, or Other Facility Administered Medication Ordered Dose Route Frequency Start Date End Date Status pantoprazole (Protonix) tab 40 mgIndications:Gastroesophagea l reflux disease, unspecified whether esophagitis present 40 mg OR Daily(AM) 03/23/2023 Active documented as of this encounter (statuses as of 06/07/2024) Active Problems Problem Noted Date Diagnosed Date [...] of CVA in adulthood 11/16/2018 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 Gastroesophageal reflux disease 05/16/2018 [...] as of this encounter (statuses as of 06/07/2024) Resolved Problems Problem Noted Date Diagnosed Date [...] as of this encounter (statuses as of 06/07/2024) Immunizations Name Administration Dates Next Due COVID-19 [...] Description 06/08/2024 8:00 AM EDT Imaging Radiology [facility] 1st [facility] [address] [place] [address] 07/25/2024 8:00 AM EDT Office Visit Orthopaedics [facility] [address] [place] [address] Quinten Wilkinson DO [address] [place] [address] 07/26/2024 11:25 AM EDT Telemedicine Interventional Pain Center, [facility] [address] [place] [address] Jed Pa DO [address] [place] [address] 08/10/2024 8:30 AM EDT Office Visit Cardiology, [facility] [address] [place] [address] Braulio Chaudhry PA-C [address] [place] [address] 08/22/2024 1:20 PM EST Hospital Encounter [facility], Operating [facility] [address] [place] [address] Jed Pa DO [address] [place] [address] 08/22/2024 1:20 PM EST - 08/22/2024 1:45 PM EST Surgery [facility], Operating Room [facility] [address] [place] [address] Jed Pa DO [address] [place] [address] INJECTION SPINE LUMBAR OR SACRAL 12/03/2024 8:00 AM EST Office Visit Family Practice [facility] [address] [facility] [place] [address] Kailash Bass III, MD [address] [facility] [place] [address] 05/17/2025 8:20 AM EDT Office Visit Rheumatology [place] [address] [employer] [place] [address] Quitnen De Leon MD [address] [place] [address] Scheduled Procedures Name Priority Associated Diagnoses Date/Ti me INJECTION SPINE LUMBAR OR SACRAL Spinal stenosis of lumbar region with neurogenic claudication 08/22/2024 1:20 PM EST COLONOSCOPY FLEXIBLE PROXIMAL DIAGNOSTIC Recall History of colonic polyps Health Maintenance Due Date Last Done Comments Adult Wellness Visit 2014 Depression Screening 01/29/2023 01/29/2022 COVID-19 Vaccine ( season) 2023 12/13/2020, 11/15/2020 Influenza Vaccine (FLU shot) (#1) 2024 07/21/2023, 08/03/2022, 07/25/2021, Additional history exists AAA Monitoring 07/06/2024 07/06/2023, 06/10, 05/28/2021, Additional history exists CKD PHOS USE SMARTSET 22449 07/18/2024 10/0 06/2023, 02/08/2023, 10/25/2022, Additional history exists GFR 12/07/2024 06/06/2024, 01/09, 01/25/2024, Additional history exists CKD HGB USE SMARTSET 11599 01/23/202501/23, 08/22/2023, 07/28/2023, Additional history exists Albumin/Creatinine [...] this encounter Medical Devices Implanted Type Area Hand Molder Meat Device Identifier Shelf Expiration Date Model / Serial / Lot Endoproth Ips Leg 28 [id number] - [id number] Implanted:Qty : 1 on 03/27/2009 at [place] [facility] N/A: Aorta [employer] 01/09/2012 [id number] / / [id number] Endoproth Con Leg 18 [id number] - [id number] Implanted:Qty : 1 on 03/27/2009 at OR [facility] N/A: Aorta [employer] 12/09/2011 [id number] / / [id number] Endoproth Con Leg 16 [id number] - [id number] Implanted:Qty : 1 on 03/27/2009 at OR [facility] N/A: Aorta [employer] 12/09/2011 [id number] / / [id number] Screw 3.5x14 Mntr Fa [id number] - [id number] Implanted:Qty : 10 on 05/15/2010 at OR [facility] N/A: Spine Cervical JNJ : [employer] [id number] / / Screw Inner Mntr [id number] - [id number] Implanted:Qty : 8 on 05/15/2010 at OR [facility] N/A: Spine Cervical JNJ : [employer] [id number] / / [id number] [id number] - [id number] Implanted:Qty : 1 on 05/15/2010 at OR [facility] N/A: Spine Cervical JNJ : [employer] [id number] / / Plate 35mm Xcon [id number] - [id number] Implanted:Qty : 1 on 05/15/2010 at OR [facility] N/A: Spine Cervical JNJ : [employer] [id number] / / Nut Outer Xcon [id number] - [id number] Implanted:Qty : 2 on 05/15/2010 at OR [facility] N/A: Spine Cervical JNJ : [employer] [id number] / / Screw Inner Xcon [id number] - [id number] Implanted:Qty : 2 on 05/15/2010 at OR [facility] N/A: Spine Cervical JNJ : [employer] [id number] / / Toric 350 20.5 Implanted:Qty : 1 on 01/31/2024 by Steven Barrett MD at OR [facility] Left: Eye 05/09/2025 [id number] / [id number] / [id number] Lens [id number] 12.5mm+20.50 - [id number] - [id number] Implanted:Qty : 1 on 02/07/2024 by Steven Barrett MD at OR [facility] Right: Eye [employer] 11/09/2026 [id number] / [id number] / [id number] documented as of this encounter Advance Directives [...] Directives occurred with: Not Discussed Care Teams Senior Scheduler Relationship Specialty Start Date End Date Kailash Bass III, MD [address] [place] [address] PCP - General 05/24/1996 documented as of this encounter
--- OUTSIDE RECORDS SUMMARY | 2024-09-03 11:04 | External Medical Summary ---
Author Name Unknown Address Unknown Organization K09:[facility] [place] [address] Laboratory Report Ordering Provider Test Date Status ORLIN TABARES 06/06/2024 07:14:50 Final Observation Date Value Abnormality Reference (Units ) Status BUN 06/06/2024 07:14:50 22 Above high normal 6-20 (mg/dL) Final Creatinine 06/06/2024 07:14:50 1.5 Above high normal 0.6-1.2 (mg/dL) Final Glomerular filtration rate/1.73 sq M.predicted [Volume Rate/Area] in Serum, Plasma or Blood by Creatinine-based formula (CKD-EPI) 06/06/2024 07:14:50 47 Below low normal >=60 (mL/min) Final eGFR is calculated based on the CKD-EPI 2020 equation. Sodium 06/06/2024 07:14:50 142 135-146 (m mol/L) Final Potassium 06/06/2024 07:14:50 4.3 3.5-5.1 (m mol/L) Final Cl 06/06/2024 07:14:50 106 98-107 (mm ol/L) Final CO2 06/06/2024 07:14:50 23 22-32 (mmo l/L) Final Anion gap 06/06/2024 07:14:50 13 7-15 (mmol /L) Final Glucose 06/06/2024 07:14:50 91 70-120 (mg /dL) Final Calcium 06/06/2024 07:14:50 9.0 8.4-10.2 ( mg/dL) Final Performing Location [facility] [place] [address]
--- OUTSIDE RECORDS SUMMARY | 2024-09-03 11:04 | External Medical Summary | Summary of Care ---
Author Name Unknown Organization [facility] Address [address] [place] [address] Phone [phone] Care Team Providers Care Swage Toolsetter Name Role Phone Kali GUTHRIE MD, Kailash Darnell Primary Care Provider [phone] Encounter Details Date Type Department Care Team (Late st Contact Info) Description 05/17/2024 Telephone Pulmonary Medicine, [facility] [address] [place] [address] Renetta Quintana, [address] [place] [address] Allergies Active Allergy Reactions Criticality Noted Date Comments Ciprofloxacin Rash Low 05/31/2013 Gabapentin High 01/10/2020 Pregabalin High 01/10/2020 documented as of this encounter (statuses as of 06/04/2024) Medications Medication Sig Dispensed Refills Start Date [...] mouth in the morning. 100 Tab 3 9 Active Ascorbic Acid (VITAMIN C) 1000 MG Tablet Take 1 Tablet by mouth in the morning. Active vitamin b 12 (CYANOCOBALAMIN) 1000 MCG TABS Take 1 Tab by mouth daily. 100 Tab 3 0 Active Cyclobenzaprine HCl 5 MG Oral Tablet (Flexeril) Take by mouth 1 Tablet in the morning AND 1 Tablet at noon AND 1 Tablet before bedtime. 60 Tablet 2 2 Active Atorvastatin Calcium 80 MG Oral Tablet (Lipitor)Indicat ions:Dyslipidemi a, goal LDL below 100 Take 1 tablet by mouth once daily 90 Tablet 3 3 Active amLODIPine Besylate 5 MG Oral Tablet (Norvasc) TAKE 1 TABLET BY MOUTH IN THE MORNING 90 Tablet 3 3 Active Polyethylene Glycol 3350 17 GM/SCOOP Oral [...] the tablet. 90 Tablet 5 3 Active Carvedilol 12.5 MG Oral Tablet (Coreg)Indicatio ns:HTN, goal below 140/90 Take 1 Tablet by mouth in the morning and 1 Tablet before bedtime. 180 Tablet 3 3 Active predniSONE 5 MG Oral Tablet (Deltasone) Take 0.5 Tablets by mouth in the morning. 90 Tablet 4 Active Ezetimibe 10 MG Oral Tablet (Zetia) Take 1 tablet by mouth once daily 90 Tablet 4 Active Candesartan Cilexetil 4 MG Oral Tablet (Atacand) Take 1 tablet by mouth once daily 90 Tablet 3 3 05/30/20 24 Discontinued FeroSul 325 (65 Fe) MG Oral Tablet Take 1 Tablet by mouth in the morning. 90 Tablet 3 3 06/01/20 24 Discontinued(Med ication List Clean Up) Hospital, Clinic, or Other Facility Administered Medication Ordered Dose Route Frequency Start Date End Date Status pantoprazole (Protonix) tab 40 mgIndications:Gastroesophagea l reflux disease, unspecified whether esophagitis present 40 mg OR Daily(AM) 03/23/2023 Active documented as of this encounter (statuses as of 06/04/2024) Active Problems Problem Noted Date Diagnosed Date [...] of CVA in adulthood 11/16/2018 Acute left OPHTHALMIC MEDICAL ASSISTANT stroke 07/20/2018 Gastroesophageal reflux disease 05/16/2018 Asymptomatic [...] as of this encounter (statuses as of 06/04/2024) Resolved Problems Problem Noted Date Diagnosed Date [...] as of this encounter (statuses as of 06/04/2024) Immunizations Name Administration Dates Next Due COVID-19 [...] 0 03/16/1972 - 03/16/2007 Smokeless Tobacco: Never Comments:2 -3 ppd had qu it for a year [...] encounter Miscellaneous Notes * Telephone Encounter - Manpreet Bae OSA - 06/04/2024 10:09 AM EDT Sleep study bryan'd 09/25 at [place]. * Telephone Encounter - Alyssa Dial OSA - 05/17/2024 11:44 AM EDT Faxed demographics, order, and progress notes to [facility] Waiting on appointment date documented in this encounter Plan of Treatment Upcoming Encounters Date Type Department Care Team (Latest Contact Info) Description 06/08/2024 8:00 AM EDT Imaging Radiology [facility] 1st [facility] [address] [place] [address] 07/25/2024 8:00 AM EDT Office Visit Orthopaedics [facility] [address] [place] [address] Quinten Wilkinson, DO [address] [place] [address] 07/26/2024 11:25 AM EDT Telemedicine Interventional Pain Center, [facility] [address] [place] [address] Jed Pa, DO [address] [place] [address] 08/10/2024 8:30 AM EDT Office Visit Cardiology, [facility] [address] [place] [address] Braulio Chaudhry PA-C [address] [place] [address] 08/22/2024 1:20 PM EST Hospital Encounter [facility] Operating Room [facility] [address] [place] [address] Jed Pa, DO [address] [place] [address] 08/22/2024 1:20 PM EST - 08/22/2024 1:45 PM EST Surgery [facility], [facility] Room [facility] [address] [place] [phone] Jed Pa, DO [address] [place] [address] INJECTION SPINE LUMBAR OR SACRAL 12/03/2024 8:00 AM EST Office Visit Family Practice [facility] [address] [facility] [place] [address] Kailash Bass III, MD [address] [facility] [place] [address] 05/17/2025 8:20 AM EDT Office Visit Rheumatology [place] [address] [place] [address] Quinten De Leon MD [facility] [employer] [place] [address] Scheduled Procedures Name Priority Associated Diagnoses Date/Ti me INJECTION SPINE LUMBAR OR SACRAL Spinal stenosis of lumbar region with neurogenic claudication 08/22/2024 1:20 PM EST COLONOSCOPY FLEXIBLE PROXIMAL DIAGNOSTIC Recall History of colonic polyps Health Maintenance Due Date Last Done Comments Adult Wellness Visit 2014 Depression Screening 01/29/2023 01/29/2022 COVID-19 Vaccine (3 - 2022- season) 2023 12/13/2020, 11/15/2020 Influenza Vaccine (FLU shot) (#1) 2024 07/21/2023, 08/03/2022, 07/25/2021, Additional history exists AAA Monitoring 07/06/2024 07/06/2023, 06/10, 05/28/2021, Additional history exists CKD PHOS USE SMARTSET 39143 07/18/2024 10/0 06/2023, 02/08/2023, 10/25/2022, Additional history exists HbA1c 07/18/2024 07/18/2023, 04/09, 01/29/2022, Additional history exists GFR 08/04/2024 02/03/2024, 01/08, 07/18/2023, Additional history exists CKD HGB USE SMARTSET 23778 01/23/202501/23, 08/22/2023, 07/28/2023, Additional history exists Albumin/Creatinine [...] this encounter Medical Devices Implanted Type Area Customer Service Assistant Device Identifier Shelf Expiration Date Model / Serial / Lot Endoproth Ips Leg 28 [id number] - [id number] Implanted:Qty : 1 on 03/27/2009 at [place] [facility] [place]A: Aorta [employer] 01/09/2012 [id number] / / [id number] Endoproth Con Leg 18 [id number] - [id number] Implanted:Qty : 1 on 03/27/2009 at [place] [facility] [place] N/A: Aorta [employer] 12/09/2011 [id number] / / [id number] Endoproth Con Leg 16 [id number] - [id number] Implanted:Qty : 1 on 03/27/2009 at [place] [facility] [place] N/A: Aorta [employer] 12/09/2011 [id number] / / [id number] Screw 3.5x14 Mntr Fa [id number] - [id number] Implanted:Qty : 10 on 05/15/2010 at [place] [facility] [place] N/A: Spine Cervical JNJ : [employer] [id number] / / Screw Inner Mntr [id number] - [id number] Implanted:Qty : 8 on 05/15/2010 at [place] [facility] [place] N/A: Spine Cervical JNJ : [employer] [id number] / / Tico [id number] - [id number] Implanted:Qty : 1 on 05/15/2010 at [place] [facility] [place] N/A: Spine Cervical JNJ : [employer] [id number] / / Plate 35mm Xcon [id number] - [id number] Implanted:Qty : 1 on 05/15/2010 at [place] [facility] [place] N/A: Spine Cervical JNJ : [employer] [id number] / / Nut Outer Xcon [id number] - [id number] Implanted:Qty : 2 on 05/15/2010 at [place] [facility] [place] N/A: Spine Cervical JNJ : [employer] [id number] / / Screw Inner Xcon [id number] - [id number] Implanted:Qty : 2 on 05/15/2010 at [place] [facility] [place] N/A: Spine Cervical JNJ : [employer] [id number] / / Toric 350 20.5 Implanted:Qty : 1 on 01/31/2024 by Steven Barrett MD at OR [facility] Left: Eye 05/09/2025 [id number] / [id number] / [id number] Lens [id number] 12.5mm+20.50 - [id number] - [id number] Implanted:Qty : 1 on 02/07/2024 by Steven Barrett MD at OR [facility] Right: Eye [employer] 11/09/2026 [id number] / [id number] / [id number] documented as of this encounter Advance Directives [...] Directives occurred with: Not Discussed Care Teams Swage Toolsetter Relationship Specialty Start Date End Date Kali III, Kailash E, MD [address] [facility] [place] [address] PCP - General 05/24/1996 documented as of this encounter
--- OUTSIDE RECORDS SUMMARY | 2024-09-03 11:04 | External Medical Summary | Summary of Care ---
Author Name Unknown Organization [facility] Address [address] [place] [address] Phone [phone] Care Team Providers Care Laborer Orchard Name Role Phone Kali GUTHRIE MD, Kailash Darnell Primary Care Provider [phone] Reason for Visit * Reason Comments Outpatient Testing Encounter Details Date Type Department Care Team (Late st Contact Info) Description 06/06/2024 7:10 AM EDT Laboratory Laboratory [facility] [place] [address] [place] [phone] [place], Lab Scenery [address] [place] [address] Spinal stenosis of lumbar region with neurogenic claudication; Lumbar radicular pain; Hypertensive kidney disease with stage 3a chronic kidney disease; Prediabetes Allergies Active Allergy Reactions Criticality Noted Date Comments Ciprofloxacin Rash Low 05/31/2013 Gabapentin High 01/10/2020 Pregabalin High 01/10/2020 documented as of this encounter (statuses as of 06/06/2024) Medications Medication Sig Dispensed Refills Start Date [...] as of this encounter (statuses as of 06/06/2024) Active Problems Problem Noted Date Diagnosed Date [...] of CVA in adulthood 11/16/2018 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 [address] [place] [address] 07/25/2024 8:00 AM EDT Office Visit Orthopaedics [facility] [address] [place] [address] Quinten Wilkinson DO [address] [place] [address] 07/26/2024 11:25 AM EDT Telemedicine Interventional Pain Center, [facility] [address] [place] [address] Jed Pa DO [address] [place] [address] 08/10/2024 8:30 AM EDT Office Visit Cardiology, [facility] [address] [place] [address] Braulio Chaudhry PAYasmin [address] [place] [address] 08/22/2024 1:20 PM EST Hospital Encounter [facility], Operating Room [facility] [address] [place] [phone] Jed Pa DO [address] [place] [address] 08/22/2024 1:20 PM EST - 08/22/2024 1:45 PM EST Surgery [facility], Operating Room [facility] [address] [place] [phone] Jed Pa, [address] [place] [address] INJECTION SPINE LUMBAR OR SACRAL 12/03/2024 8:00 AM EST Office Visit Family Practice [facility] 200 [facility] [place] [address] Kailash Bass III, MD [address] [facility] [place] [address] 05/17/2025 8:20 AM EDT Office Visit Rheumatology [place] [phone] [employer] [place] [address] Quinten De Leon MD [address] [place] [address] Pending Results Name Type Priority Associated Diagnoses Date /Time BASIC METABOLIC PANEL Lab Routine Spinal stenosis of lumbar region with neurogenic claudication Lumbar radicular pain 06/06/2024 7:14 AM EDT HEMOGLOBIN A1C Lab Routine Prediabetes 06/06/2024 7:14 AM EDT Scheduled Procedures Name Priority Associated [...] Additional history exists CKD PHOS USE SMARTSET 78101 07/18/2024 10/0 06/2023, 02/08/2023, 10/25/2022, Additional history exists HbA1c 07/18/2024 07/18/2023, 04/09, 01/29/2022, Additional history exists GFR 08/04/2024 02/03/2024, 01/08, 07/18/2023, Additional history exists CKD HGB USE SMARTSET 22259 01/23/202501/23, 08/22/2023, 07/28/2023, Additional history exists Albumin/Creatinine Ratio 02/02/2025 024, 01/29/2022, 05/16/2018, Additional history exists O2 ASSESSMENT COMPLETED IN PAST YEAR FOR COPD 02/06/2025 02/07/2024 Colonoscopy 07/21/2026 07/21/2023, 06/12, 07/09/2013 DTap/Tdap Vaccines [...] this encounter Medical Devices Implanted Type Area Psychopaedic Nurse Device Identifier Shelf Expiration Date Model / Serial / Lot Endoproth Ips Leg 28 [id number] - [id number] Implanted:Qty : 1 on 03/27/2009 at OR [facility] [place] N/A: Aorta [employer] 01/09/2012 [id number] / / [id number] Endoproth Con Leg 18 [id number] - [id number] Implanted:Qty : 1 on 03/27/2009 at OR [facility] [place] N/A: Aorta [employer] 12/09/2011 [id number] / / [id number] Endoproth Con Leg 16 [id number] - [id number] Implanted:Qty : 1 on 03/27/2009 at OR [facility] [place] N/A: Aorta [employer] 12/09/2011 [id number] / / [id number] Screw 3.5x14 Mntr Fa [id number] - [id number] Implanted:Qty : 10 on 05/15/2010 at OR [facility] [place] N/A: Spine Cervical JNJ : [employer] [id number] / / Screw Inner Mntr [id number] - [id number] Implanted:Qty : 8 on 05/15/2010 at OR [facility] [place] N/A: Spine Cervical JNJ : [employer] [id number] / / Tico 3.4h537um [id number] - [id number] Implanted:Qty : 1 on 05/15/2010 at OR [facility] [place] N/A: Spine Cervical JNJ : [employer] [id number] / / Plate 35mm Xcon [id number] - [id number] Implanted:Qty : 1 on 05/15/2010 at OR [facility] [place] N/A: Spine Cervical JNJ : [employer] [id number] / / Nut Outer Xcon [id number] - [id number] Implanted:Qty : 2 on 05/15/2010 at OR [facility] [place] N/A: Spine Cervical JNJ : [employer] [id number] / / Screw Inner Xcon [id number] - [id number] Implanted:Qty : 2 on 05/15/2010 at [place] [facility] [place] N/A: Spine Cervical JNJ : [employer] [id number] / / Toric 350 20.5 Implanted:Qty : 1 on 01/31/2024 by Steven Barrett MD at OR [facility] Left: Eye 05/09/2025 [id number] / [id number] / [id number] Lens [id number] 12.5mm+20.50 - [id number] - [id number] Implanted:Qty : 1 on 02/07/2024 by Steven Barrett MD at OR [facility] Right: Eye [employer] 11/09/2026 [id number] / [id number] / [id number] documented as of this encounter Visit Diagnoses Diagnosis Spinal stenosis of lumbar region with neurogenic claudication Spinal stenosis, lumbar region, with neurogenic claudication Lumbar radicular pain Thoracic or lumbosacral neuritis or radiculitis, unspecified Hypertensive kidney disease with stage 3a chronic kidney disease Prediabetes Other abnormal glucose Spinal stenosis of [...] Directives occurred with: Not Discussed Care Teams Laborer Orchard Relationship Specialty Start Date End Date Kailash Bass III, MD [address] [facility] [place] [address] PCP - General 05/24/1996 documented as of this encounter
--- OUTSIDE RECORDS SUMMARY | 2024-09-03 11:04 | External Medical Summary | Summary of Care ---
Author Name Unknown Organization [facility] Address [address] [place] [address] Phone [phone] Care Team Providers Care Java Developer With Security Clearance Name Role Phone Kali GUTHRIE MD, Martin Darnell Primary Care Provider [phone] Reason for Visit * Reason Comments eRx-Medication Refill Encounter Details Date Type Department Care Team (Late st Contact Info) Description 05/29/2024 Refill Family Practice [facility] [address] [place] [address] Martin Walden III, MD 200 [place] [address] Allergies Active Allergy Reactions Criticality Noted Date Comments Ciprofloxacin Rash Low 05/31/2013 Gabapentin High 01/10/2020 Pregabalin High 01/10/2020 documented as of this encounter (statuses as of 05/30/2024) Medications Medication Sig Dispensed Refills Start Date [...] the tablet. 90 Tablet 5 07/29/2023 Active FeroSul 325 (65 Fe) MG Oral Tablet Take 1 Tablet by mouth in the morning. 90 Tablet 3 07/29/2023 Active Additional Information Patient not taking.Reported on 05/16/2024 Carvedilol 12.5 MG Oral Tablet (Coreg)Indicatio ns:HTN, [...] once daily 90 Tablet 2 05/30/2024 Active Candesartan Cilexetil 4 MG Oral Tablet (Atacand) Take 1 tablet by mouth once daily 90 Tablet 3 04/18/2023 4 Discontinued Hospital, Clinic, or Other Facility Administered Medication Ordered Dose Route Frequency Start Date End Date Status pantoprazole (Protonix) tab 40 mgIndications:Gastroesophagea l reflux disease, unspecified whether esophagitis present 40 mg OR Daily(AM) 03/23/2023 Active documented as of this encounter (statuses as of 05/30/2024) Active Problems Problem Noted Date Diagnosed Date Generalized osteoarthritis 05/16/2024 DDD (degenerative disc disease), lumbar 05/16/20 COPD, group B, by GOLD 2017 classification 08/22 Overview: Per COPD GOLD Classification Prediabetes 05/17/2022 Overview: Per Prediabetes protocol Chronic kidney disease, stage 3a 02/17/2021 Overview: Per CKD protocol Vascular claudication 12/29/2020 Hypertensive kidney disease with stage 3a chronic kidney disease 08/18/2020 Overview: Per CKD protocol COOPER on CPAP 05/01/2020 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: Left Centrilobular emphysema 03/22/2019 History of CVA in adulthood 11/16/2018 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 stroke 07/20/2018 Gastroesophageal reflux disease 05/16/2018 Asymptomatic [...] as of this encounter (statuses as of 05/30/2024) Resolved Problems Problem Noted Date Diagnosed Date Resolved Date Chronic kidney disease, stage 3a 02/17/2021 03/26/2021 [...] as of this encounter (statuses as of 05/30/2024) Immunizations Name Administration Dates Next Due COVID-19 [...] encounter Miscellaneous Notes * Telephone Encounter - Mona Mendez RPh - 05/30/2024 5:14 PM EDTSigned Prescriptions: Disp Refills Candesartan Cilexetil 4 MG Oral Tablet (At*90 Tab*2 Sig: Take 1 tablet by mouth once dailyAuthorizing Provider: MARTIN WALDEN III User: MONA MENDEZ-- documented in this encounter Plan of Treatment Upcoming Encounters Date Type Department Care Team (Latest Contact Info) Description 06/01/2024 8:20 AM EDT Office Visit Family Practice [facility] [address] [place] [address] Martin Walden III, MD [address] [place] [address] 06/08/2024 8:00 AM EDT Imaging Radiology [facility] 1st [facility] [address] [place] [address] 07/25/2024 8:00 AM EDT Office Visit Orthopaedics [facility] [address] [facility] [place] [address] Quinten Wilkinson, DO [address] [place] [address] 07/26/2024 11:25 AM EDT Telemedicine Interventional Pain Center, [facility] [address] [place] [address] Jed Pa DO [address] [place] [phone] 08/10/2024 8:30 AM EDT Office Visit Cardiology, [facility] [address] [place] [address] Braulio Chaudhry PA-C [address] [place] [address] 08/22/2024 1:20 PM EST Hospital Encounter [facility], Operating Room [facility] [address] [place] [address] Jed Pa DO [address] [place] [address] 08/22/2024 1:20 PM EST - 08/22/2024 1:45 PM EST Surgery [facility], Operating Room [facility] [address] [place] [phone] Jed Pa DO [address] [place] [address] INJECTION SPINE LUMBAR OR SACRAL 05/17/2025 8:20 AM EDT Office Visit Rheumatology [place] [address] [place] [address] Quinten De Leon MD [facility] [place] [address] Scheduled Procedures Name Priority Associated Diagnoses Date/Ti [...] Additional history exists CKD PHOS USE SMARTSET 25056 07/18/2024 1006/2023, 02/08/2023, 10/25/2022, Additional history exists HbA1c 07/18/2024 07/18/2023, 04/09, 01/29/2022, Additional history exists GFR 08/04/2024 02/03/2024, 01/08, 07/18/2023, Additional history exists CKD HGB USE SMARTSET 90759 01/23/202501/23, 08/22/2023, 07/28/2023, Additional history exists Albumin/Creatinine [...] this encounter Medical Devices Implanted Type Area Production Sorter Device Identifier Shelf Expiration Date Model / Serial / Lot Endoproth Ips Leg 28 [id number] - [id number] Implanted:Qty : 1 on 03/27/2009 [place] [facility] [place] Aorta [employer] 01/09/2012 [id number] / / [id number] Endoproth Con Leg 18 [id number] - [id number] Implanted:Qty : 1 on 03/27/2009 [place] [facility] [place]: Aorta [employer] 12/09/2011 [id number] / / [id number] Endoproth Con Leg 16 [id number] - [id number] Implanted:Qty : 1 on 03/27/2009 [place] [facility] [place]: Aorta [employer] 12/09/2011 [id number] / / [id number] Screw 3.5x14 Mntr Fa [id number] - [id number] Implanted:Qty : 10 on 05/15/2010 [place] [facility] [place]: Spine Cervical JNJ : [employer] [id number] / / Screw Inner Mntr [id number] - [id number] Implanted:Qty : 8 on 05/15/2010 [place] [facility] [place]A: Spine Cervical JNJ : [employer] [id number] / / Tico [id number] - [id number] Implanted:Qty : 1 on 05/15/2010 [place] [facility] [place]A: Spine Cervical JNJ : [employer] [id number] / / Plate 35mm Xcon [id number] - [id number] Implanted:Qty : 1 on 05/15/2010 [place] [facility] [place]A: Spine Cervical JNJ : [employer] [id number] / / Nut Outer Xcon [id number] - [id number] Implanted:Qty : 2 on 05/15/2010 [place] [facility] [place]A: Spine Cervical JNJ : [employer] [id number] / / Screw Inner Xcon [id number] - [id number] Implanted:Qty : 2 on 05/15/2010 [place] [facility] [place]A: Spine Cervical JNJ : [employer] [id number] / / Toric 350 20.5 Implanted:Qty : 1 on 01/31/2024 by Steven Barrett MD at OR [facility] Left: Eye 05/09/2025 [id number] / [id number] / [id number] Lens [id number] 12.5mm+20.50 - [id number] - [id number] Implanted:Qty : 1 on 02/07/2024 by Steven Barrett MD at OR [facility] Right: Eye [employer] 11/09/2026 [id number] / [id number] / [id number] documented as of this encounter Advance Directives [...] Directives occurred with: Not Discussed Care Teams Java Developer With Security Clearance Relationship Specialty Start Date End Date Martin Walden III, MD 200 [facility] [place] [address] PCP - General 05/24/1996 documented as of this encounter
--- OUTSIDE RECORDS SUMMARY | 2024-09-03 11:04 | External Medical Summary ---
Author Name Unknown Address Unknown Organization K01:[facility] [place] [address] [facility] [id number] Laboratory Report Ordering Provider Test Date Status WIN SALAZAR III 06/06/2024 07:14:50 Final Observation Date Value Abnormality Reference (Units ) Status HbA1C 06/06/2024 07:14:50 6.3 Above high normal 4. 0-5.6 (%) Final The use of HbA1c to monitor glycemic status is based on normal hemoglobin and HbA composition. This test should not be used in patients with abnormal hemoglobin that affects the half life of the red blood cell or the in vivo glycation rates. Glucose, estimated average 06/06/2024 07:14:50 134 Above high normal <126 (mg/dL) Román antonio Performing Location [facility] [place] [address] [facility] [address]
[2024-09-03 11:21] VITALS: BP 174/84; PULSE 60
== END 2024-09-03 12:28 | disposition home or self-care (01) ==
LOC: 2E 12:42 → ED 12:42 → SUATTDRO 14:04 → 2E 15:23

== ENCOUNTER 2025-04-11 20:28 | Inpatient (IN) ==
[2025-04-11] MEDS: SODIUM CHLORIDE 0.9% 1,000 ML IV SCH (20:45)
[2025-04-11 20:58] LABS: Hematocrit (blood only) 33.2 % (42.0-52.0); Hemoglobin 11.6 g/dl (14.0-18.0); Immature Granulocytes # (auto) 0.03 K/uL (0.01-0.20); Immature Granulocytes % (auto) 0.3 %; Mean Corpuscular Hemoglobin 33.2 pg (25.0-34.0); Mean Corpuscular Volume 95.1 fL (80.0-100.0); Platelet Count 238 K/uL (130-400); RDW Standard Deviation 49.4 fL (36.4-46.3); Red Blood Count 3.49 M/uL (4.70-6.10); White Blood Count 10.91 K/ul (4.8-10.8)
--- NOTE | 2025-04-11 21:05 | Emergency Department Note ---
Impression & Plan Cellulitis of arm, right, AMS (altered mental status), Acute dehydration ED Provider Note NAME: COREY LEBRON AGE: 74 SEX: M : 1950 ARRIVES VIA: Ambulance INFORMANT: Patient, ED PROVIDER(S): Micheal Henry MD CHIEF COMPLAINT: Confusion, head strike MEDICAL DECISION MAKING: Patient presents due to concern for acute confusion and head strike as well as fever. IV was established blood work was obtained along with blood cultures. Patient was ordered. IV antibiotics IV fluids. The patient did have a slightly softer blood pressure upon arrival and was tachycardic. Patient on exam does have right upper extremity cellulitis. Patient initially with a white count of 10.9 hemoglobin 11. 6 with a normal platelet count. Kidney function with creatinine 1.35. Bicarb is slightly low at 28 likely secondary to dehydration. Initial lactate is normal. Troponin 20.4 denies any chest pain or shortness of breath. Patient was ordered additional IV fluids. The patient has had improvement in his tachycardia. The patient does feel well. CT head does not show obvious ICH. Chest x-ray does not show obvious pneumonia. Given the patient's symptoms I did speak the on-call hospital service. Patient was admitted by Dr. Daigle. Discussion w/ other healthcare providers: None Prior /Outside records reviewed: None Differential diagnosis: Dehydration, UTI, pneumonia, metabolic derangment, electrolyte abnormalities, hypovolemia, anemia, cellulitis among others were considered. Diagnostics, as interpreted by me: ECG: Sinus tachycardia, rate of 122, normal intervals, normal axis no ST elevations. Cardiac monitoring: An order was placed for continuous cardiac monitoring. The monitor shows a rate of 119 with tachycardic and regular rhythm. Patient was placed on pulse oximetry Medical decision rules: None Imaging studies: I informally interpreted the patient's chest x-ray does not show obvious pneumonia or pneumothorax with formal report to follow. HPI: Patient presents due to concern for change in mentation. The patient reportedly fell about 5 days ago. The patient did have sutures applied but has had some worsening confusion since that time. Also reportedly with recent cellulitis seen at [facility] for which he was sent home on antibiotics. Patient denies any urinary symptoms. Patient denies any falls since the 1 5 days ago. He does take a blood thinner. He denies any chest pains or shortness of breath. PAST MEDICAL HISTORY: See Below PAST SURGICAL HISTORY: See Below SOCIAL HISTORY: See Below HOME MEDICATIONS: See Below ALLERGIES: See Below VITALS: See Below PHYSICAL EXAMINATION: GENERAL: NAD, non-toxic. EYE EXAM: Normal conjunctiva. PERRL, no anisocoria and EOM's grossly intact w/o pain. OROPHARYNX: Moist mucus membranes, grossly normal dentition. NECK: Trachea midline, no stridor. Supple, no nuchal rigidity, no adenopathy, non-tender. No signs of meningismus. FROM of the neck with good chin to chest and neck extension. LUNGS: Clear to auscultation. Normal chest wall mechanics. HEART: Tachycardic and regular, no MRG. ABDOMEN: Abdomen soft, non-tender, no masses, no rebound or guarding. BACK: No CVA TTP. SKIN: Right upper extremity cellulitis UPPER EXTREMITIES: Upper extremities are grossly normal. Right upper extremity cellulitis with blanching erythema without crepitus. Compartments are soft. LOWER EXTREMITIES: Grossly normal, no edema. NEURO EXAM: Awake and alert, follows commands, no obvious facial asymmetry, normal speech, moves all 4 extremities. Past Med/Surg History Problem List (Updated 04/13/25 @ 20:51 by Micheal Henry MD) Acute dehydration (Acute) Cellulitis of arm, right (Acute) Bacteremia due to Pseudomonas Atrial fibrillation Cellulitis AMS (altered mental status) (Acute) Facial laceration (Acute) Laceration of knee, right (Acute) Facial trauma (Acute) Cerebrovascular accident (CVA) of left thalamus Stroke-like symptoms (Acute) Expressive aphasia Transient weakness of right lower extremity Anemia (Acute) COOPER (obstructive sleep apnea) Osteoarthritis Pulmonary nodules History of hernia repair (Chronic) History of arthroscopy of both knees (Chronic) History of tobacco abuse (Chronic) GERD (gastroesophageal reflux disease) (Chronic) Acute ischemic left [employer] stroke (Acute) Medical History Hx TIA/stroke w/o resid HTN (hypertension) No known health problems Encounter for pre-operative examination Surgical History History of tonsillectomy and adenoidectomy H/O neck surgery History of arthroscopy of right shoulder History of AAA (abdominal aortic aneurysm) repair Family History Father Alcohol abuse Cirrhosis Stroke Mother Coronary heart disease Dementia Sister No significant family history Other No history of previous surgery Social History Smoking Status: Never smoker Cigarettes Per Day: 15; Second Hand Exposure: No; Do You Dip or Chew Tobacco: No; Tobacco Cessation Education Requested by Patient: No Hx Alcohol Use: Yes Alcohol type: beer and wine Alcohol Intake Frequency: Monthly or Less Alcohol Intake Frequency Comment: Rare Hx Substance Use: No Preferred Language: Indonesian Communication Ability: Effective Director Acute Required: No Beliefs That Will Affect Care: None marital status: Current Living Situation: Spouse current occupational status: 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[employer] Other Information That Helps Us Care for You: No Feels Safe at Home: Yes Safety Concerns: Feels Safe At This Time Assistive Devices: Denture - Upper, Denture - Lower and Glasses Allergies Allergies Allergy/AdvReac Type Severity Reaction Status Date / Time ciprofloxacin Allergy Unknown Verified 04/11/25 08:27 Home Meds Home Medications Medication Instructions Recorded Confirmed atorvastatin 80 mg tablet 80 mg PO QAM 07/22/19 04/11/25 ezetimibe 10 mg tablet 10 mg PO QAM 07/22/19 04/11/25 cholecalciferol (vitamin D3) 25 1,000 unit PO QAM 01/10/20 04/11/25 mcg (1,000 unit) tablet (Vitamin D3) amlodipine 5 mg tablet 5 mg PO QAM 07/19/23 04/11/25 ascorbic acid (vitamin C) 1,000 mg 1,000 mg PO QAM 07/19/23 04/11/25 tablet,extended release candesartan 4 mg tablet 4 mg PO DAILY 07/19/23 04/11/25 carvedilol 12.5 mg tablet 12.5 mg PO BID 07/19/23 04/11/25 cyanocobalamin (vitamin B-12) 1,000 mcg PO QAM 07/19/23 04/11/25 1,000 mcg tablet pantoprazole 40 mg tablet,delayed 40 mg PO DAILYBB 07/19/23 04/11/25 release apixaban 5 mg tablet (Eliquis) 5 mg PO AMHS 04/11/25 04/11/25 aspirin 81 mg tablet,delayed 81 mg PO QAM 04/11/25 04/11/25 release polyethylene glycol 3350 17 17 g PO Q OTHER DAY 04/11/25 04/11/25 gram/dose oral powder Previous Rx's Medication Instructions Recorded cephalexin 500 mg capsule 500 mg PO TID 7 days #21 caps 04/11/25 Results & Data (ED) Vital Signs Vital Signs - 24 hr 04/11/25 20:46 04/11/25 20:46 Temperature 39.5 C H Temperature Source Oral Pulse Rate 128 H Respiratory Rate 24 Respiratory Effort / Characteristics Non-Labored Spontaneous Respiratory Depth Normal Respiratory Pattern Regular Blood Pressure 97/66 L Blood Pressure Mean 76 Blood Pressure Position Lying Pulse Oximetry 94 94 Oxygen Delivery Method Room Air Room Air Sepsis Recent Fever Within 48 Hours Yes Sepsis New/Unexplained Change in Mental Status No Sepsis Action Taken by Nursing Physician Notified Home Medications Current Medication List: was personally reviewed by me Laboratory Data Attestation: I reviewed the patient's lab results. 04/13/25 06:25 04/13/25 06:25 Lab Results 04/11/25 04/11/25 04/11/25 Range/Units 20:40 20:46 22:35 WBC 10.91 H (4.8-10.8) K/ul RBC 3.49 L (4.70-6.10) M/uL Hgb 11.6 L (14.0-18.0) g/dl POC Hgb 11.9 L (14.0-18.0) g/dl Hct 33.2 L (42.0-52.0) % POC Hct 35 L (42-52) % MCV 95.1 (80.0-100.0) fL MCH 33.2 (25.0-34.0) pg MCHC 34.9 (32.0-36.0) g/dL RDW Std Deviation 49.4 H (36.4-46.3) fL RDW Coeff of Doni 14.2 (11.5-14.5) % Plt Count 238 (130-400) K/uL MPV 10.1 (9.4-12.4) fL Immature Gran % (Auto) 0.3 % Neut % (Auto) 89.2 % Lymph % (Auto) 5.0 % Dukes % (Auto) 4.8 % Eos % (Auto) 0.6 % Baso % (Auto) 0.1 % Neut # (Auto) 9.73 H (1.40-6.50) K/uL Lymph # (Auto) 0.55 L (1.20-3.40) K/uL Dukes # (Auto) 0.52 (0.11-0.59) K/uL Eos # (Auto) 0.07 (0.00-0.50) K/uL Baso # (Auto) 0.01 (0.00-0.20) K/uL Immature Gran # (Auto) 0.03 (0.01-0.20) K/uL POC Sodium 138 (135-144) mmol/L Sodium 137 (136-145) mmol/L POC Potassium 4.3 (3.3-5.0) mmol/L Potassium 4.3 (3.5-5.1) mmol/L POC Chloride 107 (101-112) mmol/L Chloride 108 H (98-107) mmol/L Carbon Dioxide 20 L (21-32) mmol/L POC Total CO2 18 L (24-31) mmol/L Anion Gap 9 (3-11) POC Anion Gap 19.0 (16-25) mmol/L POC BUN 20 H (7-18) mg/dl BUN 22 (6-23) mg/dl Creatinine 1.35 (0.6-1.4) mg/dl POC Creatinine 1.5 H (0.6-1.3) mg/dl Est Cr Clr Drug Dosing 52.2 ml/min eGFR 54.41 BUN/Creatinine Ratio 16.3 (10-20) Glucose 123 H (70-99(Fasting)) mg/dl POC Glucose (other) 122 H (70-99) mg/dl Lactate 1.4 (0.4-2.0) mmol/L Calcium 8.9 (8.6-10.3) mg/dl POC Ioniz Calcium Radha 1.15 (1.12-1.32) mmol/l Magnesium 1.4 L (1.7-2.4) mg/dl Total Bilirubin 1.0 (0.2-1.0) mg/dl Direct Bilirubin 0.2 (0-0.2) mg/dl AST 19 (13-39) U/L ALT 21 (7-52) U/L Alkaline Phosphatase 51 (34-104) U/L Troponin I High Sens 20.4 H 31.9 H D (0-20) pg/ml Total Protein 6.4 (6.0-8.3) gm/dl Albumin 3.6 (3.4-5.0) gm/dl Procalcitonin 0.17 (0-0.5) ng/ml Bld Cult ID Panel PCR PCR Panel Negative (NotDetected) Administered Medications Acetaminophen (Acetaminophen 325 Mg Tab) 650 mg PO Q4H PRN PRN Reason: Pain or Fever Stop: 05/12/25 01:58 Last Admin: 04/13/25 20:20 Dose: 650 mg Documented By: ROGER Amlodipine Besylate (Amlodipine Besylate 5 Mg Tab) 5 mg PO [facility] Stop: 05/12/25 08:59 Last Admin: 04/13/25 08:19 Dose: 5 mg Documented By: Admin: 04/12/25 08:02 Dose: 5 mg Documented By: JAMEY Apixaban (Apixaban 5 Mg Tablet) 5 mg PO [facility] Stop: 05/12/25 08:59 Last Admin: 04/13/25 20:21 Dose: 5 mg Documented By: Admin: 04/13/25 08:19 Dose: 5 mg Documented By: Admin: 04/12/25 20:16 Dose: 5 mg Documented By: Admin: 04/12/25 08:02 Dose: 5 mg Documented By: JAMEY Ascorbic Acid (Ascorbic Acid 500 Mg Tab) 1,000 mg PO [facility] Stop: 05/12/25 08:59 Last Admin: 04/13/25 08:19 Dose: 1,000 mg Documented By: Admin: 04/12/25 08:02 Dose: 1,000 mg Documented By: JAMEY Aspirin (Aspirin 81 Mg Ectab) 81 mg PO [facility] Stop: 05/12/25 08:59 Last Admin: 04/13/25 08:20 Dose: 81 mg Documented By: Admin: 04/12/25 08:02 Dose: 81 mg Documented By: JAMEY Atorvastatin Calcium (Atorvastatin 40 Mg Tab) 80 mg PO [facility] Stop: 05/12/25 08:59 Last Admin: 04/13/25 08:20 Dose: 80 mg Documented By: Admin: 04/12/25 08:02 Dose: 80 mg Documented By: JAMEY Carvedilol (Carvedilol 12.5 Mg Tab) 12.5 mg PO BID [facility] Stop: 05/12/25 08:59 Last Admin: 04/13/25 20:21 Dose: 12.5 mg Documented By: Admin: 04/13/25 08:21 Dose: 12.5 mg Documented By: Admin: 04/12/25 20:16 Dose: 12.5 mg Documented By: Admin: 04/12/25 08:01 Dose: 12.5 mg Documented By: JAMEY Cyanocobalamin (Cyanocobalamin (B-12) 500 Mcg Tablet) [facility] [place]: 05/12/25 08:59 Last Admin: 04/13/25 08:20 Dose: 1,000 mcg Documented By: Admin: 04/12/25 08:02 Dose: 1,000 mcg Documented By: JAMEY Ezetimibe (Ezetimibe 10 Mg Tab) [facility] [place]: 05/12/25 08:59 Last Admin: 04/13/25 08:21 Dose: 10 mg Documented By: Admin: 04/12/25 08:02 Dose: 10 mg Documented By: JAMEY Piperacillin Sod/Tazobactam Sod (Zosyn) 4.5 gm in 100 mls @ 25 mls/hr IV Q8H [facility]; Protocol Stop: 04/19/25 02:59 Last Admin: 04/13/25 18:37 Dose: 25 mls/hr Documented By: Infusion: 04/13/25 14:53 Dose: Infused Documented By: Admin: 04/13/25 10:33 Dose: 25 mls/hr Documented By: Infusion: 04/13/25 06:14 Dose: Infused Documented By: Admin: 04/13/25 02:27 Dose: 25 mls/hr Documented By: Infusion: 04/13/25 00:01 Dose: Infused Documented By: Admin: 04/12/25 19:34 Dose: 25 mls/hr Documented By: Infusion: 04/12/25 15:57 Dose: Infused Documented By: Admin: 04/12/25 11:51 Dose: 25 mls/hr Documented By: Infusion: 04/12/25 07:47 Dose: Infused Documented By: Admin: 04/12/25 03:36 Dose: 25 mls/hr Documented By: MITRA Losartan Potassium (Losartan Potassium 25 Mg Tab) 12.5 mg PO DAILY [facility] Stop: 05/12/25 08:59 Last Admin: 04/13/25 08:20 Dose: 12.5 mg Documented By: Admin: 04/12/25 08:02 Dose: 12.5 mg Documented By: JAMEY Magnesium Oxide (Magnesium Oxide 400 Mg Tab) [facility] [place]: 05/12/25 08:59 Last Admin: 04/13/25 08:26 Dose: 400 mg Documented By: Admin: 04/12/25 08:01 Dose: 400 mg Documented By: JAMEY Pantoprazole Sodium (Pantoprazole 40 Mg Tab) 40 mg PO DAILYBB [facility] Stop: 05/12/25 06:29 Last Admin: 04/13/25 05:50 Dose: 40 mg Documented By: Admin: 04/12/25 06:08 Dose: 40 mg Documented By: MITRA Polyethylene Glycol (Polyethylene (Miralax) 17 Gm Pack) 17 gm PO Q48H [facility] Stop: 05/12/25 08:59 Last Admin: 04/12/25 08:01 Dose: Not Given Documented By: JAMEY Vitamin D (Cholecalciferol 25 Mcg (1000 Units) Tab) 25 [facility] [place]: 05/12/25 08:59 Last Admin: 04/13/25 08:20 Dose: 25 mcg Documented By: Admin: 04/12/25 08:02 Dose: 25 mcg Documented By: JAMEY Discontinued Medications Sodium Chloride (Nss) 1,000 mls @ 999 mls/hr IV .Q1H1M [facility] Stop: 04/11/25 21:45 Last Infusion: 04/11/25 21:49 Dose: Infused Documented By: Admin: 04/11/25 20:45 Dose: 999 mls/hr Documented By: MARY Piperacillin Sod/Tazobactam Sod (Zosyn) 4.5 gm in 100 mls @ 200 mls/hr IV NOW ONE; Protocol Stop: 04/11/25 21:20 Last Infusion: 04/11/25 21:56 Dose: Infused Documented By: Admin: 04/11/25 21:25 Dose: 200 mls/hr Documented By: MARY Magnesium Sulfate/Dextrose (Magnesium Sulfate / D5w) 1 gm in 100 mls @ 100 mls/hr IV NOW STA Stop: 04/11/25 23:11 Last Infusion: 04/11/25 23:56 Dose: Infused Documented By: Admin: 04/11/25 22:52 Dose: 100 mls/hr Documented By: MARY Lactated Ringer's (Lr) 1,000 mls @ 999 mls/hr IV .Q1H1M ONE Stop: 04/11/25 23:28 Last Infusion: 04/12/25 02:00 Dose: Infused Documented By: Admin: 04/11/25 23:38 Dose: 999 mls/hr Documented By: THOMAS Lactated Ringer's (Lr) 500 mls @ 999 mls/hr IV .Q31M ONE Stop: 04/11/25 22:58 Last Infusion: 04/12/25 00:52 Dose: Infused Documented By: Admin: 04/11/25 23:38 Dose: 999 mls/hr Documented By: THOMAS Magnesium Sulfate/Dextrose (Magnesium Sulfate / D5w) 1 gm in 100 mls @ 50 mls/hr IV ONE ONE Stop: 04/12/25 01:01 Last Infusion: 04/12/25 03:35 Dose: Infused Documented By: Admin: 04/12/25 00:55 Dose: 50 mls/hr Documented By: THOMAS Imaging Data Radiologist's Impression: Chest X-Ray 04/11/25 20:41 Exam(s): XR CXR 1 VIEW EXAM: XR Chest, 1 View CLINICAL HISTORY: Reason for exam: Sepsis. TECHNIQUE: Frontal view of the chest. COMPARISON: Chest x-ray 09/02/24. FINDINGS: Lungs/Pleural space: Clear. No focal infiltrate, pleural effusion or pneumothorax. Heart: No cardiomegaly. Mediastinum: Unremarkable. Bones/Soft Tissues: No acute abnormality. IMPRESSION: 1. No acute process, and no change. Electronically signed by: Flores Burger M.D. 04/11/25 23:[address] 04/11/25 20:41 Exam(s): CT HEAD Without Contrast EXAM: CT Head Without Intravenous Contrast CLINICAL HISTORY: Reason for exam: fall, CHI. TECHNIQUE: Axial computed tomography images of the head/brain without intravenous contrast. CTDI is 38.49 mGy and DLP is 703.85 mGy-cm. Automated exposure control was utilized for the study. A dose lowering technique was utilized adhering to the principles of ALARA. Mild to moderate motion/artifact COMPARISON: Head CT 04/06/25. FINDINGS: Brain: Small, chronic left occipital infarct, stable. No mass effect or acute infarct. No acute hemorrhage. Mild atrophy and chronic white matter disease. Ventricles: No hydrocephalus or midline shift. Bones/joints: No skull fracture. Soft tissues: No scalp hematoma. Visualized Sinuses: Generally clear. Mastoid air cells: No mastoid effusion. IMPRESSION: 1. Small, chronic left occipital lobe infarct and age-related findings are stable. 2. No acute infarct, bleed, or acute intracranial abnormality. 3. Mild to moderate motion artifact limits evaluation. Electronically signed by: Flores Burger M.D. 04/11/25 23:57 PM Discharge Plan Visit Data Chief Complaint: Altered Mental Status Stated Complaint: AMS, Infection, Previous Fall, Fever ED Provider: Micheal Henry Discharge Problem: Cellulitis of arm, right, AMS (altered mental status), Acute dehydration Patient Disposition: Admitted As Inpatient Condition: Good Discharge Instructions Interventions: ED Discharge Assessment Last Done: 04/12/25 01:07 Discharge Problem: AMS (altered mental status) Qualifiers: Altered mental status type: disorientation Qualified Code(s): R41.0 - Disorientation, unspecified
[2025-04-11 21:17] LABS: Alanine Aminotransferase 21.0 U/L (7-52); Alkaline Phosphatase 51.0 U/L (34-104); Anion Gap 9.0 (3-11); Bilirubin,Total 1.0 mg/dl (0.2-1.0); Blood Urea Nitrogen 22.0 mg/dl (6-23); Calcium 8.9 mg/dl (8.6-10.3); Carbon Dioxide 20.0 mmol/L (21-32); Chloride 108.0 mmol/L (98-107); Creatinine Clr Calc Pharmacy 52.2 ml/min; Glucose 123.0 mg/dl (70-99(Fasting)); Magnesium 1.4 mg/dl (1.7-2.4); Potassium 4.3 mmol/L (3.5-5.1); Sodium 137.0 mmol/L (136-145); Total Protein 6.4 gm/dl (6.0-8.3)
[2025-04-11] MEDS: PIPERACILLIN/TAZOBACTAM 4.5 GM/100 ML BAG IV ONE (21:25)
--- NOTE | 2025-04-11 22:29 | History & Physical Report ---
Date of Service April 11, 2025 Assessment & Plan (1) AMS (altered mental status): Plan: 24-year-old male with history of paroxysmal A-fib on Eliquis anticoagulation, past CVA, CKD 3, hypertension, AAA repair, and GERD with a fall 5 days ago he presents with confusion hypotension and tachycardia and with worsening right forearm erythema/warmth/tenderness over the prior 3 days. He is admitted for suspected metabolic encephalopathy due to right forearm cellulitis. Altered mental status, suspected metabolic encephalopathy Fall with head strike 5 days prior CThead pending. No obvious ICH seen on review. Patient is 5 days out from his fall. Suspect due to metabolic encephalopathy of cellulitis Right forearm cellulitis Leukocytosis, fever on admission. Patient has progressing erythema warmth and tenderness of his right forearm for 3 days prior to presentation Patient was on Keflex as outpatient Hypotensive, tachycardic, with leukocytosis. Meets sepsis criteria. Lactate is normal. Remains tachycardic and mildly hypotensive on reassessment. Received 1 L NSS. 30 cc ABW goal 2768 cc, IBW 2181 cc. No signs of volume overload on admission. Additional 1500 cc crystalloid ordered to me IBW goal and near ABW goal. EF 08/2024: 55 to 60%. Grade 1 diastolic dysfunction. Placed on Zosyn in the ER. This is continued on admission. Narrowed to Unasyn if clinically improving. Blood cultures pending Up-to-date on tetanus Elevated troponin, T wave changes Suspected demand ischemia Troponin 20.4 EKG sinus tachycardia with PVCs, no territorial ST segment changes. T waves in 3/aVF are inverted compared to prior. Denies chest pain at any point. 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 Creatinine 1.35 on admission GERD PPI continued History of AAA repair Noted - on Q2Y surveillance, next due Jun 2025 DVT prophylaxis: Anticoagulated Disposition: Medical telemetry CODE STATUS: Full code Diet: Heart healthy (2) Cellulitis: (3) Cerebrovascular accident (CVA) of left thalamus: (4) COOPER (obstructive sleep apnea): (5) GERD (gastroesophageal reflux disease): History of Present Illness Primary Care Provider: Kailash Bass MD Dawit is a 74-year-old male with a past medical history of thalamic CVA, COOPER, GERD presents with altered mental status and fever and was recommended for admission for suspected metabolic encephalopathy with cellulitis. Patient is a [facility] PCP patient admitted to [facility] service due to insurance. Fell five days ago with head strike. Had sutures and was dced home. Worsening confusion since that time Febrile, tachycardic, intermittently confused. Was treated for cellulitis at [facility] (R arm) No urgency/frequency Sutures around L orbit intact Seen at the bedside. Fell 5 days ago. Was doing ok. RUE getting red, warm, and tender. Getting worse about 3 days ago. Redness is much worse. He thinks he may have gotten scratched by his cat No night sweats Has not felt feverish, but colds easily No chest pain, no chest pressure Feels a little more winded than normal today. No dyspnea at rest. no pain on deep inspiration. No dysuria No diarrhea/constipation. mild nausea, no abdominal pain. Denies history of VA/CAD, no history of heart failure/CHF Medical History: Reviewed Medications: Reviewed Surgical History: Reviewed Family history: Reviewed Allergies: Reviewed Social History: No tobacco use. Rare ETOH. Code Status: Full Code L eye sutures C/D/I R arm cellulitis R leg with triangle flap, possible devascularization but intact. Mild erythema Allergies Allergy/AdvReac Type Severity Reaction Status Date / Time ciprofloxacin Allergy Unknown Verified 04/11/25 08:27 Home Medications Medication Instructions Recorded Confirmed Type atorvastatin 80 mg tablet 80 mg PO QAM 07/22/19 04/11/25 History ezetimibe 10 mg tablet 10 mg PO QAM 07/22/19 04/11/25 History cholecalciferol (vitamin D3) 25 1,000 unit PO QAM 01/10/20 04/11/25 History mcg (1,000 unit) tablet (Vitamin D3) amlodipine 5 mg tablet 5 mg PO QAM 07/19/23 04/11/25 History ascorbic acid (vitamin C) 1,000 mg 1,000 mg PO QAM 07/19/23 04/11/25 History tablet,extended release candesartan 4 mg tablet 4 mg PO DAILY 07/19/23 04/11/25 History carvedilol 12.5 mg tablet 12.5 mg PO BID 07/19/23 04/11/25 History cyanocobalamin (vitamin B-12) 1,000 mcg PO QAM 07/19/23 04/11/25 History 1,000 mcg tablet pantoprazole 40 mg tablet,delayed 40 mg PO DAILYBB 07/19/23 04/11/25 History release apixaban 5 mg tablet (Eliquis) 5 mg PO AMHS 04/11/25 04/11/25 History aspirin 81 mg tablet,delayed 81 mg PO QAM 04/11/25 04/11/25 History release cephalexin 500 mg capsule 500 mg PO TID 7 days #21 caps 04/11/25 04/11/25 Rx polyethylene glycol 3350 17 17 g PO Q OTHER DAY 04/11/25 04/11/25 History gram/dose oral powder Past Med/Surg History Problem List (Updated 04/11/25 @ 22:32 by Dustin Daigle MD) Cellulitis AMS (altered mental status) Facial laceration (Acute) Laceration of knee, right (Acute) Facial trauma (Acute) Cerebrovascular accident (CVA) of left thalamus Stroke-like symptoms (Acute) Expressive aphasia Transient weakness of right lower extremity Anemia (Acute) COOPER (obstructive sleep apnea) Osteoarthritis Pulmonary nodules History of hernia repair (Chronic) History of arthroscopy of both knees (Chronic) History of tobacco abuse (Chronic) GERD (gastroesophageal reflux disease) (Chronic) Acute ischemic left DYE ROOM HELPER stroke (Acute) Medical History Hx TIA/stroke w/o resid HTN (hypertension) No known health problems Encounter for pre-operative examination Surgical History History of tonsillectomy and adenoidectomy H/O neck surgery History of arthroscopy of right shoulder History of AAA (abdominal aortic aneurysm) repair Family History Father Alcohol abuse Cirrhosis Stroke Mother Coronary heart disease Dementia Sister No significant family history Other No history of previous surgery Social History Smoking Status: Unknown if ever smoked Cigarettes Per Day: 15; Second Hand Exposure: No; Do You Dip or Chew Tobacco: No; Hx Alcohol Use: No Hx Substance Use: No Preferred Language: Lao Communication Ability: Effective 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 NAD. Cooperative. HEENT: normocephalic. Sutures overlying eyebrow of left eye, suture site C/D/I. Vision and hearing grossly intact. Pupils equal and reactive to light. No visual field cuts Pulm: CTAB A&P. -wheezes, -rales, -rhonchi. Symmetrical chest rise. No increased work of breathing. No respiratory distress. Cardiac: Regular, tachycardic, -mrg. Radial pulses intact and symmetrical. Abdominal: Nontender, nondistended, soft. BS present. Extremities: Right lower extremity with stitched triangle flap, sutures intact and some bruising/nontense hematoma underneath. No demarcated erythema. Right upper forearm is with demarcated erythema, warmth, tenderness. 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 Sensation in fingertips is intact to soft touch. Radial pulses intact bilaterally. Cap refill in the thumb brisk bilaterally. Results & Data Results & Data Vital Signs (Past 12 Hours) Vital Signs Temp Pulse Pulse Resp BP BP Pulse Ox 04/11/25 22:00 104 H 20 124/58 L 96 04/11/25 21:56 37.3 C 04/11/25 21:22 107 H 17 116/58 L 95 04/11/25 21:22 94 04/11/25 21:22 109 H 20 116/58 L 93 04/11/25 20:46 94 04/11/25 20:46 39.5 C H 128 H 24 97/66 L 94 04/11/25 20:35 129 H 07/03/25 20:22 37.9 C H 121 H 23 97/66 L 93 O2 Del Method 04/11/25 22:00 Room Air 04/11/25 21:56 04/11/25 21:22 Room Air 04/11/25 21:22 Room Air 04/11/25 21:22 Room Air 04/11/25 20:46 Room Air 04/11/25 20:46 Room Air 04/11/25 20:35 04/11/25 20:22 Room Air PG Care Time/CCT Total # of Minutes Spent Total Time Spent with Patient: Total time spent is greater than 50% in coordination of care (as documented) at patient's floor/unit and/or counseling patient: Coding Level of Care Code 03931 INT INP/OBS CARE MIN Diagnoses AMS (altered mental status) R41.82 Cellulitis L03.90 Cerebrovascular accident (CVA) of left thalamus I63.81 COOPER (obstructive sleep apnea) G47.33 GERD (gastroesophageal reflux disease) K21.9
[2025-04-11] MEDS: MAGNESIUM SULFATE / D5W 1 GM/100 ML BAG IV STA (22:52)
[2025-04-11] MEDS: LACTATED RINGER'S 1,000 ML IV ONE (23:38)
[2025-04-11] MEDS: LACTATED RINGER'S 500 ML IV ONE (23:38)
--- NOTE | 2025-04-11 23:58 | CT Scan Report ---
Exam(s): CT HEAD Without Contrast EXAM: CT Head Without Intravenous Contrast CLINICAL HISTORY: Reason for exam: fall, CHI. TECHNIQUE: Axial computed tomography images of the head/brain without intravenous contrast. CTDI is 38.49 mGy and DLP is 703.85 mGy-cm. Automated exposure control was utilized for the study. A dose lowering technique was utilized adhering to the principles of ALARA. Mild to moderate motion/artifact COMPARISON: Head CT 04/06/25. FINDINGS: Brain: Small, chronic left occipital infarct, stable. No mass effect or acute infarct. No acute hemorrhage. Mild atrophy and chronic white matter disease. Ventricles: No hydrocephalus or midline shift. Bones/joints: No skull fracture. Soft tissues: No scalp hematoma. Visualized Sinuses: Generally clear. Mastoid air cells: No mastoid effusion. IMPRESSION: 1. Small, chronic left occipital lobe infarct and age-related findings are stable. 2. No acute infarct, bleed, or acute intracranial abnormality. 3. Mild to moderate motion artifact limits evaluation. Electronically signed by: Flores Burger M.D. 04/11/25 23:57 PM
--- NOTE | 2025-04-12 | XRay Report ---
Exam(s): XR CXR 1 VIEW EXAM: XR Chest, 1 View CLINICAL HISTORY: Reason for exam: Sepsis. TECHNIQUE: Frontal view of the chest. COMPARISON: Chest x-ray 09/02/24. FINDINGS: Lungs/Pleural space: Clear. No focal infiltrate, pleural effusion or pneumothorax. Heart: No cardiomegaly. Mediastinum: Unremarkable. Bones/Soft Tissues: No acute abnormality. IMPRESSION: 1. No acute process, and no change. Electronically signed by: Flores Burger M.D. 04/11/25 23:58 PM
[2025-04-12] MEDS: MAGNESIUM SULFATE / D5W 1 GM/100 ML BAG IV ONE (00:55)
[2025-04-12] MEDS ORDERED: NITROGLYCERIN SL 0.4 MG/TAB TAB SL PRN (01:59)
[2025-04-12] MEDS: PIPERACILLIN/TAZOBACTAM 4.5 GM/100 ML BAG IV SCH (03:36)
[2025-04-12 07:25] LABS: Appearance Urine Clear (Clear); Bacteria Urine Automated None Seen (None Seen); Cast Urine Automated 0-2 /lpf (0-2); Epithelial Cell Urine Auto 0-2 /hpf (0-2); Glucose Urine UA Negative (Negative); RBC Urine Automated 0-2 /hpf (0-2); WBC Urine Automated 0-5 /hpf (0-5)
[2025-04-12] MEDS: MAGNESIUM OXIDE 400 MG TAB PO SCH (08:01)
[2025-04-12] MEDS: POLYETHYLENE (MIRALAX) 17 GM PACK PO SCH (08:01)
[2025-04-12] MEDS: LOSARTAN POTASSIUM 25 MG TAB PO SCH (08:02)
[2025-04-12] MEDS: ASPIRIN 81 MG ECTAB PO SCH (08:02)
[2025-04-12] MEDS: CYANOCOBALAMIN (B-12) 500 MCG TABLET PO SCH (08:02)
[2025-04-12] MEDS: APIXABAN 5 MG TABLET PO SCH (08:02)
[2025-04-12] MEDS: ASCORBIC ACID 500 MG TAB PO SCH (08:02)
[2025-04-12] MEDS: EZETIMIBE 10 MG TAB PO SCH (08:02)
[2025-04-12] MEDS: ATORVASTATIN 40 MG TAB PO SCH (08:02)
[2025-04-12] MEDS: CHOLECALCIFEROL 25 MCG (1000 UNITS) TAB PO SCH (08:02)
[2025-04-12 08:36] LABS: Hematocrit (blood only) 33.7 % (42.0-52.0); Hemoglobin 11.2 g/dl (14.0-18.0); Immature Granulocytes # (auto) 0.19 K/uL (0.01-0.20); Immature Granulocytes % (auto) 1.2 %; Mean Corpuscular Hemoglobin 32.6 pg (25.0-34.0); Mean Corpuscular Volume 98.0 fL (80.0-100.0); Platelet Count 221 K/uL (130-400); RDW Standard Deviation 52.5 fL (36.4-46.3); Red Blood Count 3.44 M/uL (4.70-6.10); White Blood Count 15.58 K/ul (4.8-10.8)
[2025-04-12 08:53] LABS: Anion Gap 7.0 (3-11); Blood Urea Nitrogen 25.0 mg/dl (6-23); Calcium 8.6 mg/dl (8.6-10.3); Carbon Dioxide 24.0 mmol/L (21-32); Chloride 105.0 mmol/L (98-107); Creatinine Clr Calc Pharmacy 46.8 ml/min; Glucose 131.0 mg/dl (70-99(Fasting)); Magnesium 2.1 mg/dl (1.7-2.4); Potassium 4.3 mmol/L (3.5-5.1); Sodium 136.0 mmol/L (136-145)
--- NOTE | 2025-04-12 11:17 | Hospitalist Progress Note ---
Date of Service April 12, 2025 Assessment & Plan (1) AMS (altered mental status): Plan: -resolved 2nd to toxic metabolic encephalopathy from arm cellulitis (2) Cellulitis: Plan: -resolving -continue zosyn (3) Cerebrovascular accident (CVA) of left thalamus: Plan: - Atorvastatin, Zetia continued Continue aspirin, Eliquis (4) COOPER (obstructive sleep apnea): Plan: CPAP at bedtime (5) GERD (gastroesophageal reflux disease): Plan: -con't PPI (6) Atrial fibrillation: Plan: Continue carvedilol, Eliquis Plan 74-year-old male with history of paroxysmal A-fib on Eliquis anticoagulation, past CVA, CKD 3, hypertension, AAA repair, and GERD with a fall 5 days ago he presents with confusion hypotension and tachycardia and with worsening right forearm erythema/warmth/tenderness over the prior 3 days. He is admitted for suspected metabolic encephalopathy due to right forearm cellulitis. Admission and Anticipated Discharge Date Admission Date: April 11, 2025 Subjective Pt feels much better, back to his baseline mental status. Feels swelling in his arm has decreased Review of Systems Review of Systems: CONST: Negative for fever, body aches and chills. HENT: Negative for neck pain/stiffness, headache, congestion, sore throat, swelling. EYES: Negative for discharge/pain or vision changes. RESP: Negative for cough/hemoptysis and shortness of breath. CV: Negative chest pain, difficulty breathing, palpitations. ABD: Negative pain, nausea, vomiting. : Negative increase frequency, dysuria, blood in urine or stool. MUSC: Negative for muscle aches, edema. SKIN: Negative rash, lesions/sores. NEURO: Negative headache, dizziness, weakness. Physical Exam Physical Exam: GENERAL APPEARANCE NAD, activity normal for age, well developed/ well nourished, no cyanosis, pallor, or diaphoresis. EYES lids/conjunctiva normal. EARS/NOSE/THROAT Mucous membranes moist, nares normal, lips/teeth normal uvula midline without oral pharyngeal erythema, exudate or swelling TMs normal bilaterally. No lymphangitis/lymphedema. HEAD/NECK normocephalic atraumatic, no facial trauma, neck is supple. RESPIRATORY respiratory effort normal, speaks in full sentences, no tripod pos ition, no accessory muscle use. Lungs clear to auscultation without rhonchi, wheezes, rales CARDIAC Regular rate and rhythm, no edema. ABDOMINAL Soft, ND/NT. No evidence of fluid wave. No pulsatile masses on exam, rebound tenderness, Gary sign or pain over Mcburney's point. MUSCLES/EXTREMITIES No abnormal range of motion, no swelling. SKIN Warm, pink and dry. No rashes, dermatoses, petechiae or lesions. NEUROLOGICAL Speech is clear and appropriate. Normal level of consciousness. Gait and coordination are normal. 5/5 strength in all extremities. PSYCH Normal mood and affect. Judgement/competence is appropriate Results & Data Results & Data Vital Signs (Past 12 Hours) Vital Signs Temp Pulse Pulse Resp BP BP Pulse Ox 04/12/25 08:07 37.1 C 85 18 128/72 98 04/12/25 02:00 04/12/25 02:00 36.6 C 79 18 113/61 98 04/12/25 01:57 36.3 C L 79 18 113/61 98 04/12/25 01:07 04/12/25 00:35 88 04/12/25 00:00 87 20 109/58 L 95 O2 Del Method 04/12/25 08:07 Room Air 04/12/25 02:00 Room Air 04/12/25 02:00 Room Air 04/12/25 01:57 Room Air 04/12/25 01:07 Room Air 04/12/25 00:35 04/12/25 00:00 Room Air PG Care Time/CCT Total # of Minutes Spent Total Time Spent with Patient: Total time spent is greater than 50% in coordination of care (as documented) at patient's floor/unit and/or counseling patient: Coding Level of Care Code 65075 SUB INP/OBS CARE 2/35MIN Diagnoses AMS (altered mental status) R41.82 Cellulitis L03.90 Cerebrovascular accident (CVA) of left thalamus I63.81 COOPER (obstructive sleep apnea) G47.33 GERD (gastroesophageal reflux disease) K21.9 Atrial fibrillation I48.91
[2025-04-12 17:48] LABS: A calco-baum cmplx NotReported Not Detected (NotDetected); Bact fragilis Not Reported Not Detected (NotDetected); Blood Culture Id Panel PCR Panel Negative (NotDetected); C auris Not Reported Not Detected (NotDetected); Calbicans Not Reported Not Detected (NotDetected); Candida glabrata Not Reported Not Detected (NotDetected); Candida krusei Not Reported Not Detected (NotDetected); Cneoformans/gatti Not Reported Not Detected (NotDetected); Cparapsilosis Not Reported Not Detected (NotDetected); Ctropicalis Not Reported Not Detected (NotDetected); E cloacae compx Not Reported Not Detected (NotDetected); Efaecalis Not Reported Not Detected (NotDetected); Efaecium Not Reported Not Detected (NotDetected); Enterobacterales Not Reported Not Detected (NotDetected); Escherichia coli Not Reported Not Detected (NotDetected); H influenzae Not Reported Not Detected (NotDetected); K aerogenes Not Reported Not Detected (NotDetected); Koxytoca Not Reported Not Detected (NotDetected); Kpneumoniae grp Not Reported Not Detected (NotDetected); Lmonocyt Not Reported Not Detected (NotDetected); N meningitidis Not Reported Not Detected (NotDetected); P aeruginosa Not Reported Not Detected (NotDetected); Proteus spp Not Reported Not Detected (NotDetected); Salmonella spp Not Reported Not Detected (NotDetected); Staph lugdunensis Not Reported Not Detected (NotDetected); Staph spp. Not Reported Not Detected (NotDetected); Staphaureus Not Reported Not Detected (NotDetected); Staphepi Not Reported Not Detected (NotDetected); Stenmaltophilia Not Reported Not Detected (NotDetected); Strep agal(GrpB) Not Reported Not Detected (NotDetected); Strep pneum Not Reported Not Detected (NotDetected); Strep pyog (GrpA) Not Reported Not Detected (NotDetected); Strep spp Not Reported Not Detected (NotDetected)
[2025-04-13 07:16] LABS: Hematocrit (blood only) 29.4 % (42.0-52.0); Hemoglobin 9.9 g/dl (14.0-18.0); Immature Granulocytes # (auto) 0.06 K/uL (0.01-0.20); Immature Granulocytes % (auto) 0.6 %; Mean Corpuscular Hemoglobin 32.8 pg (25.0-34.0); Mean Corpuscular Volume 97.4 fL (80.0-100.0); Platelet Count 212 K/uL (130-400); RDW Standard Deviation 52.9 fL (36.4-46.3); Red Blood Count 3.02 M/uL (4.70-6.10); White Blood Count 10.86 K/ul (4.8-10.8)
[2025-04-13 07:31] LABS: Anion Gap 5.0 (3-11); Blood Urea Nitrogen 28.0 mg/dl (6-23); Calcium 8.4 mg/dl (8.6-10.3); Carbon Dioxide 25.0 mmol/L (21-32); Chloride 108.0 mmol/L (98-107); Creatinine Clr Calc Pharmacy 38.3 ml/min; Glucose 103.0 mg/dl (70-99(Fasting)); Potassium 4.4 mmol/L (3.5-5.1); Sodium 138.0 mmol/L (136-145)
--- NOTE | 2025-04-13 10:42 | Hospitalist Progress Note ---
Date of Service April 13, 2025 Assessment & Plan (1) Bacteremia due to Pseudomonas: Plan: -blood cultures from 04/11, growing pseduomonas stutzeri -repeat set ordered -echo showing no veg -zosyn -ID consutled -clover 2nd to arm cellultis (2) Cellulitis: Plan: -resolving -continue zosyn (3) AMS (altered mental status): Plan: -resolved 2nd to toxic metabolic encephalopathy from arm cellulitis (4) Cerebrovascular accident (CVA) of left thalamus: Plan: - Atorvastatin, Zetia continued Continue aspirin, Eliquis (5) COOPER (obstructive sleep apnea): Plan: CPAP at bedtime (6) GERD (gastroesophageal reflux disease): Plan: -con't PPI (7) Atrial fibrillation: Plan: Continue carvedilol, Eliquis Plan 74-year-old male with history of paroxysmal A-fib on Eliquis anticoagulation, past CVA, CKD 3, hypertension, AAA repair, and GERD with a fall 5 days ago he presents with confusion hypotension and tachycardia and with worsening right forearm erythema/warmth/tenderness over the prior 3 days. He is admitted for s uspected metabolic encephalopathy due to right forearm cellulitis. Admission and Anticipated Discharge Date Admission Date: April 11, 2025 Subjective No events overnight. Pt states he feels good and his arm is getting less swollen and red. Review of Systems Review of Systems: CONST: Negative for fever, body aches and chills. HENT: Negative for neck pain/stiffness, headache, congestion, sore throat, swelling. EYES: Negative for discharge/pain or vision changes. RESP: Negative for cough/hemoptysis and shortness of breath. CV: Negative chest pain, difficulty breathing, palpitations. ABD: Negative pain, nausea, vomiting. : Negative increase frequency, dysuria, blood in urine or stool. MUSC: Negative for muscle aches, edema. SKIN: Negative rash, lesions/sores. NEURO: Negative headache, dizziness, weakness. Physical Exam Physical Exam: GENERAL APPEARANCE NAD, activity normal for age, well developed/ well nourished, no cyanosis, pallor, or diaphoresis. EYES lids/conjunctiva normal. EARS/NOSE/THROAT Mucous membranes moist, nares normal, lips/teeth normal uvula midline without oral pharyngeal erythema, exudate or swelling TMs normal bilaterally. No lymphangitis/lymphedema. HEAD/NECK normocephalic atraumatic, no facial trauma, neck is supple. RESPIRATORY respiratory effort normal, speaks in full sentences, no tripod position, no accessory muscle use. Lungs clear to auscultation without rhonchi, wheezes, rales CARDIAC Regular rate and rhythm, no edema. ABDOMINAL Soft, ND/NT. No evidence of fluid wave. No pulsatile masses on exam, rebound tenderness, Gary sign or pain over Mcburney's point. MUSCLES/EXTREMITIES No abnormal range of motion, no swelling. SKIN Warm, pink and dry. No rashes, dermatoses, petechiae or lesions. NEUROLOGICAL Speech is clear and appropriate. Normal level of consciousness. Gait and coordination are normal. 5/5 strength in all extremities. PSYCH Normal mood and affect. Judgement/competence is appropriate Results & Data Results & Data Vital Signs (Past 12 Hours) Vital Signs Temp Pulse Pulse Pulse Resp BP Pulse Ox 04/13/25 09:54 80 04/13/25 07:56 36.8 C 79 18 105/59 L 95 04/13/25 04:33 37.1 C 76 18 119/67 95 04/12/25 23:59 37.0 C 84 16 135/65 94 O2 Del Method 04/13/25 09:54 04/13/25 07:56 Room Air 04/13/25 04:33 Room Air 04/12/25 23:59 Room Air PG Care Time/CCT Total # of Minutes Spent Total Time Spent with Patient: Total time spent is greater than 50% in coordination of care (as documented) at patient's floor/unit and/or counseling patient: Coding Level of Care Code 70237 SUB INP/OBS CARE 2/35MIN Diagnoses Bacteremia due to Pseudomonas R78.81; B96.5 Cellulitis L03.90 AMS (altered mental status) R41.82 Cerebrovascular accident (CVA) of left thalamus I63.81 COOPER (obstructive sleep apnea) G47.33 GERD (gastroesophageal reflux disease) K21.9 Atrial fibrillation I48.91
[2025-04-13] MEDS: ACETAMINOPHEN 325 MG TAB PO PRN (20:20)
[2025-04-13] MEDS: MELATONIN 3 MG TAB PO PRN (22:42)
[2025-04-14 06:15] LABS: Hematocrit (blood only) 29.3 % (42.0-52.0); Hemoglobin 9.5 g/dl (14.0-18.0); Immature Granulocytes # (auto) 0.02 K/uL (0.01-0.20); Immature Granulocytes % (auto) 0.3 %; Mean Corpuscular Hemoglobin 32.0 pg (25.0-34.0); Mean Corpuscular Volume 98.7 fL (80.0-100.0); Platelet Count 213 K/uL (130-400); RDW Standard Deviation 52.2 fL (36.4-46.3); Red Blood Count 2.97 M/uL (4.70-6.10); White Blood Count 6.69 K/ul (4.8-10.8)
[2025-04-14 06:32] LABS: Anion Gap 6.0 (3-11); Blood Urea Nitrogen 28.0 mg/dl (6-23); Calcium 8.4 mg/dl (8.6-10.3); Carbon Dioxide 23.0 mmol/L (21-32); Chloride 109.0 mmol/L (98-107); Creatinine Clr Calc Pharmacy 43.4 ml/min; Glucose 103.0 mg/dl (70-99(Fasting)); Potassium 4.3 mmol/L (3.5-5.1); Sodium 138.0 mmol/L (136-145)
--- NOTE | 2025-04-14 10:51 | Hospitalist Progress Note ---
Date of Service April 14, 2025 Assessment & Plan (1) Bacteremia due to Pseudomonas: Plan: -blood cultures from 04/11, growing pseduomonas stutzeri -repeat set pending 04/13 -echo showing no veg - sensitive to zosyn -ID consulted -likely 2nd to arm cellulitis -d/c home on abx as per ID once repeat blood cultures return (2) Cellulitis: Plan: -resolving -continue zosyn (3) AMS (altered mental status): Plan: -resolved 2nd to toxic metabolic encephalopathy from arm cellulitis (4) Cerebrovascular accident (CVA) of left thalamus: Plan: - Atorvastatin, Zetia continued Continue aspirin, Eliquis (5) COOPER (obstructive sleep apnea): Plan: CPAP at bedtime (6) GERD (gastroesophageal reflux disease): Plan: -con't PPI (7) Atrial fibrillation: Plan: Continue carvedilol, Eliquis Plan 74-year-old male with history of paroxysmal A-fib on Eliquis anticoagulation, past CVA, CKD 3, hypertension, AAA repair, and GERD with a fall 5 days ago he presents with confusion hypotension and tachycardia and with worsening right forearm erythema/warmth/tenderness over the prior 3 days. He is admitted for suspected metabolic encephalopathy due to right forearm cellulitis. Admission and Anticipated Discharge Date Admission Date: April 11, 2025 Subjective No events overnight. Pt states his arm continues to improve, less red today and swelling decreased. Review of Systems Review of Systems: CONST: Negative for fever, body aches and chills. HENT: Negative for neck pain/stiffness, headache, congestion, sore throat, swelling. EYES: Negative for discharge/pain or vision changes. RESP: Negative for cough/hemoptysis and shortness of breath. CV: Negative chest pain, difficulty breathing, palpitations. ABD: Negative pain, nausea, vomiting. : Negative increase frequency, dysuria, blood in urine or stool. MUSC: Negative for muscle aches, edema. SKIN: Negative rash, lesions/sores. NEURO: Negative headache, dizziness, weakness. Physical Exam Physical Exam: GENERAL APPEARANCE NAD, activity normal for age, well developed/ well nourished, no cyanosis, pallor, or diaphoresis. EYES lids/conjunctiva normal. EARS/NOSE/THROAT Mucous membranes moist, nares normal, lips/teeth normal uvula midline without oral pharyngeal erythema, exudate or swelling TMs normal bilaterally. No lymphangitis/lymphedema. HEAD/NECK normocephalic atraumatic, no facial trauma, neck is supple. RESPIRATORY respiratory effort normal, speaks in full sentences, no tripod position, no accessory muscle use. Lungs clear to auscultation without rhonchi, wheezes, rales CARDIAC Regular rate and rhythm, no edema. ABDOMINAL Soft, ND/NT. No evidence of fluid wave. No pulsatile masses on exam, rebound tenderness, Gary sign or pain over Mcburney's point. MUSCLES/EXTREMITIES No abnormal range of motion, no swelling. SKIN Warm, pink and dry. No rashes, dermatoses, petechiae or lesions. NEUROLOGICAL Speech is clear and appropriate. Normal level of consciousness. Gait and coordination are normal. 5/5 strength in all extremities. PSYCH Normal mood and affect. Judgement/competence is appropriate Results & Data Results & Data Vital Signs (Past 12 Hours) Vital Signs Temp Pulse Resp BP BP Pulse Ox O2 Del Method 04/14/25 07:36 36.6 C 65 18 133/71 97 Room Air 04/14/25 04:23 36.6 C 67 17 129/72 97 Room Air 04/13/25 23:39 36.7 C 04/13/25 23:35 101 H 24 98/62 L 94 Nasal Cannula O2 Flow Rate 04/14/25 07:36 04/14/25 04:23 04/13/25 23:39 04/13/25 23:35 4 PG Care Time/CCT Total # of Minutes Spent Total Time Spent with Patient: Total time spent is greater than 50% in coordination of care (as documented) at patient's floor/unit and/or counseling patient: Coding Level of Care Code 81652 SUB INP/OBS CARE 2/35MIN Diagnoses Bacteremia due to Pseudomonas R78.81; B96.5 Cellulitis L03.90 AMS (altered mental status) R41.0 Altered mental status type: disorientation Cerebrovascular accident (CVA) of left thalamus I63.81 COOPER (obstructive sleep apnea) G47.33 GERD (gastroesophageal reflux disease) K21.9 Atrial fibrillation I48.91 (3) AMS (altered mental status) Altered mental status type: disorientation Qualified Code(s): R41.0 - Disorientation, unspecified
--- NOTE | 2025-04-14 22:12 | Electrocardiogram Report ---
Test Reason : Blood Pressure : */* mmHG Vent. Rate : 122 BPM Atrial Rate : 122 BPM P-R Int : 198 ms QRS Dur : 80 ms QT Int : 274 ms P-R-T Axes : * -14 -26 degrees QTcB Int : 390 ms Sinus tachycardia with occasional Premature ventricular complexes Inferior infarct , age undetermined Abnormal ECG When compared with ECG of 02-Sep-2024 12:56, Premature ventricular complexes are now Present Vent. rate has increased by 59 bpm Inferior infarct is now Present T wave inversion now evident in Inferior leads Confirmed by Inder San ([id number]) on 04/14/2025 10:11:59 PM Referred By: REFERRED SELF Confirmed By: Inder San
[2025-04-15 07:20] LABS: Hematocrit (blood only) 28.4 % (42.0-52.0); Hemoglobin 9.5 g/dl (14.0-18.0); Mean Corpuscular Hemoglobin 32.4 pg (25.0-34.0); Mean Corpuscular Volume 96.9 fL (80.0-100.0); Platelet Count 251 K/uL (130-400); RDW Standard Deviation 50.0 fL (36.4-46.3); Red Blood Count 2.93 M/uL (4.70-6.10); White Blood Count 4.71 K/ul (4.8-10.8)
[2025-04-15 07:32] VITALS: TEMP 98.2
[2025-04-15 07:44] LABS: Anion Gap 6.0 (3-11); Blood Urea Nitrogen 26.0 mg/dl (6-23); Calcium 8.7 mg/dl (8.6-10.3); Carbon Dioxide 26.0 mmol/L (21-32); Chloride 108.0 mmol/L (98-107); Creatinine Clr Calc Pharmacy 46.2 ml/min; Glucose 94.0 mg/dl (70-99(Fasting)); Potassium 4.5 mmol/L (3.5-5.1); Sodium 140.0 mmol/L (136-145)
--- NOTE | 2025-04-15 09:17 | Infectious Disease Consult ---
Date of Consultation April 15, 2025 Assessment & Plan (1) Cellulitis of arm, right: (2) Bacteremia due to Pseudomonas: Plan Problems: #Pseudomonas stutzeri bacteremia #RUE cellulitis Micro: 04/13 BCx x2: NGTD 04/11 BCx x2: Pseudomonas stutzeri in 2/4 bottles (S cefepime, tetra, TMP/SMX, pip-tazo) Abx: Zosyn 04/11 - present 74 yo M with history of CVA, COOPER, GERD who presented on 04/11 with altered mental status, fever, found to have RUE cellulitis and Pseudomonas stutzeri bacteremia. Recently on 04/06, he had presented to the ED due to a fall after tripping on something and striking his head against concrete. He had several lacerations and abrasions, and underwent a laceration repair to the L face and R godwin. He then presented to urgent care on 04/11 with concern about RUE. Noted increased pain, swelling, redness, warmth of his R forearm. He had a scab on his R forearm and is uncertain but thinks it may be from his cat scratching him. He was prescribed cephalexin 500 mg TID x 7 days. He later presented to the ED on 04/11 with worsening confusion. On presentation, T 39.5, HR 120s, BP 97/66, 93% on room air. He was noted to have RUE cellulitis. Labs showed WBC 10.91, normal lactate. BCx obtained. CXR with no acute process. CT head with no acute infarct. Denied dysuria, diarrhea, abd pain, chest pain. He was started on Zosyn. By 04/12, pt was back to his baseline mental status. WBC increased to 15.58 on 04/12, but now downtrended. Fevers resolved. His RUE swelling and erythema improved. Blood cultures grew Pseudomonas stutzeri in 2/4 bottles, which is likely 2/2 RUE cellulitis. Recommendations: - On discharge, can transition to TMP/SMX 2 DS tabs PO q12h to complete a total 7 day course (including Zosyn received here) through 04/18 Will sign off. Consultation Information Consultation was provided via telemedicine using two-way real-time interactive telecommunication between the patient and the telemedicine provider. For the du ration of the visit, the provider was performing the assessment from a different facility than the patient. This includesuse of bluetooth stethoscope forauscultationperformed by the telepresenter that the telemedicine provider can hear if described in the physical exam. [employer] contact information: Please call [facility] . (Phone Number For Physician Use Only) After establishing a telemedicine visit, patient was: Patient was verified with two unique identifiers, Patient/authorized rep acknowledged consent and understanding and Gave permission to continue telehealth session Time Spent with Patient: Initial => 55 min History of Present Illness Reason for Consultation: Pseudomonas bacteremia Attending Physician: Alfonso Sneed MD History of Present Illness 74 yo M with history of CVA, COOPER, GERD who presented on 04/11 with altered mental status, fever. Recently on 04/06, he had presented to the ED due to a fall after tripping on something and striking his head against concrete. He had several lacerations and abrasions, and underwent a laceration repair to the L face and R godwin. He then presented to urgent care on 04/11 with concern about RUE infection. Noted increased pain, swelling, redness, warmth of his R forearm and RLE around his wounds. He had a scab on his R forearm and reported he thought the wound was from his cat scratching him. He was prescribed cephalexin 500 mg TID x 7 days. He later presented to the ED on 04/11 with worsening confusion. On presentation, T 39.5, HR 120s, BP 97/66, 93% on room air. He was noted to have RUE cellulitis. Labs showed WBC 10.91, normal lactate. BCx obtained. CXR with no acute process. CT head with no acute infarct. Denied dysuria, diarrhea, abd pain, chest pain. He was started on Zosyn. By 04/12, pt was back to his baseline mental status. His RUE swelling and erythema improved. Blood cultures grew Pseudomonas stutzeri in 2/4 bottles. Fevers and leukocytosis have resolved. Pt reports feeling much better. Allergies Allergy/AdvReac Type Severity Reaction Status Date / Time ciprofloxacin Allergy Unknown Verified 04/11/25 08:27 Home Medications Medication Instructions Recorded Confirmed Type atorvastatin 80 mg tablet 80 mg PO QAM 07/22/19 04/11/25 History ezetimibe 10 mg tablet 10 mg PO QAM 07/22/19 04/11/25 History cholecalciferol (vitamin D3) 25 1,000 unit PO QAM 01/10/20 04/11/25 History mcg (1,000 unit) tablet (Vitamin D3) amlodipine 5 mg tablet 5 mg PO QAM 07/19/23 04/11/25 History ascorbic acid (vitamin C) 1,000 mg 1,000 mg PO QAM 07/19/23 04/11/25 History tablet,extended release candesartan 4 mg tablet 4 mg PO DAILY 07/19/23 04/11/25 History carvedilol 12.5 mg tablet 12.5 mg PO BID 07/19/23 04/11/25 History cyanocobalamin (vitamin B-12) 1,000 mcg PO QAM 07/19/23 04/11/25 History 1,000 mcg tablet pantoprazole 40 mg tablet,delayed 40 mg PO DAILYBB 07/19/23 04/11/25 History release apixaban 5 mg tablet (Eliquis) 5 mg PO AMHS 04/11/25 04/11/25 History aspirin 81 mg tablet,delayed 81 mg PO QAM 04/11/25 04/11/25 History release cephalexin 500 mg capsule 500 mg PO TID 7 days #21 caps 04/11/25 04/11/25 Rx polyethylene glycol 3350 17 17 g PO Q OTHER DAY 04/11/25 04/11/25 History gram/dose oral powder Patient History Medical History Hx TIA/stroke w/o resid HTN (hypertension) No known health problems Encounter for pre-operative examination Surgical History History of tonsillectomy and adenoidectomy H/O neck surgery History of arthroscopy of right shoulder History of AAA (abdominal aortic aneurysm) repair Family History Father Alcohol abuse Cirrhosis Stroke Mother Coronary heart disease Dementia Sister No significant family history Other No history of previous surgery Social History Smoking Status: Never smoker Cigarettes Per Day: 15; Second Hand Exposure: No; Do You Dip or Chew Tobacco: No; Tobacco Cessation Education Requested by Patient: No Hx Alcohol Use: Yes Alcohol type: beer and wine Alcohol Intake Frequency: Monthly or Less Alcohol Intake Frequency Comment: Rare Hx Substance Use: No Preferred Language: Mohawk Communication Ability: Effective Social Welfare Research Worker Required: No Beliefs That Will Affect Care: None marital status: Current Living Situation: Spouse current occupational status: 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[employer]; of [employer] Other Information That Helps Us Care for You: No Feels Safe at Home: Yes Safety Concerns: Feels Safe At This Time Assistive Devices: Denture - Upper, Denture - Lower and Glasses Review of System A complete ROS was performed and is negative except as mentioned in the HPI. Physical Exam Physical Exam: GEN: Well-appearing, in NAD. RESP: No increased work of breathing SKIN: R forearm with mild erythema receding from marked borders. Small scratch on medial forearm. NEURO: Alert and oriented. Answers all questions appropriately. Speech not slurred. PSYCH: Normal mood, affect appropriate. Results & Data Vital Signs (Past 12 Hours) Vital Signs Temp Pulse Pulse Resp BP Pulse Ox O2 Del Method 04/15/25 07:31 36.8 C 66 20 137/63 97 Room Air 04/15/25 04:26 36.6 C 67 17 128/74 95 Room Air 04/14/25 23:51 36.9 C 68 18 112/63 93 Room Air 04/14/25 22:02 70 Laboratory Results Short CBC 04/15/25 Range/Units 06:59 WBC 4.71 L (4.8-10.8) K/ul Hgb 9.5 L (14.0-18.0) g/dl Hct 28.4 L (42.0-52.0) % Plt Count 251 (130-400) K/uL BMP 04/15/25 06:59 Sodium 140 Potassium 4.5 Chloride 108 H Carbon Dioxide 26 BUN 26 H Creatinine 1.56 H Glucose 94 Calcium 8.7 Medications Administered Current Inpatient Medications Acetaminophen (Acetaminophen 325 Mg Tab) 650 mg PO Q4H PRN PRN Reason: Pain or Fever Stop: 05/12/25 01:58 Last Admin: 04/14/25 21:35 Dose: 650 mg Amlodipine Besylate (Amlodipine Besylate 5 Mg Tab) 5 mg PO QAM [facility] Stop: 05/12/25 08:59 Last Admin: 04/14/25 09:17 Dose: 5 mg Apixaban (Apixaban 5 Mg Tablet) 5 mg PO AMHS [facility] Stop: 05/12/25 08:59 Last Admin: 04/14/25 20:07 Dose: 5 mg Ascorbic Acid (Ascorbic Acid 500 Mg Tab) [facility] Stop: 05/12/25 08:59 Last Admin: 04/14/25 09:18 Dose: 1,000 mg Aspirin (Aspirin 81 Mg Ectab) 81 mg PO [facility] Stop: 05/12/25 08:59 Last Admin: 04/14/25 09:18 Dose: 81 mg Atorvastatin Calcium (Atorvastatin 40 Mg Tab) 80 mg PO [facility] Stop: 05/12/25 08:59 Last Admin: 04/14/25 09:18 Dose: 80 mg Carvedilol (Carvedilol 12.5 Mg Tab) 12.5 mg PO BID [facility] Stop: 05/12/25 08:59 Last Admin: 04/14/25 20:07 Dose: 12.5 mg Cyanocobalamin (Cyanocobalamin (B-12) 500 Mcg Tablet) 1,000 mcg PO [facility] Stop: 05/12/25 08:59 Last Admin: 04/14/25 09:18 Dose: 1,000 mcg Ezetimibe (Ezetimibe 10 Mg Tab) 10 [facility] Stop: 05/12/25 08:59 Last Admin: 04/14/25 09:18 Dose: 10 mg Piperacillin Sod/Tazobactam Sod (Zosyn) 4.5 gm in 100 mls @ 25 mls/hr IV Q8H [facility]; Protocol Stop: 04/19/25 02:59 Last Infusion: 04/15/25 06:41 Dose: Infused Losartan Potassium (Losartan Potassium 25 Mg Tab) 12.5 mg PO DAILY [facility] Stop: 05/12/25 08:59 Last Admin: 04/14/25 09:19 Dose: 12.5 mg Magnesium Oxide (Magnesium Oxide 400 Mg Tab) 400 mg [facility] Stop: 05/12/25 08:59 Last Admin: 04/14/25 09:26 Dose: 400 mg Melatonin (Melatonin 3 Mg Tab) 6 mg PO HS PRN PRN Reason: Sleep Stop: 05/13/25 04:21 Last Admin: 04/14/25 21:35 Dose: 6 mg Nitroglycerin (Nitroglycerin Sl 0.4 Mg/Tab Tab) 0.4 mg SL Q5M PRN PRN Reason: Chest Pain Stop: 05/12/25 01:58 Pantoprazole Sodium (Pantoprazole 40 Mg Tab) 40 mg PO DAILYBB [facility] Stop: 05/12/25 06:29 Last Admin: 04/15/25 05:43 Dose: 40 mg Polyethylene Glycol (Polyethylene (Miralax) 17 Gm Pack) 17 gm PO Q48H [facility] Stop: 05/12/25 08:59 Last Admin: 04/14/25 09:26 Dose: 17 gm Vitamin D (Cholecalciferol 25 Mcg (1000 Units) Tab) 25 mcg PO QAM [facility] Stop: 05/12/25 08:59 Last Admin: 04/14/25 09:18 Dose: 25 mcg
[2025-04-15 11:57] VITALS: RESP 21; O2SAT 96
--- NOTE | 2025-04-15 12:29 | Discharge Summary ---
Discharge Summary Date of Service April 15, 2025 Principal Dx & Hospital Course #1 = Principal Diagnosis (1) Cellulitis of arm, right: Get improving with IV antibiotics. He will continue with Bactrim DS twice daily for 10 days at discharge (2) Bacteremia due to Pseudomonas: Treated with intravenous Zosyn while hospitalized. He will continue oral Bactrim for 10 more days at discharge (3) Atrial fibrillation: Paroxysmal atrial fibrillation is currently rate controlled. He takes Eliquis chronically. (4) AMS (altered mental status): Metabolic encephalopathy present on admission. This has resolved Plan Home today, April 15 Admission HPI Per Admitting Provider Dawit is a 74-year-old male with a past medical history of thalamic CVA, COOPER, GERD presents with altered mental status and fever and was recommended for admission for suspected metabolic encephalopathy with cellulitis. [facility] Fell five days ago with head strike. Had sutures and was dced home. Worsening confusion since that time Febrile, tachycardic, intermittently confused. Was treated for cellulitis at [facility] (R arm) No urgency/frequency Sutures around L orbit intact Seen at the bedside. Fell 5 days ago. Was doing ok. RUE getting red, warm, and tender. Getting worse about 3 days ago. Redness is much worse. He thinks he may have gotten scratched by his cat No night sweats Has not felt feverish, but colds easily No chest pain, no chest pressure Feels a little more winded than normal today. No dyspnea at rest. no pain on deep inspiration. No dysuria No diarrhea/constipation. mild nausea, no abdominal pain. Denies history of PR/CAD, no history of heart failure/CHF Medical History: Reviewed Medications: Reviewed Surgical History: Reviewed Family history: Reviewed Allergies: Reviewed Social History: No tobacco use. Rare ETOH. Code Status: Full Code L eye sutures C/D/I R arm cellulitis R leg with triangle flap, possible devascularization but intact. Mild erythema Discharge Plan Discharge Items Patient Disposition: Home - Self-Care Reason For Visit: CELLULITIS, METABOLIC ENCEPHALOPATHY Discharge Diagnosis: Pseudomonas bacteremia, right upper extremity cellulitis, metabolic encephalopathy Condition on Discharge: Good Activity: Resume your previous activity Non-emergency contact: Primary Care Provider Call non-emergency contact if: your symptoms worsen Follow-up/Referrals: Kailash Bass MD [Primary Care Provider] - Diet: Regular and Heart Healthy Addtl Attending Provider Instructions: Take Bactrim (trimethoprim/sulfamethoxazole) antibiotic twice daily for 10 more days. A prescription has been sent to [facility] in [place]. All other medications remain the same Pending Studies at Discharge: No Stand-Alone Forms: My [facility], Smoking Cessation Medications and DC Order Prescriptions: New sulfamethoxazole-trimethoprim [Bactrim DS] 800-160 mg tablet 1 tab PO BID 10 Days Qty: 20 0RF Continued Eliquis 5 mg tablet 5 mg PO AMHS cephalexin 500 mg capsule 500 mg PO TID 7 Days Qty: 21 0RF atorvastatin 80 mg tablet 80 mg PO QAM ezetimibe 10 mg tablet 10 mg PO QAM cholecalciferol (vitamin D3) [Vitamin D3] 25 mcg (1,000 unit) Tablet 1,000 unit PO QAM amlodipine 5 mg tablet 5 mg PO QAM carvedilol 12.5 mg tablet 12.5 mg PO BID candesartan 4 mg tablet 4 mg PO DAILY ascorbic acid (vitamin C) 1,000 mg Tablet Extended Release 1,000 mg PO QAM cyanocobalamin (vitamin B-12) 1,000 mcg Tablet 1,000 mcg PO QAM pantoprazole 40 mg Tablet,Delayed Release (Dr/Ec) 40 mg PO DAILYBB aspirin 81 mg Tablet,Delayed Release (Dr/Ec) 81 mg PO QAM polyethylene glycol 3350 17 gram/dose Powder 17 g PO Q OTHER DAY Discharge Orders: Discharge Order (Routine); Ordered 04/15/25 Ordered By: Alfonso Sneed Admission Data Admit Date/Time: 04/11/25 22:58 Attending Provider: Alfonso Sneed Admit Provider: Dustin Daigle Primary Care Provider: Kailash Bass Other Providers: Dustin Daigle; Chiquita Chew; Tamra Lazcano; Amy Puckett; Angela Bertrand; Beth Hernandez; Debbi Koch Hospital Stay Data Consultations 04/11/25 22:12 ED Decision to Admit Stat 04/13/25 07:42 Consult Infectious Diseases Routine Diagnostic Imagining Performed 04/11/25 20:41 CT head/brain wo con Stat Pending Results Patient Have Any Pending Studies at Discharge: No Discharge Instructions Given to Patient (Per Discharging Provider) Take Bactrim (trimethoprim/sulfamethoxazole) antibiotic twice daily for 10 more days. [facility] [place]. All other medications remain the same Total Time Total Time Spent Total Time Spent (In Minutes): 50 minutes Coding Level of Care Code 24574 INP/OBS DISCH >30 MIN Diagnoses Cellulitis of arm, right L03.113 Bacteremia due to Pseudomonas R78.81; B96.5 Atrial fibrillation I48.91 AMS (altered mental status) R41.0 Altered mental status type: disorientation
[2025-04-15 12:38] VITALS: BP 98/62; PULSE 95
== END 2025-04-15 14:18 | disposition home or self-care (01) | DRG 602 ==
LOC: ED 20:28 → SUATTDRO 22:58 → 2E 22:58